=== PATIENT | female | born 1950 | race American Indian/Alaskan Native ===

== ENCOUNTER 2016-12-21 01:20 | Emergency (ER) | payer MEDICARE ==
[2016-12-21] MEDS ORDERED: ATIVAN IM ONE (05:15)
[2016-12-21] MEDS ORDERED: ATIVAN ONE (05:27)
[2016-12-21 06:37] LABS: Urine Drugs of Abuse Note Disclamer
[2016-12-21 06:42] LABS: Basophils % (Auto) 0.5 % (0.0-1.8); Eosinophils % (Auto) 0.3 % (0.0-4.3); Hematocrit 40.7 % (30.3-42.9); Hemoglobin 13.6 gm/dl (10.1-14.3); Mean Corpuscular HGB Conc 34 % (30-34); Mean Corpuscular Hemoglobin 31 pg (28-32); Mean Corpuscular Volume 92 fl (79-97); Platelet Count 181 K/mm3 (140-440); Red Blood Count 4.43 M/mm3 (3.65-5.03); Red Cell Distribution Width 14.7 % (13.2-15.2); White Blood Count 8.1 K/mm3 (4.5-11.0)
[2016-12-21 06:48] LABS: Bacteria,Urine 2+ /HPF (Negative); Bilirubin,Urine NEG (Negative); Blood,Urine SM (Negative); Ketones,Urine NEG (Negative); Leukocyte Esterase,Urine LG (Negative); Nitrite,Urine NEG (Negative); Protein,Urine <15 mg/dL mg/dL (Negative); Urobilinogen,Urine < 2.0 mg/dL (<2.0)
[2016-12-21 06:49] LABS: Alanine Aminotransferase 71 units/L (7-56); Albumin/Globulin Ratio 1.1 %; Alkaline Phosphatase 122 units/L (35-129); Anion Gap 24 mmol/L; BUN/Creatinine Ratio 22; Blood Urea Nitrogen 20 mg/dL (7-17); Calcium 9.9 mg/dL (8.4-10.2); Carbon Dioxide 22 mmol/L (22-30); Chloride 98.4 mmol/L (98-107); Glucose 182 mg/dL (65-100); Potassium 3.9 mmol/L (3.6-5.0); Sodium 140 mmol/L (137-145); Total Protein 7.8 g/dL (6.3-8.2)
[2016-12-21] MEDS ORDERED: NORMODYNE IV ONE (07:08)
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
[2016-12-21] MEDS ORDERED: GEODON IM ONE ×2 (09:01→09:05)
[2016-12-21] MEDS ORDERED: ROCEPHIN/NS 1 GM/50 ML 1 GM/50 ML BAG IV ONE (10:36)
[2016-12-21] MEDS ORDERED: MAGNESIUM SULFATE 2GM/50ML 2 GM/50 ML BAG IV ONE (10:36)
[2016-12-21] MEDS ORDERED: NACL 0.9% 250ML 250 ML ONE (11:06)
[2016-12-21] MEDS ORDERED: HALDOL IM ONE (16:33)
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
[2016-12-21] MEDS ORDERED: HALDOL PO SCH (22:00)
[2016-12-22] MEDS ORDERED: BENADRYL IM ONE (04:11)
[2016-12-22] MEDS ORDERED: GEODON IM ONE (04:12)
[2016-12-22] MEDS: HALDOL IM PRN ×2 (09:14→23:00)
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
[2016-12-22] MEDS ORDERED: HALDOL PO SCH (22:00)
[2016-12-23] MEDS ORDERED: BENADRYL IM ONE (03:01)
[2016-12-23] MEDS ORDERED: ATIVAN PO ONE (09:59)
[2016-12-23] MEDS ORDERED: NORMODYNE PO ONE (09:59)
[2016-12-23] MEDS ORDERED: HALDOL PO SCH (10:00)
[2016-12-23] MEDS: HALDOL IM PRN (10:15)
[2016-12-23 10:20] LABS: Alanine Aminotransferase 58 units/L (7-56); Alkaline Phosphatase 106 units/L (35-129)
[2016-12-23] MEDS ORDERED: ATIVAN IV ONE (10:37)
[2016-12-23] MEDS ORDERED: NORMODYNE IV ONE ×2 (10:38→10:43)
[2016-12-23 11:52] VITALS: BP 126/100
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
== END 2016-12-23 11:54 ==
LOC: EEVIPCON 01:20 → ED 01:20
DX: F31.9 Bipolar disorder, unspecified (principal); N39.0 Urinary tract infection, site not specified; E83.42 Hypomagnesemia; I10 Essential (primary) hypertension; E11.9 Type 2 diabetes mellitus without complications
CPT/HCPCS: 36415; 80053; 80307; 81001; 83735; 84075; 84443; 84450; 84460; 85025; 87086; 93005; 93010; 96365; 96367; 96372; 96375; 99285; G0480; J0696; J1200; J1630; J2060; J3475; J3486; J7050; 80320

== ENCOUNTER 2017-04-17 21:57 | Emergency (ER) | payer MEDICARE ==
[2017-04-18] MEDS ORDERED: HALDOL ONE (00:11)
[2017-04-18] MEDS ORDERED: ATIVAN ONE (00:12)
[2017-04-18] MEDS ORDERED: ATIVAN IM ONE ×2 (00:38→01:42)
[2017-04-18] MEDS ORDERED: HALDOL IM ONE (00:38)
[2017-04-18] MEDS ORDERED: BENADRYL ONE (01:31)
[2017-04-18] MEDS ORDERED: BENADRYL IM ONE (01:42)
[2017-04-18] MEDS ORDERED: CATAPRES PO ONE ×2 (07:30→07:46)
[2017-04-18] MEDS ORDERED: NACL 0.9% 500 ML 500 ML IV ONE (07:45)
[2017-04-18] MEDS ORDERED: ATIVAN IV ONE ×5 (07:45→15:53)
[2017-04-18] MEDS ORDERED: GEODON IM ONE (07:46)
[2017-04-18 10:43] LABS: Bacteria,Urine 1+ /HPF (Negative); Bilirubin,Urine NEG (Negative); Blood,Urine NEG (Negative); Color,Urine Yellow (Yellow); Nitrite,Urine NEG (Negative); Protein,Urine <15 mg/dL mg/dL (Negative); Urobilinogen,Urine < 2.0 mg/dL (<2.0)
[2017-04-18 10:50] LABS: Amphetamine Screen,Urine PRESUMPTIVE NEGATIVE; Benzodiazepines Screen,Urine PRESUMPTIVE NEGATIVE; Cannabinoid Screen,Urine PRESUMPTIVE NEGATIVE; Cocaine Screen,Urine PRESUMPTIVE NEGATIVE; Methadone Screen,Urine PRESUMPTIVE NEGATIVE; Opiate Screen,Urine PRESUMPTIVE NEGATIVE
[2017-04-18 12:22] LABS: Basophils # (Auto) 0.1 K/mm3 (0.0-0.1); Basophils % (Auto) 0.8 % (0.0-1.8); Eosinophils # (Auto) 0.1 K/mm3 (0.0-0.4); Hematocrit 40.5 % (30.3-42.9); Hemoglobin 14.1 gm/dl (10.1-14.3); Lymphocytes # (Auto) 2.6 K/mm3 (1.2-5.4); Lymphocytes % (Auto) 36.7 % (13.4-35.0); Mean Corpuscular HGB Conc 35 % (30-34); Mean Corpuscular Hemoglobin 32 pg (28-32); Mean Corpuscular Volume 92 fl (79-97); Monocytes # (Auto) 0.6 K/mm3 (0.0-0.8); Red Blood Count 4.41 M/mm3 (3.65-5.03); Red Cell Distribution Width 13.9 % (13.2-15.2)
[2017-04-18 12:26] LABS: Platelet Count 162 K/mm3 (140-440)
[2017-04-18 12:32] LABS: BUN/Creatinine Ratio 11; Blood Urea Nitrogen 10 mg/dL (7-17); Calcium 9.6 mg/dL (8.4-10.2); Hemolysis Index 65
[2017-04-18] MEDS ORDERED: MAGNESIUM SULFATE 2GM/50ML 2 GM/50 ML BAG IV ONE (12:53)
[2017-04-18] MEDS ORDERED: ROCEPHIN/NS 1 GM/50 ML 1 GM/50 ML BAG IV ONE (12:53)
[2017-04-18 13:10] LABS: INR 0.98 (0.87-1.13)
--- NOTE | 2017-04-18 14:22 | Emergency Department Report ---
ED Psych HPI - General Chief Complaint: Medical Clearance Stated Complaint: MH Time Seen by Provider: 04/18/17 07:27 Source: family Mode of arrival: Ambulatory - History of Present Illness Initial Comments: 67-year-old female with a past medical history of diabetes, hypertension, bipolar disorder and schizophrenia presents to the hospital with a manic episode. Daughter states that patient got up and move the night screaming and couldn't sleep. She tended to take patient to [facility] but no symptoms other region for medical clearance due to elevated blood pressure. Patient is frequent singing, hyperverbal, pacing back and forth upon arrival. She denies pain. Oriented to self. Positive delusions. - Related Data Home Medications Medication Instructions Recorded Confirmed Last Taken Divalproex [Eren Gonzalez] 500 mg PO BID 07/08/15 04/18/17 Unknown Previous Rx's Medication Instructions Recorded Last Taken Type Benztropine [Cogentin] 1 mg PO BID #60 tablet 05/25/15 Unknown Rx OLANzapine [ZyPREXA] 5 mg PO QDAY #30 tablet 05/25/15 Unknown Rx amLODIPine [Norvasc] 5 mg PO DAILY #30 tab 07/08/15 Unknown Rx Amoxicillin/K Clav Tab [Augmentin 1 tab PO Q12HR #20 tab 12/21/16 Unknown Rx 875 mg] Magnesium Oxide 400 mg PO BID #20 tablet 12/21/16 Unknown Rx Allergies Allergy/AdvReac Type Severity Reaction Status Date / Time No Known Allergies Allergy Verified 12/21/16 04:53 ED Review of Systems ROS: Stated complaint: MH Other details as noted in HPI Comment: Unobtainable due to pts medical conditions (limited due to psychosis) ED Past Medical Hx - Past Medical History Hx Hypertension: Yes Hx Diabetes: Yes Hx Psychiatric Treatment: Yes (multiple IP/bipolar) Hx HIV: No Additional medical history: osteoarthritis - Surgical History Additional Surgical History: KENYATTA - Social History Smoking Status: Never Smoker Substance Use Type: None - Medications Home Medications: Home Medications Medication Instructions Recorded Confirmed Last Taken Type Benztropine [Cogentin] 1 mg PO BID #60 tablet 05/25/15 04/18/17 Unknown Rx OLANzapine [ZyPREXA] 5 mg PO QDAY #30 tablet 05/25/15 04/18/[address] Nicko Gonzalez] 500 mg PO BID 07/08/15 04/18/17 Unknown History amLODIPine [Norvasc] 5 mg PO DAILY #30 tab 07/08/15 04/18/17 Unknown Rx Amoxicillin/K Clav Tab [Augmentin 1 tab PO Q12HR #20 tab 12/21/16 04/18/17 Unknown Rx 875 mg] Magnesium Oxide 400 mg PO BID #20 tablet 12/21/16 04/18/17 Unknown Rx ED Physical Exam - General Limitations: No Limitations - Other Other exam information: General: No limitations, patient is alert in no acute distress Head exam: Atraumatic, normocephalic Eyes exam: Normal appearance ENT: Moist mucous membrane, normal oropharynx Neck exam: Normal inspection, full range of motion, no meningismus nontender Respiratory exam: Clear to auscultation bilateral, no wheezes, rales, crackles Cardiovascular: Tachycardic irregular rhythm Abdomen: Soft, nondistended, and nontender, with normal bowel sounds, no rebound, or guarding Extremity: Full range of motion normal inspection no deformity Back: Normal Inspection, full range of motion, no tenderness Neurologic: Alert, oriented x3, cranial nerves intact, no motor or sensory deficit Psychiatric: Alert, hyperverbal, agitated, positive delusions and psychosis Skin: Warm, dry, intact ED Course Vital Signs 04/18/17 04/18/17 04/18/17 00:04 05:39 07:35 Temperature 98.7 F 97.6 F 98.1 F Pulse Rate 141 H 98 H 119 H Respiratory 30 H 18 20 Rate Blood Pressure Blood Pressure 220/136 200/110 195/122 [Left] O2 Sat by Pulse 98 96 98 Oximetry 04/18/17 04/18/17 08:35 10:40 Temperature Pulse Rate 113 H 111 H Respiratory Rate Blood Pressure 195/122 Blood Pressure 154/92 [Left] O2 Sat by Pulse Oximetry ED Medical Decision Making - Lab Data Result diagrams: 04/18/17 Unknown 04/18/17 Unknown Lab Results 04/18/17 04/18/17 04/18/17 Range/Units 05:30 05:30 12:33 WBC (4.5-11.0) K/mm3 RBC (3.65-5.03) M/mm3 Hgb (10.1-14.3) gm/dl Hct (30.3-42.9) % MCV (79-97) fl MCH (28-32) pg MCHC (30-34) % RDW (13.2-15.2) % Plt Count (140-440) K/mm3 Lymph % (Auto) (13.4-35.0) % [place] % (Auto) (0.0-7.3) % Eos % (Auto) (0.0-4.3) % Baso % (Auto) (0.0-1.8) % Lymph # (1.2-5.4) K/mm3 [place] # (0.0-0.8) K/mm3 Eos # (0.0-0.4) K/mm3 Baso # (0.0-0.1) K/mm3 Seg Neutrophils % (40.0-70.0) % Seg Neutrophils # (1.8-7.7) K/mm3 PT 13.5 (12.2-14.9) Sec. INR 0.98 (0.87-1.13) Sodium (137-145) mmol/L Potassium (3.6-5.0) mmol/L Chloride (98-107) mmol/L Carbon Dioxide (22-30) mmol/L Anion Gap mmol/L BUN (7-17) mg/dL Creatinine (0.7-1.2) mg/dL Estimated GFR ml/min BUN/Creatinine Ratio % Glucose (65-100) mg/dL POC Glucose (70-105) Calcium (8.4-10.2) mg/dL Magnesium (1.7-2.3) mg/dL Total Creatine Kinase (30-135) units/L TSH (0.270-4.200) mlU/mL Free T4 (0.76-1.46) ng/dL Urine Color Yellow (Yellow) Urine Turbidity Clear (Clear) Urine pH 6.0 (5.0-7.0) Ur Specific [place] 1.005 (1.003-1.030) Urine Protein <15 mg/dl (Negative) mg/dL Urine Glucose (UA) Neg (Negative) mg/dL Urine Ketones Neg (Negative) mg/dL Urine Blood Neg (Negative) Urine Nitrite Neg (Negative) Urine Bilirubin Neg (Negative) Urine Urobilinogen < 2.0 (<2.0) mg/dL Ur Leukocyte Esterase Lg (Negative) Urine WBC (Auto) 11.0 H (0.0-6.0) /HPF Urine RBC (Auto) 1.0 (0.0-6.0) /HPF U Epithel Cells (Auto) 1.0 (0-13.0) /HPF Urine Bacteria (Auto) 1+ (Negative) /HPF Salicylates (2.8-20.0) mg/dL Urine Opiates Screen Presumptive negative Urine Methadone Screen Presumptive negative Acetaminophen (10.0-30.0) ug/mL Ur Barbiturates Screen Presumptive negative Valproic Acid (50-100) ug/mL Ur Phencyclidine Scrn Presumptive negative Ur Amphetamines Screen Presumptive negative U Benzodiazepines Scrn Presumptive negative Urine Cocaine Screen Presumptive negative U Marijuana (THC) Screen Presumptive negative Drugs of Abuse Note Disclamer Plasma/Serum Alcohol (0-0.07) % 04/18/17 04/18/17 04/18/17 Range/Units 13:41 Unknown Unknown WBC 7.0 (4.5-11.0) K/mm3 RBC 4.41 (3.65-5.03) M/mm3 Hgb 14.1 (10.1-14.3) gm/dl Hct 40.5 (30.3-42.9) % MCV 92 (79-97) fl MCH 32 (28-32) pg MCHC 35 H (30-34) % RDW 13.9 (13.2-15.2) % Plt Count 162 (140-440) K/mm3 Lymph % (Auto) 36.7 H (13.4-35.0) % [place] % (Auto) 8.0 H (0.0-7.3) % Eos % (Auto) 1.0 (0.0-4.3) % Baso % (Auto) 0.8 (0.0-1.8) % Lymph # 2.6 (1.2-5.4) K/mm3 [place] # 0.6 (0.0-0.8) K/mm3 Eos # 0.1 (0.0-0.4) K/mm3 Baso # 0.1 (0.0-0.1) K/mm3 Seg Neutrophils % 53.5 (40.0-70.0) % Seg Neutrophils # 3.7 (1.8-7.7) K/mm3 PT (12.2-14.9) Sec. INR (0.87-1.13) Sodium 142 (137-145) mmol/L Potassium 4.1 (3.6-5.0) mmol/L Chloride 102.1 (98-107) mmol/L Carbon Dioxide 26 (22-30) mmol/L Anion Gap 18 mmol/L BUN 10 (7-17) mg/dL Creatinine 0.9 (0.7-1.2) mg/dL Estimated GFR > 60 ml/min BUN/Creatinine Ratio 11 % Glucose 96 (65-100) mg/dL POC Glucose 188 H (70-105) Calcium 9.6 (8.4-10.2) mg/dL Magnesium 1.60 L (1.7-2.3) mg/dL Total Creatine Kinase (30-135) units/L TSH (0.270-4.200) mlU/mL Free T4 (0.76-1.46) ng/dL Urine Color (Yellow) Urine Turbidity (Clear) Urine pH (5.0-7.0) Ur Specific [place] (1.003-1.030) Urine Protein (Negative) mg/dL Urine Glucose (UA) (Negative) mg/dL Urine Ketones (Negative) mg/dL Urine Blood (Negative) Urine Nitrite (Negative) Urine Bilirubin (Negative) Urine Urobilinogen (<2.0) mg/dL Ur Leukocyte Esterase (Negative) Urine WBC (Auto) (0.0-6.0) /HPF Urine RBC (Auto) (0.0-6.0) /HPF U Epithel Cells (Auto) (0-13.0) /HPF Urine Bacteria (Auto) (Negative) /HPF Salicylates (2.8-20.0) mg/dL Urine Opiates Screen Urine Methadone Screen Acetaminophen (10.0-30.0) ug/mL Ur Barbiturates Screen Valproic Acid (50-100) ug/mL Ur Phencyclidine Scrn Ur Amphetamines Screen U Benzodiazepines Scrn Urine Cocaine Screen U Marijuana (THC) Screen Drugs of Abuse Note Plasma/Serum Alcohol (0-0.07) % 04/18/17 04/18/17 04/18/17 Range/Units Unknown Unknown Unknown WBC (4.5-11.0) K/mm3 RBC (3.65-5.03) M/mm3 Hgb (10.1-14.3) gm/dl Hct (30.3-42.9) % MCV (79-97) fl MCH (28-32) pg MCHC (30-34) % RDW (13.2-15.2) % Plt Count (140-440) K/mm3 Lymph % (Auto) (13.4-35.0) % [place] % (Auto) (0.0-7.3) % Eos % (Auto) (0.0-4.3) % Baso % (Auto) (0.0-1.8) % Lymph # (1.2-5.4) K/mm3 [place] # (0.0-0.8) K/mm3 Eos # (0.0-0.4) K/mm3 Baso # (0.0-0.1) K/mm3 Seg Neutrophils % (40.0-70.0) % Seg Neutrophils # (1.8-7.7) K/mm3 PT (12.2-14.9) Sec. INR (0.87-1.13) Sodium (137-145) mmol/L Potassium (3.6-5.0) mmol/L Chloride (98-107) mmol/L Carbon Dioxide (22-30) mmol/L Anion Gap mmol/L BUN (7-17) mg/dL Creatinine (0.7-1.2) mg/dL Estimated GFR ml/min BUN/Creatinine Ratio % Glucose (65-100) mg/dL POC Glucose (70-105) Calcium (8.4-10.2) mg/dL Magnesium (1.7-2.3) mg/dL Total Creatine Kinase (30-135) units/L TSH (0.270-4.200) mlU/mL Free T4 (0.76-1.46) ng/dL Urine Color (Yellow) Urine Turbidity (Clear) Urine pH (5.0-7.0) Ur Specific [place] (1.003-1.030) Urine Protein (Negative) mg/dL Urine Glucose (UA) (Negative) mg/dL Urine Ketones (Negative) mg/dL Urine Blood (Negative) Urine Nitrite (Negative) Urine Bilirubin (Negative) Urine Urobilinogen (<2.0) mg/dL Ur Leukocyte Esterase (Negative) Urine WBC (Auto) (0.0-6.0) /HPF Urine RBC (Auto) (0.0-6.0) /HPF U Epithel Cells (Auto) (0-13.0) /HPF Urine Bacteria (Auto) (Negative) /HPF Salicylates < 0.3 L (2.8-20.0) mg/dL Urine Opiates Screen Urine Methadone Screen Acetaminophen < 15.0 (10.0-30.0) ug/mL Ur Barbiturates Screen Valproic Acid 64.5 (50-100) ug/mL Ur Phencyclidine Scrn Ur Amphetamines Screen U Benzodiazepines Scrn Urine Cocaine Screen U Marijuana (THC) Screen Drugs of Abuse Note Plasma/Serum Alcohol < 0.01 (0-0.07) % 04/18/17 04/18/17 Range/Units Unknown Unknown WBC (4.5-11.0) K/mm3 RBC (3.65-5.03) M/mm3 Hgb (10.1-14.3) gm/dl Hct (30.3-42.9) % MCV (79-97) fl MCH (28-32) pg MCHC (30-34) % RDW (13.2-15.2) % Plt Count (140-440) K/mm3 Lymph % (Auto) (13.4-35.0) % [place] % (Auto) (0.0-7.3) % Eos % (Auto) (0.0-4.3) % Baso % (Auto) (0.0-1.8) % Lymph # (1.2-5.4) K/mm3 [place] # (0.0-0.8) K/mm3 Eos # (0.0-0.4) K/mm3 Baso # (0.0-0.1) K/mm3 Seg Neutrophils % (40.0-70.0) % Seg Neutrophils # (1.8-7.7) K/mm3 PT (12.2-14.9) Sec. INR (0.87-1.13) Sodium (137-145) mmol/L Potassium (3.6-5.0) mmol/L Chloride (98-107) mmol/L Carbon Dioxide (22-30) mmol/L Anion Gap mmol/L BUN (7-17) mg/dL Creatinine (0.7-1.2) mg/dL Estimated GFR ml/min BUN/Creatinine Ratio % Glucose (65-100) mg/dL POC Glucose (70-105) Calcium (8.4-10.2) mg/dL Magnesium (1.7-2.3) mg/dL Total Creatine Kinase 548 H (30-135) units/L TSH 1.930 (0.270-4.200) mlU/mL Free T4 1.50 H (0.76-1.46) ng/dL Urine Color (Yellow) Urine Turbidity (Clear) Urine pH (5.0-7.0) Ur Specific [place] (1.003-1.030) Urine Protein (Negative) mg/dL Urine Glucose (UA) (Negative) mg/dL Urine Ketones (Negative) mg/dL Urine Blood (Negative) Urine Nitrite (Negative) Urine Bilirubin (Negative) Urine Urobilinogen (<2.0) mg/dL Ur Leukocyte Esterase (Negative) Urine WBC (Auto) (0.0-6.0) /HPF Urine RBC (Auto) (0.0-6.0) /HPF U Epithel Cells (Auto) (0-13.0) /HPF Urine Bacteria (Auto) (Negative) /HPF Salicylates (2.8-20.0) mg/dL Urine Opiates Screen Urine Methadone Screen Acetaminophen (10.0-30.0) ug/mL Ur Barbiturates Screen Valproic Acid (50-100) ug/mL Ur Phencyclidine Scrn Ur Amphetamines Screen U Benzodiazepines Scrn Urine Cocaine Screen U Marijuana (THC) Screen Drugs of Abuse Note Plasma/Serum Alcohol (0-0.07) % - EKG Data -: EKG Interpreted by Me EKG shows normal: sinus rhythm, axis (81), QRS complexes (91), ST-T waves (no stemi) Rate: normal (90) - EKG Data When compared to previous EKG there are: no significant change - Medical Decision Making I suspect the patient has hypertension and tachycardia related to acute psychosis with manic episode. Improving with sedative treatment, blood pressure medication, and antipsychotics. Patient signout Dr. Hughes to follow- up for resolution of tachycardia prior to medical clearance. Patient has been accepted to [facility] pending medical clearance to be transferred to [place] [facility] Patient received Rocephin for UTI and Macrobid will be continued. She received IV magnesium for mild hypomagnesemia and 1 L normal saline Heart rate increased to 90 once patient was calm down after multiple doses of Ativan. - Differential Diagnosis psychosis, schizophrenia, deyanira, dehydration, anemia Critical Care Time: No Critical care attestation.: If time is entered above; I have spent that time in minutes in the direct care of this critically ill patient, excluding procedure time. ED Disposition Clinical Impression: Psychosis, UTI (urinary tract infection), Bipolar disorder, Manic episode, Hypomagnesemia, Medical clearance for psychiatric admission, Hypertension Disposition: DC/TX-65 PSY HOSP/PSY UNIT Is pt being admited?: No Condition: Stable Time of Disposition: 16:33 (awaiting transport)
[2017-04-18] MEDS ORDERED: cefTRIAXone 1 GM in NACL 0.9% 20 ML IV ONE (14:30)
[2017-04-18 15:21] LABS: Free T4 (Free Thyroxine) 1.5 ng/dL (0.76-1.46)
[2017-04-18 19:05] VITALS: BP 138/85
[2017-04-18] MEDS ORDERED: MACROBID PO SCH (22:00)
== END 2017-04-18 21:25 ==
LOC: EEVIPCON 21:57 → ED 21:57
DX: F31.9 Bipolar disorder, unspecified (principal); F30.9 Manic episode, unspecified; F29 Unspecified psychosis not due to a substance or known physiological condition; I10 Essential (primary) hypertension; N39.0 Urinary tract infection, site not specified; E83.42 Hypomagnesemia; E11.9 Type 2 diabetes mellitus without complications; M19.90 Unspecified osteoarthritis, unspecified site
CPT/HCPCS: 36415; 80048; 80164; 80307; 81001; 82550; 82962; 83735; 84439; 84443; 85025; 85610; 87076; 87086; 87186; 93005; 93010; 96361; 96365; 96372; 96375; 96376; 99285; G0480; J0696; J1200; J1630; J2060; J3475; J3486; J7040; 80320

== ENCOUNTER 2017-07-24 06:54 | Inpatient (IN) | payer MEDICARE ==
[2017-07-24] MEDS ORDERED: ATIVAN IM ONE ×2 (07:32→23:51)
--- NOTE | 2017-07-24 07:36 | Emergency Department Report ---
ED Psych HPI - General Chief Complaint: Psych Stated Complaint: MH EVAL Time Seen by Provider: 07/24/17 07:28 Source: EMS Mode of arrival: Wheelchair - History of Present Illness Initial Comments: History of schizophrenia with bipolar was found screaming with worsening for psychosis wandering and screaming brought in for evaluation of altered mental status history of bipolar and schizophrenia patient arrives unable to cooperate for further history, arrives awake and alert and verbal uncooperative w/ exam and queestions but acute psychosis and paranoid delusions -: unknown Associated Psychiatric Symptoms: racing thoughts, auditory hallucinations Improves With: none Worsens With: none Treatments Prior to Arrival: placed on mental he If Self Harm: admits thoughts of - Related Data Home Medications Medication Instructions Recorded Confirmed Last Taken Divalproex [Eren Gonzalez] 500 mg PO BID 07/08/15 05/13/17 05/10/17 09:00 500 Invega 6 mg PO QHS 05/13/17 05/13/17 05/10/17 21:00 6mg Remeron 15 mg PO HS 05/13/17 05/13/17 05/08/17 21:00 15mg Previous Rx's Medication Instructions Recorded Last Taken Type Benztropine [Cogentin] 1 mg PO BID #60 tablet 05/25/15 05/09/17 21:00 Rx 0.5mg amLODIPine [Norvasc] 5 mg PO DAILY #30 tab 07/08/15 05/10/17 Rx 10mg Amoxicillin/K Clav Tab [Augmentin 1 tab PO Q12HR #20 tab 12/21/16 05/12/17 22: 00 Rx 875MG TAB] 875mg Magnesium Oxide 400 mg PO BID #20 tablet 12/21/16 05/10/17 Rx 400mg Haloperidol [Haldol] 15 mg PO QHS #30 tablet 05/14/17 Unknown Rx Allergies Allergy/AdvReac Type Severity Reaction Status Date / Time No Known Allergies Allergy Verified 12/21/16 04:53 ED Review of Systems ROS: Stated complaint: MH EVAL Other details as noted in HPI Comment: Unobtainable due to pts medical conditions ED Past Medical Hx - Past Medical History Previous Medical History?: Yes Hx Hypertension: Yes Hx Diabetes: Yes Hx Psychiatric Treatment: Yes (multiple IP/bipolar) Hx HIV: No Additional medical history: osteoarthritis - Surgical History Past Surgical History?: No Additional Surgical History: KENYATTA - Social History Smoking Status: Unknown if ever smoked - Medications Home Medications: Home Medications Medication Instructions Recorded Confirmed Last Taken Type Benztropine [Cogentin] 1 mg PO BID #60 tablet 05/25/15 05/13/17 05/09/17 21:[address] [Depakote Dr] 500 mg PO BID 07/08/15 05/13/17 05/10/17 09:00 History 500 amLODIPine [Norvasc] 5 mg PO DAILY #30 tab 07/08/15 05/13/17 05/10/17 Rx 10mg Amoxicillin/K Clav Tab [Augmentin 1 tab PO Q12HR #20 tab 12/21/16 05/13/1705/12 22:00 Rx 875MG TAB] 875mg Magnesium Oxide 400 mg PO BID #20 tablet 12/21/16 05/13/17 05/10/17 Rx 400mg Invega 6 mg PO QHS 05/13/17 05/13/17 05/10/17 21:00 History 6mg Remeron 15 mg PO HS 05/13/17 05/13/17 05/08/17 21:00 History 15mg Haloperidol [Haldol] 15 mg PO QHS #30 tablet 05/14/17 Unknown Rx ED Physical Exam - General Limitations: No Limitations General appearance: alert, anxious - Head Head exam: Present: atraumatic, normocephalic - Eye Eye exam: Present: PERRL, EOMI - ENT ENT exam: Present: normal exam, normal orophraynx - Neck Neck exam: Present: normal inspection. Absent: tenderness, meningismus - Respiratory Respiratory exam: Present: normal lung sounds bilaterally. Absent: respiratory distress, wheezes, rales, rhonchi, stridor, chest wall tenderness, accessory muscle use, decreased breath sounds, prolonged expiratory - Cardiovascular Cardiovascular Exam: Present: regular rate, normal rhythm - GI/Abdominal GI/Abdominal exam: Present: soft. Absent: distended, tenderness, guarding, rebound, rigid, mass, pulsatile mass - Extremities Exam Extremities exam: Present: normal inspection, normal capillary refill. Absent: pedal edema, joint swelling, calf tenderness - Back Exam Back exam: Present: normal inspection. Absent: tenderness, CVA tenderness (R) - Neurological Exam Neurological exam: Present: alert, CN II-XII intact. Absent: motor sensory deficit - Psychiatric Psychiatric exam: Present: depressed, agitated, anxious, flat affect, suicidal ideation, other (psychoi=sis) ED Course Vital Signs 07/24/17 07/24/17 07/24/17 07:32 10:30 10:38 Temperature 97.8 F Pulse Rate 124 H 124 H Respiratory 18 18 Rate Blood Pressure 182/111 Blood Pressure 182/111 [Left] O2 Sat by Pulse 99 Oximetry ED Medical Decision Making - Lab Data Result diagrams: 07/24/17 08:04 07/24/17 08:04 - EKG Data -: EKG Interpreted by Me - EKG Data When compared to previous EKG there are: no significant change - Medical Decision Making ct head chornic changes, mild dehydration improved in ed, no rhabdo noted, mild renal insuff and mild decreasing lacitic acid w/ ivf all c/w mild dehdraiotn and med cleared for psych eval, no acute emergent organic dz noted at this time and will neeed psych eval for 10`13 tyler [id number] psychosis Critical care attestation.: If time is entered above; I have spent that time in minutes in the direct care of this critically ill patient, excluding procedure time. ED Disposition Clinical Impression: Psychosis, Bipolar disorder Disposition: DC/TX-65 PSY HOSP/PSY UNIT Is pt being admited?: No Condition: Stable Time of Disposition: 15:47
--- NOTE | 2017-07-24 08:18 | Cat Scan Report ---
CT scan of head without IV contrast: History: Altered mental status. Findings: Ventricles are normal in size and midline in location. No evidence of acute ischemic, hemorrhage or mass. No extra axial fluid collection. Normal brainstem and cerebellum. Normal sinuses and mastoid air cells. Impression: No acute intracranial abnormality.
[2017-07-24 08:45] LABS: Basophils # (Auto) 0.1 K/mm3 (0.0-0.1); Basophils % (Auto) 0.9 % (0.0-1.8); Eosinophils % (Auto) 0.1 % (0.0-4.3); Hematocrit 42.4 % (30.3-42.9); Hemoglobin 14.1 gm/dl (10.1-14.3); Lymphocytes % (Auto) 22.6 % (13.4-35.0); Mean Corpuscular HGB Conc 33 % (30-34); Mean Corpuscular Hemoglobin 32 pg (28-32); Mean Corpuscular Volume 95 fl (79-97); Monocytes # (Auto) 0.9 K/mm3 (0.0-0.8); Monocytes % (Auto) 9.5 % (0.0-7.3); Red Blood Count 4.46 M/mm3 (3.65-5.03); Red Cell Distribution Width 14.6 % (13.2-15.2)
[2017-07-24 08:59] LABS: INR 0.98 (0.87-1.13)
[2017-07-24 09:00] LABS: Partial Thromboplastin Time 23.1 Sec. (24.2-36.6)
[2017-07-24 09:05] LABS: Alanine Aminotransferase 17 units/L (7-56); Albumin 3.9 g/dL (3.9-5); BUN/Creatinine Ratio 18; Blood Urea Nitrogen 24 mg/dL (7-17); Calcium 10.2 mg/dL (8.4-10.2); Hemolysis Index 42
[2017-07-24 09:13] LABS: Platelet Count 184 K/mm3 (140-440)
[2017-07-24] MEDS ORDERED: CATAPRES PO ONE (10:33)
[2017-07-24] MEDS ORDERED: HALDOL ONE (11:19)
[2017-07-24] MEDS ORDERED: BENADRYL IM ONE (11:20)
[2017-07-24] MEDS ORDERED: HALDOL IM ONE ×3 (11:20→23:51)
[2017-07-24 12:11] LABS: Bilirubin,Urine NEG (Negative); Blood,Urine NEG (Negative); Color,Urine Yellow (Yellow); Protein,Urine <15 mg/dL mg/dL (Negative); RBC,Urine < 1.0 /HPF (0.0-6.0); Urobilinogen,Urine < 2.0 mg/dL (<2.0)
[2017-07-24 12:24] LABS: Amphetamine Screen,Urine PRESUMPTIVE NEGATIVE; Benzodiazepines Screen,Urine PRESUMPTIVE NEGATIVE; Cannabinoid Screen,Urine PRESUMPTIVE NEGATIVE; Cocaine Screen,Urine PRESUMPTIVE NEGATIVE; Methadone Screen,Urine PRESUMPTIVE NEGATIVE; Opiate Screen,Urine PRESUMPTIVE NEGATIVE
[2017-07-24] MEDS ORDERED: NACL 0.9% 1000 ML 1,000 ML IV ONE ×2 (12:31→14:54)
[2017-07-24 15:59] LABS: BUN/Creatinine Ratio 22; Blood Urea Nitrogen 20 mg/dL (7-17); Calcium 9.9 mg/dL (8.4-10.2); Hemolysis Index 31
[2017-07-24] MEDS ORDERED: NORVASC PO ONE (22:03)
[2017-07-24] MEDS ORDERED: ZESTRIL PO ONE (22:03)
--- NOTE | 2017-07-25 01:46 | Emergency Department Report ---
Blank Doc - Documentation Documentation: I evaluated Ms. Galvan. She had persistent agitation and pressured speech. She has required chemical and physicial restraints.
[2017-07-25] MEDS ORDERED: DUONEB *Not for PRN Use IH ONE (03:12)
[2017-07-25] MEDS ORDERED: NORMODYNE IV ONE ×2 (06:47→09:56)
[2017-07-25] MEDS ORDERED: ATIVAN IV ONE ×3 (06:49→20:04)
[2017-07-25] MEDS ORDERED: CARDENE 50 MG in NACL 0.9% 250ML 230 ML IV SCH (11:00)
[2017-07-25] MEDS ORDERED: APRESOLINE IV PRN (11:38)
[2017-07-25] MEDS ORDERED: APRESOLINE IV ONE (11:45)
[2017-07-25] MEDS ORDERED: CATAPRES PO ONE (11:45)
[2017-07-25] MEDS ORDERED: ATIVAN IV PRN (11:46)
--- NOTE | 2017-07-25 11:55 | History and Physical Report ---
History of Present Illness Date of examination: 07/25/17 Date of admission: 07/25/17 Chief complaint: Psychotic behavior/wandering on the streets/uncontrolled blood pressures History of present illness: 67-year-old female patient with significant past medical history of bipolar disorder, schizoaffective disorder With multiple inpatient psych hospital admissions in the past, was brought to the emergency room with history of acute psychosis with the screaming and shouting and wandering, Patient was evaluated in the ED noted to have uncontrolled blood pressures. Peak blood pressure of 216/130, with mild improvement on IV antihypertensives to 171/101. Patient is psychotic, has been hallucinating, agitated, on 1013 status Past History Past Medical History: hypertension, other (bipolar disorder, schizophrenia) Past Surgical History: No surgical history Social history: denies: smoking, alcohol abuse, prescription drug abuse Family history: denies: diabetes, hypertension Medications and Allergies Allergies Allergy/AdvReac Type Severity Reaction Status Date / Time No Known Allergies Allergy Verified 12/21/16 04:53 Home Medications Medication Instructions Recorded Confirmed Last Taken Type Benztropine [Cogentin] 1 mg PO BID #60 tablet 05/25/15 05/13/17 05/09/17 21:00 Rx 0.5mg Divalproex [Eren Gonzalez] 500 mg PO BID 07/08/15 05/13/17 05/10/17 09:00 History 500 amLODIPine [Norvasc] 5 mg PO DAILY #30 tab 07/08/15 05/13/17 05/10/17 Rx 10mg Amoxicillin/K Clav Tab [Augmentin 1 tab PO Q12HR #20 tab 12/21/16 05/13/1705/12 22:00 Rx 875MG TAB] 875mg Magnesium Oxide 400 mg PO BID #20 tablet 12/21/16 05/13/17 05/10/17 Rx 400mg Invega 6 mg PO QHS 05/13/17 05/13/17 05/10/17 21:00 History 6mg Remeron 15 mg PO HS 05/13/17 05/13/17 05/08/17 21:00 History 15mg Haloperidol [Haldol] 15 mg PO QHS #30 tablet 05/14/17 Unknown Rx Active Meds: Active Medications Clonidine HCl (Catapres) 0.1 mg PO Q8H ESAU Famotidine (Pepcid) 20 mg PO BID ESAU Hydralazine HCl (Apresoline) 50 mg PO Q8HR ESAU Hydralazine HCl (Apresoline) 10 mg IV Q4HR PRN PRN Reason: Hypertension Nicardipine HCl 50 mg/ Sodium (Chloride) 250 mls @ 25 mls/hr IV TITR ESAU; Protocol Sodium Chloride (Nacl 0.9% 1000 Ml) 1,000 mls @ 75 mls/hr IV DIRECT ESAU Lorazepam (Ativan) 1 mg IV Q4H PRN PRN Reason: Agitation Review of Systems ROS unobtainable: due to mental status Exam - Constitutional Vitals: Temp Pulse Resp BP Pulse Ox 98.2 F 86 18 187/114 99 07/25/17 08:30 07/25/17 08:30 07/25/17 08:30 07/25/17 08:30 07/25/17 08:30 General appearance: Present: mild distress, other (agitated, screaming, restrained for safety) - EENT Eyes: Present: PERRL, EOM intact - Neck Neck: Present: supple, normal ROM - Respiratory Respiratory effort: normal Respiratory: negative: rales, rhonchi, wheezing - Cardiovascular Rhythm: regular Heart Sounds: Present: S1 & S2 - Extremities Extremities: no ischemia, No edema - Abdominal General gastrointestinal: Present: soft, non-tender, non-distended, normal bowel sounds - Integumentary Integumentary: Present: clear, warm - Musculoskeletal Musculoskeletal: strength equal bilaterally - Psychiatric Psychiatric: agitated, other (aggressive and psychotic) - Neurologic Neurologic: moves all extremities Results - Labs CBC & Chem 7: 07/24/17 08:04 07/24/17 15:13 Labs: Abnormal lab results 07/24/17 07/24/17 07/24/17 Range/Units 08:04 11:22 11:55 Carbon Dioxide (22-30) mmol/L BUN (7-17) mg/dL Glucose (65-100) mg/dL POC Glucose (70-105) Lactic Acid 5.00 H* 4.20 H* (0.7-2.0) mmol/L Total Creatine Kinase 349 H (30-135) units/L 07/24/17 07/24/17 07/24/17 Range/Units 13:13 15:13 15:13 Carbon Dioxide 21 L (22-30) mmol/L BUN 20 H (7-17) mg/dL Glucose 140 H (65-100) mg/dL POC Glucose (70-105) Lactic Acid 2.50 H* 2.20 H* (0.7-2.0) mmol/L Total Creatine Kinase (30-135) units/L 07/24/17 07/24/17 Range/Units 16:12 22:03 Carbon Dioxide (22-30) mmol/L BUN (7-17) mg/dL Glucose (65-100) mg/dL POC Glucose 138 H (70-105) Lactic Acid 2.20 H* (0.7-2.0) mmol/L Total Creatine Kinase (30-135) units/L Assessment and Plan --Hypertensive urgency; Management with antihypertensives, hydralazine oral, IV when necessary, clonidine Beta blockers, supportive care --History of bipolar disorder; resume home medications Psych evaluation --Acute psychosis/agitation/aggression/hallucinations 1013 status for patient safety, psych evaluation --Lactic acidosis; unknown significance, closely monitor --Acute kidney injury; vasomotor nephropathy, significantly improved Gentle hydration, monitor renal function, avoid nephrotoxins --DVT prophylaxis; Lovenox --weight reduction specialist Closely monitor the patient and adjust the management as needed Patient may be discharged to inpatient psych facility once medically stable Follow psych evaluation and recommendations
--- NOTE | 2017-07-25 14:47 | Consultation ---
History of Present Illness - Reason for Consult Consult date: 07/25/17 Reason for consult: Initial Psychiatric Evaluation - History of Present Psychiatric Illness Betsey is a 67 year old AAF who presents to the emergency room with psychosis. Patient has a PPHx of Schizoaffective Disorder, Bipolar Type. Patient is known to provider. Patient has an extensive psychiatric history. She has been hospitalized to several inpatient psychiatric facilities. Provider unable to assess patient secondary to agitation. Patient yelling and screaming. She states " They're trying to kill us. All of us." Refusing to speak with provider . Patient does not answer questions appropriately. In the past 2 anti- psychotics have been needed to stabilize patient symptoms. Provider will attempt to reassess at a later time/date. Blood pressure upon arrival 182/111 and pulse 124. Patient not medically cleared. Past Psychiatric History: Schizoaffective Disorder, Bipolar Type (unknown); More than 10 previous inpatient psychiatric hospitalizations; [facility]- previous suicide attempts; [facility]- outpatient psychiatrist History of Trauma/Abuse: Unable to assess. Drug/Alcohol History: Unable to assess. UDS negative. Social History: Unable to Assess. Family History: Unable to Assess. Medications and Allergies Allergies Allergy/AdvReac Type Severity Reaction Status Date / Time No Known Allergies Allergy Verified 12/21/16 04:53 Home Medications Medication Instructions Recorded Confirmed Last Taken Type Benztropine [Cogentin] 1 mg PO BID #60 tablet 05/25/15 05/13/17 05/09/17 21:00 Rx 0.5mg Divalproex [Eren Gonzalez] 500 mg PO BID 07/08/15 05/13/17 05/10/17 09:00 History 500 amLODIPine [Norvasc] 5 mg PO DAILY #30 tab 07/08/15 05/13/17 05/10/17 Rx 10mg Amoxicillin/K Clav Tab [Augmentin 1 tab PO Q12HR #20 tab 12/21/16 05/13/1705/12 22:00 Rx 875MG TAB] 875mg Magnesium Oxide 400 mg PO BID #20 tablet 12/21/16 05/13/17 05/10/17 Rx 400mg Invega 6 mg PO QHS 05/13/17 05/13/17 05/10/17 21:00 History 6mg Remeron 15 mg PO HS 03/09/2305/13/17 05/08/17 21:00 History 15mg Haloperidol [Haldol] 15 mg PO QHS #30 tablet 05/14/17 Unknown Rx Active Meds: Active Medications Clonidine HCl (Catapres) 0.1 mg PO Q8H ESAU Famotidine (Pepcid) 20 mg PO BID ESAU Hydralazine HCl (Apresoline) 50 mg PO Q8HR ESAU Hydralazine HCl (Apresoline) 10 mg IV Q4HR PRN PRN Reason: Hypertension Nicardipine HCl 50 mg/ Sodium (Chloride) 250 mls @ 25 mls/hr IV TITR ESAU; Protocol Sodium Chloride (Nacl 0.9% 1000 Ml) 1,000 mls @ 75 mls/hr IV DIRECT ESAU Lorazepam (Ativan) 1 mg IV Q4H PRN PRN Reason: Agitation Mental Status Exam - Vital signs Last Vital Signs Temp 98.2 F 07/25/17 08:30 Pulse 103 H 07/25/17 14:00 Resp 18 07/25/17 08:30 BP 143/89 07/25/17 14:00 Pulse Ox 98 07/25/17 08:30 - Exam Narrative exam: Mental Status Exam General Appearance: Causally Dressed-hospital gown, 4 point restraints Eye Contact: Poor Orientation: Alert and oriented x 1 ( person) Attitude/Behavior: Uncooperative Sensorium: Distracted Psychomotor & Musculoskeletal Activity: Agitated Mood: Labile, agitated, angry Affect: Inappropriate Speech/Language: Loud Thought Processes: Disorganized Thought Content: Paranoid, grandiose, and hyper-confucianist Perception: Internally preoccupied Concentration/Attention: Poor Suicidal Ideations/Plan: Unable to Assess Homicidal Ideations/Plan: Unable to Assess Results Result Diagrams: 07/24/17 08:04 07/26/17 10:55 Abnormal lab results 07/24/17 07/24/17 07/24/17 Range/Units 15:13 15:13 16:12 Carbon Dioxide 21 L (22-30) mmol/L BUN 20 H (7-17) mg/dL Glucose 140 H (65-100) mg/dL POC Glucose (70-105) Lactic Acid 2.20 H* 2.20 H* (0.7-2.0) mmol/L 07/24/17 Range/Units 22:03 Carbon Dioxide (22-30) mmol/L BUN (7-17) mg/dL Glucose (65-100) mg/dL POC Glucose 138 H (70-105) Lactic Acid (0.7-2.0) mmol/L All other labs normal. Assessment and Plan Assessment and plan: Impression: Patient is a 67 year old AAF who presents to the emergency room with psychosis. PPHx Schizoaffective Disorder, Bipolar Type. Today provider is unable to fully assess patient secondary to agitation and psychosis. Patient blood pressure is 124/65. Urinalysis is negative. DDx: Schizoaffective Disorder, Bipolar Type r/o Bipolar Disorder , manic with psychotic features Recommendations/Plan: 1. Continue 1013 and reassess in 24 hours. 2. Assist with inpatient psychiatric services. 3. Continue psychiatric home medications Haldol and Remeron. 4. Patient educated on the metabolic side effects to medications and possibility of increase depression/suicidal ideations. 5. Will continue to increase Haldol for psychosis. May add a second anti- psychotic for stabilization. 6. Will monitor mood, psychosis, sleep, appetite, blood pressure, compliance, and side effects.
[2017-07-25] MEDS: CATAPRES PO SCH ×2 (16:57→20:35)
[2017-07-25] MEDS: APRESOLINE PO SCH ×2 (16:58→21:05)
[2017-07-25] MEDS ORDERED: APRESOLINE ONE (17:11)
[2017-07-25] MEDS ORDERED: ATIVAN ONE (17:11)
[2017-07-25] MEDS ORDERED: NACL 0.9% 1000 ML 1,000 ML ONE (17:12)
[2017-07-25] MEDS: NACL 0.9% 1000 ML 1,000 ML IV SCH (17:24)
[2017-07-25] MEDS: HALDOL IM PRN (17:24)
[2017-07-25] MEDS: PEPCID PO SCH (21:05)
[2017-07-25] MEDS: REMERON PO SCH (21:06)
[2017-07-25] MEDS: COGENTIN PO SCH (21:06)
[2017-07-25] MEDS: HALDOL PO SCH (21:06)
[2017-07-25] MEDS ORDERED: CATAPRES PO SCH (22:00)
[2017-07-25] MEDS ORDERED: INVEGA 6 MG PO SCH (22:00)
[2017-07-26] MEDS: CATAPRES PO SCH ×3 (06:51→19:51)
[2017-07-26] MEDS: APRESOLINE PO SCH ×3 (06:52→22:05)
--- NOTE | 2017-07-26 08:27 | Progress Note ---
Assessment and Plan Assessment and plan: --Acute psychosis/agitation/aggression/hallucinations; Patient is more calm and quiet today after psych medications 1013 status for patient safety, psych following Continue current psych medications --Hypertensive urgency; on admission Blood pressure is well controlled today, continue current antihypertensives and when necessary medications --History of bipolar disorder; resume home medications Psych evaluation --Lactic acidosis; unknown significance, closely monitor No evidence of sepsis or metabolic acidosis --Acute kidney injury; vasomotor nephropathy, resolved Gentle hydration, monitor renal function, avoid nephrotoxins --DVT prophylaxis; Lovenox --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 and adjust the management as needed Patient may be discharged to inpatient psych facility once medically stable Psych following History Interval history: Patient seen and examined medical records reviewed Patient is very calm and quiet today, sleeping easily awakens No new events reported grave digger at the bedside Vital signs reviewed stable Hospitalist Physical - Constitutional Vitals: Temp Pulse Resp BP Pulse Ox 98.3 F 94 H 20 108/57 98 07/26/17 07:32 07/26/17 07:49 07/26/17 07:32 07/26/17 07:32 07/26/17 07:32 General appearance: Present: no acute distress, obese (morbid obesity), other ( sleeping, easily awakens) - EENT Eyes: Present: PERRL, EOM intact - Neck Neck: Present: supple, normal ROM - Respiratory Respiratory effort: normal Respiratory: bilateral: diminished, negative: rales, rhonchi, wheezing - Cardiovascular Rhythm: regular Heart Sounds: Present: S1 & S2 - Extremities Extremities: no ischemia, No edema - Abdominal General gastrointestinal: soft, non-tender, non-distended, normal bowel sounds - Integumentary Integumentary: Present: clear, warm - Psychiatric Psychiatric: appropriate mood/affect, cooperative - Neurologic Neurologic: moves all extremities Results - Labs CBC & Chem 7: 07/24/17 08:04 07/26/17 10:55 Labs: Laboratory Last Values WBC 9.0 K/mm3 (4.5-11.0) 07/24/17 08:04 RBC 4.46 M/mm3 (3.65-5.03) 07/24/17 08:04 Hgb 14.1 gm/dl (10.1-14.3) 07/24/17 08:04 Hct 42.4 % (30.3-42.9) 07/24/17 08:04 MCV 95 fl (79-97) 07/24/17 08:04 MCH 32 pg (28-32) 07/24/17 08:04 MCHC 33 % (30-34) 07/24/17 08:04 RDW 14.6 % (13.2-15.2) 07/24/17 08:04 Plt Count 184 K/mm3 (140-440) 07/24/17 08:04 Lymph % (Auto) 22.6 % (13.4-35.0) 07/24/17 08:04 [place] % (Auto) 9.5 % (0.0-7.3) H 07/24/17 08:04 Eos % (Auto) 0.1 % (0.0-4.3) 07/24/17 08:04 Baso % (Auto) 0.9 % (0.0-1.8) 07/24/17 08:04 Lymph # 2.0 K/mm3 (1.2-5.4) 07/24/17 08:04 [place] # 0.9 K/mm3 (0.0-0.8) H 07/24/17 08:04 Eos # 0.0 K/mm3 (0.0-0.4) 07/24/17 08:04 Baso # 0.1 K/mm3 (0.0-0.1) 07/24/17 08:04 Seg Neutrophils % 66.9 % (40.0-70.0) 07/24/17 08:04 Seg Neutrophils # 6.0 K/mm3 (1.8-7.7) 07/24/17 08:04 PT 13.5 Sec. (12.2-14.9) 07/24/17 08:04 INR 0.98 (0.87-1.13) 07/24/17 08:04 APTT 23.1 Sec. (24.2-36.6) L 07/24/17 08:04 Sodium 139 mmol/L (137-145) 07/24/17 15:13 Potassium 4.3 mmol/L (3.6-5.0) 07/24/17 15:13 Chloride 101.9 mmol/L (98-107) 07/24/17 15:13 Carbon Dioxide 21 mmol/L (22-30) L 07/24/17 15:13 Anion Gap 20 mmol/L 07/24/17 15:13 BUN 20 mg/dL (7-17) H 07/24/17 15:13 Creatinine 0.9 mg/dL (0.7-1.2) 07/24/17 15:13 Estimated GFR > 60 ml/min 07/24/17 15:13 BUN/Creatinine Ratio 22 % 07/24/17 15:13 Glucose 140 mg/dL (65-100) H 07/24/17 15:13 POC Glucose 138 (70-105) H 07/24/17 22:03 Lactic Acid 2.20 mmol/L (0.7-2.0) H* 07/24/17 16:12 Calcium 9.9 mg/dL (8.4-10.2) 07/24/17 15:13 Total Bilirubin 0.40 mg/dL (0.1-1.2) 07/24/17 08:04 AST 29 units/L (5-40) 07/24/17 08:04 ALT 17 units/L (7-56) 07/24/17 08:04 Alkaline Phosphatase 121 units/L (35-129) 07/24/17 08:04 Total Creatine Kinase 349 units/L (30-135) H 07/24/17 08:04 Troponin T < 0.010 ng/mL (0.00-0.029) 07/24/17 08:04 Total Protein 8.5 g/dL (6.3-8.2) H 07/24/17 08:04 Albumin 3.9 g/dL (3.9-5) 07/24/17 08:04 Albumin/Globulin Ratio 0.8 % 07/24/17 08:04 Urine Color Yellow (Yellow) 07/24/17 11:41 Urine Turbidity Clear (Clear) 07/24/17 11:41 Urine pH 5.0 (5.0-7.0) 07/24/17 11:41 Ur Specific [place] 1.004 (1.003-1.030) 07/24/17 11:41 Urine Protein <15 mg/dl mg/dL (Negative) 07/24/17 11:41 Urine Glucose (UA) Neg mg/dL (Negative) 07/24/17 11:41 Urine Ketones Neg mg/dL (Negative) 07/24/17 11:41 Urine Blood Neg (Negative) 07/24/17 11:41 Urine Nitrite Neg (Negative) 07/24/17 11:41 Urine Bilirubin Neg (Negative) 07/24/17 11:41 Urine Urobilinogen < 2.0 mg/dL (<2.0) 07/24/17 11:41 Ur Leukocyte Esterase Neg (Negative) 07/24/17 11:41 Urine WBC (Auto) 1.0 /HPF (0.0-6.0) 07/24/17 11:41 Urine RBC (Auto) < 1.0 /HPF (0.0-6.0) 07/24/17 11:41 U Epithel Cells (Auto) < 1.0 /HPF (0-13.0) 07/24/17 11:41 Salicylates < 0.3 mg/dL (2.8-20.0) L 07/24/17 08:04 Urine Opiates Screen Presumptive negative 07/24/17 11:41 Urine Methadone Screen Presumptive negative 07/24/17 11:41 Acetaminophen < 5.0 ug/mL (10.0-30.0) L 07/24/17 08:04 Ur Barbiturates Screen Presumptive negative 07/24/17 11:41 Ur Phencyclidine Scrn Presumptive negative 07/24/17 11:41 Ur Amphetamines Screen Presumptive negative 07/24/17 11:41 U Benzodiazepines Scrn Presumptive negative 07/24/17 11:41 Urine Cocaine Screen Presumptive negative 07/24/17 11:41 U Marijuana (THC) Screen Presumptive negative 07/24/17 11:41 Drugs of Abuse Note Disclamer 07/24/17 11:41 Plasma/Serum Alcohol < 0.01 % (0-0.07) 07/24/17 08:04
[2017-07-26] MEDS: COGENTIN PO SCH ×2 (10:38→22:06)
[2017-07-26] MEDS: PEPCID PO SCH ×2 (10:38→22:06)
[2017-07-26] MEDS: NORVASC PO SCH (10:39)
[2017-07-26 11:57] LABS: BUN/Creatinine Ratio 13; Blood Urea Nitrogen 13 mg/dL (7-17); Calcium 8.8 mg/dL (8.4-10.2); Hemolysis Index 15
[2017-07-26] MEDS: HALDOL PO SCH (22:06)
[2017-07-26] MEDS: REMERON PO SCH (22:06)
[2017-07-27] MEDS: APRESOLINE PO SCH ×3 (05:21→21:41)
[2017-07-27] MEDS: CATAPRES PO SCH ×3 (05:21→21:40)
[2017-07-27 09:36] LABS: Lipase 32 units/L (13-60)
[2017-07-27] MEDS: COGENTIN PO SCH (11:18)
[2017-07-27] MEDS: PEPCID PO SCH ×2 (12:02→21:40)
[2017-07-27] MEDS: NORVASC PO SCH (12:02)
--- NOTE | 2017-07-27 12:18 | Progress Note ---
Subjective - Reason for Consult Consult date: 07/27/17 Reason for consult: Psychiatry Follow-up - Chief Complaint Chief complaint: "What do you want" 67 y.o. AA female presenting to the ER for psychotic behavior. This patient is known to me. Today the patient is calm, but disorganized during the assessment. She whispered during the interview. She cannot hold a lucid conversation without being redirecting. Per the sitter, the patient uses the BSC and ate 100 % of her of breakfast today. No gestures of SI/HI's. No indication of side effects of her medications. Mental Status Exam - Vital signs Last Vital Signs Temp 98.1 F 07/27/17 07:35 Pulse 95 H 07/27/17 05: Resp 18 07/27/17 07:35 BP 114/61 07/27/17 07:33 Pulse Ox 99 07/27/17 05:01 - Exam Narrative exam: MSE: Appearance: calm Behavior: regular eye contact Speech: whispers Mood: "okay" Affect: normal Thought Process: disorganized Thought Content: no gestures of SI/HI's Motor Activity: lying in bed Cognition: A/O x 3 Insight: poor Judgment: poor Assessment and Plan Impression: Unspecified Psychosis. Today the patient is calm, but disorganized during the assessment. DDx: Schizophrenia, R/O Bipolar DO, Schizoaffective DO Recommendation/Plan: Continue 1013 with placement to inpatient psy services once medically clear. Continue Depakote 500 mg PO BID for mood, Haldol 15 mg PO HS for psychosis, Haldol 2 mg IM Q6hrs PRN for acute agitation and modified Cogentin to 1 mg PO HS for EPS prevention. The Remeron can help patient sleep. Attempted to discuss suicidality/medication induced deyanira with patient reference Remeron.
--- NOTE | 2017-07-27 19:15 | Progress Note ---
Assessment and Plan Assessment and plan: --Acute psychosis/agitation/aggression/hallucinations; Patient is more calm and quiet today after psych medications 1013 status for patient safety, psych following Continue current psych medications --Hypertensive urgency; on admission Blood pressure is well controlled today, continue current antihypertensives and when necessary medications --History of bipolar disorder; resume home medications Psych evaluation --Lactic acidosis; unknown significance, closely monitor No evidence of sepsis or metabolic acidosis --Acute kidney injury; vasomotor nephropathy, resolved Gentle hydration, monitor renal function, avoid nephrotoxins --DVT prophylaxis; Lovenox --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, for discharge and transfer to inpatient psych facility Discussed with the nurse and case management History Interval history: Patient seen and examined medical records reviewed Patient is severely agitated aggressive, restrained for safety Blood pressures reasonable control Vital signs reviewed Hospitalist Physical - Constitutional Vitals: Temp Pulse Resp BP Pulse Ox 98.4 F 112 H 18 154/92 98 07/27/17 15:42 07/27/17 15:42 07/27/17 15:42 07/27/17 15:42 07/27/17 15:42 General appearance: Present: no acute distress, obese (morbid obesity), other ( sleeping, easily awakens) - EENT Eyes: Present: PERRL, EOM intact - Neck Neck: Present: supple, normal ROM - Respiratory Respiratory effort: normal Respiratory: negative: rales, rhonchi, wheezing - Cardiovascular Rhythm: regular Heart Sounds: Present: S1 & S2 - Extremities Extremities: no ischemia, No edema - Abdominal General gastrointestinal: soft, non-tender, non-distended, normal bowel sounds - Integumentary Integumentary: Present: clear, warm - Psychiatric Psychiatric: agitated, other (psychotic) - Neurologic Neurologic: moves all extremities Results - Labs CBC & Chem 7: 07/24/17 08:04 07/26/17 10:55 Labs: Laboratory Last Values WBC 9.0 K/mm3 (4.5-11.0) 07/24/17 08:04 RBC 4.46 M/mm3 (3.65-5.03) 07/24/17 08:04 Hgb 14.1 gm/dl (10.1-14.3) 07/24/17 08:04 Hct 42.4 % (30.3-42.9) 07/24/17 08:04 MCV 95 fl (79-97) 07/24/17 08:04 MCH 32 pg (28-32) 07/24/17 08:04 MCHC 33 % (30-34) 07/24/17 08:04 RDW 14.6 % (13.2-15.2) 07/24/17 08:04 Plt Count 184 K/mm3 (140-440) 07/24/17 08:04 Lymph % (Auto) 22.6 % (13.4-35.0) 07/24/17 08:04 [place] % (Auto) 9.5 % (0.0-7.3) H 07/24/17 08:04 Eos % (Auto) 0.1 % (0.0-4.3) 07/24/17 08:04 Baso % (Auto) 0.9 % (0.0-1.8) 07/24/17 08:04 Lymph # 2.0 K/mm3 (1.2-5.4) 07/24/17 08:04 [place] # 0.9 K/mm3 (0.0-0.8) H 07/24/17 08:04 Eos # 0.0 K/mm3 (0.0-0.4) 07/24/17 08:04 Baso # 0.1 K/mm3 (0.0-0.1) 07/24/17 08:04 Seg Neutrophils % 66.9 % (40.0-70.0) 07/24/17 08:04 Seg Neutrophils # 6.0 K/mm3 (1.8-7.7) 07/24/17 08:04 PT 13.5 Sec. (12.2-14.9) 07/24/17 08:04 INR 0.98 (0.87-1.13) 07/24/17 08:04 APTT 23.1 Sec. (24.2-36.6) L 07/24/17 08:04 Sodium 139 mmol/L (137-145) 07/26/17 10:55 Potassium 4.2 mmol/L (3.6-5.0) 07/26/17 10:55 Chloride 103.8 mmol/L (98-107) 07/26/17 10:55 Carbon Dioxide 23 mmol/L (22-30) 07/26/17 10:55 Anion Gap 16 mmol/L 07/26/17 10:55 BUN 13 mg/dL (7-17) 07/26/17 10:55 Creatinine 1.0 mg/dL (0.7-1.2) 07/26/17 10:55 Estimated GFR > 60 ml/min 07/26/17 10:55 BUN/Creatinine Ratio 13 % 07/26/17 10:55 Glucose 160 mg/dL (65-100) H 07/26/17 10:55 POC Glucose 138 (70-105) H 07/24/17 22:03 Lactic Acid 1.50 mmol/L (0.7-2.0) 07/27/17 04:46 Calcium 8.8 mg/dL (8.4-10.2) 07/26/17 10:55 Total Bilirubin 0.40 mg/dL (0.1-1.2) 07/24/17 08:04 AST 29 units/L (5-40) 07/24/17 08:04 ALT 17 units/L (7-56) 07/24/17 08:04 Alkaline Phosphatase 121 units/L (35-129) 07/24/17 08:04 Total Creatine Kinase 349 units/L (30-135) H 07/24/17 08:04 Troponin T < 0.010 ng/mL (0.00-0.029) 07/24/17 08:04 Total Protein 8.5 g/dL (6.3-8.2) H 07/24/17 08:04 Albumin 3.9 g/dL (3.9-5) 07/24/17 08:04 Albumin/Globulin Ratio 0.8 % 07/24/17 08:04 Amylase 82 units/L (27-131) 07/27/17 08:26 Lipase 32 units/L (13-60) 07/27/17 08:26 Urine Color Yellow (Yellow) 07/24/17 11:41 Urine Turbidity Clear (Clear) 07/24/17 11:41 Urine pH 5.0 (5.0-7.0) 07/24/17 11:41 Ur Specific [place] 1.004 (1.003-1.030) 07/24/17 11:41 Urine Protein <15 mg/dl mg/dL (Negative) 07/24/17 11:41 Urine Glucose (UA) Neg mg/dL (Negative) 07/24/17 11:41 Urine Ketones Neg mg/dL (Negative) 07/24/17 11:41 Urine Blood Neg (Negative) 07/24/17 11:41 Urine Nitrite Neg (Negative) 07/24/17 11:41 Urine Bilirubin Neg (Negative) 07/24/17 11:41 Urine Urobilinogen < 2.0 mg/dL (<2.0) 07/24/17 11:41 Ur Leukocyte Esterase Neg (Negative) 07/24/17 11:41 Urine WBC (Auto) 1.0 /HPF (0.0-6.0) 07/24/17 11:41 Urine RBC (Auto) < 1.0 /HPF (0.0-6.0) 07/24/17 11:41 U Epithel Cells (Auto) < 1.0 /HPF (0-13.0) 07/24/17 11:41 Salicylates < 0.3 mg/dL (2.8-20.0) L 07/24/17 08:04 Urine Opiates Screen Presumptive negative 07/24/17 11:41 Urine Methadone Screen Presumptive negative 07/24/17 11:41 Acetaminophen < 5.0 ug/mL (10.0-30.0) L 07/24/17 08:04 Ur Barbiturates Screen Presumptive negative 07/24/17 11:41 Valproic Acid 41.6 ug/mL (50-100) L 07/27/17 08:26 Ur Phencyclidine Scrn Presumptive negative 07/24/17 11:41 Ur Amphetamines Screen Presumptive negative 07/24/17 11:41 U Benzodiazepines Scrn Presumptive negative 07/24/17 11:41 Urine Cocaine Screen Presumptive negative 07/24/17 11:41 U Marijuana (THC) Screen Presumptive negative 07/24/17 11:41 Drugs of Abuse Note Disclamer 07/24/17 11:41 Plasma/Serum Alcohol < 0.01 % (0-0.07) 07/24/17 08:04
[2017-07-27] MEDS: REMERON PO SCH (21:41)
[2017-07-27] MEDS: HALDOL PO SCH (21:42)
[2017-07-27] MEDS ORDERED: COGENTIN PO SCH (22:00)
[2017-07-28] MEDS: CATAPRES PO SCH ×2 (03:22→15:07)
[2017-07-28] MEDS: NACL 0.9% 1000 ML 1,000 ML IV SCH ×3 (03:23→15:04)
[2017-07-28] MEDS: APRESOLINE PO SCH ×2 (07:03→15:07)
[2017-07-28] MEDS: PEPCID PO SCH (09:26)
[2017-07-28] MEDS: NORVASC PO SCH (09:27)
[2017-07-28] MEDS: HALDOL IM PRN (11:37)
--- NOTE | 2017-07-28 11:37 | Progress Note ---
Subjective - Reason for Consult Consult date: 07/28/17 Reason for consult: Psychiatry Follow-up - Chief Complaint Chief complaint: "Hello" 67 y.o. AA female presenting to the ER for psychotic behavior. This patient is known to me. Today the patient is calm, but disorganized during the assessment. She had to be redirected several times to keep her on topic. No indications of side effects of her medications. No gesture sof SI/HI's. Mental Status Exam - Vital signs Last Vital Signs Temp 97.5 F L 07/28/17 07:47 Pulse 89 07/28/17 09:27 Resp 20 07/28/17 07:47 BP 164/88 07/28/17 09:27 Pulse Ox 100 07/28/17 10:00 - Exam Narrative exam: MSE: Appearance: calm Behavior: regular eye contact Speech: regular rate and tone Mood: "okay" Affect: normal Thought Process: disorganized Thought Content: no gestures of SI/HI's Motor Activity: lying in bed Cognition: A/O x 3 Insight: poor Judgment: poor Assessment and Plan Impression: Unspecified Psychosis. Today the patient is calm, but still disorganized during the assessment. DDx: Schizophrenia, R/O Bipolar DO, Schizoaffective DO Recommendation/Plan: Continue 1013 with placement pending at [facility]. Continue Depakote 500 mg PO BID for mood, Haldol 15 mg PO HS for psychosis, Haldol 2 mg IM Q6hrs PRN for acute agitation and modified Cogentin to 1 mg PO HS for EPS prevention. The Remeron can help patient sleep. Attempted to discuss suicidality/medication induced deyanira with patient reference Remeron.
--- NOTE | 2017-07-28 16:15 | Discharge Summary ---
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 Hospitalization Condition: Stable Disposition: DC/[facility]-65 PSY HOSP/PSY UNIT Time spent for discharge: 33 min Core Measure Documentation - Palliative Care Palliative Care/ Comfort Measures: Not Applicable - Core Measures Any of the following diagnoses?: none Exam - Constitutional Vitals: Temp Pulse Resp BP Pulse Ox 97.5 F L 114 H 20 163/87 100 07/28/17 07:47 07/28/17 15:07 07/28/17 07:47 07/28/17 15:07 07/28/17 10:00 General appearance: Present: no acute distress, well-nourished, other (agitated and psychotic) - EENT Eyes: Present: PERRL, EOM intact - Neck Neck: Present: supple, normal ROM - Respiratory Respiratory effort: normal Respiratory: bilateral: diminished, negative: rales, rhonchi, wheezing - Cardiovascular Rhythm: regular Heart Sounds: Present: S1 & S2 - Extremities Extremities: no ischemia, No edema - Abdominal General gastrointestinal: Present: soft, non-tender, non-distended, normal bowel sounds - Integumentary Integumentary: Present: clear, warm - Musculoskeletal Musculoskeletal: strength equal bilaterally - Psychiatric Psychiatric: agitated, other (hallucinating and psychotic, 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
[2017-07-28 19:33] VITALS: BP 175/83
== END 2017-07-28 19:50 | DRG 885 ==
LOC: ED 06:54 → 4A 07-25 13:11 → 2B-ACE 07-25 16:01
PROVIDERS: ADMIT Internal Medicine; ATTEND Internal Medicine
DX: F23 Brief psychotic disorder (principal); N17.0 Acute kidney failure with tubular necrosis; E87.2 Acidosis; I16.0 Hypertensive urgency; I10 Essential (primary) hypertension; F25.0 Schizoaffective disorder, bipolar type; E11.9 Type 2 diabetes mellitus without complications; M19.90 Unspecified osteoarthritis, unspecified site
CPT/HCPCS: 36415; 70450; 80048; 80053; 80164; 80307; 80320; 81001; 82140; 82150; 82550; 82962; 83690; 84484; 85025; 85610; 85730; 87086; 96361; 96372; 96374; 96375; 96376; G0480; J0360; J1200; J1630; J2060; J7030; J7050

== ENCOUNTER 2017-10-06 17:02 | Emergency (ER) | payer MEDICARE ==
[2017-10-06] MEDS ORDERED: ATIVAN IM ONE (17:50)
[2017-10-06 19:44] LABS: Basophils # (Auto) 0.1 K/mm3 (0.0-0.1); Basophils % (Auto) 0.9 % (0.0-1.8); Eosinophils # (Auto) 0.1 K/mm3 (0.0-0.4); Eosinophils % (Auto) 0.9 % (0.0-4.3); Hematocrit 38.9 % (30.3-42.9); Hemoglobin 13.1 gm/dl (10.1-14.3); Lymphocytes # (Auto) 2.1 K/mm3 (1.2-5.4); Lymphocytes % (Auto) 30.9 % (13.4-35.0); Mean Corpuscular HGB Conc 34 % (30-34); Mean Corpuscular Hemoglobin 32 pg (28-32); Mean Corpuscular Volume 94 fl (79-97); Monocytes # (Auto) 0.8 K/mm3 (0.0-0.8); Monocytes % (Auto) 11.9 % (0.0-7.3); Platelet Count 245 K/mm3 (140-440); Red Blood Count 4.13 M/mm3 (3.65-5.03); Red Cell Distribution Width 14.9 % (13.2-15.2)
[2017-10-06 19:56] LABS: Calcium 9.8 mg/dL (8.4-10.2)
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
[2017-10-06] MEDS ORDERED: ATIVAN ONE (21:22)
[2017-10-06] MEDS ORDERED: HALDOL ONE (21:22)
[2017-10-07] MEDS ORDERED: HALDOL IM ONE (01:35)
[2017-10-07] MEDS ORDERED: BENADRYL IM PRN (03:44)
[2017-10-07] MEDS ORDERED: CATAPRES ONE (03:44)
[2017-10-07] MEDS ORDERED: ATIVAN IM PRN (03:44)
[2017-10-07] MEDS ORDERED: HALDOL IM PRN (03:44)
[2017-10-07] MEDS ORDERED: BENADRYL ONE (03:44)
[2017-10-07] MEDS ORDERED: CATAPRES PO ONE (03:45)
[2017-10-07 08:08] VITALS: BP 136/78
[2017-10-07 09:22] LABS: Bilirubin,Urine NEG (Negative); Blood,Urine NEG (Negative); Color,Urine Yellow (Yellow); Mucus,Urine FEW /HPF; Protein,Urine <15 mg/dL mg/dL (Negative); Urobilinogen,Urine < 2.0 mg/dL (<2.0)
[2017-10-07 09:29] LABS: Amphetamine Screen,Urine PRESUMPTIVE NEGATIVE; Benzodiazepines Screen,Urine PRESUMPTIVE NEGATIVE; Cannabinoid Screen,Urine PRESUMPTIVE NEGATIVE; Cocaine Screen,Urine PRESUMPTIVE NEGATIVE; Methadone Screen,Urine PRESUMPTIVE NEGATIVE; Opiate Screen,Urine PRESUMPTIVE NEGATIVE
== END 2017-10-07 11:05 ==
LOC: ED 17:02 → EEVIPCON 17:02 → ED 10-07 11:05
DX: F23 Brief psychotic disorder (principal); E86.0 Dehydration; I10 Essential (primary) hypertension; E11.9 Type 2 diabetes mellitus without complications; M19.90 Unspecified osteoarthritis, unspecified site
CPT/HCPCS: 36415; 80048; 80307; 81001; 85025; 96372; 99285; G0480; J1200; J1630; J2060; 80320

== ENCOUNTER 2018-05-02 06:31 | Emergency (ER) | payer MEDICARE ==
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
[2018-05-02 07:47] LABS: Bacteria,Urine 1+ /HPF (Negative); Bilirubin,Urine NEG (Negative); Blood,Urine NEG (Negative); Color,Urine Straw (Yellow); Protein,Urine <15 mg/dL mg/dL (Negative); Urobilinogen,Urine < 2.0 mg/dL (<2.0)
[2018-05-02 07:52] LABS: Basophils # (Auto) 0.1 K/mm3 (0.0-0.1); Eosinophils # (Auto) 0.1 K/mm3 (0.0-0.4); Eosinophils % (Auto) 1.7 % (0.0-4.3); Hematocrit 40.3 % (30.3-42.9); Hemoglobin 13.3 gm/dl (10.1-14.3); Lymphocytes # (Auto) 3.5 K/mm3 (1.2-5.4); Mean Corpuscular HGB Conc 33 % (30-34); Mean Corpuscular Volume 95 fl (79-97); Monocytes # (Auto) 0.4 K/mm3 (0.0-0.8); Monocytes % (Auto) 5.6 % (0.0-7.3); Platelet Count 273 K/mm3 (140-440); Red Blood Count 4.23 M/mm3 (3.65-5.03); Red Cell Distribution Width 14.6 % (13.2-15.2)
[2018-05-02 08:06] LABS: Alanine Aminotransferase 15 units/L (7-56); Albumin 3.8 g/dL (3.9-5); BUN/Creatinine Ratio 13; Blood Urea Nitrogen 13 mg/dL (7-17); Calcium 9.1 mg/dL (8.4-10.2); Hemolysis Index 5
[2018-05-02 08:58] LABS: Amphetamine Screen,Urine PRESUMPTIVE NEGATIVE; Benzodiazepines Screen,Urine PRESUMPTIVE NEGATIVE; Cannabinoid Screen,Urine PRESUMPTIVE NEGATIVE; Cocaine Screen,Urine PRESUMPTIVE NEGATIVE; Methadone Screen,Urine PRESUMPTIVE NEGATIVE; Opiate Screen,Urine PRESUMPTIVE NEGATIVE
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
[2018-05-02] MEDS: COGENTIN PO SCH (21:45)
[2018-05-02] MEDS: HALDOL PO SCH (21:47)
[2018-05-02] MEDS ORDERED: REMERON PO SCH (22:00)
[2018-05-02] MEDS: NORVASC PO SCH (22:12)
[2018-05-03] MEDS: COGENTIN PO SCH (09:45)
[2018-05-03] MEDS: HALDOL PO SCH (09:45)
[2018-05-03] MEDS: NORVASC PO SCH (10:25)
[2018-05-03 10:26] VITALS: BP 161/98
--- NOTE | 2018-05-03 13:00 | Progress Note ---
Subjective - Reason for Consult Consult date: 05/03/18 Reason for consult: Psychiatry Follow-up - Chief Complaint Chief complaint: "I want the services of a doctor" 1 years old female brought to the emergency room via EMS. This patient is known to me. Today the patient is calm, but tangent during the assessment, She is adamant that her family wants to put her in a senior living. She was asked several time to explain what is happening at home, her answers were not logical. Per collateral information from her daughter Kathleen Almodovar at [phone], she stated that her mother called EMS for no reason. She stated that her mother was a patient at [facility] recently for psychosis. Ms Almodovar stated that theres no plan to put her mother in a senior living. She denies that the family is stealing her mother's money. The patient denies SI/HI's and AVH's. No indications of side effects of medications. The patient denies being abused. Mental Status Exam - Vital signs Last Vital Signs Temp 97.7 F 05/03/18 02:00 Pulse 102 H 05/03/18 10:25 Resp 18 05/03/18 02:00 BP 161/98 05/03/18 10:25 Pulse Ox 99 05/03/18 02:00 Assessment and Plan Impression: Unspecified Psychosis. Today the patient is calm, but tangent during the assessment. DDx: Schizoaffective DO, Bipolar DO with psychosis Recommendation/Plan: Initiate 1013 and continue home medications Depakote 500 mg PO BID for mood, Cogentin 1 mg PO BID for EPS prevention, Haldol 5 mg PO BID for psyhcsis, and Remeron 7.5 mg PO HS for insomnia. Attempted to discuss possible suicidality/medication induced deyanira with the patient reference Remeron. Dipo: The patient was referred to inpatient psy services. Will staff with Dr Lisa Vela.
== END 2018-05-03 14:41 ==
LOC: ED 06:31 → EEVIPCON 06:31 → ED 05-03 14:41
DX: F29 Unspecified psychosis not due to a substance or known physiological condition (principal); I10 Essential (primary) hypertension; E11.9 Type 2 diabetes mellitus without complications; F31.9 Bipolar disorder, unspecified; Z79.899 Other long term (current) drug therapy
CPT/HCPCS: 36415; 80053; 80164; 80307; 81001; 82150; 82962; 83690; 84443; 85025; 99284; G0480; 80320

== ENCOUNTER 2018-05-03 11:07 | Inpatient (IN) | payer MEDICARE ==
[2018-05-03] MEDS ORDERED: D50W (25GM) Syringe IV PRN ×2 (13:02→20:52)
--- NOTE | 2018-05-03 15:57 | History and Physical Report ---
GP History & Physical - History of Present Illness Date of admission: 05/03/18 Date of Examination: 05/03/18 Reason for Admission: Impaired reality testing, Failure of Outpatient Treatment, Severe anxiety/depression, Unable to care for self Chief Complaint: hearing voices and un able to sleep for last several days Legal Status: Involuntary Reaction to Hospitalization: Accepting (68 year old AAfemale admitted on 1013 .patient has complaint of difficulty) Physician Certification - Certification Statement Physician Certification Statement: This is an acknowledgement statement that CAREN WALLACE is a 68 year old F who requires inpatient psychiatric admission for treatment which could reasonably be expected to improve the patient's condition for Estimated period of time patient will need to remain in the hospital: [ ] Plan for post-hospital care: [ ]
--- NOTE | 2018-05-03 16:22 | History and Physical Report ---
GP History & Physical - History of Present Illness Date of admission: 05/03/18 Date of Examination: 05/03/18 History of Present Illness: Ms. Samson Galvan is a 68-year-old -[place] female. She was admitted to our [place] psych unit at [facility] on 05/03/2018. Patient was admitted because of complain of auditory hallucination. She has been hearing voices which she describes as " horrified". she is extremely anxious and distressed and she reported to me that she has not been able to sleep in the last several days. Patient is known to us from her several previous hospital admission at [facility]. she also has been hospitalized in many other hospitals. Patient claims that she has been compliant with her anti psychotic medications but I always have question her compliance . patient is originally from [place] and she has been residing here in [place] with her daughter for last several years. Patient has some accent in her speech but all in all she is been able to communicate fairly well ". Patient seems to have decompensated and she appears to be in need of inpatient hospitalization and stabilization. Legal Status: Involuntary Patient Problems: Current Active Problems Schizophrenia (Acute) Reaction to Hospitalization: Accepting Past psychiatric history - Past Medical History Past Medical History: diabetes, hypertension - past Psychiatric treatment and history Psych: Schizophrenia - Social History Social history: lives with family Review of Systems Constitutional: night sweats Physical Examination - Constitutional General appearance: Present: mild distress, well-nourished, obese - Psychiatric Psychiatric: appropriate mood/affect, cooperative Mental Status Exam - Exam Orientation: time, place, person Affect: anxious Mood: congruent with affect, anxious Thought content: delusions, paranoia, thought broadcasting, thought insertion Thought Process: Tangential Perceptions: visual, auditory, hallucinations Speech: normal rate and pattern Concentration: distractible Motor activity: tense Level of consciousness: alert Memory: Intact Sleep Symptoms: Difficulty Falling Asleep, Insomnia, Nightmares, Wakes During Night Interaction: cooperative Assessment and Plan - Psychiatric problem (1) Schizophrenia Current Visit: Yes Status: Acute plan to address problem: Plan for the patient is to admit to the [place] psych unit. We will continue to monitor monitor patient's medications and we will stabilize patient's mood and affect. Physician Certification - Certification Statement Physician Certification Statement: This is an acknowledgement statement that CAREN GALVAN is a 68 year old F who requires inpatient psychiatric admission for treatment which could reasonably be expected to improve the patient's condition for Estimated period of time patient will need to remain in the hospital: [ ] Plan for post-hospital care: [ ]
--- NOTE | 2018-05-03 20:51 | Consultation ---
History of Present Illness - Reason for Consult Consult date: 05/03/18 HTN, DM Requesting physician: CHUCK EDWARDS - History of Present Illness 68 YO Female with HTN, DM, Schizophrenia consult placed form HTN, DM. Pt seen and evaluated upon arrival to her room. Pt found to have Schizophrenia with Auditory hallucinations. Pt sitting in her room, singing and in no acute distress. Pt denies fever, chills, CP,palpitations, NVD, Trauma, or recent ill contacts. No reported nursing events. Pt is cooperative. Past History Past Medical History: diabetes, hypertension Past Surgical History: Other (neck surgery) Social history: single, lives with family. denies: smoking, alcohol abuse, prescription drug abuse Family history: diabetes, hypertension Medications and Allergies Allergies Allergy/AdvReac Type Severity Reaction Status Date / Time No Known Allergies Allergy Verified 10/06/17 17:06 Home Medications Medication Instructions Recorded Confirmed Last Taken Type Benztropine [Cogentin] 1 mg PO BID #60 tablet 05/25/15 07/28/17 05/09/17 21:[address] [Deptonnyte Dr] 500 mg PO BID 07/08/15 07/28/17 05/10/17 09:00 History 500 amLODIPine [Norvasc] 5 mg PO DAILY #30 tab 07/08/15 07/28/17 05/10/17 Rx 10mg Amoxicillin/K Clav Tab [Augmentin 1 tab PO Q12HR #20 tab 12/21/16 07/28/17 05/12/17 22:00 Rx 875MG TAB] 875mg Magnesium Oxide 400 mg PO BID #20 tablet 12/21/16 07/28/17 05/10/17 Rx 400mg Invega 6 mg PO QHS 05/13/17 07/28/17 05/10/17 21:00 History 6mg Remeron 15 mg PO HS 05/13/17 07/28/17 05/08/17 21:00 History 15mg Haloperidol [Haldol] 15 mg PO QHS #30 tablet 05/14/17 07/28/17 Unknown Rx Amoxicillin/K Clav Tab [Augmentin 1 tab PO Q12HR #20 tab 01/25/18 Unknown Rx 875 mg] Ibuprofen [Motrin] 600 mg PO Q8H PRN #20 tablet 01/25/18 Unknown Rx Hyoscyamine Subl [Levsin Sl 0.125 0.125 mg SL Q4HR PRN #20 tablet 02/01/18 Unknown Rx TAB] Ondansetron (Nf) [Zofran TAB] 8 mg PO Q8HR PRN #14 tablet 02/01/18 Unknown Rx Active Meds: Active Medications Amlodipine Besylate (Norvasc) 5 mg PO QDAY ESAU Benztropine Mesylate (Cogentin) 1 mg PO BID ESAU Dextrose (D50w (25gm) Syringe) 50 ml IV PRN PRN PRN Reason: Hypoglycemia Divalproex Sodium (Depakote Dr) 500 mg PO BID ESAU Haloperidol (Haldol) 5 mg PO BID ESAU Lorazepam (Ativan) 1 mg PO Q6H PRN PRN Reason: Anxiety Mirtazapine (Remeron) 7.5 mg PO QHS ESAU Trazodone HCl (Desyrel) 50 mg PO QHS PRN PRN Reason: Sleep Ziprasidone (Geodon) 20 mg PO Q6H PRN PRN Reason: Agitation Review of Systems ROS unobtainable: due to mental status Exam - Constitutional Vitals: Temp Pulse Resp BP Pulse Ox 36.9 F L 103 H 20 154/89 0 L 05/03/18 15:15 05/03/18 15:15 05/03/18 15:15 05/03/18 15:15 05/03/18 15:15 General appearance: Present: no acute distress, well-nourished, obese - EENT Eyes: Present: PERRL ENT: hearing intact, clear oral mucosa - Neck Neck: Present: supple, normal ROM - Respiratory Respiratory effort: normal Respiratory: bilateral: CTA - Cardiovascular Heart Sounds: Present: S1 & S2. Absent: rub, click - Extremities Extremities: pulses symmetrical, No edema Peripheral Pulses: within normal limits - Abdominal General gastrointestinal: Present: soft, non-tender, non-distended, normal bowel sounds Female genitourinary: Present: normal - Integumentary Integumentary: Present: clear, warm, dry - Musculoskeletal Musculoskeletal: gait normal, strength equal bilaterally - Psychiatric Psychiatric: appropriate mood/affect, intact judgment & insight - Neurologic Neurologic: CNII-XII intact, moves all extremities Assessment and Plan - Patient Problems (1) Diabetes Current Visit: Yes Status: Acute Plan to address problem: ADA diet, sliding scale insulin, accu check (2) Hypertension Current Visit: No Status: Chronic Qualifiers: Hypertension type: essential hypertension Qualified Code(s): I10 - Essential (primary) hypertension Plan to address problem: monitor bp q shift, resume prehospital amlodipine, monitor bp q shift,
[2018-05-03] MEDS: MAG-OX PO SCH (21:47)
[2018-05-03] MEDS: COGENTIN PO SCH (21:47)
[2018-05-03] MEDS: HALDOL PO SCH (21:47)
[2018-05-03] MEDS: REMERON PO SCH (21:47)
[2018-05-03] MEDS ORDERED: DESYREL PO SCH (22:00)
[2018-05-03] MEDS: HumaLOG SUB-Q SCH (22:05)
[2018-05-04] MEDS: HumaLOG SUB-Q SCH ×3 (07:06→16:30)
[2018-05-04] MEDS ORDERED: NORVASC PO SCH (10:00)
[2018-05-04] MEDS: HALDOL PO SCH (10:00)
[2018-05-04] MEDS: NORVASC PO SCH (10:00)
[2018-05-04] MEDS: MAG-OX PO SCH ×2 (10:00→22:25)
[2018-05-04] MEDS: COGENTIN PO SCH ×2 (10:00→22:25)
[2018-05-04 12:54] LABS: Basophils # (Auto) 0.1 K/mm3 (0.0-0.1); Basophils % (Auto) 1.3 % (0.0-1.8); Eosinophils # (Auto) 0.2 K/mm3 (0.0-0.4); Hematocrit 35.2 % (30.3-42.9); Hemoglobin 12.1 gm/dl (10.1-14.3); Lymphocytes # (Auto) 2.6 K/mm3 (1.2-5.4); Lymphocytes % (Auto) 35.6 % (13.4-35.0); Mean Corpuscular HGB Conc 34 % (30-34); Mean Corpuscular Volume 93 fl (79-97); Monocytes # (Auto) 0.8 K/mm3 (0.0-0.8); Monocytes % (Auto) 10.7 % (0.0-7.3); Platelet Count 220 K/mm3 (140-440); Red Blood Count 3.77 M/mm3 (3.65-5.03); Red Cell Distribution Width 14.6 % (13.2-15.2)
[2018-05-04 13:11] LABS: BUN/Creatinine Ratio 19; Blood Urea Nitrogen 15 mg/dL (7-17); Calcium 9.3 mg/dL (8.4-10.2); Hemolysis Index 39
--- NOTE | 2018-05-04 17:28 | Progress Note ---
Subjective Date of service: 05/04/18 Principal diagnosis: schizophrenia Subjective Comment: "I need to have fish everyday.......when am I going home." This is the daily progress note on patient's name CAREN WALLACE. Patient seen today with the nursing staff. Patient is in better mood today but she is still very guarded and evasive. She asked me to have the fISH in her diet everyday because she is from [facility]. She was least focused on her psychiatric conditions or diagnosis, As a matter fact she is still delusional and in denial. She told me that she has no diabetes and she has no mental condition. Patient was redirected and reeducated. Patient was also educated about the need for long-term injectable antipsychotic medication in order to improve the compliance .patient reluctantly has agreed to be on long-term injectable medications. Patient has failed so many previous inpatient treatment apparently because of noncompliance and adherence to her psychiatric treatment. Patient was encouraged this time to stay on long-term injectable medication as that would help her to stay healthy and she would not have to be keep coming back to the hospital. Patient apparently has agreed for my treatment recommendations Objective - Criteria for Continued Treatment Criteria for Continued Treatment: Preventing Decomposition, Reducing Isolative Behaviors, Understanding Diagnosis and need for Medication, Improving Treatment / Medication Compliance, Confronting Denial of Illness, Stablizing Level of Functioning, Decreasing Frequency of Hospitalization - Symptoms/Impairments Symptoms/Impairments: delusinal - Mental Status Mental Status: Oriented x 3 - Objective Observation Participation Level: Moderate Reason(s) For Not Participating: ADL's, Meeting Polysomnographic Technologist Assessment and Plan - Patient Problems (1) Schizophrenia Current Visit: Yes Status: Acute
[2018-05-04 19:40] LABS: Bilirubin,Urine NEG (Negative); Blood,Urine NEG (Negative); Color,Urine Straw (Yellow); Protein,Urine <15 mg/dL mg/dL (Negative); Urobilinogen,Urine < 2.0 mg/dL (<2.0)
[2018-05-04] MEDS: REMERON PO SCH (22:28)
[2018-05-05] MEDS: ATIVAN PO PRN ×2 (04:14→21:49)
[2018-05-05] MEDS ORDERED: COGENTIN ONE (07:29)
[2018-05-05] MEDS: HALDOL PO SCH ×2 (09:17→21:48)
[2018-05-05] MEDS: MAG-OX PO SCH ×2 (09:19→21:48)
[2018-05-05] MEDS: NORVASC PO SCH (09:19)
[2018-05-05] MEDS: GEODON PO PRN (09:27)
[2018-05-05] MEDS: COGENTIN PO SCH ×2 (09:30→21:48)
--- NOTE | 2018-05-05 17:51 | Progress Note ---
Subjective Date of service: 05/05/18 Principal diagnosis: schizophrenia Subjective Comment: This is the daily progress note on patient CAREN WALLACE. Patient seen today and case discussed with staff. Patient is cooperative but this morning reportedly she was agitated and needed to Geodon when necessary to help her calm down. After taking the when necessary medication,patient was calmer and was redirectable. Patient is grossly asymptomatic and wondering about the discharge. When asked patient about hallucinations, she answered that she is a child of God and she hears from God "sometimes "" Mental status examination :patient is alert and oriented to month and the year. concentration is fair and memory is grossly intact .judgment and insight is somewhat limited. she is still hallucinations from time to time but she describes that in the sabianist connotation .she denies any suicidal or homicidal ideation she denies any destructive thoughts and she denies side effects from medications Plan :patient will get started on Haldol Decanoate 50 mg IM the first dose today. Medication was started to help improve the compliance as she has a history of noncompliance with the by mouth medications in the past. Risk and benefit of the medication discussed with the patient the patient has agreed to take the injectable medication even though she was "not very happy about it " . patient was reeducated and encouraged to comply with the treatment. Assessment and Plan - Patient Problems (1) Schizophrenia Current Visit: Yes Status: Acute
[2018-05-05] MEDS ORDERED: HALDOL DECANOATE IM ONE (18:00)
[2018-05-05] MEDS: REMERON PO SCH (21:49)
[2018-05-05] MEDS: HumaLOG SUB-Q SCH (21:55)
[2018-05-06] MEDS: HumaLOG SUB-Q SCH ×3 (07:35→21:36)
[2018-05-06] MEDS: GEODON PO PRN (08:56)
[2018-05-06] MEDS: COGENTIN PO SCH ×2 (09:16→21:19)
[2018-05-06] MEDS: HALDOL PO SCH ×2 (09:17→21:17)
[2018-05-06] MEDS: MAG-OX PO SCH ×2 (09:18→21:16)
[2018-05-06] MEDS: NORVASC PO SCH (09:18)
--- NOTE | 2018-05-06 17:29 | Progress Note ---
Subjective Date of service: 05/06/18 Principal diagnosis: schizophrenia Subjective Comment: This is the daily progress note on patient's name Samson Galvan. Patient seen today and case discussed with the staff. Earlier today I have discussed the case with the treatment team and the treatment plan for this patient was discussed in detail. Patient seen today in the hallway. she was walking and she was in good mood. Patient was cooperative but particularly guarded. Patient was grossly asym ptomatic and she denied any active hallucinations. However, as I mentioned the patient is bit guarded and trying not to talk about the thought contents which is delusional in nature but purposely she trying to avoid those conversation. Mental status examination: patient is alert and oriented 3 and concentration is fair. Memory is grossly intact. patient denies any active auditory or visual hallucination. Patient denies any symptoms of depression suicidal or homicidal ideations. Patient's affect is still bit constricted speech is bit pressured and thought contents are still tangential with possibility of some delusional ideations but she is reluctant to talk about it today. Plan: plan for this patient is to continue the medications which she is taking right now. she seems to be stable on those medications. Patient just got started with Haldol decanoate yesterday. We will continue the current treatment. We will monitor patient's progress and we recommend continuation of inpatient hospitalization for next 3-4 days Assessment and Plan - Patient Problems (1) Schizophrenia Current Visit: Yes Status: Acute
[2018-05-06] MEDS: ATIVAN PO PRN (21:18)
[2018-05-06] MEDS: REMERON PO SCH (21:20)
[2018-05-07] MEDS: GEODON PO PRN (08:21)
[2018-05-07] MEDS: NORVASC PO SCH (09:18)
[2018-05-07] MEDS: COGENTIN PO SCH ×2 (09:20→22:04)
[2018-05-07] MEDS: HALDOL PO SCH ×3 (09:20→22:04)
[2018-05-07] MEDS: HumaLOG SUB-Q SCH ×3 (09:24→16:30)
[2018-05-07] MEDS: MAG-OX PO SCH ×2 (09:31→22:06)
--- NOTE | 2018-05-07 17:36 | Progress Note ---
Subjective Date of service: 05/07/18 Principal diagnosis: schizophrenia Subjective Comment: Patient seen today and case discussed with the staff. It is reported by the staff the patient was again agitated this morning and she needed the when necessary Geodon. Patient also later refused to take the insulin even though her blood sugar was 170 mg percent. Patient says that her blood sugar fluctuates and usually it stays under control with diet. She also told me that at one point she was prescribed medications for diabetes and apparently it was metformin and she was taking once a day. Patient is refusing to take any needles and refusing to take sliding scale insulin coverage. Patient was reeducated and urged to comply with treatment. Patient is alert and cooperative. she is oriented 3 concentration is fair to poor. memory is grossly intact judgment and insight is somewhat limited as she often refused to take her required medications but all in all she shows some signs of improvement and she is cooperative. Patient denies any complaint today besides having constipation which reportedly is chronic in case. Mental status examination: patient is alert and oriented 3 she she denies any auditory or visual hallucinations denies any suicidal or homicidal ideation she is tolerating her medications well. She has been compliant with the psychotropic medications for the most part. She denies any destructive thoughts. I will consider putting her back on metformin starting dose is 500 mg once a day to help her control her blood sugar. Patient has agreed to it patient also has asked for the constipation medication for constipation and I have agreed to put her on stool softener Colace and she agreed to patient has been compliant with treatment and recommendation is to continue the current line of treatment. Assessment and Plan - Patient Problems (1) Schizophrenia Current Visit: Yes Status: Acute
[2018-05-07] MEDS: DESYREL PO PRN (22:05)
[2018-05-07] MEDS: COLACE PO SCH (22:05)
[2018-05-07] MEDS: REMERON PO SCH (22:06)
[2018-05-08] MEDS: ATIVAN PO PRN ×2 (03:49→09:58)
[2018-05-08] MEDS: HumaLOG SUB-Q SCH ×5 (06:15→21:20)
[2018-05-08] MEDS: GLUCOPHAGE PO SCH ×2 (08:31→16:39)
[2018-05-08] MEDS ORDERED: COGENTIN ONE (09:27)
[2018-05-08] MEDS: COGENTIN PO SCH ×2 (09:51→21:16)
[2018-05-08] MEDS: NORVASC PO SCH (09:54)
[2018-05-08] MEDS: MAG-OX PO SCH ×2 (09:54→21:16)
[2018-05-08] MEDS: COLACE PO SCH ×2 (10:06→21:16)
[2018-05-08] MEDS: HALDOL PO SCH ×2 (10:09→21:16)
--- NOTE | 2018-05-08 13:34 | Progress Note ---
Subjective Date of service: 05/08/18 Principal diagnosis: schizophrenia Subjective Comment: Patient seen today and case discussed with the staff. It is reported that patient was extremely agitated this morning and she tore up the towel beckham. she also stuffed up her toilet. I saw all the paper towels on the floor in the dining area and I asked the patient who did it. Patient has no recollection of what happened and she acts like she doesn't remember. She denies doing that and she denies any symptoms. However, vision she seems angry, paranoid and very guarded . She refused to give me any further information. Mental status examination :patient is alert and oriented 3. concentration is fair memory is grossly intact. Judgment and insight is very limited as she is doesn't show much insight into her behavior. Patient seems angry and irritable and dysphoric but she denies any auditory or visual hallucination and denies any suicidal or homicidal ideation. She denies side effects from medications. Plan :it seems that patient's behavior gets escalated almost every morning and she requires when necessary Geodon and sometimes Ativan almost every morning. This morning she was more agitated than usual but she would not tell us that "bothersome". It appears that patient still have terrible mood swings and psychotic episodes .it is also reported by the staff the patient is excessively religiously preoccupied and sometimes she refused to take the medications and says that "Kd has healed her " .patient was redirected and reeducated and I have discussed the case with the staff and recommendations Patient will continue her current medication but I will also consider restarting Depakote and we'll monitor the Depakote blood level .patient seems to be in need of continue to monitored on her medications and it sounds like the patient will require the need of continues inpatient hospitalization and stabilization on medication . Assessment and Plan - Patient Problems (1) Schizophrenia Current Visit: Yes Status: Acute
[2018-05-08] MEDS: REMERON PO SCH (21:16)
[2018-05-08] MEDS: DESYREL PO PRN (21:17)
[2018-05-08] MEDS: IBUPROFEN PO PRN (21:17)
--- NOTE | 2018-05-08 21:37 | Event Note ---
Date: 05/08/18 S/p fall L knee pain Xray l knee ordered Progress note to follow
[2018-05-09] MEDS: HumaLOG SUB-Q SCH ×4 (07:14→22:20)
[2018-05-09] MEDS: ATIVAN PO PRN (07:48)
[2018-05-09] MEDS: GLUCOPHAGE PO SCH ×2 (07:48→16:46)
[2018-05-09] MEDS: COLACE PO SCH ×2 (09:08→21:28)
[2018-05-09] MEDS: MAG-OX PO SCH ×2 (09:09→21:28)
[2018-05-09] MEDS: COGENTIN PO SCH ×2 (09:10→21:29)
[2018-05-09] MEDS: HALDOL PO SCH ×2 (09:10→21:28)
[2018-05-09] MEDS: IBUPROFEN PO PRN (09:36)
--- NOTE | 2018-05-09 12:18 | Progress Note ---
Subjective Date of service: 05/09/18 Principal diagnosis: schizophrenia Subjective Comment: This is the progress note on patient's name Samson Galvan. It is reported that patient has earlier complain of the left leg pain mostly on the knee joint and hip joint area. Patient was seen walking with very mild limping and she has very mild pain. She says that she had a fall the other day when when she was trying to get off the bed but apparently it it was not noticed and she did not inform any nurses. later she complains of mild pain. Other than that patient is grossly asymptomatic however she needed her when necessary Ativan again this. Mental status examination patient is alert and oriented 3 concentration is fair. Memory is grossly intact. Judgment and insight is fair to limited. Patient is talking about going home and having a republican with her daughters. She sews shows little insight into her situation and to her treatment here. She denies any active auditory or visual hallucination. She denies any suicidal or homicidal ideations. Patient is still paranoid with some tangential thought pattern but all in all she is easy to be redirected. The we have recommended Motrin when necessary to help patients with the pain. We have also put on a medical consult to be seen by the meat team lead for the left hand and the status post fall Recommendations: we will recommend to continue the current inpatient treatment .continue to stabilize patient's on medications and to follow-up on the medical consult thank you. Assessment and Plan - Patient Problems (1) Schizophrenia Current Visit: Yes Status: Acute
[2018-05-09] MEDS: NORVASC PO SCH (13:03)
--- NOTE | 2018-05-09 18:16 | XRay Report ---
PROCEDURE: XR KNEE BILAT 1-2V TECHNIQUE: Frontal and lateral views of both knees. HISTORY: Velasquez knee pain COMPARISONS: None FINDINGS: RIGHT KNEE: There is degenerative change of the tibiofemoral and patellofemoral joints with joint space loss and osteophyte formation. There is no evidence of fracture or subluxation. The soft tissues are unremarkable. LEFT KNEE: There is degenerative change of the tibiofemoral and patellofemoral joints with joint space loss and osteophyte formation. There is no evidence of fracture or subluxation. There appears to be an effusion in the suprapatellar pouch. IMPRESSION: 1. Degenerative change of the tibiofemoral and patellofemoral joints bilaterally with the appearance of an effusion in the suprapatellar pouch on the left. This document is electronically signed by Carol New MD., May 09 2018 06:14:02 PM ET
[2018-05-09] MEDS: REMERON PO SCH (21:29)
--- NOTE | 2018-05-10 05:45 | Event Note ---
Date: 05/09/18 Patient reevaluated S/p fall Some tenderness on L knee laterally Knee xrays reviewed IMPRESSION: 1. Degenerative change of the tibiofemoral and patellofemoral joints bilaterally with the appearance of an effusion in the suprapatellar pouch on the left. L knee effusion NSAIDS for now Meloxicam 7.5 mg po qd for 7 days
[2018-05-10] MEDS: HumaLOG SUB-Q SCH ×2 (07:35→22:33)
[2018-05-10] MEDS: GLUCOPHAGE PO SCH ×2 (09:20→16:51)
[2018-05-10] MEDS: COGENTIN PO SCH ×2 (09:21→22:34)
[2018-05-10] MEDS: NORVASC PO SCH (09:21)
[2018-05-10] MEDS: COLACE PO SCH ×2 (09:21→22:34)
[2018-05-10] MEDS: MAG-OX PO SCH ×2 (09:23→22:34)
[2018-05-10] MEDS: MOBIC PO SCH (09:23)
[2018-05-10] MEDS: HALDOL PO SCH ×2 (09:27→22:44)
--- NOTE | 2018-05-10 16:29 | Progress Note ---
Subjective Date of service: 05/10/18 Principal diagnosis: schizophrenia Subjective Comment: Patient seen today and case discussed with the staff. It is reported that patient has been running high blood pressure and at one point her blood pressure was 198/70. I met with the patient and briefly interviewed her. Patient denies being under stress however, she was somewhat irritable and guarded. Her daughter and granddaughter came to visit her and I spoke to both of them. Patient is grossly asymptomatic. She denies any chest pain or shortness of breath. Patient has a history of fluctuating blood pressure. Patient has been compliant with her blood pressure medications. Patient is alert and oriented 3. Concentration is fair. Memory is grossly intact. Judgment and insight is still somewhat limited. At times patient still seems to be very much dysphoric irritable and labile. She would not tell me what stressors she has today. She denies any active auditory or visual hallucination. She denies any destructive thoughts. Plan: we will recommend medical consultation for the fluctuating blood pressure on this patient. I will also recommend to and 2. Clonidine 0.1 mg every 6 hours when necessary just to help her with high blood pressure. Patient has been compliant with all her other medications and we will continue her current treatment. I have discussed this case with the treatment team in detail today and I also have discussed the patient's prognosis with the patient's family. Assessment and Plan - Patient Problems (1) Schizophrenia Current Visit: Yes Status: Acute
[2018-05-10] MEDS: CATAPRES PO PRN (20:36)
[2018-05-10] MEDS ORDERED: LEVSIN SL SL PRN (22:21)
[2018-05-10] MEDS ORDERED: NON-FORMULARY (Ondansetron (Nf) 8 MG) PO PRN (22:21)
[2018-05-10] MEDS ORDERED: IBUPROFEN PO PRN (22:21)
[2018-05-10] MEDS: DESYREL PO PRN (22:34)
[2018-05-10] MEDS: REMERON PO SCH (22:35)
--- NOTE | 2018-05-10 22:35 | Progress Note ---
Assessment and Plan - Patient Problems (1) HTN (hypertension) Current Visit: Yes Status: Chronic Qualifiers: Hypertension type: essential hypertension Qualified Code(s): I10 - Essential (primary) hypertension Plan to address problem: AMlodipine and Losartan 100 mg po qd ordered (2) T2DM (type 2 diabetes mellitus) Current Visit: Yes Status: Chronic Qualifiers: Diabetes mellitus correction insulin use: without correction use Plan to address problem: Cont coverage and Metformin. Check HbA1c (3) Knee effusion, left Current Visit: Yes Status: Acute Plan to address problem: left knee effusion after fall patient initiated on Meloxicam 7.5 mg po qd (4) DVT prophylaxis Current Visit: Yes Status: Acute Plan to address problem: on Lovenox and GI prophylaxis Subjective Date of service: 05/10/18 Principal diagnosis: schizophrenia Interval history: Ms. Samson Galvan is a 68-year-old -[place] female admitted to [place] psych unit at [facility] on 05/03/2018. Patient was admitted because of complain of auditory hallucinations. She has been hearing voices which she describes as " horrified". she is extremely anxious and distressed and she reported to me that she has not been able to sleep in the last several days. Patient has several previous hospital admissions at [facility] and also has been hospitalized in many other hospitals. Patient claims that she has been compliant with her anti psychotic medications which is doubtful. Objective - Constitutional Vitals: Vital Signs - 12hr 05/10/18 05/10/18 05/10/18 15:28 15:32 15:59 Temperature 97.7 F Pulse Rate 112 H 114 H Respiratory 18 Rate Blood Pressure 174/92 198/96 159/76 O2 Sat by Pulse 100 96 Oximetry 05/10/18 20:36 Temperature Pulse Rate 89 Respiratory Rate Blood Pressure 186/73 O2 Sat by Pulse Oximetry General appearance: Present: no acute distress, well-nourished - EENT Eyes: PERRL, EOM intact ENT: hearing intact, clear oral mucosa Ears: bilateral: normal - Neck Neck: supple, normal ROM - Respiratory Respiratory effort: normal Respiratory: bilateral: CTA - Breasts Breasts: normal - Cardiovascular Heart rate: 78 Rhythm: regular Heart Sounds: Present: S1 & S2. Absent: gallop, rub Extremities: no ischemia, pulses intact, No edema, normal color, Full ROM Extremity abnormal: other (L knee swelling present) - Gastrointestinal General gastrointestinal: Present: soft, non-tender, non-distended, normal bowel sounds Rectal Exam: deferred - Genitourinary Female genitourinary: normal - Integumentary Integumentary: clear, warm, dry - Musculoskeletal Musculoskeletal: 1, strength equal bilaterally - Neurologic Neurologic: moves all extremities - Psychiatric Psychiatric: memory intact, appropriate mood/affect, intact judgment & insight - Labs CBC & Chem 7: 05/04/18 12:31 05/04/18 12:31 Labs: Abnormal lab results 05/10/18 Range/Units 16:15 POC Glucose 110 H (70-105)
[2018-05-10] MEDS ORDERED: ZOFRAN ODT PO PRN (22:45)
[2018-05-11] MEDS: GLUCOPHAGE PO SCH ×2 (08:00→17:39)
[2018-05-11] MEDS: HumaLOG SUB-Q SCH ×4 (09:43→21:44)
[2018-05-11] MEDS: MAG-OX PO SCH ×2 (09:48→21:18)
[2018-05-11] MEDS: COGENTIN PO SCH ×2 (09:48→21:17)
[2018-05-11] MEDS: MOBIC PO SCH (09:49)
[2018-05-11] MEDS: COLACE PO SCH ×2 (09:49→21:17)
[2018-05-11] MEDS: HALDOL PO SCH ×2 (09:49→21:18)
[2018-05-11] MEDS: NORVASC PO SCH (09:56)
[2018-05-11] MEDS: COZAAR PO SCH (09:56)
--- NOTE | 2018-05-11 17:55 | Progress Note ---
Subjective Date of service: 05/11/18 Principal diagnosis: schizophrenia Subjective Comment: This is the daily progress note patient's name CAREN WALLACE. Patient seen today and case discussed with staff. It is reported by the staff that patient has been bit more confused and is "slow to move "" when I approached the patient she had some difficulty speaking but later in a few minutes she started talking and she was quite hyperverbal. Patient was complaining about bizarre somatic stuff like" I'm good from outside but I need to be checked from insight. "" Patient denies any active symptoms. she denies any pain she denies any active auditory or visual hallucination and she denies any destructive thoughts. Patient is alert and oriented 3 concentration is fair. Memory is grossly intact. Judgment and insight seems to be limited. Thought process and thinking is still somewhat distorted and she needs to be redirected. She still has some paranoid and delusional ideation but she is very guarded and focused on discharge. She denies active auditory or visual hallucination. Denies any suicidal or homicidal ideation. Plan for the patient is to continue the current medication patient denies any stiffness or tightening of her muscles. She denied any difficulties with a walking except that she was diagnosed with Arthritis and an x-ray shows mild arthritic changes in her joint and apparently she has difficulty walking because of it. she denies any extrapyramedal symptoms. At time I have seen her having some buccolingual movement but there is no sticking out of tongue and there is no other obvious and sign of tardive dyskinesia. Patient was reassured and medication adjustment discussed with her. Assessment and Plan - Patient Problems (1) Schizophrenia Current Visit: Yes Status: Acute
[2018-05-11] MEDS: REMERON PO SCH (21:17)
[2018-05-11] MEDS: DESYREL PO PRN (21:17)
[2018-05-11] MEDS ORDERED: REMERON 15 MG PO SCH (22:00)
[2018-05-12] MEDS: COLACE PO SCH ×2 (09:25→21:37)
[2018-05-12] MEDS: GLUCOPHAGE PO SCH ×2 (09:25→17:28)
[2018-05-12] MEDS: COGENTIN PO SCH ×2 (09:25→21:36)
[2018-05-12] MEDS: HALDOL PO SCH ×2 (09:26→21:37)
[2018-05-12] MEDS: COZAAR PO SCH (09:26)
[2018-05-12] MEDS: MOBIC PO SCH (09:27)
[2018-05-12] MEDS: NORVASC PO SCH (09:28)
[2018-05-12] MEDS: MAG-OX PO SCH ×2 (09:28→21:37)
[2018-05-12] MEDS: HumaLOG SUB-Q SCH ×4 (13:12→21:38)
--- NOTE | 2018-05-12 17:08 | Progress Note ---
Subjective Date of service: 05/12/18 Principal diagnosis: schizophrenia Subjective Comment: This is the daily progress note on this patient. Patient seen today and case discussed with the staff. Patient was seen walking in the hallway but she was s having some difficulties walking. When asked she denies having any difficulties she just says that she "walks slow" patient is otherwise grossly asymptomatic one other thing I noticed today is that patient have some thought blocking and she stares at you for several seconds to minutes before she answers. I asked her if anything bothers her or history of difficulties in her thinking but she denies it. She denies any hallucinations and denies any destructive thoughts. Also note is that patient has some difficulties with the date she could not recall the exact date and after giving her some point she was able to recall but only the month and the year she could not recall the exact date. It appears that patient's memory and cognitive functioning is is declining some even though it's not at the level of dementia. Patient is otherwise alert and oriented to person and month and the year she thought that she is at [facility] and I had to remind her that she is not an [facility]. Patient denies any side effects from medications even though at times she symptoms somewhat slow and lethargic but that could be from her arthritis that she has some difficulties walking. Mental status examination: patient is alert and oriented to place and person .she denies auditory or visual hallucination. Denies suicidal or homicidal ideation. Denies any side effects from medication. Denies any destructive thoughts. Plan: plan for the patient is to continue the current regimen and continue with the current observation and we are planning to have a discharge scheduled for tomorrow. patient has agreed to it and we will make her discharge paperwork ready for her. I also have discussed adding Aricept to help her with her memory issue .risk and benefit of the medication discussed with the patient and she has agreed to take the medicine. Assessment and Plan - Patient Problems (1) Schizophrenia Current Visit: Yes Status: Acute
[2018-05-12] MEDS: ARICEPT PO SCH (21:36)
[2018-05-12] MEDS: REMERON PO SCH (21:37)
[2018-05-12] MEDS: CATAPRES PO PRN (22:16)
[2018-05-13] MEDS: HumaLOG SUB-Q SCH ×4 (07:38→21:32)
[2018-05-13] MEDS: GLUCOPHAGE PO SCH ×2 (08:40→18:49)
[2018-05-13] MEDS: NORVASC PO SCH (10:23)
[2018-05-13] MEDS: COLACE PO SCH ×2 (10:23→21:28)
[2018-05-13] MEDS: MAG-OX PO SCH ×2 (10:24→21:30)
[2018-05-13] MEDS: HALDOL PO SCH ×2 (10:24→21:30)
[2018-05-13] MEDS: MOBIC PO SCH (10:24)
[2018-05-13] MEDS: COGENTIN PO SCH ×2 (10:35→21:28)
[2018-05-13] MEDS: COZAAR PO SCH (10:36)
[2018-05-13] MEDS ORDERED: COGENTIN ONE (10:36)
--- NOTE | 2018-05-13 17:00 | Progress Note ---
Subjective Date of service: 05/13/18 Principal diagnosis: schizophrenia Subjective Comment: Patient seen today and case discussed with staff. It is reported by the staff and I also noticed that patient has slow mentation. She is slow to respond and her speech was somewhat delayed. I asked the patient how she feels and she admits that she feels "slow" however, she denies feeling stiff denies any tightening of the muscles. I checked also for carpal rigidity she doesn't have any cogwheel rigidity on her hands . Patient denies any side effects from the medications and she says that she just feels "little tired" Mental status examination: patient is alert and was able to tell me the month and the year. She could not tell me the exact date. She denies any active auditory or visual hallucination. She denies any depression or suicidal thoughts. She denies any side effects from medication. Patient knew that she was scheduled for discharge today but patient was reeducated that because of her sluggishness, I need to make some changes on her medications. I have discussed the case. we agreed to cut down the dose of Depakote to 500 mg twice a day and I will also recommend to discontinue the Geodon when necessary patient was educated about the medication changes and she agreed to a plan. plan for the patient is to continue the observations, decreased the dose of Depakote from 500 mg 3 times a day to 500 mg twice a day.If patient continued to show signs of improvement will make the discharge for this patient's tomorrow .thank you Assessment and Plan - Patient Problems (1) Schizophrenia Current Visit: Yes Status: Acute
[2018-05-13] MEDS: ARICEPT PO SCH (21:27)
[2018-05-13] MEDS: REMERON PO SCH (21:30)
[2018-05-14] MEDS: HumaLOG SUB-Q SCH ×3 (07:25→16:35)
[2018-05-14] MEDS: COZAAR PO SCH (09:30)
[2018-05-14] MEDS: HALDOL PO SCH (09:32)
[2018-05-14] MEDS: GLUCOPHAGE PO SCH ×2 (10:06→16:56)
[2018-05-14] MEDS: MOBIC PO SCH (10:07)
[2018-05-14] MEDS: COLACE PO SCH (10:07)
[2018-05-14] MEDS: MAG-OX PO SCH (10:07)
[2018-05-14] MEDS: COGENTIN PO SCH (10:07)
[2018-05-14] MEDS: NORVASC PO SCH (10:08)
--- NOTE | 2018-05-14 10:42 | Progress Note ---
Assessment and Plan Assessment and plan: Ms. Samson Galvan is a 68-year-old -[place] female admitted to [place] psych unit at [facility] on 05/03/2018. Patient was admitted because of complain of auditory hallucinations. Nearing the end of her treatment the patients medications depakote was adjusted with plan for di john, the patient the next day became non verbal with slowed gait and was noted to have bilateral upper ext edeam B/L upper ext wrist Edema vs fat. Non pitting Encephalopathy ?EPS Schizophrenia HTN Plan CT head Echo BNP EPS management per Psych Doubt seizures but monitor closely. Change to Low salt diet. Thank you for allowing us take part in the care of your patient. will follow with you as the results become available. History Interval history: Called to re-evaluate patient due to bilateral upper ext edema and change in mental status Patient seen and examined. she does not verbalize any answers but acknowledges by tracking my movements. Nursing staff reported that this is a change in her mental status as she is always very lively. Also there is a noted bilateral upper ext swelling located to the wrist. Hospitalist Physical - Physical exam Narrative exam: General appearance: Present: no acute distress, well-nourished - EENT Eyes: PERRL, EOM intact ENT: hearing intact, clear oral mucosa Ears: bilateral: normal - Neck Neck: supple, normal ROM - Respiratory Respiratory effort: normal Respiratory: bilateral: CTA - Breasts Breasts: normal - Cardiovascular Heart rate: 78 Rhythm: regular Heart Sounds: Present: S1 & S2. Absent: gallop, rub Extremities: no ischemia, pulses intact, No edema, normal color, Full ROM Extremity abnormal: mild swelling at the bilateral wrist but no edema and non tender. - Gastrointestinal General gastrointestinal: Present: soft, non-tender, non-distended, normal bowel sounds Rectal Exam: deferred - Genitourinary Female genitourinary: normal - Integumentary Integumentary: clear, warm, dry - Musculoskeletal Musculoskeletal: 1, strength equal bilaterally - Neurologic Neurologic: moves all extremities - Psychiatric Psychiatric:flat affect - Constitutional Vitals: Temp Pulse Resp BP Pulse Ox 98.2 F 100 H 18 147/66 99 05/13/18 10:06 05/14/18 10:08 05/13/18 10:06 05/14/18 10:08 05/13/18 10:08 General appearance: Present: no acute distress, well-nourished Results - Labs CBC & Chem 7: 05/04/18 12:31 05/04/18 12:31 Labs: Laboratory Last Values WBC 7.3 K/mm3 (4.5-11.0) 05/04/18 12:31 RBC 3.77 M/mm3 (3.65-5.03) 05/04/18 12:31 Hgb 12.1 gm/dl (10.1-14.3) 05/04/18 12:31 Hct 35.2 % (30.3-42.9) 05/04/18 12:31 MCV 93 fl (79-97) 05/04/18 12: MCH 32 pg (28-32) 05/04/18 12:31 MCHC 34 % (30-34) 05/04/18 12:31 RDW 14.6 % (13.2-15.2) 05/04/18 12:31 Plt Count 220 K/mm3 (140-440) 05/04/18 12:31 Lymph % (Auto) 35.6 % (13.4-35.0) H 05/04/18 12:31 [place] % (Auto) 10.7 % (0.0-7.3) H 05/04/18 12:31 Eos % (Auto) 2.0 % (0.0-4.3) 05/04/18 12:31 Baso % (Auto) 1.3 % (0.0-1.8) 05/04/18 12:31 Lymph # 2.6 K/mm3 (1.2-5.4) 05/04/18 12:31 [place] # 0.8 K/mm3 (0.0-0.8) 05/04/18 12:31 Eos # 0.2 K/mm3 (0.0-0.4) 05/04/18 12:31 Baso # 0.1 K/mm3 (0.0-0.1) 05/04/18 12:31 Seg Neutrophils % 50.4 % (40.0-70.0) 05/04/18 12:31 Seg Neutrophils # 3.7 K/mm3 (1.8-7.7) 05/04/18 12:31 Sodium 139 mmol/L (137-145) 05/04/18 12:31 Potassium 4.4 mmol/L (3.6-5.0) 05/04/18 12:31 Chloride 101.6 mmol/L (98-107) 05/04/18 12:31 Carbon Dioxide 26 mmol/L (22-30) 05/04/18 12:31 Anion Gap 16 mmol/L 05/04/18 12:31 BUN 15 mg/dL (7-17) 05/04/18 12:31 Creatinine 0.8 mg/dL (0.7-1.2) 05/04/18 12:31 Estimated GFR > 60 ml/min 05/04/18 12:31 BUN/Creatinine Ratio 19 % 05/04/18 12:31 Glucose 112 mg/dL (65-100) H 05/04/18 12:31 POC Glucose 71 (70-105) 05/14/18 07:26 Hemoglobin A1c 6.3 % (4-6) H 05/11/18 07:05 Calcium 9.3 mg/dL (8.4-10.2) 05/04/18 12:31 Urine Color Straw (Yellow) 05/04/18 18:30 Urine Turbidity Clear (Clear) 05/04/18 18:30 Urine pH 5.0 (5.0-7.0) 05/04/18 18:30 Ur Specific [place] 1.005 (1.003-1.030) 05/04/18 18:30 Urine Protein <15 mg/dl mg/dL (Negative) 05/04/18 18:30 Urine Glucose (UA) Neg mg/dL (Negative) 05/04/18 18:30 Urine Ketones Neg mg/dL (Negative) 05/04/18 18:30 Urine Blood Neg (Negative) 05/04/18 18:30 Urine Nitrite Neg (Negative) 05/04/18 18:30 Urine Bilirubin Neg (Negative) 05/04/18 18:30 Urine Urobilinogen < 2.0 mg/dL (<2.0) 05/04/18 18:30 Ur Leukocyte Esterase Neg (Negative) 05/04/18 18:30 Urine WBC (Auto) 1.0 /HPF (0.0-6.0) 05/04/18 18:30 Urine RBC (Auto) 1.0 /HPF (0.0-6.0) 05/04/18 18:30 U Epithel Cells (Auto) < 1.0 /HPF (0-13.0) 05/04/18 18:30 Valproic Acid 45.5 ug/mL (50-100) L 05/14/18 07:24 Nutrition/Malnutrition Assess - Dietary Evaluation Nutrition/Malnutrition Findings: Nutrition Notes Start: 05/10/18 17:09 Freq: Status: Active Protocol: Document 05/10/18 17:09 RM (Rec: 05/10/18 17:11 [email or web address]) Nutrition Notes Need for Assessment generated from: LOS Initial or Follow up Brief Note Other Pertinent Diagnosis Schizophrenia Current Diet Consistent CHO Labs/Tests Reviewed Pertinent Medications Reviewed Height 5 ft 5 in Weight 114 kg [place] Body Weight (kg) 56.81 BMI 41.8 Subjective/Other Information Screened for LOS. Pt stated that her appetite is good and that she eats all of her meals. Burn Absent Trauma Absent Nutrition Intervention Revisit per MD consult or patient Sign Off request:
--- NOTE | 2018-05-14 16:34 | Discharge Summary ---
Providers - Providers Date of Admission: 05/03/18 15:27 Attending physician: CHUCK EDWARDS MD 05/03/18 13:06 Consult to Physician [CONS] Routine Comment: Consulting Provider: NIKO RENDON Physician Instructions: consult to GPU for h & p Reason For Exam: medical management 05/08/18 17:33 Consult to Physician [CONS] Routine Comment: Consulting Provider: JAYRO LEON Physician Instructions: Reason For Exam: Left knee pain from fall per pt. 05/10/18 19:10 Consult to Physician [CONS] Routine Comment: Consulting Provider: JAYRO LEON Physician Instructions: Reason For Exam: increased blood pressure Hospitalization Condition: Stable Disposition: DC-01 TO HOME OR SELFCARE Allergies/Adverse Reactions: Allergies No Known Allergies Allergy (Verified 05/05/18 10:29) Vital Signs: Last Vital Signs Temp 98.2 F 05/13/18 10:06 Pulse 100 H 05/14/18 10:08 Resp 18 05/13/18 10:06 BP 147/66 05/14/18 10:08 Pulse Ox 99 05/13/18 10:08 Last Lab: Laboratory Last Values WBC 7.3 K/mm3 (4.5-11.0) 05/04/18 12:31 RBC 3.77 M/mm3 (3.65-5.03) 05/04/18 12:31 Hgb 12.1 gm/dl (10.1-14.3) 05/04/18 12:31 Hct 35.2 % (30.3-42.9) 05/04/18 12:31 MCV 93 fl (79-97) 05/04/18 12:31 MCH 32 pg (28-32) 05/04/18 12:31 MCHC 34 % (30-34) 05/04/18 12:31 RDW 14.6 % (13.2-15.2) 05/04/18 12:31 Plt Count 220 K/mm3 (140-440) 05/04/18 12:31 Lymph % (Auto) 35.6 % (13.4-35.0) H 05/04/18 12:31 [place] % (Auto) 10.7 % (0.0-7.3) H 05/04/18 12:31 Eos % (Auto) 2.0 % (0.0-4.3) 05/04/18 12:31 Baso % (Auto) 1.3 % (0.0-1.8) 05/04/18 12:31 Lymph # 2.6 K/mm3 (1.2-5.4) 05/04/18 12:31 [place] # 0.8 K/mm3 (0.0-0.8) 05/04/18 12:31 Eos # 0.2 K/mm3 (0.0-0.4) 05/04/18 12:31 Baso # 0.1 K/mm3 (0.0-0.1) 05/04/18 12:31 Seg Neutrophils % 50.4 % (40.0-70.0) 05/04/18 12:31 Seg Neutrophils # 3.7 K/mm3 (1.8-7.7) 05/04/18 12:31 Sodium 139 mmol/L (137-145) 05/04/18 12:31 Potassium 4.4 mmol/L (3.6-5.0) 05/04/18 12:31 Chloride 101.6 mmol/L (98-107) 05/04/18 12:31 Carbon Dioxide 26 mmol/L (22-30) 05/04/18 12:31 Anion Gap 16 mmol/L 05/04/18 12:31 BUN 15 mg/dL (7-17) 05/04/18 12:31 Creatinine 0.8 mg/dL (0.7-1.2) 05/04/18 12:31 Estimated GFR > 60 ml/min 05/04/18 12:31 BUN/Creatinine Ratio 19 % 05/04/18 12:31 Glucose 112 mg/dL (65-100) H 05/04/18 12:31 POC Glucose 114 (70-105) H 05/14/18 16:09 Hemoglobin A1c 6.3 % (4-6) H 05/11/18 07:05 Calcium 9.3 mg/dL (8.4-10.2) 05/04/18 12:31 NT-Pro-B Natriuret Pep 77.40 pg/mL (0-900) 05/14/18 07:40 Urine Color Straw (Yellow) 05/04/18 18:30 Urine Turbidity Clear (Clear) 05/04/18 18:30 Urine pH 5.0 (5.0-7.0) 05/04/18 18:30 Ur Specific [place] 1.005 (1.003-1.030) 05/04/18 18:30 Urine Protein <15 mg/dl mg/dL (Negative) 05/04/18 18:30 Urine Glucose (UA) Neg mg/dL (Negative) 05/04/18 18:30 Urine Ketones Neg mg/dL (Negative) 05/04/18 18:30 Urine Blood Neg (Negative) 05/04/18 18:30 Urine Nitrite Neg (Negative) 05/04/18 18:30 Urine Bilirubin Neg (Negative) 05/04/18 18:30 Urine Urobilinogen < 2.0 mg/dL (<2.0) 05/04/18 18:30 Ur Leukocyte Esterase Neg (Negative) 05/04/18 18:30 Urine WBC (Auto) 1.0 /HPF (0.0-6.0) 05/04/18 18:30 Urine RBC (Auto) 1.0 /HPF (0.0-6.0) 05/04/18 18:30 U Epithel Cells (Auto) < 1.0 /HPF (0-13.0) 05/04/18 18:30 Valproic Acid 45.5 ug/mL (50-100) L 05/14/18 07:24 - Discharge Diagnoses (1) Schizophrenia Status: Acute Core Measure Documentation - Palliative Care Palliative Care/ Comfort Measures: Not Applicable Exam - Constitutional Vitals: Temp Pulse Resp BP Pulse Ox 98.2 F 100 H 18 147/66 99 05/13/18 10:06 05/14/18 10:08 05/13/18 10:06 05/14/18 10:08 05/13/18 10:08 Plan Follow up with: [facility] [Other] - 7 Days Prescriptions: Donepezil [Aricept] 5 mg PO QHS #30 tablet traZODone [Desyrel] 50 mg PO QHS PRN #30 tablet PRN Reason: Sleep Mirtazapine [Remeron 15mg TAB] 15 mg PO QHS #30 tablet Benztropine [Cogentin] 1 mg PO BID #60 tablet Docusate Sodium [Colace CAP] 100 mg PO BID #60 capsule Losartan [Cozaar] 100 mg PO QDAY #30 tablet metFORMIN [Glucophage] 500 mg PO BIDDIAB #60 tablet amLODIPine [Norvasc] 10 mg PO QDAY #30 tablet
--- NOTE | 2018-05-14 16:48 | Discharge Summary ---
Providers - Providers Date of Admission: 05/03/18 15:27 Attending physician: CHUCK EDWARDS MD 05/03/18 13:06 Consult to Physician [CONS] Routine Comment: Consulting Provider: NIKO RENDON Physician Instructions: consult to GPU for h & p Reason For Exam: medical management 05/08/18 17:33 Consult to Physician [CONS] Routine Comment: Consulting Provider: JAYRO LEON Physician Instructions: Reason For Exam: Left knee pain from fall per pt. 05/10/18 19:10 Consult to Physician [CONS] Routine Comment: Consulting Provider: JAYRO LEON Physician Instructions: Reason For Exam: increased blood pressure Hospitalization Reason for admission: psychosis.aggression and behavioral disturbances. Condition: Stable Disposition: DC-01 TO HOME OR SELFCARE Allergies/Adverse Reactions: Allergies No Known Allergies Allergy (Verified 05/05/18 10:29) Vital Signs: Last Vital Signs Temp 98.2 F 05/13/18 10:06 Pulse 100 H 05/14/18 10:08 Resp 18 05/13/18 10:06 BP 147/66 05/14/18 10:08 Pulse Ox 99 05/13/18 10:08 Last Lab: Laboratory Last Values WBC 7.3 K/mm3 (4.5-11.0) 05/04/18 12:31 RBC 3.77 M/mm3 (3.65-5.03) 05/04/18 12:31 Hgb 12.1 gm/dl (10.1-14.3) 05/04/18 12:31 Hct 35.2 % (30.3-42.9) 05/04/18 12:31 MCV 93 fl (79-97) 05/04/18 12:31 MCH 32 pg (28-32) 05/04/18 12:31 MCHC 34 % (30-34) 05/04/18 12:31 RDW 14.6 % (13.2-15.2) 05/04/18 12:31 Plt Count 220 K/mm3 (140-440) 05/04/18 12:31 Lymph % (Auto) 35.6 % (13.4-35.0) H 05/04/18 12:31 [place] % (Auto) 10.7 % (0.0-7.3) H 05/04/18 12:31 Eos % (Auto) 2.0 % (0.0-4.3) 05/04/18 12:31 Baso % (Auto) 1.3 % (0.0-1.8) 05/04/18 12:31 Lymph # 2.6 K/mm3 (1.2-5.4) 05/04/18 12:31 [place] # 0.8 K/mm3 (0.0-0.8) 05/04/18 12:31 Eos # 0.2 K/mm3 (0.0-0.4) 05/04/18 12:31 Baso # 0.1 K/mm3 (0.0-0.1) 05/04/18 12:31 Seg Neutrophils % 50.4 % (40.0-70.0) 05/04/18 12:31 Seg Neutrophils # 3.7 K/mm3 (1.8-7.7) 05/04/18 12:31 Sodium 139 mmol/L (137-145) 05/04/18 12:31 Potassium 4.4 mmol/L (3.6-5.0) 05/04/18 12:31 Chloride 101.6 mmol/L (98-107) 05/04/18 12:31 Carbon Dioxide 26 mmol/L (22-30) 05/04/18 12:31 Anion Gap 16 mmol/L 05/04/18 12:31 BUN 15 mg/dL (7-17) 05/04/18 12:31 Creatinine 0.8 mg/dL (0.7-1.2) 05/04/18 12:31 Estimated GFR > 60 ml/min 05/04/18 12:31 BUN/Creatinine Ratio 19 % 05/04/18 12:31 Glucose 112 mg/dL (65-100) H 05/04/18 12:31 POC Glucose 114 (70-105) H 05/14/18 16:09 Hemoglobin A1c 6.3 % (4-6) H 05/11/18 07:05 Calcium 9.3 mg/dL (8.4-10.2) 05/04/18 12:31 NT-Pro-B Natriuret Pep 77.40 pg/mL (0-900) 05/14/18 07:40 Urine Color Straw (Yellow) 05/04/18 18:30 Urine Turbidity Clear (Clear) 05/04/18 18:30 Urine pH 5.0 (5.0-7.0) 05/04/18 18:30 Ur Specific [place] 1.005 (1.003-1.030) 05/04/18 18:30 Urine Protein <15 mg/dl mg/dL (Negative) 05/04/18 18:30 Urine Glucose (UA) Neg mg/dL (Negative) 05/04/18 18:30 Urine Ketones Neg mg/dL (Negative) 05/04/18 18:30 Urine Blood Neg (Negative) 05/04/18 18:30 Urine Nitrite Neg (Negative) 05/04/18 18:30 Urine Bilirubin Neg (Negative) 05/04/18 18:30 Urine Urobilinogen < 2.0 mg/dL (<2.0) 05/04/18 18:30 Ur Leukocyte Esterase Neg (Negative) 05/04/18 18:30 Urine WBC (Auto) 1.0 /HPF (0.0-6.0) 05/04/18 18:30 Urine RBC (Auto) 1.0 /HPF (0.0-6.0) 05/04/18 18:30 U Epithel Cells (Auto) < 1.0 /HPF (0-13.0) 05/04/18 18:30 Valproic Acid 45.5 ug/mL (50-100) L 05/14/18 07:24 - Discharge Diagnoses (1) Schizophrenia Status: Acute Core Measure Documentation - Palliative Care Palliative Care/ Comfort Measures: Not Applicable Exam - Constitutional Vitals: Temp Pulse Resp BP Pulse Ox 98.2 F 100 H 18 147/66 99 05/13/18 10:06 05/14/18 10:08 05/13/18 10:06 05/14/18 10:08 05/13/18 10:08 - Psychiatric Psychiatric: appropriate mood/affect, other (very constricted affect,speach is slow and delayed but answered my questions.she wants to be discharged.) Plan Activity: fall precautions Diet: diabetic Follow up with: [facility] [Other] - 7 Days Prescriptions: Donepezil [Aricept] 5 mg PO QHS #30 tablet traZODone [Desyrel] 50 mg PO QHS PRN #30 tablet PRN Reason: Sleep Mirtazapine [Remeron 15mg TAB] 15 mg PO QHS #30 tablet Benztropine [Cogentin] 1 mg PO BID #60 tablet Docusate Sodium [Colace CAP] 100 mg PO BID #60 capsule Losartan [Cozaar] 100 mg PO QDAY #30 tablet metFORMIN [Glucophage] 500 mg PO BIDDIAB #60 tablet amLODIPine [Norvasc] 10 mg PO QDAY #30 tablet Pending Studies This is the discharge summary of patient. Patient seen today and case discussed with staff earlier this morning. we had to take a medical consult on this patient because patient is continuing to have slow mentation .she's still have very slow and delayed response and even though she answers questions but she takes a long time to answer. Patient was taken down stairs for the CAT scan and echocardiogram because of the altered mental status, we wanted to make sure to check if patient have any stroke or or if the patient have congestive heart failure. The results of those tests are not available yet. Patient seen by me and I again discussed the case with the staff. patient is alert and was able to answer a few questions but again she takes long walks before she answers. Patient was aware of going home today and she told me that she is "ready " to go home. patient denies any active hallucinations and denies any suicidal or homicidal ideation, denies any destructive thoughts and denies any side effects from medication. Plan for the patient is to discharge her home today and she will continue to have follow-up with Dr.Gregory Ng.
--- NOTE | 2018-05-14 17:14 | Cat Scan Report ---
PROCEDURE: CT HEAD/BRAIN WO CON TECHNIQUE: CT head without contrast HISTORY: AMS COMPARISONS: FINDINGS: No acute interhemispheric subdural hemorrhage identified. No evidence for midline shift or mass effec t. Ventricles and sulci are within normal limits. Moses-white matter differentiation is intact. Bony calvarium is unremarkable. Visualized portions of the mastoids and paranasal sinuses are unremar kable. IMPRESSION: Normal CT head. This document is electronically signed by Suhail Joe MD., May 14 2018 05:12:39 PM ET
[2018-05-14 19:53] VITALS: BP 147/94
== END 2018-05-14 21:40 | disposition home or self-care (01) | DRG 885 ==
LOC: 3A 11:07 → UNDOADMIN 11:07 → 5A 15:27
PROVIDERS: ADMIT Specialist; ATTEND Specialist
DX: F20.9 Schizophrenia, unspecified (principal); G93.40 Encephalopathy, unspecified; I10 Essential (primary) hypertension; E11.9 Type 2 diabetes mellitus without complications; M25.462 Effusion, left knee; Z82.49 Family history of ischemic heart disease and other diseases of the circulatory system; Z83.3 Family history of diabetes mellitus; Z79.899 Other long term (current) drug therapy
CPT/HCPCS: 36415; 70450; 80048; 80053; 80164; 80307; 80320; 81001; 82150; 82962; 83036; 83690; 83880; 84443; 85025; 93306; G0378; G0480; J1631; J1815

== ENCOUNTER 2018-08-23 06:02 | Emergency (ER) | payer MEDICARE ==
[2018-08-23 06:13] VITALS: BP 163/75
[2018-08-23 08:02] LABS: Basophils % (Auto) 0.5 % (0.0-1.8); Eosinophils # (Auto) 0.1 K/mm3 (0.0-0.4); Eosinophils % (Auto) 1.8 % (0.0-4.3); Hematocrit 39.7 % (30.3-42.9); Hemoglobin 13.9 gm/dl (10.1-14.3); Lymphocytes # (Auto) 3.4 K/mm3 (1.2-5.4); Lymphocytes % (Auto) 52.5 % (13.4-35.0); Mean Corpuscular HGB Conc 35 % (30-34); Mean Corpuscular Volume 94 fl (79-97); Monocytes # (Auto) 0.4 K/mm3 (0.0-0.8); Monocytes % (Auto) 5.9 % (0.0-7.3); Platelet Count 238 K/mm3 (140-440); Red Blood Count 4.23 M/mm3 (3.65-5.03); Red Cell Distribution Width 15.3 % (13.2-15.2)
[2018-08-23 08:19] LABS: BUN/Creatinine Ratio 13; Blood Urea Nitrogen 12 mg/dL (7-17); Calcium 9.3 mg/dL (8.4-10.2); Hemolysis Index 18
--- NOTE | 2018-08-23 09:54 | Emergency Department Report ---
ED General Adult HPI - General Chief complaint: High BP Stated complaint: HIGH B/P Time Seen by Provider: 08/23/18 09:45 Source: patient, EMS Mode of arrival: Wheelchair Limitations: No Limitations - History of Present Illness Initial comments: Ms. Galvan is a 68 years old female, familiar to me, patient has a history of schizophrenia. Patient in no acute distress. Sitting comfortably in her chair. Patient presented to the ER stating that she is unable to sleep for the last 3 nights. Patient is taking trazodone and Remeron but she stating that is not helping. Patient had denied any chest pain, shortness of breath, weakness numbness or tingling sensation. Patient denied any auditory or visual estimation. No suicidal or homicidal ideation. - Related Data Previous Rx's Medication Instructions Recorded Last Taken Type Benztropine [Cogentin] 1 mg PO BID #60 tablet 05/14/[address] [Depakote Dr] 500 mg PO BID #60 tablet 05/14/18 Unknown Rx Docusate Sodium [Colace CAP] 100 mg PO BID #60 capsule 05/14/18 Unknown Rx Donepezil [Aricept] 5 mg PO QHS #30 tablet 05/14/18 Unknown Rx Ibuprofen [Motrin 600 MG tab] 600 mg PO Q8H PRN tablet 05/14/18 Unknown Rx Lispro Insulin [HumaLOG] 0 unit SUB-Q ACHS units 05/14/18 Unknown Rx Losartan [Cozaar] 100 mg PO QDAY #30 tablet 05/14/18 Unknown Rx Magnesium Oxide [Mag-Ox] 400 mg PO BID tablet 05/14/18 Unknown Rx Meloxicam [Mobic] 7.5 mg PO QDAY tablet 05/14/18 Unknown Rx Mirtazapine [Remeron 15mg TAB] 15 mg PO QHS #30 tablet 05/14/18 Unknown Rx amLODIPine [Norvasc] 10 mg PO QDAY #30 tablet 05/14/18 Unknown Rx metFORMIN [Glucophage] 500 mg PO BIDDIAB #60 tablet 05/14/18 Unknown Rx traZODone [Desyrel] 50 mg PO QHS PRN #30 tablet 05/14/18 Unknown Rx Allergies Allergy/AdvReac Type Severity Reaction Status Date / Time No Known Allergies Allergy Verified 05/05/18 10:29 ED Review of Systems ROS: Stated complaint: HIGH B/P Other details as noted in HPI Comment: All other systems reviewed and negative Constitutional: denies: chills, fever Respiratory: denies: cough, orthopnea, shortness of breath, SOB with exertion, wheezing Cardiovascular: denies: chest pain, palpitations, dyspnea on exertion Gastrointestinal: denies: abdominal pain, nausea, vomiting Neurological: denies: headache, weakness ED Past Medical Hx - Past Medical History Previous Medical History?: Yes Hx Hypertension: Yes Hx Diabetes: Yes Hx Renal Disease: No Hx Arthritis: No Hx Seizures: No Hx Psychiatric Treatment: Yes (multiple IP/bipolar) Hx Dementia: No Hx HIV: No Additional medical history: osteoarthritis - Surgical History Past Surgical History?: No Hx Cholecystectomy: No Hx Appendectomy: No Additional Surgical History: KENYATTA - Social History Smoking Status: Never Smoker Substance Use Type: None - Medications Home Medications: Home Medications Medication Instructions Recorded Confirmed Last Taken Type Benztropine [Cogentin] 1 mg PO BID #60 tablet 05/14/[address] [Depakote Dr] 500 mg PO BID #60 tablet 05/14/18 Unknown Rx Docusate Sodium [Colace CAP] 100 mg PO BID #60 capsule 05/14/18 Unknown Rx Donepezil [Aricept] 5 mg PO QHS #30 tablet 05/14/18 Unknown Rx Ibuprofen [Motrin 600 MG tab] 600 mg PO Q8H PRN tablet 05/14/18 Unknown Rx Lispro Insulin [HumaLOG] 0 unit SUB-Q ACHS units 05/14/18 Unknown Rx Losartan [Cozaar] 100 mg PO QDAY #30 tablet 05/14/18 Unknown Rx Magnesium Oxide [Mag-Ox] 400 mg PO BID tablet 05/14/18 Unknown Rx Meloxicam [Mobic] 7.5 mg PO QDAY tablet 05/14/18 Unknown Rx Mirtazapine [Remeron 15mg TAB] 15 mg PO QHS #30 tablet 05/14/18 Unknown Rx amLODIPine [Norvasc] 10 mg PO QDAY #30 tablet 05/14/18 Unknown Rx metFORMIN [Glucophage] 500 mg PO BIDDIAB #60 tablet 05/14/18 Unknown Rx traZODone [Desyrel] 50 mg PO QHS PRN #30 tablet 05/14/18 Unknown Rx ED Physical Exam - General Limitations: No Limitations General appearance: alert, in no apparent distress - Head Head exam: Present: atraumatic, normocephalic, normal inspection - Eye Eye exam: Present: normal appearance, PERRL - ENT ENT exam: Present: normal exam, normal orophraynx, mucous membranes moist - Neck Neck exam: Present: normal inspection, full ROM. Absent: tenderness, m eningismus, lymphadenopathy, thyromegaly - Respiratory Respiratory exam: Present: normal lung sounds bilaterally. Absent: respiratory distress, chest wall tenderness - Cardiovascular Cardiovascular Exam: Present: regular rate, bradycardia, normal heart sounds - GI/Abdominal GI/Abdominal exam: Present: soft, normal bowel sounds. Absent: distended, tenderness, guarding, rebound, rigid, organomegaly, mass, bruit, pulsatile mass - Extremities Exam Extremities exam: Present: normal inspection, full ROM, normal capillary refill. Absent: pedal edema - Back Exam Back exam: Present: normal inspection, full ROM. Absent: tenderness, CVA tenderness (R), CVA tenderness (L), muscle spasm, paraspinal tenderness, vertebral tenderness - Neurological Exam Neurological exam: Present: alert, oriented X3, CN II-XII intact, normal gait, reflexes normal - Skin Skin exam: Present: warm, intact, normal color ED Course Vital Signs 08/23/18 08/23/18 06:04 06:08 Temperature 98.0 F 98.0 F Pulse Rate 57 L 57 L Respiratory 18 18 Rate Blood Pressure 163/75 163/75 O2 Sat by Pulse 99 97 Oximetry ED Medical Decision Making - Lab Data Result diagrams: 08/23/18 07:35 08/23/18 07:35 - EKG Data -: EKG Interpreted by Me EKG shows normal: sinus rhythm Rate: bradycardia - EKG Data Interpretation: no acute changes - Medical Decision Making Ms. Galvan is a 68 years old female, familiar to me, patient has a history of schizophrenia. Patient in no acute distress. Sitting comfortably in her chair. Patient presented to the ER stating that she is unable to sleep for the last 3 nights. Patient is taking trazodone and Remeron but she stating that is not helping. Patient had denied any chest pain, shortness of breath, weakness numbness or tingling sensation. Patient denied any auditory or visual estimation. No suicidal or homicidal ideation. Patient EKG showed a sinus bradycardia with no other acute finding. Labs reviewed and is unremarkable. Patient stated that she just wants something to help with sleep. I will prescribe Vistaril and advised patient to follow-up with her psychiatric doctor in the next 2-3 days. I also advised her to return to the ER if symptoms are not improved. Critical care attestation.: If time is entered above; I have spent that time in minutes in the direct care of this critically ill patient, excluding procedure time. ED Disposition Clinical Impression: Schizophrenia, Insomnia Disposition: DC-01 TO HOME OR SELFCARE Is pt being admited?: No Condition: Stable Instructions: Insomnia (ED), Schizophrenia (ED) Referrals: YANIV TATUM MD [Primary Care Provider] - 3-5 Days
== END 2018-08-23 10:00 | disposition home or self-care (01) ==
LOC: ED 06:02 → EEVIPCON 06:02 → ED 10:00
DX: G47.00 Insomnia, unspecified (principal); F20.9 Schizophrenia, unspecified; I10 Essential (primary) hypertension; E11.9 Type 2 diabetes mellitus without complications; F31.9 Bipolar disorder, unspecified; M19.90 Unspecified osteoarthritis, unspecified site; Z79.4 Long term (current) use of insulin; Z79.899 Other long term (current) drug therapy
CPT/HCPCS: 36415; 80048; 83880; 85025; 93005; 93010

== ENCOUNTER 2018-08-26 14:23 | Emergency (ER) | payer MEDICARE ==
[2018-08-26 16:01] LABS: Bilirubin,Urine NEG (Negative); Blood,Urine NEG (Negative); Color,Urine Yellow (Yellow); Mucus,Urine FEW /HPF; Protein,Urine <15 mg/dL mg/dL (Negative); Urobilinogen,Urine < 2.0 mg/dL (<2.0)
[2018-08-26 16:14] LABS: Amphetamine Screen,Urine PRESUMPTIVE NEGATIVE; Benzodiazepines Screen,Urine PRESUMPTIVE NEGATIVE; Cannabinoid Screen,Urine PRESUMPTIVE NEGATIVE; Cocaine Screen,Urine PRESUMPTIVE NEGATIVE; Methadone Screen,Urine PRESUMPTIVE NEGATIVE; Opiate Screen,Urine PRESUMPTIVE NEGATIVE
[2018-08-26 16:34] LABS: Basophils % (Auto) 0.5 % (0.0-1.8); Eosinophils % (Auto) 0.5 % (0.0-4.3); Hematocrit 34.9 % (30.3-42.9); Lymphocytes # (Auto) 2.1 K/mm3 (1.2-5.4); Lymphocytes % (Auto) 27.1 % (13.4-35.0); Mean Corpuscular HGB Conc 34 % (30-34); Mean Corpuscular Volume 95 fl (79-97); Monocytes # (Auto) 0.7 K/mm3 (0.0-0.8); Monocytes % (Auto) 9.4 % (0.0-7.3); Platelet Count 206 K/mm3 (140-440); Red Blood Count 3.69 M/mm3 (3.65-5.03); Red Cell Distribution Width 15.1 % (13.2-15.2)
[2018-08-26 16:55] LABS: Albumin 3.9 g/dL (3.9-5); Calcium 9.5 mg/dL (8.4-10.2)
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
[2018-08-26 20:03] VITALS: BP 149/75
== END 2018-08-26 18:27 | disposition home or self-care (01) ==
LOC: ED 14:23
DX: F23 Brief psychotic disorder (principal); F28 Other psychotic disorder not due to a substance or known physiological condition; I10 Essential (primary) hypertension; E11.9 Type 2 diabetes mellitus without complications; F03.90 Unspecified dementia, unspecified severity, without behavioral disturbance, psychotic disturbance, mood disturbance, and anxiety; F31.9 Bipolar disorder, unspecified; M19.90 Unspecified osteoarthritis, unspecified site; Z79.899 Other long term (current) drug therapy
CPT/HCPCS: 36415; 80053; 80307; 81001; 85025; 99284; G0480; 80320

== ENCOUNTER 2018-08-26 18:07 | Inpatient (IN) | payer MEDICARE ==
[2018-08-26] MEDS ORDERED: IBUPROFEN PO PRN (20:23)
[2018-08-26] MEDS ORDERED: DESYREL PO PRN (20:31)
[2018-08-26] MEDS ORDERED: HALDOL IM PRN (20:36)
[2018-08-26] MEDS ORDERED: D50W (25GM) Syringe IV PRN (20:37)
[2018-08-26] MEDS ORDERED: HumaLOG SUB-Q PRN (20:37)
[2018-08-26 21:25] LABS: Chol/HDL Ratio 2.39 %
[2018-08-26] MEDS: ARICEPT PO SCH (22:31)
[2018-08-26] MEDS: MAG-OX PO SCH (22:31)
[2018-08-26] MEDS: VISTARIL PO SCH (22:31)
[2018-08-26] MEDS: REMERON PO SCH (22:32)
[2018-08-26] MEDS: COGENTIN PO SCH (22:32)
[2018-08-26] MEDS: COLACE PO SCH (22:32)
[2018-08-27] MEDS: HumaLOG SUB-Q SCH ×4 (07:15→22:07)
[2018-08-27] MEDS: ATIVAN IM PRN ×2 (08:32→17:44)
[2018-08-27] MEDS: GLUCOPHAGE PO SCH ×2 (08:33→16:59)
[2018-08-27] MEDS: COGENTIN PO SCH ×2 (09:15→22:00)
[2018-08-27] MEDS: MAG-OX PO SCH ×2 (09:15→22:00)
[2018-08-27] MEDS: COLACE PO SCH ×2 (09:16→22:00)
[2018-08-27] MEDS: NORVASC PO SCH (09:22)
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
[2018-08-27] MEDS ORDERED: COZAAR PO SCH (10:00)
[2018-08-27] MEDS: RisperDAL PO SCH ×2 (10:47→22:00)
--- NOTE | 2018-08-27 11:58 | Consultation ---
History of Present Illness - Reason for Consult Consult date: 08/27/18 Diabetes, Hypertension Requesting physician: VIC PIERRE - History of Present Illness Patient is 68 yo with schizophrenia, hypertension, diabetes mellitus type 2. She is admitted with schizoaffective disorder, agitated. The hospitalist has been consulted for management of hypertension, diabetes. She denies chest pain or shortness of breath. She is on Metformin for diabetes. Past History Past Medical History: diabetes, hypertension, other (Dementia) Past Surgical History: No surgical history Social history: , lives with family (She completed 9 grade education, disabled, no legal problems and no access to guns), full code. denies: smoking, alcohol abuse Family history: no significant family history Medications and Allergies Allergies Allergy/AdvReac Type Severity Reaction Status Date / Time No Known Allergies Allergy Verified 05/05/18 10:29 Home Medications Medication Instructions Recorded Confirmed Last Taken Type Benztropine [Cogentin] 1 mg PO BID #60 tablet 05/14/18 08/26/[address] [Eren Dr] 500 mg PO BID #60 tablet 05/14/18 08/26/18 Unknown Rx Docusate Sodium [Colace CAP] 100 mg PO BID #60 capsule 05/14/18 08/26/18 Unknown Rx Donepezil [Aricept] 5 mg PO QHS #30 tablet 05/14/18 08/26/18 Unknown Rx Ibuprofen [Motrin 600 MG tab] 600 mg PO Q8H PRN tablet 05/14/18 08/26/18 Unknown Rx Lispro Insulin [HumaLOG] 0 unit SUB-Q ACHS units 05/14/18 08/26/18 Unknown Rx Losartan [Cozaar] 100 mg PO QDAY #30 tablet 05/14/18 08/26/18 Unknown Rx Magnesium Oxide [Mag-Ox] 400 mg PO BID tablet 05/14/18 08/26/18 Unknown Rx Meloxicam [Mobic] 7.5 mg PO QDAY tablet 05/14/18 08/26/18 Unknown Rx Mirtazapine [Remeron 15mg TAB] 15 mg PO QHS #30 tablet 05/14/18 08/26/18 Unknown Rx amLODIPine [Norvasc] 10 mg PO QDAY #30 tablet 05/14/18 08/26/18 Unknown Rx metFORMIN [Glucophage] 500 mg PO BIDDIAB #60 tablet 05/14/18 08/26/18 Unknown Rx traZODone [Desyrel] 50 mg PO QHS PRN #30 tablet 05/14/18 08/26/18 Unknown Rx hydrOXYzine PAMOATE [Vistaril] 50 mg PO QHS #7 capsule 08/23/18 08/26/18 Unknown Rx Active Meds: Active Medications Amlodipine Besylate (Norvasc) 10 mg PO QDAY [facility] Last Admin: 08/27/18 09:22 Dose: 10 mg Documented by: Benztropine Mesylate (Cogentin) 1 mg PO BID [facility] Last Admin: 08/27/18 09:15 Dose: 1 mg Documented by: Dextrose (D50w (25gm) Syringe) 50 ml IV PRN PRN PRN Reason: Hypoglycemia Diphenhydramine HCl (Benadryl) 50 mg IM Q6H PRN PRN Reason: agitation Divalproex Sodium (Depakote Dr) 1,000 mg PO BID [facility] Docusate Sodium (Colace) 100 mg PO BID [facility] Last Admin: 08/27/18 09:16 Dose: 100 mg Documented by: Donepezil HCl (Aricept) 5 mg PO QHS [facility] Last Admin: 08/26/18 22:31 Dose: 5 mg Documented by: Haloperidol Lactate (Haldol) 5 mg IM Q6H PRN PRN Reason: Agitation Last Admin: 08/27/18 08:32 Dose: 5 mg Documented by: Hydroxyzine Pamoate (Vistaril) 50 mg PO [facility] Last Admin: 08/26/18 22:31 Dose: 50 mg Documented by: Ibuprofen (Ibuprofen) 600 mg PO Q6H PRN PRN Reason: Pain, Mild (1-3) Insulin Human Lispro (Humalog) 0 unit SUB-Q ACHS [facility]; Protocol Last Admin: 08/27/18 07:15 Dose: Not Given Documented by: Lorazepam (Ativan) 2 mg IM Q6H PRN PRN Reason: Agitation Last Admin: 08/27/18 08:32 Dose: 2 mg Documented by: Losartan Potassium (Cozaar) 100 mg PO QDAY [facility] Last Admin: 08/27/18 09:22 Dose: 100 mg Documented by: Magnesium Oxide (Mag-Ox) 400 mg PO BID [facility] Last Admin: 08/27/18 09:15 Dose: 400 mg Documented by: Metformin HCl (Glucophage) 500 mg PO BIDDIAB [facility] Last Admin: 08/27/18 08:33 Dose: 500 mg Documented by: Mirtazapine (Remeron) 15 mg PO QHS [facility] Last Admin: 08/26/18 22:32 Dose: 15 mg Documented by: Risperidone (Risperdal) 1 mg PO BID [facility] Last Admin: 08/27/18 10:47 Dose: 1 mg Documented by: Trazodone HCl (Desyrel) 50 mg PO QHS PRN PRN Reason: Sleep Review of Systems All systems: negative (No chest pain, No SOB, no headache. All other systems reviewed and are negative) Exam - Physical Exam Narrative exam: Gen: Not in acute distress, sitting up in chair,morbidly obese HEENT: Normocephalic, atraumatic Neck: supple, no JVD Heart: S1 and S2 reg, no murmurs, rubs or gallop Lungs: Clear, no crackles, no wheeze Abd: soft, non tender, non distended, normal BS Ext: No edema, no clubbing, no cyanosis, Neuro: Awake,alert, moves all ext, non focal - Constitutional Vitals: Temp Pulse Resp BP Pulse Ox 97.9 F 90 16 135/72 97 08/26/18 22:15 08/27/18 09:22 08/26/18 22:15 08/27/18 09:22 08/27/18 09:18 Results - Labs CBC & Chem 7: 08/29/18 16:05 Labs: Abnormal lab results 08/26/18 08/26/18 08/26/18 Range/Units 15:41 15:41 23:13 POC Glucose 143 H (70-105) HDL Cholesterol 61 H (40-59) mg/dL Valproic Acid 24.2 L (50-100) ug/mL Assessment and Plan Bipolar, schizoaffective disorder Admitted to [facility] Psychiatry consulting Diabetes mellitus type 2 accucheck qac and hs Hypertension Monitor BP Full code status Thanks for consulting us.
[2018-08-27] MEDS: BENADRYL IM PRN (17:44)
[2018-08-27] MEDS: VISTARIL PO SCH (21:59)
[2018-08-27] MEDS: REMERON PO SCH (22:00)
[2018-08-28] MEDS: ARICEPT PO SCH ×2 (00:37→21:28)
[2018-08-28] MEDS: BENADRYL IM PRN ×2 (03:41→12:17)
[2018-08-28] MEDS: ATIVAN IM PRN ×2 (03:41→12:17)
[2018-08-28 07:55] LABS: Calcium 9.5 mg/dL (8.4-10.2)
[2018-08-28] MEDS: GLUCOPHAGE PO SCH ×2 (08:02→17:13)
--- NOTE | 2018-08-28 08:07 | Progress Note ---
Subjective Date of service: 08/28/18 Principal diagnosis: Schizoaffective disorder, bipolar type Subjective Comment: The patient continues to be very loud, disruptive, disorganized and agitated. She is aggressive and requires PRN meds. Objective - Criteria for Continued Treatment Criteria for Continued Treatment: Stablizing Level of Functioning, Improving Emotional/Socia - Mental Status Mental Status: Alert - Objective Observation Participation Level: Minimal Reason(s) For Not Participating: Behaviors Assessment and Plan - Patient Problems (1) Schizoaffective disorder, bipolar type Current Visit: Yes Status: Acute Plan to address problem: PLAN: Patient will be admitted for inpatient psychiatric evaluation, medication adjustment and close monitoring The patient's behavior, mood, sleep and appetite will be closely monitored. Patient will be enrolled in individual and group therapeutic sessions and encouraged to attend. Patient will be provided with a safe and structured environment. Patient's physical health needs will be addressed by the Hospitalist. Social Assessment will be completed and the Design Tech will work with patient and family to ensure a suitable and safe disposition Medication adjustment will be made as clinically indicated Will continue Depakote 1000mg bid (increased 08/27) Will continue Risperidone 1mg bid for psychosis (started 08/27) The patient agreed on the treatment plan, understood the risk, benefit, alternative treatment, potential consequence of no treatment, and gave informed consent.
[2018-08-28] MEDS ORDERED: KIONEX PO ONE (11:00)
[2018-08-28] MEDS: COLACE PO SCH ×2 (11:11→21:29)
[2018-08-28] MEDS: MAG-OX PO SCH ×2 (11:11→21:29)
[2018-08-28] MEDS: RisperDAL PO SCH ×2 (11:11→21:29)
[2018-08-28] MEDS: COGENTIN PO SCH ×2 (11:11→21:28)
[2018-08-28] MEDS: NORVASC PO SCH (11:25)
[2018-08-28] MEDS: HumaLOG SUB-Q SCH ×4 (11:27→21:30)
[2018-08-28] MEDS ORDERED: WATER FOR INJ Sterile (PF) 10 ML ONE (11:53)
[2018-08-28] MEDS: GEODON IM PRN (12:17)
[2018-08-28] MEDS: VISTARIL PO SCH (21:29)
[2018-08-28] MEDS: REMERON PO SCH (21:29)
[2018-08-29] MEDS: ATIVAN IM PRN ×2 (07:40→17:45)
[2018-08-29] MEDS: GEODON IM PRN (07:41)
[2018-08-29] MEDS ORDERED: BENADRYL IM ONE (08:05)
[2018-08-29] MEDS: HumaLOG SUB-Q SCH ×4 (08:48→21:56)
[2018-08-29] MEDS: GLUCOPHAGE PO SCH ×2 (08:49→17:12)
[2018-08-29] MEDS: COGENTIN PO SCH ×2 (09:25→21:49)
[2018-08-29] MEDS: RisperDAL PO SCH ×2 (09:25→21:49)
[2018-08-29] MEDS: MAG-OX PO SCH ×2 (09:26→21:49)
[2018-08-29] MEDS: COLACE PO SCH ×2 (09:43→21:49)
[2018-08-29] MEDS: NORVASC PO SCH (09:57)
[2018-08-29] MEDS: BENADRYL IM PRN (17:45)
[2018-08-29 18:05] LABS: Calcium 9.4 mg/dL (8.4-10.2)
--- NOTE | 2018-08-29 19:03 | Progress Note ---
Subjective Date of service: 08/29/18 Principal diagnosis: Schizoaffective disorder, bipolar type Subjective Comment: No significant change from yesterday. The patient continues to be very loud, disruptive, disorganized and agitated. She is aggressive and requires PRN meds. Objective - Criteria for Continued Treatment Criteria for Continued Treatment: Improving Level of Functioning, Stablizing Level of Functioning, Improving Emotional/Socia - Mental Status Mental Status: Alert - Objective Observation Participation Level: Minimal Assessment and Plan - Patient Problems (1) Schizoaffective disorder, bipolar type Current Visit: Yes Status: Acute Plan to address problem: PLAN: Patient will be admitted for inpatient psychiatric evaluation, medication adjustment and close monitoring The patient's behavior, mood, sleep and appetite will be closely monitored. Patient will be enrolled in individual and group therapeutic sessions and encouraged to attend. Patient will be provided with a safe and structured environment. Patient's physical health needs will be addressed by the Hospitalist. Social Assessment will be completed and the Food Operations Manager will work with patient and family to ensure a suitable and safe disposition Medication adjustment will be made as clinically indicated Will continue Depakote 1000mg bid (increased 08/27) Will continue Risperidone 1mg bid for psychosis (started 08/27) The patient agreed on the treatment plan, understood the risk, benefit, alternative treatment, potential consequence of no treatment, and gave informed consent.
[2018-08-29] MEDS: ARICEPT PO SCH (21:48)
[2018-08-29] MEDS: REMERON PO SCH (21:49)
[2018-08-29] MEDS: VISTARIL PO SCH (21:49)
[2018-08-30] MEDS: ATIVAN IM PRN ×3 (07:11→20:16)
[2018-08-30] MEDS: BENADRYL IM PRN ×2 (07:11→20:16)
[2018-08-30] MEDS: HumaLOG SUB-Q SCH ×4 (07:43→21:12)
--- NOTE | 2018-08-30 09:39 | Progress Note ---
Subjective Date of service: 08/30/18 Principal diagnosis: Schizoaffective disorder, bipolar type Subjective Comment: No significant improvement. The patient continues to be very loud, disruptive, disorganized and agitated. She is aggressive and requires multiple PRN meds. Objective - Criteria for Continued Treatment Criteria for Continued Treatment: Improving Level of Functioning, Stablizing Level of Functioning, Improving Emotional/Socia - Mental Status Mental Status: Alert - Objective Observation Participation Level: Minimal Reason(s) For Not Participating: Behaviors Assessment and Plan - Patient Problems (1) Schizoaffective disorder, bipolar type Current Visit: Yes Status: Acute Plan to address problem: PLAN: Patient will be admitted for inpatient psychiatric evaluation, medication adjustment and close monitoring The patient's behavior, mood, sleep and appetite will be closely monitored. Patient will be enrolled in individual and group therapeutic sessions and encouraged to attend. Patient will be provided with a safe and structured environment. Patient's physical health needs will be addressed by the Hospitalist. Social Assessment will be completed and the Payroll Processor will work with patient and family to ensure a suitable and safe disposition Medication adjustment will be made as clinically indicated Will continue Depakote 1000mg bid (increased 08/27) Will increase Risperidone to 2mg bid for psychosis (started 08/30) Check Serum Valproic acid level in am tomorrow The patient agreed on the treatment plan, understood the risk, benefit, alternative treatment, potential consequence of no treatment, and gave informed consent.
[2018-08-30] MEDS: MAG-OX PO SCH ×2 (10:56→21:11)
[2018-08-30] MEDS: GLUCOPHAGE PO SCH ×2 (10:56→17:11)
[2018-08-30] MEDS: COLACE PO SCH ×2 (10:56→21:09)
[2018-08-30] MEDS: COGENTIN PO SCH ×2 (10:57→21:10)
[2018-08-30] MEDS: RisperDAL PO SCH ×2 (10:58→21:12)
[2018-08-30] MEDS: GEODON IM SCH ×2 (16:32→21:11)
[2018-08-30] MEDS: NORVASC PO SCH (16:40)
[2018-08-30] MEDS: VISTARIL PO SCH (21:09)
[2018-08-30] MEDS: ARICEPT PO SCH (21:09)
[2018-08-30] MEDS: REMERON PO SCH (21:10)
[2018-08-30] MEDS ORDERED: WATER FOR INJ Sterile (PF) 10 ML ONE (21:16)
[2018-08-30 22:15] LABS: Calcium 10.6 mg/dL (8.4-10.2)
[2018-08-31] MEDS: ATIVAN IM PRN (03:18)
[2018-08-31] MEDS: BENADRYL IM PRN (03:20)
[2018-08-31] MEDS ORDERED: WATER FOR INJ Sterile (PF) 10 ML ONE (08:47)
--- NOTE | 2018-08-31 08:51 | Progress Note ---
Subjective Date of service: 08/31/18 Principal diagnosis: Schizoaffective disorder, bipolar type Subjective Comment: No significant improvement. The patient continues to be very loud, disruptive, disorganized and agitated. She is aggressive and requires multiple PRN meds. Objective - Criteria for Continued Treatment Criteria for Continued Treatment: Improving Level of Functioning, Stablizing Level of Functioning, Improving Emotional/Socia - Mental Status Mental Status: Alert - Objective Observation Participation Level: Minimal Reason(s) For Not Participating: Behaviors Assessment and Plan - Patient Problems (1) Schizoaffective disorder, bipolar type Current Visit: Yes Status: Acute Plan to address problem: PLAN: Patient will be admitted for inpatient psychiatric evaluation, medication adjustment and close monitoring The patient's behavior, mood, sleep and appetite will be closely monitored. Patient will be enrolled in individual and group therapeutic sessions and encouraged to attend. Patient will be provided with a safe and structured environment. Patient's physical health needs will be addressed by the Hospitalist. Social Assessment will be completed and the Hops Farmworker will work with patient and family to ensure a suitable and safe disposition Medication adjustment will be made as clinically indicated Will continue Depakote 1000mg bid (increased 08/27) Will continue Risperidone to 2mg bid for psychosis (increased 08/30) Continue Geodon 20mg bid im for 2 more days and review. Add Clonazepam 1mg bid for mood Discontinue PRN Benadryl and replace it with Thorazine 100mg IM q6h prn Check Serum Valproic acid level in am tomorrow The patient agreed on the treatment plan, understood the risk, benefit, alternative treatment, potential consequence of no treatment, and gave informed consent.
[2018-08-31] MEDS ORDERED: THORAZINE IM PRN (08:53)
[2018-08-31] MEDS: MAG-OX PO SCH ×2 (09:05→22:06)
[2018-08-31] MEDS: GLUCOPHAGE PO SCH ×2 (09:05→17:55)
[2018-08-31] MEDS: RisperDAL PO SCH ×2 (09:06→22:07)
[2018-08-31] MEDS: COLACE PO SCH ×2 (09:06→22:10)
[2018-08-31] MEDS: HumaLOG SUB-Q SCH ×4 (09:07→22:08)
[2018-08-31] MEDS: GEODON IM SCH ×2 (09:07→22:08)
[2018-08-31] MEDS: COGENTIN PO SCH ×2 (10:48→22:05)
[2018-08-31] MEDS: NORVASC PO SCH (10:48)
[2018-08-31] MEDS: VISTARIL PO SCH (22:06)
[2018-08-31] MEDS: ARICEPT PO SCH (22:09)
[2018-08-31] MEDS: REMERON PO SCH (22:41)
[2018-09-01] MEDS: GLUCOPHAGE PO SCH ×2 (08:30→17:10)
[2018-09-01] MEDS ORDERED: WATER FOR INJ Sterile (PF) 10 ML ONE (08:31)
--- NOTE | 2018-09-01 08:49 | Progress Note ---
Subjective Date of service: 09/01/18 Principal diagnosis: Schizoaffective disorder, bipolar type Subjective Comment: The patient is calmer from being sedated but when fully awake, she continues to be very loud, disruptive, disorganized and agitated. She is requiring multiple PRN medications for severe agitation Objective - Criteria for Continued Treatment Criteria for Continued Treatment: Improving Level of Functioning, Improving Treatment / Medication Compliance, Stablizing Level of Functioning - Mental Status Mental Status: Alert - Objective Observation Participation Level: None Reason(s) For Not Participating: Behaviors Assessment and Plan - Patient Problems (1) Schizoaffective disorder, bipolar type Current Visit: Yes Status: Acute Plan to address problem: PLAN: Patient will be admitted for inpatient psychiatric evaluation, medication adjustment and close monitoring The patient's behavior, mood, sleep and appetite will be closely monitored. Patient will be enrolled in individual and group therapeutic sessions and encouraged to attend. Patient will be provided with a safe and structured environment. Patient's physical health needs will be addressed by the Hospitalist. Social Assessment will be completed and the Charter Boat Operator will work with patient and family to ensure a suitable and safe disposition Medication adjustment will be made as clinically indicated Will continue Depakote 1000mg bid (increased 08/27) Will continue Risperidone to 2mg bid for psychosis (increased 08/30) Continue Geodon 20mg bid im for 2 more days and review. Increase Clonazepam to 1mg tid for mood Continue Thorazine 100mg IM q6h prn Check Serum Valproic acid level in am tomorrow
[2018-09-01] MEDS: HumaLOG SUB-Q SCH ×4 (09:09→21:07)
[2018-09-01] MEDS: RisperDAL PO SCH ×2 (09:11→21:40)
[2018-09-01] MEDS: COGENTIN PO SCH ×2 (09:11→21:39)
[2018-09-01] MEDS: MAG-OX PO SCH ×2 (09:11→21:41)
[2018-09-01] MEDS: COLACE PO SCH ×2 (09:11→21:39)
[2018-09-01] MEDS: GEODON IM SCH ×2 (09:12→21:39)
[2018-09-01] MEDS: NORVASC PO SCH (09:13)
[2018-09-01] MEDS: ARICEPT PO SCH (21:38)
[2018-09-01] MEDS: REMERON PO SCH (21:39)
[2018-09-01] MEDS: VISTARIL PO SCH (21:40)
[2018-09-02] MEDS: HumaLOG SUB-Q SCH ×4 (08:17→22:05)
[2018-09-02] MEDS: GLUCOPHAGE PO SCH ×2 (08:45→16:26)
[2018-09-02] MEDS ORDERED: WATER FOR INJ Sterile (PF) 10 ML ONE (09:11)
[2018-09-02] MEDS: COLACE PO SCH ×2 (10:22→22:03)
[2018-09-02] MEDS: NORVASC PO SCH (10:22)
[2018-09-02] MEDS: MAG-OX PO SCH ×2 (10:22→22:01)
[2018-09-02] MEDS: GEODON IM SCH ×2 (10:23→21:59)
[2018-09-02] MEDS: RisperDAL PO SCH ×2 (10:23→22:01)
[2018-09-02] MEDS: COGENTIN PO SCH ×2 (10:29→22:02)
--- NOTE | 2018-09-02 12:36 | Progress Note ---
Subjective Date of service: 09/02/18 Principal diagnosis: Schizoaffective disorder, bipolar type Subjective Comment: The patient is calmer from being sedated but when fully awake, she continues to be very loud, disruptive, disorganized and agitated. She is requiring multiple PRN medications for severe agitation Objective - Criteria for Continued Treatment Criteria for Continued Treatment: Improving Level of Functioning, Stablizing Level of Functioning, Improving Emotional/Socia - Mental Status Mental Status: Alert - Objective Observation Participation Level: Minimal Reason(s) For Not Participating: Behaviors Assessment and Plan - Patient Problems (1) Schizoaffective disorder, bipolar type Current Visit: Yes Status: Acute Plan to address problem: PLAN: Patient will be admitted for inpatient psychiatric evaluation, medication adjustment and close monitoring The patient's behavior, mood, sleep and appetite will be closely monitored. Patient will be enrolled in individual and group therapeutic sessions and encouraged to attend. Patient will be provided with a safe and structured environment. Patient's physical health needs will be addressed by the Hospitalist. Social Assessment will be completed and the Bracelet Former will work with patient and family to ensure a suitable and safe disposition Medication adjustment will be made as clinically indicated Will continue Depakote 1000mg bid (increased 08/27) Valproic acid level is 78.4 this morning Will continue Risperidone to 2mg bid for psychosis (increased 08/30) Continue Geodon 20mg bid im for 2 more days and review. Continue Clonazepam to 1mg tid for mood Continue Thorazine 100mg IM q6h prn
[2018-09-02] MEDS: VISTARIL PO SCH (22:01)
[2018-09-02] MEDS: REMERON PO SCH (22:03)
[2018-09-02] MEDS: ARICEPT PO SCH (22:04)
[2018-09-03 04:38] LABS: Bilirubin,Urine NEG (Negative); Blood,Urine NEG (Negative); Color,Urine Yellow (Yellow); Mucus,Urine FEW /HPF; Protein,Urine <15 mg/dL mg/dL (Negative); Urobilinogen,Urine < 2.0 mg/dL (<2.0)
[2018-09-03] MEDS: HumaLOG SUB-Q SCH ×4 (08:44→21:25)
[2018-09-03] MEDS: GLUCOPHAGE PO SCH ×2 (08:51→17:03)
[2018-09-03] MEDS ORDERED: WATER FOR INJ Sterile (PF) 10 ML ONE (10:16)
[2018-09-03] MEDS: GEODON IM SCH ×2 (11:32→21:24)
[2018-09-03] MEDS: NORVASC PO SCH (11:33)
[2018-09-03] MEDS: MAG-OX PO SCH ×2 (11:33→21:25)
[2018-09-03] MEDS: RisperDAL PO SCH ×2 (11:34→21:26)
[2018-09-03] MEDS: COLACE PO SCH ×2 (11:34→21:24)
[2018-09-03] MEDS: COGENTIN PO SCH ×2 (11:35→21:24)
[2018-09-03] MEDS: ARICEPT PO SCH (21:24)
[2018-09-03] MEDS: VISTARIL PO SCH (21:26)
[2018-09-03] MEDS: REMERON PO SCH (21:26)
[2018-09-04] MEDS: HumaLOG SUB-Q SCH ×4 (06:42→22:07)
[2018-09-04] MEDS: GLUCOPHAGE PO SCH ×2 (08:25→18:14)
[2018-09-04] MEDS: GEODON IM SCH ×2 (10:41→22:03)
[2018-09-04] MEDS: COLACE PO SCH ×2 (10:44→22:02)
[2018-09-04] MEDS: RisperDAL PO SCH ×2 (10:44→22:02)
[2018-09-04] MEDS: NORVASC PO SCH (10:44)
[2018-09-04] MEDS: COGENTIN PO SCH ×2 (10:45→22:02)
[2018-09-04] MEDS: MAG-OX PO SCH ×2 (10:45→22:02)
[2018-09-04] MEDS ORDERED: WATER FOR INJ Sterile (PF) 10 ML ONE (13:30)
[2018-09-04] MEDS: ATIVAN IM PRN (13:50)
[2018-09-04] MEDS: ARICEPT PO SCH (22:01)
[2018-09-04] MEDS: REMERON PO SCH (22:02)
[2018-09-04] MEDS: VISTARIL PO SCH (22:03)
[2018-09-05] MEDS: HumaLOG SUB-Q SCH ×4 (09:19→22:02)
[2018-09-05] MEDS: GLUCOPHAGE PO SCH ×2 (09:20→16:34)
[2018-09-05] MEDS: MAG-OX PO SCH ×2 (09:21→21:59)
[2018-09-05] MEDS: COLACE PO SCH ×2 (09:21→22:01)
[2018-09-05] MEDS: RisperDAL PO SCH ×2 (09:24→22:00)
[2018-09-05] MEDS: GEODON IM SCH ×2 (09:27→23:07)
[2018-09-05] MEDS: COGENTIN PO SCH ×2 (09:28→22:02)
[2018-09-05] MEDS: NORVASC PO SCH (09:29)
[2018-09-05] MEDS ORDERED: WATER FOR INJ Sterile (PF) 10 ML ONE (21:25)
--- NOTE | 2018-09-05 21:46 | Progress Note ---
Subjective Date of service: 09/03/18 Principal diagnosis: Schizoaffective disorder, bipolar type Subjective Comment: The patient is very loud, disruptive, disorganized and agitated. She is requiring multiple PRN medications for severe agitation Objective - Criteria for Continued Treatment Criteria for Continued Treatment: Improving Level of Functioning, Improving Treatment / Medication Compliance, Stablizing Level of Functioning, Improving Emotional/Socia - Mental Status Mental Status: Alert - Objective Observation Participation Level: Minimal Assessment and Plan - Patient Problems (1) Schizoaffective disorder, bipolar type Current Visit: Yes Status: Acute Plan to address problem: PLAN: Patient will be admitted for inpatient psychiatric evaluation, medication adjustment and close monitoring The patient's behavior, mood, sleep and appetite will be closely monitored. Patient will be enrolled in individual and group therapeutic sessions and encouraged to attend. Patient will be provided with a safe and structured environment. Patient's physical health needs will be addressed by the Hospitalist. Social Assessment will be completed and the Business Practices Supervisor will work with patient and family to ensure a suitable and safe disposition Medication adjustment will be made as clinically indicated Will continue Depakote 1000mg bid (increased 08/27) Valproic acid level was 78.4 on 09/02 Will continue Risperidone to 2mg bid for psychosis (increased 08/30) Continue Geodon 20mg bid im for 1 more day and review. Continue Clonazepam to 1mg tid for mood Continue Thorazine 100mg IM q6h prn
--- NOTE | 2018-09-05 21:51 | Progress Note ---
Subjective Date of service: 09/04/18 Principal diagnosis: Schizoaffective disorder, bipolar type Subjective Comment: The patient continues to be very loud, disruptive, disorganized and agitated. She is delusional, intrusive, endorses distressing auditory hallucinations and paranoia. Objective - Criteria for Continued Treatment Criteria for Continued Treatment: Improving Level of Functioning, Improving Treatment / Medication Compliance, Stablizing Level of Functioning, Improving Emotional/Socia - Mental Status Mental Status: Alert - Objective Observation Participation Level: Moderate Assessment and Plan - Patient Problems (1) Schizoaffective disorder, bipolar type Current Visit: Yes Status: Acute Plan to address problem: PLAN: Patient will be admitted for inpatient psychiatric evaluation, medication adjustment and close monitoring The patient's behavior, mood, sleep and appetite will be closely monitored. Patient will be enrolled in individual and group therapeutic sessions and encouraged to attend. Patient will be provided with a safe and structured environment. Patient's physical health needs will be addressed by the Hospitalist. Social Assessment will be completed and the Utilization Review Specialist will work with patient and family to ensure a suitable and safe disposition Medication adjustment will be made as clinically indicated Will continue Depakote 1000mg bid (increased 08/27) Valproic acid level was 78.4 on 09/02 Will continue Risperidone to 2mg bid for psychosis (increased 08/30) Continue Geodon 20mg bid im for 1 more day and review. Continue Clonazepam to 1mg tid for mood
--- NOTE | 2018-09-05 21:54 | Progress Note ---
Subjective Date of service: 09/05/18 Principal diagnosis: Schizoaffective disorder, bipolar type Subjective Comment: The patient is calmer, less disruptive but still delusional and intrusive. She endorses auditory hallucinations and paranoia. She is compliant with meds and denies side effects. Objective - Criteria for Continued Treatment Criteria for Continued Treatment: Improving Level of Functioning, Improving Treatment / Medication Compliance, Stablizing Level of Functioning, Improving Emotional/Socia - Mental Status Mental Status: Alert - Objective Observation Participation Level: Moderate Assessment and Plan - Patient Problems (1) Schizoaffective disorder, bipolar type Current Visit: Yes Status: Acute Plan to address problem: PLAN: Patient will be admitted for inpatient psychiatric evaluation, medication adjustment and close monitoring The patient's behavior, mood, sleep and appetite will be closely monitored. Patient will be enrolled in individual and group therapeutic sessions and encouraged to attend. Patient will be provided with a safe and structured environment. Patient's physical health needs will be addressed by the Hospitalist. Social Assessment will be completed and the Compensation Business Partner will work with patient and family to ensure a suitable and safe disposition Medication adjustment will be made as clinically indicated Will continue Depakote 1000mg bid (increased 08/27) Valproic acid level was 78.4 on 09/02 Will continue Risperidone to 2mg bid for psychosis (increased 08/30) Discontinue Geodon IM after tonight's dose Continue Clonazepam to 1mg tid for mood
[2018-09-05] MEDS: VISTARIL PO SCH (21:59)
[2018-09-05] MEDS: REMERON PO SCH (22:00)
[2018-09-05] MEDS: ARICEPT PO SCH (22:01)
[2018-09-06] MEDS: HumaLOG SUB-Q SCH ×4 (07:29→21:04)
[2018-09-06] MEDS ORDERED: WATER FOR INJ Sterile (PF) 10 ML ONE ×2 (07:52→10:34)
[2018-09-06] MEDS: GLUCOPHAGE PO SCH ×2 (08:19→17:05)
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
[2018-09-06] MEDS: NORVASC PO SCH (09:59)
[2018-09-06] MEDS: COLACE PO SCH ×2 (09:59→21:03)
[2018-09-06] MEDS: COGENTIN PO SCH ×2 (09:59→21:03)
[2018-09-06] MEDS: RisperDAL PO SCH ×2 (10:00→21:06)
[2018-09-06] MEDS: MAG-OX PO SCH ×2 (10:01→21:05)
[2018-09-06] MEDS: ARICEPT PO SCH (21:03)
[2018-09-06] MEDS: REMERON PO SCH (21:05)
[2018-09-06] MEDS: VISTARIL PO SCH (21:06)
[2018-09-07] MEDS: HumaLOG SUB-Q SCH ×4 (07:15→21:26)
[2018-09-07] MEDS: ATIVAN IM PRN ×2 (08:26→16:42)
[2018-09-07] MEDS: MAG-OX PO SCH ×2 (09:07→21:16)
[2018-09-07] MEDS: RisperDAL PO SCH ×2 (09:08→21:16)
[2018-09-07] MEDS: COLACE PO SCH ×2 (09:09→21:17)
[2018-09-07] MEDS: COGENTIN PO SCH ×2 (09:10→21:16)
[2018-09-07] MEDS: GLUCOPHAGE PO SCH ×2 (09:24→16:42)
[2018-09-07] MEDS: NORVASC PO SCH (09:45)
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
[2018-09-07] MEDS: VISTARIL PO SCH (21:15)
[2018-09-07] MEDS: ARICEPT PO SCH (21:16)
[2018-09-07] MEDS: REMERON PO SCH (21:17)
[2018-09-08] MEDS: MAG-OX PO SCH ×2 (10:26→21:01)
[2018-09-08] MEDS: RisperDAL PO SCH ×2 (10:26→21:02)
[2018-09-08] MEDS: COGENTIN PO SCH ×2 (10:27→21:00)
[2018-09-08] MEDS: COLACE PO SCH ×2 (10:27→21:04)
[2018-09-08] MEDS: NORVASC PO SCH (10:28)
[2018-09-08] MEDS: GLUCOPHAGE PO SCH ×2 (10:29→18:10)
[2018-09-08] MEDS: HumaLOG SUB-Q SCH ×4 (10:29→21:04)
--- NOTE | 2018-09-08 19:12 | Progress Note ---
Subjective Date of service: 09/08/18 Principal diagnosis: Schizoaffective disorder, bipolar type Subjective Comment: The patient is tired and still in bed this morning. She is not disruptive or intrusive. She is compliant with meds and denies side effects. Objective - Criteria for Continued Treatment Criteria for Continued Treatment: Stablizing Level of Functioning, Improving Emotional/Socia - Mental Status Mental Status: Alert - Objective Observation Participation Level: Moderate Assessment and Plan - Patient Problems (1) Schizoaffective disorder, bipolar type Current Visit: Yes Status: Acute Plan to address problem: PLAN: Patient will be admitted for inpatient psychiatric evaluation, medication adjustment and close monitoring The patient's behavior, mood, sleep and appetite will be closely monitored. Patient will be enrolled in individual and group therapeutic sessions and encouraged to attend. Patient will be provided with a safe and structured environment. Patient's physical health needs will be addressed by the Hospitalist. Social Assessment will be completed and the Security Operations Center Analyst will work with patient and family to ensure a suitable and safe disposition Medication adjustment will be made as clinically indicated Will continue Depakote 1000mg bid (increased 08/27) Valproic acid level was 78.4 on 09/02; 103.9 on 09/04 Will continue Risperidone 2mg bid for psychosis (increased 08/30) Decrease Clonazepam to 0.5mg tid for mood
[2018-09-08] MEDS: ARICEPT PO SCH (21:00)
[2018-09-08] MEDS: REMERON PO SCH (21:02)
[2018-09-08] MEDS: VISTARIL PO SCH (21:03)
[2018-09-09] MEDS: HumaLOG SUB-Q SCH ×4 (07:47→23:05)
[2018-09-09] MEDS: GLUCOPHAGE PO SCH ×2 (07:48→16:50)
[2018-09-09] MEDS: COLACE PO SCH ×2 (09:27→22:59)
[2018-09-09] MEDS: COGENTIN PO SCH ×2 (09:27→22:57)
[2018-09-09] MEDS: NORVASC PO SCH (09:28)
[2018-09-09] MEDS: RisperDAL PO SCH ×2 (09:28→22:58)
[2018-09-09] MEDS: MAG-OX PO SCH ×2 (09:28→22:57)
--- NOTE | 2018-09-09 13:35 | Progress Note ---
Subjective Date of service: 09/09/18 Principal diagnosis: Schizoaffective disorder, bipolar type Subjective Comment: The patient is improving. She is calmer and not requiring PRN medications. She is compliant with meds and denies side effects. Objective - Criteria for Continued Treatment Criteria for Continued Treatment: Improving Level of Functioning, Stablizing Level of Functioning, Improving Emotional/Socia, Decreasing Frequency of Hospitalization - Mental Status Mental Status: Alert - Objective Observation Participation Level: Moderate Assessment and Plan - Patient Problems (1) Schizoaffective disorder, bipolar type Current Visit: Yes Status: Acute Plan to address problem: PLAN: Patient will be admitted for inpatient psychiatric evaluation, medication adjustment and close monitoring The patient's behavior, mood, sleep and appetite will be closely monitored. Patient will be enrolled in individual and group therapeutic sessions and encouraged to attend. Patient will be provided with a safe and structured environment. Patient's physical health needs will be addressed by the Hospitalist. Social Assessment will be completed and the Dispute Resolution Analyst will work with patient and family to ensure a suitable and safe disposition Medication adjustment will be made as clinically indicated Will continue Depakote 1000mg bid (increased 08/27) Valproic acid level was 78.4 on 09/02; 103.9 on 09/04 Will continue Risperidone 2mg bid for psychosis (increased 08/30) Wean off Clonazepam gradually
[2018-09-09] MEDS: REMERON PO SCH (22:57)
[2018-09-09] MEDS: ARICEPT PO SCH (22:59)
[2018-09-09] MEDS: VISTARIL PO SCH (23:06)
[2018-09-10] MEDS: HumaLOG SUB-Q SCH ×4 (08:08→21:26)
[2018-09-10] MEDS: GLUCOPHAGE PO SCH ×2 (08:09→16:30)
[2018-09-10] MEDS: MAG-OX PO SCH ×2 (09:19→21:23)
[2018-09-10] MEDS: RisperDAL PO SCH ×2 (09:19→21:22)
[2018-09-10] MEDS: COLACE PO SCH ×2 (09:20→21:23)
[2018-09-10] MEDS: COGENTIN PO SCH ×2 (09:20→21:23)
[2018-09-10] MEDS: NORVASC PO SCH (09:28)
--- NOTE | 2018-09-10 17:03 | Progress Note ---
Subjective Date of service: 09/10/18 Principal diagnosis: Schizoaffective disorder, bipolar type Subjective Comment: The patient is improving. She is calmer and not requiring PRN medications. She is compliant with meds and denies side effects. Objective - Criteria for Continued Treatment Criteria for Continued Treatment: Improving Level of Functioning, Stablizing Level of Functioning, Improving Emotional/Socia, Decreasing Frequency of Hospitalization - Mental Status Mental Status: Alert - Objective Observation Participation Level: Moderate Assessment and Plan - Patient Problems (1) Schizoaffective disorder, bipolar type Current Visit: Yes Status: Acute Plan to address problem: PLAN: Patient will be admitted for inpatient psychiatric evaluation, medication adjustment and close monitoring The patient's behavior, mood, sleep and appetite will be closely monitored. Patient will be enrolled in individual and group therapeutic sessions and encouraged to attend. Patient will be provided with a safe and structured environment. Patient's physical health needs will be addressed by the Hospitalist. Social Assessment will be completed and the Quantitative Analyst will work with patient and family to ensure a suitable and safe disposition Medication adjustment will be made as clinically indicated Will continue Depakote 1000mg bid (increased 08/27) Valproic acid level was 78.4 on 09/02; 103.9 on 09/04 Will continue Risperidone 2mg bid for psychosis (increased 08/30) Wean off Clonazepam gradually and monitor patient closely as she could become manic during taper
[2018-09-10] MEDS: VISTARIL PO SCH (21:23)
[2018-09-10] MEDS: ARICEPT PO SCH (21:23)
[2018-09-10] MEDS: REMERON PO SCH (21:23)
[2018-09-11] MEDS: HumaLOG SUB-Q SCH ×4 (07:41→21:17)
--- NOTE | 2018-09-11 09:32 | Progress Note ---
Subjective Date of service: 09/11/18 Principal diagnosis: Schizoaffective disorder, bipolar type Subjective Comment: The patient continues to improve. She is calmer and not requiring PRN medications. She is compliant with meds and denies side effects. Objective - Criteria for Continued Treatment Criteria for Continued Treatment: Improving Level of Functioning, Stablizing Level of Functioning, Improving Emotional/Socia - Mental Status Mental Status: Alert - Objective Observation Participation Level: Full Assessment and Plan - Patient Problems (1) Schizoaffective disorder, bipolar type Current Visit: Yes Status: Acute Plan to address problem: PLAN: Patient will be admitted for inpatient psychiatric evaluation, medication adjustment and close monitoring The patient's behavior, mood, sleep and appetite will be closely monitored. Patient will be enrolled in individual and group therapeutic sessions and encouraged to attend. Patient will be provided with a safe and structured environment. Patient's physical health needs will be addressed by the Hospitalist. Social Assessment will be completed and the Respooler will work with patient and family to ensure a suitable and safe disposition Medication adjustment will be made as clinically indicated Will continue Depakote 1000mg bid (increased 08/27) Valproic acid level was 78.4 on 09/02; 103.9 on 09/04 Will check Serum VPA in am tomorrow Will continue Risperidone 2mg bid for psychosis (increased 08/30) Wean off Clonazepam gradually and monitor patient closely as she could become manic during taper - decreased to 0.5mg bid today
[2018-09-11] MEDS: RisperDAL PO SCH ×2 (10:25→21:18)
[2018-09-11] MEDS: MAG-OX PO SCH ×2 (10:27→21:17)
[2018-09-11] MEDS: GLUCOPHAGE PO SCH ×2 (10:28→16:06)
[2018-09-11] MEDS: COLACE PO SCH ×2 (10:29→21:09)
[2018-09-11] MEDS: NORVASC PO SCH (10:29)
[2018-09-11] MEDS: COGENTIN PO SCH ×2 (10:30→21:09)
[2018-09-11] MEDS: ARICEPT PO SCH (21:09)
[2018-09-11] MEDS: REMERON PO SCH (21:18)
[2018-09-12] MEDS: GLUCOPHAGE PO SCH ×2 (09:36→17:46)
[2018-09-12] MEDS: COGENTIN PO SCH ×2 (09:36→22:01)
[2018-09-12] MEDS: COLACE PO SCH ×2 (09:36→22:01)
[2018-09-12] MEDS: RisperDAL PO SCH ×2 (09:37→22:02)
[2018-09-12] MEDS: MAG-OX PO SCH ×2 (09:37→22:02)
[2018-09-12] MEDS: NORVASC PO SCH (09:38)
[2018-09-12] MEDS: HumaLOG SUB-Q SCH ×4 (09:40→22:16)
--- NOTE | 2018-09-12 18:47 | Progress Note ---
Subjective Date of service: 09/12/18 Principal diagnosis: Schizoaffective disorder, bipolar type Subjective Comment: The patient is at or near baseline. She is calmand not requiring PRN medications. She is compliant with meds and denies side effects. Clonazepam is being tapered off in a safe environment where she can be monitored closely. Objective - Criteria for Continued Treatment Criteria for Continued Treatment: Improving Level of Functioning, Stablizing Level of Functioning, Improving Emotional/Socia - Mental Status Mental Status: Alert - Objective Observation Participation Level: Full Assessment and Plan - Patient Problems (1) Schizoaffective disorder, bipolar type Current Visit: Yes Status: Acute Plan to address problem: PLAN: Patient will be admitted for inpatient psychiatric evaluation, medication adjustment and close monitoring The patient's behavior, mood, sleep and appetite will be closely monitored. Patient will be enrolled in individual and group therapeutic sessions and encouraged to attend. Patient will be provided with a safe and structured environment. Patient's physical health needs will be addressed by the Hospitalist. Social Assessment will be completed and the Employment Appeals Examiner will work with patient and family to ensure a suitable and safe disposition Medication adjustment will be made as clinically indicated Will continue Depakote 1000mg bid (increased 08/27) Valproic acid level was 78.4 on 09/02; 103.9 on 09/04; 76.3 on 09/12 Will continue Risperidone 2mg bid for psychosis (increased 08/30) Wean off Clonazepam gradually and monitor patient closely as she could become manic during taper
[2018-09-12] MEDS: ARICEPT PO SCH (22:01)
[2018-09-12] MEDS: REMERON PO SCH (22:02)
[2018-09-13] MEDS: HumaLOG SUB-Q SCH ×4 (08:17→21:50)
[2018-09-13] MEDS: GLUCOPHAGE PO SCH ×2 (08:57→17:50)
[2018-09-13] MEDS: COLACE PO SCH ×2 (09:55→21:50)
[2018-09-13] MEDS: MAG-OX PO SCH ×2 (09:55→21:51)
[2018-09-13] MEDS: COGENTIN PO SCH ×2 (09:55→21:50)
[2018-09-13] MEDS: NORVASC PO SCH (09:55)
[2018-09-13] MEDS: RisperDAL PO SCH ×2 (09:56→21:51)
--- NOTE | 2018-09-13 10:17 | Progress Note ---
Subjective Date of service: 09/13/18 Principal diagnosis: Schizoaffective disorder, bipolar type Subjective Comment: The patient is at or near baseline. She is calm and not requiring PRN medications. She is compliant with meds and denies side effects. Clonazepam is being tapered off in a safe environment where she can be monitored closely. Objective - Criteria for Continued Treatment Criteria for Continued Treatment: Improving Level of Functioning, Improving Emotional/Socia, Decreasing Frequency of Hospitalization - Mental Status Mental Status: Alert - Objective Observation Participation Level: Moderate Assessment and Plan - Patient Problems (1) Schizoaffective disorder, bipolar type Current Visit: Yes Status: Acute Plan to address problem: PLAN: Patient will be admitted for inpatient psychiatric evaluation, medication adjustment and close monitoring The patient's behavior, mood, sleep and appetite will be closely monitored. Patient will be enrolled in individual and group therapeutic sessions and encouraged to attend. Patient will be provided with a safe and structured environment. Patient's physical health needs will be addressed by the Hospitalist. Social Assessment will be completed and the Survey Supervisor will work with patient and family to ensure a suitable and safe disposition Medication adjustment will be made as clinically indicated Will continue Depakote 1000mg bid (increased 08/27) Valproic acid level was 78.4 on 09/02; 103.9 on 09/04; 76.3 on 09/12 Will continue Risperidone 2mg bid for psychosis (increased 08/30) Wean off Clonazepam gradually and monitor patient closely as she could become manic during taper Possible discharge in am tomorrow
[2018-09-13] MEDS: ARICEPT PO SCH (21:50)
[2018-09-13] MEDS: REMERON PO SCH (21:51)
[2018-09-14] MEDS: HumaLOG SUB-Q SCH ×3 (08:31→16:42)
[2018-09-14] MEDS: GLUCOPHAGE PO SCH ×2 (08:32→16:41)
[2018-09-14 08:56] VITALS: BP 153/86
[2018-09-14] MEDS: COGENTIN PO SCH (09:32)
[2018-09-14] MEDS: COLACE PO SCH (09:32)
[2018-09-14] MEDS: MAG-OX PO SCH (09:32)
[2018-09-14] MEDS: NORVASC PO SCH (09:33)
[2018-09-14] MEDS: RisperDAL PO SCH (09:33)
--- NOTE | 2018-09-14 10:11 | Discharge Summary ---
Providers - Providers Date of Admission: 08/26/18 19:55 Date of discharge: 09/14/18 Attending physician: VIC PIERRE MD 08/26/18 20:09 Consult to Physician [CONS] Routine Comment: Consulting Provider: OVI MCDONALD Physician Instructions: psych h & p Reason For Exam: psych h & p 08/26/18 20:37 Consult to Dietitian/Nutrition [CONS] Routine Physician Instructions: Reason For Exam: Reason for Consult: Diet education [facility] Reason for admission: agitation, bizarre behaviors, disrobing and paranoid Condition: Good Hospital course: The patient was provided inpatient psychiatric treatment with safe and supportive environment, group therapy, individual counseling, psychiatric medication, medication adjustment, adverse effect monitor, medical evaluation, medical treatment, social service assessment, family/social support meeting, p lacement assessment and psycho-education. The patients mood, anxiety, thoughts, stress management skill, cognition, impulse/anger control, motivation, understanding of disease, compliance to treatment and appreciation on family/social support are improved and stabilized. At the time of discharge, the patient had no suicidal ideas, no homicidal ideas, no aggressive thoughts, no endangering behavior and no debilitating adverse effects. The patient agreed on the treatment plan, understood the risk, benefit, alternative treatment, potential consequence of no treatment, and gave informed consent. The patient was advised to be compliant with medications, not to use drugs and not to drink alcohol. The patient understands that if suicidal ideas, homicidal ideas, or any endangering thoughts arise, the patient should immediately seek for emergent assistance including but not limited to crisis hot line and emergency room. Follow up with out-patient Psychiatrist and PCP within 14 - 21 days of discharge. Disposition: DC-01 TO HOME OR SELFCARE Time spent for discharge: 38 mins Allergies/Adverse Reactions: Allergies No Known Allergies Allergy (Verified 05/05/18 10:29) Vital Signs: Last Vital Signs Temp 98.0 F 09/14/18 08:01 Pulse 103 H 09/14/18 09:33 Resp 18 09/13/18 20:10 BP 153/86 09/14/18 09:33 Pulse Ox 95 09/14/18 08:01 Last Lab: Laboratory Last Values Sodium 139 mmol/L (137-145) 08/30/18 21:02 Potassium 5.1 mmol/L (3.6-5.0) H 08/30/18 21:02 Chloride 102.2 mmol/L (98-107) 08/30/18 21:02 Carbon Dioxide 21 mmol/L (22-30) L 08/30/18 21:02 21 mmol/L 08/30/18 21:02 BUN 23 mg/dL (7-17) H 08/30/18 21:02 1.3 mg/dL (0.7-1.2) H 08/30/18 21:02 Estimated GFR 49 ml/min 08/30/18 21:02 18 % 08/30/18 21:02 Glucose 100 mg/dL (65-100) 08/30/18 21:02 POC Glucose 86 (70-105) 09/14/18 07:23 5.9 % (4-6) 08/26/18 15:41 Calcium 10.6 mg/dL (8.4-10.2) H 08/30/18 21:02 Triglycerides 81 mg/dL (2-149) 08/26/18 15:41 Cholesterol 146 mg/dL (50-199) 08/26/18 15:41 74 mg/dL (50-130) 08/26/18 15:41 61 mg/dL (40-59) H 08/26/18 15:41 2.39 % 08/26/18 15:41 Yellow (Yellow) 09/03/18 03:36 Clear (Clear) 09/03/18 03:36 5.0 (5.0-7.0) 09/03/18 03:36 Ur Specific [place] 1.012 (1.003-1.030) 09/03/18 03:36 <15 mg/dl mg/dL (Negative) 09/03/18 03:36 Neg mg/dL (Negative) 09/03/18 03:36 Neg mg/dL (Negative) 09/03/18 03:36 Neg (Negative) 09/03/18 03:36 Neg (Negative) 09/03/18 03:36 Ur Reducing Substances Not Reportable 09/03/18 03:36 Neg (Negative) 09/03/18 03:36 Not Reportable 09/03/18 03:36 < 2.0 mg/dL (<2.0) 09/03/18 03:36 Ur Leukocyte Esterase Neg (Negative) 09/03/18 03:36 2.0 /HPF (0.0-6.0) 09/03/18 03:36 2.0 /HPF (0.0-6.0) 09/03/18 03:36 U Epithel Cells (Auto) 3.0 /HPF (0-13.0) 09/03/18 03:36 Few /HPF 09/03/18 03:36 Valproic Acid 76.3 ug/mL (50-100) 09/12/18 14:37 - Discharge Diagnoses (1) Schizoaffective disorder, bipolar type Status: Acute Core Measure Documentation - Palliative Care Palliative Care/ Comfort Measures: Not Applicable - Core Measures Any of the following diagnoses?: none Exam - Constitutional Vitals: Temp Pulse Resp BP Pulse Ox 98.0 F 103 H 18 153/86 95 09/14/18 08:01 09/14/18 09:33 09/13/18 20:10 09/14/18 09:33 09/14/18 08:01 General appearance: Present: no acute distress, obese - EENT Eyes: Present: PERRL, EOM intact ENT: clear oral mucosa - Neck Neck: Present: supple, normal ROM - Respiratory Respiratory effort: normal Plan Activity: no driving until cleared by PCP Weight Bearing Status: Weight Bear as Tolerated Diet: low carbohydrate Follow up with: PATIENCE VALDIVIA MD [Primary Care Provider] - 7 Days Prescriptions: clonazePAM [KlonoPIN] 0.25 mg PO QHS 14 Days #7 tablet Divalproex [Eren Gonzalez] 1,000 mg PO BID #120 tablet risperiDONE [RisperDAL] 2 mg PO BID #60 tablet
== END 2018-09-14 18:20 | disposition home or self-care (01) | DRG 885 ==
LOC: UNDOADMIN 18:07 → 3A 18:07 → 5A 19:55
PROVIDERS: ADMIT Psychiatry & Neurology Psychiatry; ATTEND Psychiatry & Neurology Psychiatry
DX: F25.0 Schizoaffective disorder, bipolar type (principal); E11.9 Type 2 diabetes mellitus without complications; F03.90 Unspecified dementia, unspecified severity, without behavioral disturbance, psychotic disturbance, mood disturbance, and anxiety; I10 Essential (primary) hypertension; D21.4 Benign neoplasm of connective and other soft tissue of abdomen; Z79.899 Other long term (current) drug therapy; Z79.84 Long term (current) use of oral hypoglycemic drugs
CPT/HCPCS: 36415; 80048; 80053; 80061; 80164; 80307; 80320; 81001; 82962; 83036; 85025; G0378; G0480; J1200; J1630; J1815; J2060; J3230; J3486; Q0177

== ENCOUNTER 2018-11-12 19:47 | Emergency (ER) | payer MEDICARE ==
[2018-11-12 20:27] LABS: Basophils # (Auto) 0.1 K/mm3 (0.0-0.1); Basophils % (Auto) 0.9 % (0.0-1.8); Eosinophils # (Auto) 0.1 K/mm3 (0.0-0.4); Eosinophils % (Auto) 1.3 % (0.0-4.3); Hematocrit 37.6 % (30.3-42.9); Hemoglobin 12.4 gm/dl (10.1-14.3); Lymphocytes # (Auto) 2.5 K/mm3 (1.2-5.4); Lymphocytes % (Auto) 32.1 % (13.4-35.0); Mean Corpuscular HGB Conc 33 % (30-34); Mean Corpuscular Volume 94 fl (79-97); Monocytes # (Auto) 0.7 K/mm3 (0.0-0.8); Monocytes % (Auto) 9.3 % (0.0-7.3); Platelet Count 156 K/mm3 (140-440); Red Blood Count 4.01 M/mm3 (3.65-5.03); Red Cell Distribution Width 14.9 % (13.2-15.2)
--- NOTE | 2018-11-12 20:43 | Emergency Department Report ---
HPI - General Chief Complaint: Psych Time Seen by Provider: 11/12/18 20:27 - HPI HPI: Room 4 The patient is a 68-year-old female presenting with a chief complaint of combative behavior. The patient has a history of bipolar disorder and reportedly has been out of her Haldol for 1 month. The patient reportedly "trashed" her home today. When asked why she did this the patient states "I couldn't remember what was." When asked how she is feeling the patient states "I feel good, I just need something to eat." Patient denies pain of any type or shortness of breath. The patient is to suicidal ideation for "a long time." Patient denies any attempts or active plans. Patient admits to auditory hallucinations for "a while." The patient states she hears versus screaming "Kd! Kd!" The patient also admits to visual hallucinations for 1-2 years seen things such as large animals, sharks, tigers and elephants. Location: Mental state Duration: [See above] Quality: [See above] Severity: [See above] Timing: [See above] Context: [See above] Modifying factors: [See above] Associated signs and symptoms: [see above] ED Past Medical Hx - Past Medical History Previous Medical History?: Yes Hx Hypertension: Yes Hx Diabetes: Yes Hx Psychiatric Treatment: Yes (multiple IP/bipolar) Hx Dementia: Yes Additional medical history: osteoarthritis - Surgical History Past Surgical History?: Yes Additional Surgical History: KENYATTA - Social History Smoking Status: Never Smoker Substance Use Type: None - Medications Home Medications: Home Medications Medication Instructions Recorded Confirmed Last Taken Type Benztropine [Cogentin] 1 mg PO BID #60 tablet 05/14/18 08/26/18 Unknown Rx Docusate Sodium [Colace CAP] 100 mg PO BID #60 capsule 05/14/18 08/26/18 Unknown Rx Donepezil [Aricept] 5 mg PO QHS #30 tablet 05/14/18 08/26/18 Unknown Rx Ibuprofen [Motrin 600 MG tab] 600 mg PO Q8H PRN tablet 05/14/18 08/26/18 Unknown Rx Lispro Insulin [HumaLOG] 0 unit SUB-Q ACHS units 05/14/18 08/26/18 Unknown Rx Losartan [Cozaar] 100 mg PO QDAY #30 tablet 05/14/18 08/26/18 Unknown Rx Magnesium Oxide [Mag-Ox] 400 mg PO BID tablet 05/14/18 08/26/18 Unknown Rx Meloxicam [Mobic] 7.5 mg PO QDAY tablet 05/14/18 08/26/18 Unknown Rx Mirtazapine [Remeron 15mg TAB] 15 mg PO QHS #30 tablet 05/14/18 08/26/18 Unknown Rx amLODIPine [Norvasc] 10 mg PO QDAY #30 tablet 05/14/18 08/26/18 Unknown Rx metFORMIN [Glucophage] 500 mg PO BIDDIAB #60 tablet 05/14/18 08/26/18 Unknown Rx traZODone [Desyrel] 50 mg PO QHS PRN #30 tablet 05/14/18 08/26/18 Unknown Rx hydrOXYzine PAMOATE [Vistaril] 50 mg PO QHS #7 capsule 08/23/18 08/26/18 Unknown Rx Benztropine [Cogentin] 1 mg PO BID tablet 09/14/[address] [Depakote Dr] 1,000 mg PO BID #120 tablet 09/14/18 Unknown Rx Docusate Sodium [Colace CAP] 100 mg PO BID capsule 09/14/18 Unknown Rx Lispro Insulin [HumaLOG] 0 unit SUB-Q ACHS units 09/14/18 Unknown Rx Magnesium Oxide [Mag-Ox] 400 mg PO BID tablet 09/14/18 Unknown Rx Mirtazapine [Remeron 15mg TAB] 15 mg PO QHS tablet 09/14/18 Unknown Rx amLODIPine [Norvasc] 10 mg PO QDAY tablet 09/14/18 Unknown Rx clonazePAM [KlonoPIN] 0.25 mg PO QHS 14 Days #7 tablet 09/14/18 Unknown Rx metFORMIN [Glucophage] 500 mg PO BIDDIAB tablet 09/14/18 Unknown Rx risperiDONE [RisperDAL] 2 mg PO BID #60 tablet 09/14/18 Unknown Rx traZODone [Desyrel] 50 mg PO QHS PRN #30 tablet 09/14/18 Unknown Rx ED Review of Systems ROS: Stated complaint: MH EVAL Other details as noted in HPI Constitutional: no symptoms reported Eyes: denies: eye pain ENT: denies: throat pain Respiratory: no symptoms reported. denies: shortness of breath Cardiovascular: denies: chest pain Endocrine: no symptoms reported Gastrointestinal: denies: abdominal pain Genitourinary: denies: dysuria Musculoskeletal: denies: back pain Neurological: denies: headache Psychiatric: auditory hallucinations, visual hallucinations, suicidal thoughts Physical Exam - Physical Exam Vital Signs: Vital Signs 11/12/18 20:15 Temperature 100.3 F H Pulse Rate 109 H Respiratory 18 Rate Blood Pressure 140/80 [Right] Physical Exam: GENERAL: The patient is well-developed well-nourished female lying in stretcher not appearing to be in acute distress. [] HEENT: Normocephalic. Atraumatic. Extraocular motions are intact. Patient has moist mucous membranes. NECK: Supple. Trachea midline CHEST/LUNGS: Clear to auscultation. There is no respiratory distress noted. HEART/CARDIOVASCULAR: Regular. There is no tachycardia. There is no gallop rub or murmur. ABDOMEN: Abdomen is soft, nontender. Patient has normal bowel sounds. There is no abdominal distention. SKIN: There is no rash. There is no edema. There is no diaphoresis. NEURO: The patient is awake, alert, and oriented. The patient is cooperative. The patient has no focal neurologic deficits. The patient has normal speech. Cranial nerves II through XII grossly intact, motor MUSCULOSKELETAL: There is no evidence of acute injury. ED Course Vital Signs 11/12/18 20:15 Temperature 100.3 F H Pulse Rate 109 H Respiratory 18 Rate Blood Pressure 140/80 [Right] ED Medical Decision Making - Lab Data Result diagrams: 11/12/18 20:10 11/12/18 Unknown Laboratory Tests 11/12/18 11/12/18 11/12/18 20:10 20:10 20:10 WBC RBC Hgb Hct MCV MCH MCHC RDW Plt Count Lymph % (Auto) [place] % (Auto) Eos % (Auto) Baso % (Auto) Lymph # [place] # Eos # Baso # Seg Neutrophils % Seg Neutrophils # Sodium Potassium Chloride Carbon Dioxide Anion Gap BUN Creatinine Estimated GFR BUN/Creatinine Ratio Glucose Calcium Urine Color Urine Turbidity Urine pH Ur Specific [place] Urine Protein Urine Glucose (UA) Urine Ketones Urine Blood Urine Nitrite Urine Bilirubin Urine Urobilinogen Ur Leukocyte Esterase Urine WBC (Auto) Urine RBC (Auto) U Epithel Cells (Auto) Salicylates < 0.3 L Urine Opiates Screen Urine Methadone Screen Acetaminophen < 5.0 L Ur Barbiturates Screen Ur Phencyclidine Scrn Ur Amphetamines Screen U Benzodiazepines Scrn Urine Cocaine Screen U Marijuana (THC) Screen Drugs of Abuse Note Plasma/Serum Alcohol < 0.01 11/12/18 11/12/18 11/12/18 20:10 22:49 22:49 WBC 7.7 RBC 4.01 Hgb 12.4 Hct 37.6 MCV 94 MCH 31 MCHC 33 RDW 14.9 Plt Count 156 Lymph % (Auto) 32.1 [place] % (Auto) 9.3 H Eos % (Auto) 1.3 Baso % (Auto) 0.9 Lymph # 2.5 [place] # 0.7 Eos # 0.1 Baso # 0.1 Seg Neutrophils % 56.4 Seg Neutrophils # 4.4 Sodium Potassium Chloride Carbon Dioxide Anion Gap BUN Creatinine Estimated GFR BUN/Creatinine Ratio Glucose Calcium Urine Color Straw Urine Turbidity Clear Urine pH 6.0 Ur Specific [place] 1.004 Urine Protein <15 mg/dl Urine Glucose (UA) Neg Urine Ketones Neg Urine Blood Sm Urine Nitrite Neg Urine Bilirubin Neg Urine Urobilinogen < 2.0 Ur Leukocyte Esterase Neg Urine WBC (Auto) < 1.0 Urine RBC (Auto) 1.0 U Epithel Cells (Auto) 1.0 Salicylates Urine Opiates Screen Presumptive negative Urine Methadone Screen Presumptive negative Acetaminophen Ur Barbiturates Screen Presumptive negative Ur Phencyclidine Scrn Presumptive negative Ur Amphetamines Screen Presumptive negative U Benzodiazepines Scrn Presumptive negative Urine Cocaine Screen Presumptive negative U Marijuana (THC) Screen Presumptive negative Drugs of Abuse Note Disclamer Plasma/Serum Alcohol 11/12/18 Unknown WBC RBC Hgb Hct MCV MCH MCHC RDW Plt Count Lymph % (Auto) [place] % (Auto) Eos % (Auto) Baso % (Auto) Lymph # [place] # Eos # Baso # Seg Neutrophils % Seg Neutrophils # Sodium 138 Potassium 3.8 Chloride 103.7 Carbon Dioxide 22 Anion Gap 16 BUN 15 Creatinine 1.1 Estimated GFR 59 BUN/Creatinine Ratio 14 Glucose 125 H Calcium 9.1 Urine Color Urine Turbidity Urine pH Ur Specific [place] Urine Protein Urine Glucose (UA) Urine Ketones Urine Blood Urine Nitrite Urine Bilirubin Urine Urobilinogen Ur Leukocyte Esterase Urine WBC (Auto) Urine RBC (Auto) U Epithel Cells (Auto) Salicylates Urine Opiates Screen Urine Methadone Screen Acetaminophen Ur Barbiturates Screen Ur Phencyclidine Scrn Ur Amphetamines Screen U Benzodiazepines Scrn Urine Cocaine Screen U Marijuana (THC) Screen Drugs of Abuse Note Plasma/Serum Alcohol - Differential Diagnosis bipolar disorder, suicidal ideation Critical care attestation.: If time is entered above; I have spent that time in minutes in the direct care of this critically ill patient, excluding procedure time. ED Disposition Clinical Impression: Suicidal ideation, Bipolar disorder Disposition: DC/TX-65 PSY HOSP/PSY UNIT Is pt being admited?: No Does the pt Need Aspirin: No Condition: Fair Time of Disposition: 23:55 (awaiting acceptance)
[2018-11-12 20:44] LABS: Calcium 9.1 mg/dL (8.4-10.2)
[2018-11-12 23:11] LABS: Bilirubin,Urine NEG (Negative); Blood,Urine SM (Negative); Color,Urine Straw (Yellow); Protein,Urine <15 mg/dL mg/dL (Negative); Urobilinogen,Urine < 2.0 mg/dL (<2.0); WBC,Urine < 1.0 /HPF (0.0-6.0)
[2018-11-12 23:18] LABS: Amphetamine Screen,Urine PRESUMPTIVE NEGATIVE; Benzodiazepines Screen,Urine PRESUMPTIVE NEGATIVE; Cannabinoid Screen,Urine PRESUMPTIVE NEGATIVE; Cocaine Screen,Urine PRESUMPTIVE NEGATIVE; Methadone Screen,Urine PRESUMPTIVE NEGATIVE; Opiate Screen,Urine PRESUMPTIVE NEGATIVE
[2018-11-13] MEDS ORDERED: XANAX PO ONE (07:26)
[2018-11-13] MEDS ORDERED: HALDOL IM ONE (11:14)
[2018-11-13 15:01] VITALS: BP 154/83
== END 2018-11-13 17:55 ==
LOC: ED 19:47
DX: F31.9 Bipolar disorder, unspecified (principal); I10 Essential (primary) hypertension; E11.9 Type 2 diabetes mellitus without complications; M19.90 Unspecified osteoarthritis, unspecified site; Z79.899 Other long term (current) drug therapy
CPT/HCPCS: 36415; 80048; 80307; 81001; 82962; 85025; 96372; 99285; J1630; 80320; G0480

== ENCOUNTER 2019-04-04 12:50 | Inpatient (IN) | payer MEDICARE ==
[2019-04-04] MEDS: metFORMIN 500 MG TAB PO SCH (20:25)
[2019-04-04] MEDS: DIVALPROEX DR 500 MG TAB PO SCH (21:38)
[2019-04-04] MEDS: DOCUSATE SODIUM 100 MG CAP PO SCH (21:39)
[2019-04-04] MEDS: BENZTROPINE 1 MG TAB PO SCH (21:40)
[2019-04-04] MEDS: MIRTAZAPINE 15 MG TAB PO SCH (21:40)
[2019-04-04] MEDS: risperiDONE 3 MG TAB PO SCH (21:40)
[2019-04-04] MEDS: MAGNESIUM OXIDE 400 MG TAB PO SCH (21:40)
[2019-04-04] MEDS: DONEPEZIL 5 MG TAB PO SCH (21:40)
[2019-04-04] MEDS: clonazePAM 0.5 MG TAB PO SCH (21:41)
[2019-04-04] MEDS ORDERED: INSULIN LISPRO 100 UNIT/ML SUB-Q SCH (22:00)
[2019-04-05] MEDS: INSULIN LISPRO 100 UNIT/ML SUB-Q SCH ×4 (08:00→22:03)
--- NOTE | 2019-04-05 08:00 | History and Physical Report ---
GP History & Physical - History of Present Illness Date of admission: 04/05/19 Reason for Admission: Failure of Outpatient Treatment, Unable to care for self History of Present Illness: Caren Galvan is a 69y/o female patient who states she came to the hospital for "mental illness." She is in the dayroom. Asleep. She awakens with continuous tactile stimuli. But drifts back to sleep throughout the entire interview. She oriented x 3. I rounded on the patient yesterday, on another floor. She was much more talkative then. She is dressed appropriately. Her affect is flat. She says she "was arguing with Lauren so they brought me to the hospital." She says "Lauren is her grand daughter." She says she has a diagnoses of schizophrenia. The patient could not remember any medications except Haldol. She says her daughter gives her, her medications, and "she forgets to give it to me sometimes." She denies alcohol use, or current drug use, but says she smoked "a little marijuana last time." She denies SI/HI or hallucinations of any kind. Before drifting back to sleep, Mrs. Galvan tells me, "I have to go back to sleep. My is waiting on me in [facility]." PAST PSYCHIATRIC HISTORY: Diagnoses: schizophrenia Suicide attempts or Self-harm behavior: Denies Prior psychiatric hospitalizations: Denies Substance Abuse history: THC Previous psychiatric medications tried: Haldol Outpatient treatment: Yes PAST MEDICAL HISTORY: none reported Family Psychiatric History None reported or documented SOCIAL HISTORY Marital Status: Living Arrangements: With daughter Employment Status: Disabled Access to guns/weapons: Denies Education: High school History of Abuse: Denies Legal History: Denies REVIEW OF SYSTEMS Constitutional: Negative for weight loss ENT: Negative for stridor Respiratory: Negative for cough or hemoptysis All other systems reviewed and are negative MSE Appearance: Asleep. Dressed appropriately. Poor eye contact. Behavior: cooperative Mood: Affect: Flat Thought Process: Disorganized Speech: Normal tone and rate Thought Content Suicidal: Denies Homicidal: Denies Delusions: Yes Consciousness: Alert Cognition/Memory: Impaired Insight/Judgment: Poor Assessment: Schizoaffective Disorder Treatment Plan Valproic Acid level Ammonia Level Medications Medications Restarted home medications Due to the psychiatric conditions and treatment listed in the Assessment and Plan - the patient requires continued hospitalization. Will continue inpatient treatment to allow for medication adjustment and monitoring. Will continue q15 min safety checks. Will encourage the use of environmental modifications and non-pharmacologic approaches for the management of behavioral and psychological symptoms. Will continue current psych medications Monitor for medication side effects. The patient will continue on medications for physical illnesses, and Hospitalist will closely monitor these Continue intensive physical and occupational therapies. Monitor patient's mood, sleep, appetite, and behavior closely. Encourage patient to participate in individual and group therapeutic sessions on the oh. Will provide a safe and therapeutic environment for patient. The patient will be treated for Schizoaffective Disorder. ELOS 7 days Plan for post-hospital care: [ out-patient ] Legal Status: Voluntary Reaction to Hospitalization: Accepting Medications and Allergies Allergies Allergy/AdvReac Type Severity Reaction Status Date / Time No Known Allergies Allergy Verified 05/05/18 10:29 Home Medications Medication Instructions Recorded Confirmed Last Taken Type Benztropine [Cogentin] 1 mg PO BID #60 tablet 05/14/18 04/05/19 Unknown Rx Docusate Sodium [Colace CAP] 100 mg PO BID #60 capsule 05/14/18 04/05/19 Unknown Rx Donepezil [Aricept] 5 mg PO QHS #30 tablet 05/14/18 04/05/19 Unknown Rx Lispro Insulin [HumaLOG] 0 unit SUB-Q ACHS units 05/14/18 04/05/19 Unknown Rx Losartan [Cozaar] 100 mg PO QDAY #30 tablet 05/14/18 04/05/19 Unknown Rx Magnesium Oxide [Mag-Ox] 400 mg PO BID tablet 05/14/18 04/05/19 Unknown Rx Meloxicam [Mobic] 7.5 mg PO QDAY tablet 05/14/18 04/05/19 Unknown Rx Mirtazapine [Remeron 15mg TAB] 15 mg PO QHS #30 tablet 05/14/18 04/05/19 Unknown Rx amLODIPine 10 mg PO QDAY #30 tablet 05/14/18 04/05/19 Unknown Rx metFORMIN [Glucophage] 500 mg PO BIDDIAB #60 tablet 05/14/18 04/05/19 Unknown Rx hydrOXYzine PAMOATE [Vistaril] 50 mg PO QHS #7 capsule 08/23/18 04/05/19 Unknown Rx Benztropine [Cogentin] 1 mg PO BID tablet 07/09/19 01/28/[address] [Eren Gonzalez] 1,000 mg PO BID #120 tablet 09/14/18 04/05/19 Unknown Rx Docusate Sodium [Colace CAP] 100 mg PO BID capsule 09/14/18 04/05/19 Unknown Rx Mirtazapine [Remeron 15mg TAB] 15 mg PO QHS tablet 09/14/18 04/05/19 Unknown Rx amLODIPine 10 mg PO QDAY tablet 09/14/18 04/05/19 Unknown Rx clonazePAM [KlonoPIN] 0.25 mg PO QHS 14 Days #7 tablet 09/14/18 04/05/19 Unknown Rx Thiamine [Vitamin B-1] 100 mg PO QDAY #30 tablet 04/04/19 04/05/19 Unknown Rx risperiDONE [RisperDAL] 3 mg PO BID #60 tablet 04/04/19 04/05/19 Unknown Rx Active Meds: Active Medications Amlodipine Besylate (Amlodipine) 10 mg PO QDAY [facility] Benztropine Mesylate (Cogentin) 1 mg PO BID [facility] Last Admin: 04/04/19 21:40 Dose: 1 mg Documented by: Clonazepam (Klonopin) 0.25 mg PO QHS [facility] Last Admin: 04/04/19 21:41 Dose: 0.25 mg Documented by: Divalproex Sodium (Eren Gonzalez) 1,000 mg PO BID [facility] Last Admin: 04/04/19 21:38 Dose: 1,000 mg Documented by: Docusate Sodium (Colace) 100 mg PO BID [facility] Last Admin: 04/04/19 21:39 Dose: 100 mg Documented by: Donepezil HCl (Aricept) 5 mg PO QHS [facility] Last Admin: 04/04/19 21:40 Dose: 5 mg Documented by: Hydroxyzine Pamoate (Vistaril) 50 mg PO QHS [facility] Last Admin: 04/04/19 21:39 Dose: 50 mg Documented by: Insulin Human Lispro (Humalog) 0 unit SUB-Q [facility]; Protocol Losartan Potassium (Cozaar) 100 mg PO QDAY [facility] Magnesium Oxide (Mag-Ox) 400 mg PO BID [facility] Last Admin: 04/04/19 21:40 Dose: 400 mg Documented by: Meloxicam (Mobic) 7.5 mg PO QDAY [facility] Metformin HCl (Glucophage) 500 mg PO BIDDIAB [facility] Last Admin: 04/04/19 20:25 Dose: 500 mg Documented by: Mirtazapine (Remeron) 15 mg PO QHS [facility] Last Admin: 04/04/19 21:40 Dose: 15 mg Documented by: Risperidone (Risperdal) 3 mg PO BID [facility] Last Admin: 04/04/19 21:40 Dose: 3 mg Documented by: Thiamine HCl (Vitamin B-1) 100 mg PO QDAY [facility] Ziprasidone (Geodon) 10 mg IM Q4H PRN PRN Reason: Agitation Results - Results Labs/Vitals: Laboratory Last Values POC Glucose 85 (70-105) 04/05/19 06:44 Ammonia 74.0 umol/L (25-60) H 04/04/19 17:53 Valproic Acid 96.3 ug/mL (50-100) 04/04/19 17:53 Last Vital Signs Temp 97.9 F 04/04/19 20:03 Pulse 108 H 04/04/19 20:03 Resp 20 04/04/19 20:03 BP 168/78 04/04/19 20:03 Pulse Ox 99 04/04/19 20:03 Physical Examination - Constitutional Vitals: Vital Signs Temp Pulse Resp BP Pulse Ox 97.9 F 108 H 20 168/78 99 04/04/19 20:03 04/04/19 20:03 04/04/19 20:03 04/04/19 20:03 04/04/19 20:03 Temperature -Last 24 Hours Temperature 97.9 F Mental Status Exam - Vital signs Last Vital Signs Temp 97.9 F 04/04/19 20:03 Pulse 108 H 04/04/19 20:03 Resp 04/04/19 20:03 BP 168/78 04/04/19 20:03 Pulse Ox 99 04/04/19 20:03 Physician Certification - Certification Statement Physician Certification Statement: This is an acknowledgement statement that CAREN GALVAN is a 69 year old F who requires inpatient psychiatric admission for treatment which could reasonably be expected to improve the patient's condition for Estimated period of time patient will need to remain in the hospital: [ ] Plan for post-hospital care: [ ]
[2019-04-05] MEDS: MELOXICAM 7.5 MG TAB PO SCH (11:50)
[2019-04-05] MEDS: MAGNESIUM OXIDE 400 MG TAB PO SCH ×2 (11:54→21:47)
[2019-04-05] MEDS: DOCUSATE SODIUM 100 MG CAP PO SCH ×2 (11:54→21:46)
[2019-04-05] MEDS: amLODIPine 10 MG TAB PO SCH (11:55)
[2019-04-05] MEDS: DIVALPROEX DR 500 MG TAB PO SCH ×2 (11:55→21:47)
[2019-04-05] MEDS: THIAMINE 100 MG TAB PO SCH (11:55)
[2019-04-05] MEDS: BENZTROPINE 1 MG TAB PO SCH ×2 (11:55→21:47)
[2019-04-05] MEDS: LOSARTAN 50 MG TAB PO SCH (11:56)
[2019-04-05] MEDS: risperiDONE 3 MG TAB PO SCH ×2 (11:57→21:46)
[2019-04-05] MEDS: metFORMIN 500 MG TAB PO SCH ×3 (12:54→17:44)
[2019-04-05] MEDS ORDERED: WATER FOR INJ Sterile (PF) 10 ML ONE (15:51)
[2019-04-05] MEDS: ZIPRASIDONE MESYLATE 20 MG VIAL IM PRN (15:56)
--- NOTE | 2019-04-05 17:58 | Consultation ---
History of Present Illness - Reason for Consult Consult date: 04/05/19 Hypertension, Diabetes Requesting physician: VIC PIERRE - History of Present Illness Patient is 69-year-old admitted to Geri[facility] unit for schizoaffective disorder. The hospitalist service has been consulted for management of hypertension and diabetes. She is on Amlodipine and Cozaar for hypertension and is on Metformin for diabetes mellitus type 2. Patient denies abdominal pain. She denies chest pain or shortness of breath. Past History Past Medical History: diabetes, hypertension Past Surgical History: No surgical history Social history: full code. denies: smoking, alcohol abuse Family history: no significant family history Medications and Allergies Allergies Allergy/AdvReac Type Severity Reaction Status Date / Time No Known Allergies Allergy Verified 05/05/18 10:29 Home Medications Medication Instructions Recorded Confirmed Last Taken Type Benztropine [Cogentin] 1 mg PO BID #60 tablet 05/14/18 04/05/19 Unknown Rx Docusate Sodium [Colace CAP] 100 mg PO BID #60 capsule 05/14/18 04/05/19 Unknown Rx Donepezil [Aricept] 5 mg PO QHS #30 tablet 05/14/18 04/05/19 Unknown Rx Lispro Insulin [HumaLOG] 0 unit SUB-Q ACHS units 05/14/18 04/05/19 Unknown Rx Losartan [Cozaar] 100 mg PO QDAY #30 tablet 05/14/18 04/05/19 Unknown Rx Magnesium Oxide [Mag-Ox] 400 mg PO BID tablet 05/14/18 04/05/19 Unknown Rx Meloxicam [Mobic] 7.5 mg PO QDAY tablet 05/14/18 04/05/19 Unknown Rx Mirtazapine [Remeron 15mg TAB] 15 mg PO QHS #30 tablet 05/14/18 04/05/19 Unknown Rx amLODIPine 10 mg PO QDAY #30 tablet 05/14/18 04/05/19 Unknown Rx metFORMIN [Glucophage] 500 mg PO BIDDIAB #60 tablet 05/14/18 04/05/19 Unknown Rx hydrOXYzine PAMOATE [Vistaril] 50 mg PO QHS #7 capsule 08/23/18 04/05/19 Unknown Rx Benztropine [Cogentin] 1 mg PO BID tablet 09/14/18 04/05/[address] [Eren Gonzalez] 1,000 mg PO BID #120 tablet 09/14/18 04/05/19 Unknown Rx Docusate Sodium [Colace CAP] 100 mg PO BID capsule 09/14/18 04/05/19 Unknown Rx Mirtazapine [Remeron 15mg TAB] 15 mg PO QHS tablet 09/14/18 04/05/19 Unknown Rx amLODIPine 10 mg PO QDAY tablet 09/14/18 04/05/19 Unknown Rx clonazePAM [KlonoPIN] 0.25 mg PO QHS 14 Days #7 tablet 09/14/18 04/05/19 Unknown Rx Thiamine [Vitamin B-1] 100 mg PO QDAY #30 tablet 04/04/19 04/05/19 Unknown Rx risperiDONE [RisperDAL] 3 mg PO BID #60 tablet 04/04/19 04/05/19 Unknown Rx Active Meds: Active Medications Amlodipine Besylate (Amlodipine) 10 mg PO QDAY [facility] Last Admin: 04/05/19 11:55 Dose: 10 mg Documented by: Benztropine Mesylate (Cogentin) 1 mg PO BID [facility] Last Admin: 04/05/19 11:55 Dose: 1 mg Documented by: Clonazepam (Klonopin) 0.25 mg PO QHS [facility] Last Admin: 04/04/19 21:41 Dose: 0.25 mg Documented by: Divalproex Sodium (Eren Gonzalez) 1,000 mg PO BID [facility] Last Admin: 04/05/19 11:55 Dose: 1,000 mg Documented by: Docusate Sodium (Colace) 100 mg PO BID [facility] Last Admin: 04/05/19 11:54 Dose: 100 mg Documented by: Donepezil HCl (Aricept) 5 mg PO QHS [facility] Last Admin: 04/04/19 21:40 Dose: 5 mg Documented by: Hydroxyzine Pamoate (Vistaril) 50 mg PO QHS [facility] Last Admin: 04/04/19 21:39 Dose: 50 mg Documented by: Insulin Human Lispro (Humalog) 0 unit SUB-Q [facility]; Protocol Last Admin: 04/05/19 17:31 Dose: Not Given Documented by: Losartan Potassium (Cozaar) 100 mg PO QDAY [facility] Last Admin: 04/05/19 11:56 Dose: 100 mg Documented by: Magnesium Oxide (Mag-Ox) 400 mg PO BID [facility] Last Admin: 04/05/19 11:54 Dose: 400 mg Documented by: Meloxicam (Mobic) 7.5 mg PO QDAY [facility] Last Admin: 04/05/19 11:50 Dose: 7.5 mg Documented by: Metformin HCl (Glucophage) 500 mg PO BIDDIAB [facility] Last Admin: 04/05/19 17:44 Dose: Not Given Documented by: Mirtazapine (Remeron) 15 mg PO QHS [facility] Last Admin: 04/04/19 21:40 Dose: 15 mg Documented by: Risperidone (Risperdal) 3 mg PO BID [facility] Last Admin: 04/05/19 11:57 Dose: 3 mg Documented by: Thiamine HCl (Vitamin B-1) 100 mg PO QDAY [facility] Last Admin: 04/05/19 11:55 Dose: 100 mg Documented by: Ziprasidone (Geodon) 10 mg IM Q4H PRN PRN Reason: Agitation Last Admin: 04/05/19 15:56 Dose: 10 mg Documented by: Review of Systems All systems: negative (No fever, no headache, no chest pain. All other systems reviewed and are negative) Exam - Physical Exam Narrative exam: GEN: Not in acute distress, lying in bed,obese HEENT: Normocephalic, atraumatic, Neck: supple, No JVD Lungs: Clear to auscultation bilaterally, no wheeze, heart;S1 and S2 reg, no murmurs Abd:soft, non tender, non distended, normal bowel sounds Ext: No edema, no clubbing, no cyanosis Neuro: AAO X 3, no focal neurological signs - Constitutional Vitals: Temp Pulse Resp BP Pulse Ox 97.9 F 98 H 20 156/80 99 04/04/19 20:03 04/05/19 11:56 04/04/19 20:03 04/05/19 11:56 04/04/19 20:03 Results - Labs CBC & Chem 7: 04/06/19 07:31 Labs: Abnormal lab results 04/04/19 Range/Units 17:53 Ammonia 74.0 H (25-60) umol/L Assessment and Plan Schizoaffective disorder. Admitted to Psych Psychiatry attending Hypertension Resume Amlodipine and cozaar Diabetes mellitus type2 Fingerstick qac and hs a1c 6.[address] Pierre for consulting us. Will follow peripherally
[2019-04-05] MEDS: clonazePAM 0.5 MG TAB PO SCH (21:45)
[2019-04-05] MEDS: MIRTAZAPINE 15 MG TAB PO SCH (21:46)
[2019-04-05] MEDS: DONEPEZIL 5 MG TAB PO SCH (22:01)
[2019-04-06] MEDS: INSULIN LISPRO 100 UNIT/ML SUB-Q SCH ×4 (08:08→21:26)
[2019-04-06 08:09] LABS: BUN/Creatinine Ratio 16; Blood Urea Nitrogen 14 mg/dL (7-17); Calcium 9.6 mg/dL (8.4-10.2); Chol/HDL Ratio 2.17 %; HDL Cholesterol 63 mg/dL (40-59); Hemolysis Index 70; LDL Cholesterol,Direct 68 mg/dL (50-130)
--- NOTE | 2019-04-06 08:55 | Progress Note ---
Subjective Date of service: 04/06/19 Principal diagnosis: Schizoaffective Disorder Subjective Comment: Reviewed the patient's medical record and discussed the patient's progress with the nursing staff. The nurse note states the patient was given Geodon IM for inappropriate behavior, calling other pts and staff "monkey", being in other pt's face, pacing and singing out loud, disturbing the unit. Pt. reminded that inappropriate behavior and words are not acceptable. During my interview with the patient this morning, the patient was lying in bed on her stomach. Easily arouses. She is dressed appropriately. She's speaking to me with her eyes closed. Her affect is flat. She is a/o x 3. Disorganized thinking. She says she "did not sleep well," but says she's "doing good." The patients says, "I was dreaming I was drowning myself." When asked about suicidal thoughts, the patient, says "If I can't get someone at my house to take care of me, I will drown myself." She says she hears "voices telling her to drown." She says the voice is a "credit card." She then tells me, "can you leave and let me get a little more sleep." Reason for continued inpatient treatment: The patient continues to be disorganized, and having thoughts of suicide. REVIEW OF SYSTEMS Constitutional: Negative for weight loss ENT: Negative for stridor Respiratory: Negative for cough or hemoptysis All other systems reviewed and are negative MSE Appearance: Asleep. Dressed appropriately. Poor eye contact. Behavior: cooperative Mood: good Affect: Flat Thought Process: Disorganized Speech: Normal tone and rate Thought Content Suicidal: Yes Homicidal: Denies Hallucinations: Auditory Delusions: Yes Consciousness: Alert Cognition/Memory: Impaired Insight/Judgment: Poor Assessment: Schizoaffective Disorder Treatment Plan Give IM PRN antipsychotic if patient refuses oral antipsychotics. Due to the psychiatric conditions and treatment listed in the Assessment and Plan - the patient requires continued hospitalization. Will continue inpatient treatment to allow for medication adjustment and monitoring. Will continue q15 min safety checks. Will encourage the use of environmental modifications and non-pharmacologic approaches for the management of behavioral and psychological symptoms. Will continue current psych medications Monitor for medication side effects. Medication changes made today: Added Lexapro 5mg po daily to decrease depressive symtpoms, will increase Risperiodne tomorrow if psychosis is not better. The patient will continue on medications for physical illnesses, and Hospitalist will closely monitor these Continue intensive physical and occupational therapies. Monitor patient's mood, sleep, appetite, and behavior closely. Encourage patient to participate in individual and group therapeutic sessions on the oh. Will provide a safe and therapeutic environment for patient. The patient will be treated for Schizoaffective Disorder. ELOS 6 days Plan for post-hospital care: [ out-patient ] Medications and Allergies Allergies Allergy/AdvReac Type Severity Reaction Status Date / Time No Known Allergies Allergy Verified 05/05/18 10:29 Home Medications Medication Instructions Recorded Confirmed Last Taken Type Benztropine [Cogentin] 1 mg PO BID #60 tablet 05/14/18 04/05/19 Unknown Rx Docusate Sodium [Colace CAP] 100 mg PO BID #60 capsule 05/14/18 04/05/19 Unknown Rx Donepezil [Aricept] 5 mg PO QHS #30 tablet 05/14/18 04/05/19 Unknown Rx Lispro Insulin [HumaLOG] 0 unit SUB-Q ACHS units 05/14/18 04/05/19 Unknown Rx Losartan [Cozaar] 100 mg PO QDAY #30 tablet 05/14/18 04/05/19 Unknown Rx Magnesium Oxide [Mag-Ox] 400 mg PO BID tablet 05/14/18 04/05/19 Unknown Rx Meloxicam [Mobic] 7.5 mg PO QDAY tablet 05/14/18 04/05/19 Unknown Rx Mirtazapine [Remeron 15mg TAB] 15 mg PO QHS #30 tablet 05/14/18 04/05/19 Unknown Rx amLODIPine 10 mg PO QDAY #30 tablet 05/14/18 04/05/19 Unknown Rx metFORMIN [Glucophage] 500 mg PO BIDDIAB #60 tablet 05/14/18 04/05/19 Unknown Rx hydrOXYzine PAMOATE [Vistaril] 50 mg PO QHS #7 capsule 08/23/18 04/05/19 Unknown Rx Benztropine [Cogentin] 1 mg PO BID tablet 09/14/18 04/05/[address] [Eren Dr] 1,000 mg PO BID #120 tablet 09/14/18 04/05/19 Unknown Rx Docusate Sodium [Colace CAP] 100 mg PO BID capsule 09/14/18 04/05/19 Unknown Rx Mirtazapine [Remeron 15mg TAB] 15 mg PO QHS tablet 09/14/18 04/05/19 Unknown Rx amLODIPine 10 mg PO QDAY tablet 09/14/18 04/05/19 Unknown Rx clonazePAM [KlonoPIN] 0.25 mg PO QHS 14 Days #7 tablet 09/14/18 04/05/19 Unknown Rx Thiamine [Vitamin B-1] 100 mg PO QDAY #30 tablet 04/04/19 04/05/19 Unknown Rx risperiDONE [RisperDAL] 3 mg PO BID #60 tablet 04/04/19 04/05/19 Unknown Rx Active Meds: Active Medications Amlodipine Besylate (Amlodipine) 10 mg PO QDAY [facility] Last Admin: 04/05/19 11:55 Dose: 10 mg Documented by: Benztropine Mesylate (Cogentin) 1 mg PO BID [facility] Last Admin: 04/05/19 21:47 Dose: 1 mg Documented by: Clonazepam (Klonopin) 0.25 mg PO QHS [facility] Last Admin: 04/05/19 21:45 Dose: 0.25 mg Documented by: Divalproex Sodium (Depakote Dr) 1,000 mg PO BID [facility] Last Admin: 04/05/19 21:47 Dose: 1,000 mg Documented by: Docusate Sodium (Colace) 100 mg PO BID [facility] Last Admin: 04/05/19 21:46 Dose: 100 mg Documented by: Donepezil HCl (Aricept) 5 mg PO QHS [facility] Last Admin: 04/05/19 22:01 Dose: 5 mg Documented by: Hydroxyzine Pamoate (Vistaril) 50 mg PO QHS [facility] Last Admin: 04/05/19 22:03 Dose: 50 mg Documented by: Insulin Human Lispro (Humalog) 0 unit SUB-Q [facility]; Protocol Last Admin: 04/06/19 08:08 Dose: Not Given Documented by: Losartan Potassium (Cozaar) 100 mg PO QDAY [facility] Last Admin: 04/05/19 11:56 Dose: 100 mg Documented by: Magnesium Oxide (Mag-Ox) 400 mg PO BID [facility] Last Admin: 04/05/19 21:47 Dose: 400 mg Documented by: Meloxicam (Mobic) 7.5 mg PO QDAY [facility] Last Admin: 04/05/19 11:50 Dose: 7.5 mg Documented by: Metformin HCl (Glucophage) 500 mg PO BIDDIAB [facility] Last Admin: 04/05/19 17:44 Dose: Not Given Documented by: Mirtazapine (Remeron) 15 mg PO QHS [facility] Last Admin: 04/05/19 21:46 Dose: 15 mg Documented by: Risperidone (Risperdal) 3 mg PO BID [facility] Last Admin: 04/05/19 21:46 Dose: 3 mg Documented by: Thiamine HCl (Vitamin B-1) 100 mg PO QDAY [facility] Last Admin: 04/05/19 11:55 Dose: 100 mg Documented by: Ziprasidone (Geodon) 10 mg IM Q4H PRN PRN Reason: Agitation Last Admin: 04/05/19 15:56 Dose: 10 mg Documented by: Results - Results Labs/Vitals: Laboratory Last Values Sodium 142 mmol/L (137-145) 04/06/19 07:31 Potassium 4.6 mmol/L (3.6-5.0) D 04/06/19 07:31 Chloride 107.4 mmol/L (98-107) H 04/06/19 07:31 Carbon Dioxide 21 mmol/L (22-30) L 04/06/19 07:31 Anion Gap 18 mmol/L 04/06/19 07:31 BUN 14 mg/dL (7-17) 04/06/19 07:31 Creatinine 0.9 mg/dL (0.7-1.2) 04/06/19 07:31 Estimated GFR > 60 ml/min 04/06/19 07:31 BUN/Creatinine Ratio 16 % 04/06/19 07:31 Glucose 89 mg/dL (65-100) 04/06/19 07:31 POC Glucose 121 (70-105) H 04/05/19 19:10 Hemoglobin A1c 6.7 % (4-6) H 04/06/19 07:31 Calcium 9.6 mg/dL (8.4-10.2) 04/06/19 07:31 Ammonia 74.0 umol/L (25-60) H 04/04/19 17:53 Triglycerides 75 mg/dL (2-149) 04/06/19 07:31 Cholesterol 137 mg/dL (50-199) 04/06/19 07:31 LDL Cholesterol Direct 68 mg/dL (50-130) 04/06/19 07:31 HDL Cholesterol 63 mg/dL (40-59) H 04/06/19 07:31 Cholesterol/HDL Ratio 2.17 % 04/06/19 07:31 Valproic Acid 96.3 ug/mL (50-100) 04/04/19 17:53 Last Vital Signs Temp 97.9 F 04/04/19 20:03 Pulse 98 H 04/05/19 11:56 Resp 20 04/04/19 20:03 BP 156/80 04/05/19 11:56 Pulse Ox 99 04/04/19 20:03
[2019-04-06] MEDS: risperiDONE 3 MG TAB PO SCH ×2 (09:53→21:22)
[2019-04-06] MEDS: BENZTROPINE 1 MG TAB PO SCH ×2 (09:53→21:25)
[2019-04-06] MEDS: MAGNESIUM OXIDE 400 MG TAB PO SCH ×2 (09:53→21:22)
[2019-04-06] MEDS: amLODIPine 10 MG TAB PO SCH (09:53)
[2019-04-06] MEDS: THIAMINE 100 MG TAB PO SCH (09:53)
[2019-04-06] MEDS: DOCUSATE SODIUM 100 MG CAP PO SCH ×2 (09:53→21:22)
[2019-04-06] MEDS: metFORMIN 500 MG TAB PO SCH ×2 (09:54→16:43)
[2019-04-06] MEDS: DIVALPROEX DR 500 MG TAB PO SCH ×2 (09:54→21:20)
[2019-04-06] MEDS: MELOXICAM 7.5 MG TAB PO SCH (09:54)
[2019-04-06] MEDS: LOSARTAN 50 MG TAB PO SCH (09:54)
[2019-04-06] MEDS: ESCITALOPRAM 10 MG TAB PO SCH (10:25)
[2019-04-06] MEDS: clonazePAM 0.5 MG TAB PO SCH (21:21)
[2019-04-06] MEDS: MIRTAZAPINE 15 MG TAB PO SCH (21:23)
[2019-04-06] MEDS: DONEPEZIL 5 MG TAB PO SCH (21:23)
[2019-04-07] MEDS: INSULIN LISPRO 100 UNIT/ML SUB-Q SCH ×5 (08:36→21:04)
--- NOTE | 2019-04-07 09:21 | Progress Note ---
Subjective Date of service: 04/07/19 Principal diagnosis: Schizoaffective Disorder Subjective Comment: Reviewed the patient's medical record and discussed the patient's progress with the nursing staff. During my interview with the patient this morning, the patient was lying in bed. Dressed appropriately. Appears asleep. The patient is avoidant today. She does not respond to any questioning. She closes her eyes tighter as I'm attempting to speak to her. Reason for continued inpatient treatment: The patient appears to be disorganized and refusing meds. She also has the inability to care for herself. REVIEW OF SYSTEMS Constitutional: Negative for weight loss ENT: Negative for stridor Respiratory: Negative for cough or hemoptysis All other systems reviewed and are negative MSE Appearance: Asleep. Dressed appropriately. Poor eye contact. Behavior: Avoidant, uncooperative Unable to assess rest of MSE Assessment: Schizoaffective Disorder Treatment Plan Give IM PRN antipsychotic if patient refuses oral antipsychotics. Due to the psychiatric conditions and treatment listed in the Assessment and Plan - the patient requires continued hospitalization. Will continue inpatient treatment to allow for medication adjustment and monitoring. Will continue q15 min safety checks. Will encourage the use of environmental modifications and non-pharmacologic a pproaches for the management of behavioral and psychological symptoms. Will continue current psych medications Monitor for medication side effects. Medication changes made today: Was initially going to increase Risperidone today. Will assess patient's mental status later today or tomorrow if she is willing to speak. The patient will continue on medications for physical illnesses, and Hospitalist will closely monitor these Continue intensive physical and occupational therapies. Monitor patient's mood, sleep, appetite, and behavior closely. Encourage patient to participate in individual and group therapeutic sessions on the oh. Will provide a safe and therapeutic environment for patient. The patient will be treated for Schizoaffective Disorder. ELOS 5 days Plan for post-hospital care: [ out-patient ] Medications and Allergies Allergies Allergy/AdvReac Type Severity Reaction Status Date / Time No Known Allergies Allergy Verified 05/05/18 10:29 Home Medications Medication Instructions Recorded Confirmed Last Taken Type Benztropine [Cogentin] 1 mg PO BID #60 tablet 05/14/18 04/05/19 Unknown Rx Docusate Sodium [Colace CAP] 100 mg PO BID #60 capsule 05/14/18 04/05/19 Unknown Rx Donepezil [Aricept] 5 mg PO QHS #30 tablet 05/14/18 04/05/19 Unknown Rx Lispro Insulin [HumaLOG] 0 unit SUB-Q ACHS units 05/14/18 04/05/19 Unknown Rx Losartan [Cozaar] 100 mg PO QDAY #30 tablet 05/14/18 04/05/19 Unknown Rx Magnesium Oxide [Mag-Ox] 400 mg PO BID tablet 05/14/18 04/05/19 Unknown Rx Meloxicam [Mobic] 7.5 mg PO QDAY tablet 05/14/18 04/05/19 Unknown Rx Mirtazapine [Remeron 15mg TAB] 15 mg PO QHS #30 tablet 05/14/18 04/05/19 Unknown Rx amLODIPine 10 mg PO QDAY #30 tablet 05/14/18 04/05/19 Unknown Rx metFORMIN [Glucophage] 500 mg PO BIDDIAB #60 tablet 05/14/18 04/05/19 Unknown Rx hydrOXYzine PAMOATE [Vistaril] 50 mg PO QHS #7 capsule 08/23/18 04/05/19 Unknown Rx Benztropine [Cogentin] 1 mg PO BID tablet 09/14/18 04/05/[address] [Eren Dr] 1,000 mg PO BID #120 tablet 09/14/18 04/05/19 Unknown Rx Docusate Sodium [Colace CAP] 100 mg PO BID capsule 09/14/18 04/05/19 Unknown Rx Mirtazapine [Remeron 15mg TAB] 15 mg PO QHS tablet 09/14/18 04/05/19 Unknown Rx amLODIPine 10 mg PO QDAY tablet 09/14/18 04/05/19 Unknown Rx clonazePAM [KlonoPIN] 0.25 mg PO QHS 14 Days #7 tablet 09/14/18 04/05/19 Unknown Rx Thiamine [Vitamin B-1] 100 mg PO QDAY #30 tablet 04/04/19 04/05/19 Unknown Rx risperiDONE [RisperDAL] 3 mg PO BID #60 tablet 04/04/19 04/05/19 Unknown Rx Active Meds: Active Medications Amlodipine Besylate (Amlodipine) 10 mg PO QDAY [facility] Last Admin: 04/06/19 09:53 Dose: 10 mg Documented by: Benztropine Mesylate (Cogentin) 1 mg PO BID [facility] Last Admin: 04/06/19 21:25 Dose: 1 mg Documented by: Clonazepam (Klonopin) 0.25 mg PO QHS [facility] Last Admin: 04/06/19 21:21 Dose: 0.25 mg Documented by: Divalproex Sodium (Depakote Dr) 1,000 mg PO BID [facility] Last Admin: 04/06/19 21:20 Dose: 1,000 mg Documented by: Docusate Sodium (Colace) 100 mg PO BID [facility] Last Admin: 04/06/19 21:22 Dose: 100 mg Documented by: Donepezil HCl (Aricept) 5 mg PO QHS [facility] Last Admin: 04/06/19 21:23 Dose: 5 mg Documented by: Escitalopram Oxalate (Lexapro) 5 mg PO QDAY [facility] Last Admin: 04/06/19 10:25 Dose: 5 mg Documented by: Hydroxyzine Pamoate (Vistaril) 50 mg PO QHS [facility] Last Admin: 04/06/19 21:21 Dose: 50 mg Documented by: Insulin Human Lispro (Humalog) 0 unit SUB-Q [facility]; Protocol Last Admin: 04/07/19 08:36 Dose: Not Given Documented by: Losartan Potassium (Cozaar) 100 mg PO QDAY [facility] Last Admin: 04/06/19 09:54 Dose: 100 mg Documented by: Magnesium Oxide (Mag-Ox) 400 mg PO BID [facility] Last Admin: 04/06/19 21:22 Dose: 400 mg Documented by: Meloxicam (Mobic) 7.5 mg PO QDAY [facility] Last Admin: 04/06/19 09:54 Dose: 7.5 mg Documented by: Metformin HCl (Glucophage) 500 mg PO BIDDIAB [facility] Last Admin: 04/06/19 16:43 Dose: 500 mg Documented by: Mirtazapine (Remeron) 15 mg PO QHS [facility] Last Admin: 04/06/19 21:23 Dose: 15 mg Documented by: Risperidone (Risperdal) 3 mg PO BID [facility] Last Admin: 04/06/19 21:22 Dose: 3 mg Documented by: Thiamine HCl (Vitamin B-1) 100 mg PO QDAY [facility] Last Admin: 04/06/19 09:53 Dose: 100 mg Documented by: Ziprasidone (Geodon) 10 mg IM Q4H PRN PRN Reason: Agitation Last Admin: 04/05/19 15:56 Dose: 10 mg Documented by: Results - Results Labs/Vitals: Laboratory Last Values Sodium 142 mmol/L (137-145) 04/06/19 07:31 Potassium 4.6 mmol/L (3.6-5.0) D 04/06/19 07:31 Chloride 107.4 mmol/L (98-107) H 04/06/19 07:31 Carbon Dioxide 21 mmol/L (22-30) L 04/06/19 07:31 Anion Gap 18 mmol/L 04/06/19 07:31 BUN 14 mg/dL (7-17) 04/06/19 07:31 Creatinine 0.9 mg/dL (0.7-1.2) 04/06/19 07:31 Estimated GFR > 60 ml/min 04/06/19 07:31 BUN/Creatinine Ratio 16 % 04/06/19 07:31 Glucose 89 mg/dL (65-100) 04/06/19 07:31 POC Glucose 75 (70-105) 04/07/19 06:35 Hemoglobin A1c 6.7 % (4-6) H 04/06/19 07:31 Calcium 9.6 mg/dL (8.4-10.2) 04/06/19 07:31 Ammonia 74.0 umol/L (25-60) H 04/04/19 17:53 Triglycerides 75 mg/dL (2-149) 04/06/19 07:31 Cholesterol 137 mg/dL (50-199) 04/06/19 07:31 LDL Cholesterol Direct 68 mg/dL (50-130) 04/06/19 07:31 HDL Cholesterol 63 mg/dL (40-59) H 04/06/19 07:31 Cholesterol/HDL Ratio 2.17 % 04/06/19 07:31 Valproic Acid 96.3 ug/mL (50-100) 04/04/19 17:53 Last Vital Signs Temp 97.4 F L 04/06/19 22:00 Pulse 110 H 04/06/19 22:00 Resp 18 04/06/19 22:00 BP 146/74 04/06/19 22:00 Pulse Ox 99 04/06/19 22:00
[2019-04-07] MEDS: metFORMIN 500 MG TAB PO SCH ×3 (10:02→17:47)
[2019-04-07] MEDS: DOCUSATE SODIUM 100 MG CAP PO SCH ×3 (10:02→21:05)
[2019-04-07] MEDS: BENZTROPINE 1 MG TAB PO SCH ×3 (10:02→21:02)
[2019-04-07] MEDS: DIVALPROEX DR 500 MG TAB PO SCH ×3 (10:03→21:02)
[2019-04-07] MEDS: ZIPRASIDONE MESYLATE 20 MG VIAL IM PRN (10:46)
[2019-04-07] MEDS: ESCITALOPRAM 10 MG TAB PO SCH ×2 (13:53→14:24)
[2019-04-07] MEDS: risperiDONE 3 MG TAB PO SCH ×3 (14:02→21:02)
[2019-04-07] MEDS: MELOXICAM 7.5 MG TAB PO SCH ×2 (14:03→14:24)
[2019-04-07] MEDS: THIAMINE 100 MG TAB PO SCH ×2 (14:04→14:22)
[2019-04-07] MEDS: MAGNESIUM OXIDE 400 MG TAB PO SCH ×3 (14:06→21:02)
[2019-04-07] MEDS: amLODIPine 10 MG TAB PO SCH ×2 (14:07→14:23)
[2019-04-07] MEDS: LOSARTAN 50 MG TAB PO SCH ×2 (14:08→14:11)
[2019-04-07] MEDS: clonazePAM 0.5 MG TAB PO SCH (21:02)
[2019-04-07] MEDS: DONEPEZIL 5 MG TAB PO SCH (21:02)
[2019-04-07] MEDS: MIRTAZAPINE 15 MG TAB PO SCH (21:17)
[2019-04-08] MEDS: ZIPRASIDONE MESYLATE 20 MG VIAL IM PRN (11:02)
--- NOTE | 2019-04-08 11:05 | Progress Note ---
Subjective Date of service: 04/08/19 Principal diagnosis: Schizoaffective Disorder Subjective Comment: Reviewed the patient's medical record and discussed the patient's progress with the nursing staff. No aggressive behavior or agitation observed. Patient is calm. cooperative and med compliant. Insulin given for elevated blood glucose. Consumed a 100% of her snack. Patient is alert and oriented x2. Denies pain. Assisted to bed. Gait is unsteady. x1 assist. Safety maintained. Incontinent of bowel and bladder. Will continue to monitor. During my interview with the patient this morning, the patient was lying in bed. Dressed appropriately. Appears asleep but responded to verbal command, easily aroused. The patient is alert and oriented 2 the patient reported that she was sleeping well. She reports that she doesn't eat well when asked why the patient said, "I don't know". The patient denies suicidal or homicidal ideation the patient denies auditory or visual hallucination. The patient reported her mood as good. When I asked why she was not taking her medication, the patient's r eport "I don't know". I went on to ask the patient other questions but the patient refused to answer. Reason for continued inpatient treatment: Isolating behaviors/understanding diagnosis and need for medication. unable to care for self. REVIEW OF SYSTEMS Constitutional: Negative for weight loss ENT: Negative for stridor Respiratory: Negative for cough or hemoptysis All other systems reviewed and are negative MSE Appearance: Wearing appropriate clothing. Good hygiene Behavior:withdrawn Mood: "Good" Affect: flat Thought Process: Speech: Normal rate. Thought Content Harmfulness Denies SI/HI Hallucinations: patient denies Delusions: denies Consciousness: alert. Cognition/Memory: normal. Insight/Judgment: Limited. Assessment: Schizoaffective Disorder Treatment Plan Due to the psychiatric conditions and treatment listed in the Assessment and Plan - the patient requires continued hospitalization. Will continue inpatient treatment to allow for medication adjustment and monitoring. Will continue q15 min safety checks. Will encourage the use of environmental modifications and non-pharmacologic approaches for the management of behavioral and psychological symptoms. Will continue current psych medications Monitor for medication side effects. Medication changes made today: none The patient will continue on medications for physical illnesses, and Hospitalist will closely monitor these Continue intensive physical and occupational therapies. Monitor patient's mood, sleep, appetite, and behavior closely. Encourage patient to participate in individual and group therapeutic sessions on the oh. Will provide a safe and therapeutic environment for patient. The patient will be treated for Schizoaffective Disorder. ELOS 5 days Plan for post-hospital care: [ out-patient ] Medications and Allergies Allergies Allergy/AdvReac Type Severity Reaction Status Date / Time No Known Allergies Allergy Verified 05/05/18 10:29 Home Medications Medication Instructions Recorded Confirmed Last Taken Type Benztropine [Cogentin] 1 mg PO BID #60 tablet 05/14/18 04/05/19 Unknown Rx Docusate Sodium [Colace CAP] 100 mg PO BID #60 capsule 05/14/18 04/05/19 Unknown Rx Donepezil [Aricept] 5 mg PO QHS #30 tablet 05/14/18 04/05/19 Unknown Rx Lispro Insulin [HumaLOG] 0 unit SUB-Q ACHS units 05/14/18 04/05/19 Unknown Rx Losartan [Cozaar] 100 mg PO QDAY #30 tablet 05/14/18 04/05/19 Unknown Rx Magnesium Oxide [Mag-Ox] 400 mg PO BID tablet 05/14/18 04/05/19 Unknown Rx Meloxicam [Mobic] 7.5 mg PO QDAY tablet 05/14/18 04/05/19 Unknown Rx Mirtazapine [Remeron 15mg TAB] 15 mg PO QHS #30 tablet 05/14/18 04/05/19 Unknown Rx amLODIPine 10 mg PO QDAY #30 tablet 05/14/18 04/05/19 Unknown Rx metFORMIN [Glucophage] 500 mg PO BIDDIAB #60 tablet 05/14/18 04/05/19 Unknown Rx hydrOXYzine PAMOATE [Vistaril] 50 mg PO QHS #7 capsule 08/23/18 04/05/19 Unknown Rx Benztropine [Cogentin] 1 mg PO BID tablet 09/14/18 04/05/[address] [Eren Dr] 1,000 mg PO BID #120 tablet 09/14/18 04/05/19 Unknown Rx Docusate Sodium [Colace CAP] 100 mg PO BID capsule 09/14/18 04/05/19 Unknown Rx Mirtazapine [Remeron 15mg TAB] 15 mg PO QHS tablet 09/14/18 04/05/19 Unknown Rx amLODIPine 10 mg PO QDAY tablet 09/14/18 04/05/19 Unknown Rx clonazePAM [KlonoPIN] 0.25 mg PO QHS 14 Days #7 tablet 09/14/18 04/05/19 Unknown Rx Thiamine [Vitamin B-1] 100 mg PO QDAY #30 tablet 04/04/19 04/05/19 Unknown Rx risperiDONE [RisperDAL] 3 mg PO BID #60 tablet 04/04/19 04/05/19 Unknown Rx Active Meds: Active Medications Amlodipine Besylate (Amlodipine) 10 mg PO QDAY [facility] Last Admin: 04/07/19 14:23 Dose: 10 mg Documented by: Benztropine Mesylate (Cogentin) 1 mg PO BID [facility] Last Admin: 04/07/19 21:02 Dose: 1 mg Documented by: Clonazepam (Klonopin) 0.25 mg PO QHS [facility] Last Admin: 04/07/19 21:02 Dose: 0.25 mg Documented by: Divalproex Sodium (Depakote Dr) 1,000 mg PO BID [facility] Last Admin: 04/07/19 21:02 Dose: 1,000 mg Documented by: Docusate Sodium (Colace) 100 mg PO BID [facility] Last Admin: 04/07/19 21:05 Dose: 100 mg Documented by: Donepezil HCl (Aricept) 5 mg PO QHS [facility] Last Admin: 04/07/19 21:02 Dose: 5 mg Documented by: Escitalopram Oxalate (Lexapro) 5 mg PO QDAY [facility] Last Admin: 04/07/19 14:24 Dose: 5 mg Documented by: Hydroxyzine Pamoate (Vistaril) 50 mg PO QHS [facility] Last Admin: 04/07/19 21:02 Dose: 50 mg Documented by: Insulin Human Lispro (Humalog) 0 unit SUB-[address] [facility]; Protocol Last Admin: 04/07/19 21:04 Dose: 2 unit Documented by: Losartan Potassium (Cozaar) 100 mg PO QDAY [facility] Last Admin: 04/07/19 14:11 Dose: 100 mg Documented by: Magnesium Oxide (Mag-Ox) 400 mg PO BID [facility] Last Admin: 04/07/19 21:02 Dose: 400 mg Documented by: Meloxicam (Mobic) 7.5 mg PO QDAY [facility] Last Admin: 04/07/19 14:24 Dose: 7.5 mg Documented by: Metformin HCl (Glucophage) 500 mg PO BIDDIAB [facility] Last Admin: 04/07/19 17:47 Dose: 500 mg Documented by: Mirtazapine (Remeron) 15 mg PO QHS [facility] Last Admin: 04/07/19 21:17 Dose: 15 mg Documented by: Risperidone (Risperdal) 3 mg PO BID [facility] Last Admin: 04/07/19 21:02 Dose: 3 mg Documented by: Thiamine HCl (Vitamin B-1) 100 mg PO QDAY [facility] Last Admin: 04/07/19 14:22 Dose: 100 mg Documented by: Ziprasidone (Geodon) 10 mg IM Q4H PRN PRN Reason: Agitation Last Admin: 04/08/19 11:02 Dose: 10 mg Documented by: Results - Results Labs/Vitals: Laboratory Last Values Sodium 142 mmol/L (137-145) 04/06/19 07:31 Potassium 4.6 mmol/L (3.6-5.0) D 04/06/19 07:31 Chloride 107.4 mmol/L (98-107) H 04/06/19 07:31 Carbon Dioxide 21 mmol/L (22-30) L 04/06/19 07:31 Anion Gap 18 mmol/L 04/06/19 07:31 BUN 14 mg/dL (7-17) 04/06/19 07:31 Creatinine 0.9 mg/dL (0.7-1.2) 04/06/19 07:31 Estimated GFR > 60 ml/min 04/06/19 07:31 BUN/Creatinine Ratio 16 % 04/06/19 07:31 Glucose 89 mg/dL (65-100) 04/06/19 07:31 POC Glucose 95 (70-105) 04/08/19 08:06 Hemoglobin A1c 6.7 % (4-6) H 04/06/19 07:31 Calcium 9.6 mg/dL (8.4-10.2) 04/06/19 07:31 Ammonia 74.0 umol/L (25-60) H 04/04/19 17:53 Triglycerides 75 mg/dL (2-149) 04/06/19 07:31 Cholesterol 137 mg/dL (50-199) 04/06/19 07:31 LDL Cholesterol Direct 68 mg/dL (50-130) 04/06/19 07:31 HDL Cholesterol 63 mg/dL (40-59) H 04/06/19 07:31 Cholesterol/HDL Ratio 2.17 % 04/06/19 07:31 Valproic Acid 96.3 ug/mL (50-100) 04/04/19 17:53 Last Vital Signs Temp 97.7 F 04/08/19 09:24 Pulse 75 04/08/19 09:24 Resp 18 04/08/19 09:24 BP 154/66 04/08/19 09:24 Pulse Ox 100 04/08/19 09:24
[2019-04-08] MEDS: INSULIN LISPRO 100 UNIT/ML SUB-Q SCH ×4 (16:28→22:00)
[2019-04-08] MEDS: metFORMIN 500 MG TAB PO SCH ×2 (16:29→17:00)
[2019-04-08] MEDS: DOCUSATE SODIUM 100 MG CAP PO SCH ×2 (16:30→21:43)
[2019-04-08] MEDS: amLODIPine 10 MG TAB PO SCH (16:30)
[2019-04-08] MEDS: BENZTROPINE 1 MG TAB PO SCH ×2 (16:30→21:42)
[2019-04-08] MEDS: LOSARTAN 50 MG TAB PO SCH (16:31)
[2019-04-08] MEDS: ESCITALOPRAM 10 MG TAB PO SCH (16:31)
[2019-04-08] MEDS: DIVALPROEX DR 500 MG TAB PO SCH ×2 (16:31→21:42)
[2019-04-08] MEDS: MAGNESIUM OXIDE 400 MG TAB PO SCH ×2 (16:32→21:43)
[2019-04-08] MEDS: MELOXICAM 7.5 MG TAB PO SCH (16:32)
[2019-04-08] MEDS: THIAMINE 100 MG TAB PO SCH (16:32)
[2019-04-08] MEDS: risperiDONE 3 MG TAB PO SCH ×2 (16:32→21:44)
[2019-04-08] MEDS: clonazePAM 0.5 MG TAB PO SCH (21:42)
[2019-04-08] MEDS: DONEPEZIL 5 MG TAB PO SCH (21:43)
[2019-04-08] MEDS: MIRTAZAPINE 15 MG TAB PO SCH (21:43)
--- NOTE | 2019-04-09 08:03 | Progress Note ---
Subjective Date of service: 04/09/19 Principal diagnosis: Schizoaffective Disorder Subjective Comment: Reviewed the patient's medical record and discussed the patient's progress with the nursing staff. per chart,Patient slept most of the night. Assistance to bathroom x2. Compliant with medications and ate 100% of snack. No Hi/Si ideation noted. Staff will continue to monitor for safety. During my interview with the patient this morning, the patient was lying in bed. Dressed appropriately. Appears asleep but responded to verbal command, easily aroused. The patient is alert and oriented 2 the patient reported sleeping and eating well. The patient denies suicidal or homicidal ideation the patient denies auditory or visual hallucination. The patient reported her mood as good. The patient denies depression Reason for continued inpatient treatment: Isolating behaviors/understanding diagnosis and need for medication. unable to care for self. REVIEW OF SYSTEMS Constitutional: Negative for weight loss ENT: Negative for stridor Respiratory: Negative for cough or hemoptysis All other systems reviewed and are negative MSE Appearance: Wearing appropriate clothing. Good hygiene Behavior:withdrawn Mood: "OK" Affect:congruent with mood Thought Process: labile Speech: Normal rate. Thought Content Harmfulness Denies SI/HI Hallucinations: patient denies Delusions: denies Consciousness: alert. Cognition/Memory: normal. Insight/Judgment: Limited. Assessment: Schizoaffective Disorder Treatment Plan Due to the psychiatric conditions and treatment listed in the Assessment and Plan - the patient requires continued hospitalization. Will continue inpatient treatment to allow for medication adjustment and monitoring. Will continue q15 min safety checks. Will encourage the use of environmental modifications and non-pharmacologic approaches for the management of behavioral and psychological symptoms. Will continue current psych medications Monitor for medication side effects. Medication changes made today: one time dose of risperdone 2mg liquid, patient refusing medication The patient will continue on medications for physical illnesses, and Hospitalist will closely monitor these Continue intensive physical and occupational therapies. Monitor patient's mood, sleep, appetite, and behavior closely. Encourage patient to participate in individual and group therapeutic sessions on the oh. Will provide a safe and therapeutic environment for patient. The patient will be treated for Schizoaffective Disorder. ELOS 5 days Plan for post-hospital care: [ out-patient ] Medications and Allergies Allergies Allergy/AdvReac Type Severity Reaction Status Date / Time No Known Allergies Allergy Verified 05/05/18 10:29 Home Medications Medication Instructions Recorded Confirmed Last Taken Type Benztropine [Cogentin] 1 mg PO BID #60 tablet 05/14/18 04/05/19 Unknown Rx Docusate Sodium [Colace CAP] 100 mg PO BID #60 capsule 05/14/18 04/05/19 Unknown Rx Donepezil [Aricept] 5 mg PO QHS #30 tablet 05/14/18 04/05/19 Unknown Rx Lispro Insulin [HumaLOG] 0 unit SUB-Q ACHS units 05/14/18 04/05/19 Unknown Rx Losartan [Cozaar] 100 mg PO QDAY #30 tablet 05/14/18 04/05/19 Unknown Rx Magnesium Oxide [Mag-Ox] 400 mg PO BID tablet 05/14/18 04/05/19 Unknown Rx Meloxicam [Mobic] 7.5 mg PO QDAY tablet 05/14/18 04/05/19 Unknown Rx Mirtazapine [Remeron 15mg TAB] 15 mg PO QHS #30 tablet 05/14/18 04/05/19 Unknown Rx amLODIPine 10 mg PO QDAY #30 tablet 05/14/18 04/05/19 Unknown Rx metFORMIN [Glucophage] 500 mg PO BIDDIAB #60 tablet 05/14/18 04/05/19 Unknown Rx hydrOXYzine PAMOATE [Vistaril] 50 mg PO QHS #7 capsule 08/23/18 04/05/19 Unknown Rx Benztropine [Cogentin] 1 mg PO BID tablet 09/14/18 04/05/[address] [Eren Gonzalez] 1,000 mg PO BID #120 tablet 09/14/18 04/05/19 Unknown Rx Docusate Sodium [Colace CAP] 100 mg PO BID capsule 09/14/18 04/05/19 Unknown Rx Mirtazapine [Remeron 15mg TAB] 15 mg PO QHS tablet 09/14/18 04/05/19 Unknown Rx amLODIPine 10 mg PO QDAY tablet 09/14/18 04/05/19 Unknown Rx clonazePAM [KlonoPIN] 0.25 mg PO QHS 14 Days #7 tablet 09/14/18 04/05/19 Unknown Rx Thiamine [Vitamin B-1] 100 mg PO QDAY #30 tablet 01/27/20 01/28/20 Unknown Rx risperiDONE [RisperDAL] 3 mg PO BID #60 tablet 04/04/19 04/05/19 Unknown Rx Active Meds: Active Medications Amlodipine Besylate (Amlodipine) 10 mg PO QDAY [facility] Last Admin: 04/08/19 16:30 Dose: Not Given Documented by: Benztropine Mesylate (Cogentin) 1 mg PO BID [facility] Last Admin: 04/08/19 21:42 Dose: 1 mg Documented by: Clonazepam (Klonopin) 0.25 mg PO QHS [facility] Last Admin: 04/08/19 21:42 Dose: 0.25 mg Documented by: Divalproex Sodium (Depakote Dr) 1,000 mg PO BID [facility] Last Admin: 04/08/19 21:42 Dose: 1,000 mg Documented by: Docusate Sodium (Colace) 100 mg PO BID [facility] Last Admin: 04/08/19 21:43 Dose: 100 mg Documented by: Donepezil HCl (Aricept) 5 mg PO QHS [facility] Last Admin: 04/08/19 21:43 Dose: 5 mg Documented by: Escitalopram Oxalate (Lexapro) 5 mg PO QDAY [facility] Last Admin: 04/08/19 16:31 Dose: Not Given Documented by: Hydroxyzine Pamoate (Vistaril) 50 mg PO QHS [facility] Last Admin: 04/08/19 21:42 Dose: 50 mg Documented by: Insulin Human Lispro (Humalog) 0 unit SUB-Q [facility]; Protocol Last Admin: 04/08/19 22:00 Dose: Not Given Documented by: Losartan Potassium (Cozaar) 100 mg PO QDAY [facility] Last Admin: 04/08/19 16:31 Dose: Not Given Documented by: Magnesium Oxide (Mag-Ox) 400 mg PO BID [facility] Last Admin: 04/08/19 21:43 Dose: 400 mg Documented by: Meloxicam (Mobic) 7.5 mg PO QDAY [facility] Last Admin: 04/08/19 16:32 Dose: Not Given Documented by: Metformin HCl (Glucophage) 500 mg PO BIDDIAB [facility] Last Admin: 04/08/19 17:00 Dose: Not Given Documented by: Mirtazapine (Remeron) 15 mg PO QHS [facility] Last Admin: 04/08/19 21:43 Dose: 15 mg Documented by: Risperidone (Risperdal) 3 mg PO BID [facility] Last Admin: 04/08/19 21:44 Dose: 3 mg Documented by: Thiamine HCl (Vitamin B-1) 100 mg PO QDAY [facility] Last Admin: 04/08/19 16:32 Dose: Not Given Documented by: Ziprasidone (Geodon) 10 mg IM Q4H PRN PRN Reason: Agitation Last Admin: 04/08/19 11:02 Dose: 10 mg Documented by: Results - Results Labs/Vitals: Laboratory Last Values Sodium 142 mmol/L (137-145) 04/06/19 07:31 Potassium 4.6 mmol/L (3.6-5.0) D 04/06/19 07:31 Chloride 107.4 mmol/L (98-107) H 04/06/19 07:31 Carbon Dioxide 21 mmol/L (22-30) L 04/06/19 07:31 Anion Gap 18 mmol/L 04/06/19 07:31 BUN 14 mg/dL (7-17) 04/06/19 07:31 Creatinine 0.9 mg/dL (0.7-1.2) 04/06/19 07:31 Estimated GFR > 60 ml/min 04/06/19 07:31 BUN/Creatinine Ratio 16 % 04/06/19 07:31 Glucose 89 mg/dL (65-100) 04/06/19 07:31 POC Glucose 120 (70-105) H 04/08/19 21:08 Hemoglobin A1c 6.7 % (4-6) H 04/06/19 07:31 Calcium 9.6 mg/dL (8.4-10.2) 04/06/19 07:31 Ammonia 74.0 umol/L (25-60) H 04/04/19 17:53 Triglycerides 75 mg/dL (2-149) 04/06/19 07:31 Cholesterol 137 mg/dL (50-199) 04/06/19 07:31 LDL Cholesterol Direct 68 mg/dL (50-130) 04/06/19 07:31 HDL Cholesterol 63 mg/dL (40-59) H 04/06/19 07:31 Cholesterol/HDL Ratio 2.17 % 04/06/19 07:31 Valproic Acid 96.3 ug/mL (50-100) 04/04/19 17:53 Last Vital Signs Temp 98.2 F 04/08/19 20:31 Pulse 99 H 04/08/19 20:31 Resp 18 04/08/19 20:31 BP 135/84 04/08/19 20:31 Pulse Ox 99 04/08/19 20:31
[2019-04-09] MEDS: ESCITALOPRAM 10 MG TAB PO SCH (11:26)
[2019-04-09] MEDS: DIVALPROEX DR 500 MG TAB PO SCH ×2 (11:26→21:32)
[2019-04-09] MEDS: risperiDONE 3 MG TAB PO SCH ×2 (11:27→21:34)
[2019-04-09] MEDS: metFORMIN 500 MG TAB PO SCH ×2 (11:27→17:28)
[2019-04-09] MEDS: DOCUSATE SODIUM 100 MG CAP PO SCH ×2 (11:27→21:33)
[2019-04-09] MEDS: BENZTROPINE 1 MG TAB PO SCH ×2 (11:27→21:34)
[2019-04-09] MEDS: THIAMINE 100 MG TAB PO SCH (11:27)
[2019-04-09] MEDS: amLODIPine 10 MG TAB PO SCH (11:27)
[2019-04-09] MEDS: LOSARTAN 50 MG TAB PO SCH (11:28)
[2019-04-09] MEDS: MELOXICAM 7.5 MG TAB PO SCH (11:29)
[2019-04-09] MEDS: MAGNESIUM OXIDE 400 MG TAB PO SCH ×2 (11:29→21:35)
[2019-04-09] MEDS: INSULIN LISPRO 100 UNIT/ML SUB-Q SCH ×4 (11:30→21:35)
[2019-04-09] MEDS ORDERED: risperiDONE 1 MG/1 ML ORAL LIQD PO ONE (11:30)
[2019-04-09] MEDS: clonazePAM 0.5 MG TAB PO SCH (21:33)
[2019-04-09] MEDS: DONEPEZIL 5 MG TAB PO SCH (21:34)
[2019-04-09] MEDS: MIRTAZAPINE 15 MG TAB PO SCH (21:35)
[2019-04-10] MEDS: ESCITALOPRAM 10 MG TAB PO SCH (09:44)
[2019-04-10] MEDS: THIAMINE 100 MG TAB PO SCH (09:45)
[2019-04-10] MEDS: DIVALPROEX DR 500 MG TAB PO SCH ×2 (09:45→21:14)
[2019-04-10] MEDS: DOCUSATE SODIUM 100 MG CAP PO SCH ×2 (09:45→21:15)
[2019-04-10] MEDS: MELOXICAM 7.5 MG TAB PO SCH (09:46)
[2019-04-10] MEDS: INSULIN LISPRO 100 UNIT/ML SUB-Q SCH ×4 (09:47→21:17)
[2019-04-10] MEDS: BENZTROPINE 1 MG TAB PO SCH ×2 (09:47→21:15)
[2019-04-10] MEDS: MAGNESIUM OXIDE 400 MG TAB PO SCH ×2 (09:47→21:15)
[2019-04-10] MEDS: risperiDONE 3 MG TAB PO SCH ×2 (09:47→21:15)
[2019-04-10] MEDS: metFORMIN 500 MG TAB PO SCH ×2 (09:47→17:56)
[2019-04-10] MEDS: amLODIPine 10 MG TAB PO SCH (09:48)
[2019-04-10] MEDS: LOSARTAN 50 MG TAB PO SCH (09:49)
--- NOTE | 2019-04-10 10:09 | Progress Note ---
Subjective Date of service: 04/10/19 Principal diagnosis: Schizoaffective Disorder Subjective Comment: Reviewed the patient's medical record and discussed the patient's progress with the nursing staff. per chart, Received in day room sitting quietly. Denies pain. No agitation or behavioral issue report. Will continue to closely monitor for safety During my interview with the patient this morning, the the patient was in the dining room eaten her breakfast. The patient is alert and oriented 2. The patient is dressed appropriately for the occasion. The patient maintained intermittent eye contact. The patient denies suicidal or homicidal ideation. The patient denies auditory or visual hallucination. The patient denies depression.The patient is quite cooperative and withdrawn. The patient will respond with 1 word when spoken to. Reason for continued inpatient treatment: Isolating behaviors/understanding diagnosis and need for medication. unable to care for self. REVIEW OF SYSTEMS Constitutional: Negative for weight loss ENT: Negative for stridor Respiratory: Negative for cough or hemoptysis All other systems reviewed and are negative MSE Appearance: Wearing appropriate clothing. Good hygiene Behavior:withdrawn Mood: "OK" Affect:congruent with mood Thought Process: goal-directed Speech: soft . Thought Content Harmfulness Denies SI/HI Hallucinations: patient denies Delusions: denies Consciousness: alert. Cognition/Memory: normal. Insight/Judgment: Limited. Assessment: Schizoaffective Disorder Treatment Plan Due to the psychiatric conditions and treatment listed in the Assessment and Plan - the patient requires continued hospitalization. Will continue inpatient treatment to allow for medication adjustment and monit oring. Will continue q15 min safety checks. Will encourage the use of environmental modifications and non-pharmacologic approaches for the management of behavioral and psychological symptoms. Will continue current psych medications Monitor for medication side effects. Medication changes made today:none The patient will continue on medications for physical illnesses, and Hospitalist will closely monitor these Continue intensive physical and occupational therapies. Monitor patient's mood, sleep, appetite, and behavior closely. Encourage patient to participate in individual and group therapeutic sessions on the oh. Will provide a safe and therapeutic environment for patient. The patient will be treated for Schizoaffective Disorder. ELOS 1 days Plan for post-hospital care: [ out-patient ] Medications and Allergies Allergies Allergy/AdvReac Type Severity Reaction Status Date / Time No Known Allergies Allergy Verified 05/05/18 10:29 Home Medications Medication Instructions Recorded Confirmed Last Taken Type Benztropine [Cogentin] 1 mg PO BID #60 tablet 05/14/18 04/05/19 Unknown Rx Docusate Sodium [Colace CAP] 100 mg PO BID #60 capsule 05/14/18 04/05/19 Unknown Rx Donepezil [Aricept] 5 mg PO QHS #30 tablet 05/14/18 04/05/19 Unknown Rx Lispro Insulin [HumaLOG] 0 unit SUB-Q ACHS units 05/14/18 04/05/19 Unknown Rx Losartan [Cozaar] 100 mg PO QDAY #30 tablet 05/14/18 04/05/19 Unknown Rx Magnesium Oxide [Mag-Ox] 400 mg PO BID tablet 05/14/18 04/05/19 Unknown Rx Meloxicam [Mobic] 7.5 mg PO QDAY tablet 05/14/18 04/05/19 Unknown Rx Mirtazapine [Remeron 15mg TAB] 15 mg PO QHS #30 tablet 05/14/18 04/05/19 Unknown Rx amLODIPine 10 mg PO QDAY #30 tablet 05/14/18 04/05/19 Unknown Rx metFORMIN [Glucophage] 500 mg PO BIDDIAB #60 tablet 05/14/18 04/05/19 Unknown Rx hydrOXYzine PAMOATE [Vistaril] 50 mg PO QHS #7 capsule 08/23/18 04/05/19 Unknown Rx Benztropine [Cogentin] 1 mg PO BID tablet 09/14/18 04/05/[address] [Deptonnyte Dr] 1,000 mg PO BID #120 tablet 09/14/18 04/05/19 Unknown Rx Docusate Sodium [Colace CAP] 100 mg PO BID capsule 09/14/18 04/05/19 Unknown Rx Mirtazapine [Remeron 15mg TAB] 15 mg PO QHS tablet 09/14/18 04/05/19 Unknown Rx amLODIPine 10 mg PO QDAY tablet 09/14/18 04/05/19 Unknown Rx clonazePAM [KlonoPIN] 0.25 mg PO QHS 14 Days #7 tablet 09/14/18 04/05/19 Unknown Rx Thiamine [Vitamin B-1] 100 mg PO QDAY #30 tablet 04/04/19 04/05/19 Unknown Rx risperiDONE [RisperDAL] 3 mg PO BID #60 tablet 04/04/19 04/05/19 Unknown Rx Active Meds: Active Medications Amlodipine Besylate (Amlodipine) 10 mg PO QDAY [facility] Last Admin: 04/10/19 09:48 Dose: 10 mg Documented by: Benztropine Mesylate (Cogentin) 1 mg PO BID [facility] Last Admin: 04/10/19 09:47 Dose: 1 mg Documented by: Clonazepam (Klonopin) 0.25 mg PO QHS [facility] Last Admin: 04/09/19 21:33 Dose: 0.25 mg Documented by: Divalproex Sodium (Depakote Dr) 1,000 mg PO BID [facility] Last Admin: 04/10/19 09:45 Dose: 1,000 mg Documented by: Docusate Sodium (Colace) 100 mg PO BID [facility] Last Admin: 04/10/19 09:45 Dose: 100 mg Documented by: Donepezil HCl (Aricept) 5 mg PO QHS [facility] Last Admin: 04/09/19 21:34 Dose: 5 mg Documented by: Escitalopram Oxalate (Lexapro) 5 mg PO QDAY [facility] Last Admin: 04/10/19 09:44 Dose: 5 mg Documented by: Hydroxyzine Pamoate (Vistaril) 50 mg PO QHS [facility] Last Admin: 04/09/19 21:33 Dose: 50 mg Documented by: Insulin Human Lispro (Humalog) 0 unit SUB-Q [facility]; Protocol Last Admin: 04/10/19 09:47 Dose: Not Given Documented by: Losartan Potassium (Cozaar) 100 mg PO QDAY [facility] Last Admin: 04/10/19 09:49 Dose: 100 mg Documented by: Magnesium Oxide (Mag-Ox) 400 mg PO BID [facility] Last Admin: 04/10/19 09:47 Dose: 400 mg Documented by: Meloxicam (Mobic) 7.5 mg PO QDAY [facility] Last Admin: 04/10/19 09:46 Dose: 7.5 mg Documented by: Metformin HCl (Glucophage) 500 mg PO BIDDIAB [facility] Last Admin: 04/10/19 09:47 Dose: 500 mg Documented by: Mirtazapine (Remeron) 15 mg PO QHS [facility] Last Admin: 04/09/19 21:35 Dose: 15 mg Documented by: Risperidone (Risperdal) 3 mg PO BID [facility] Last Admin: 04/10/19 09:47 Dose: 3 mg Documented by: Thiamine HCl (Vitamin B-1) 100 mg PO QDAY [facility] Last Admin: 04/10/19 09:45 Dose: 100 mg Documented by: Ziprasidone (Geodon) 10 mg IM Q4H PRN PRN Reason: Agitation Last Admin: 04/08/19 11:02 Dose: 10 mg Documented by: Results - Results Labs/Vitals: Laboratory Last Values Sodium 142 mmol/L (137-145) 04/06/19 07:31 Potassium 4.6 mmol/L (3.6-5.0) D 04/06/19 07:31 Chloride 107.4 mmol/L (98-107) H 04/06/19 07:31 Carbon Dioxide 21 mmol/L (22-30) L 04/06/19 07:31 Anion Gap 18 mmol/L 04/06/19 07:31 BUN 14 mg/dL (7-17) 04/06/19 07:31 Creatinine 0.9 mg/dL (0.7-1.2) 04/06/19 07:31 Estimated GFR > 60 ml/min 04/06/19 07:31 BUN/Creatinine Ratio 16 % 04/06/19 07:31 Glucose 89 mg/dL (65-100) 04/06/19 07:31 POC Glucose 80 (70-105) 04/10/19 07:42 Hemoglobin A1c 6.7 % (4-6) H 04/06/19 07:31 Calcium 9.6 mg/dL (8.4-10.2) 04/06/19 07:31 Ammonia 74.0 umol/L (25-60) H 04/04/19 17:53 Triglycerides 75 mg/dL (2-149) 04/06/19 07:31 Cholesterol 137 mg/dL (50-199) 04/06/19 07:31 LDL Cholesterol Direct 68 mg/dL (50-130) 04/06/19 07:31 HDL Cholesterol 63 mg/dL (40-59) H 04/06/19 07:31 Cholesterol/HDL Ratio 2.17 % 04/06/19 07:31 Valproic Acid 96.3 ug/mL (50-100) 04/04/19 17:53 Last Vital Signs Temp 97.6 F 04/10/19 09:14 Pulse 80 04/10/19 09:49 Resp 18 04/10/19 09:14 BP 155/72 04/10/19 09:49 Pulse Ox 97 04/10/19 09:14
[2019-04-10] MEDS: DONEPEZIL 5 MG TAB PO SCH (21:15)
[2019-04-10] MEDS: MIRTAZAPINE 15 MG TAB PO SCH (21:15)
[2019-04-10] MEDS: clonazePAM 0.5 MG TAB PO SCH (21:16)
[2019-04-11] MEDS: INSULIN LISPRO 100 UNIT/ML SUB-Q SCH ×3 (07:55→16:59)
[2019-04-11] MEDS: metFORMIN 500 MG TAB PO SCH ×2 (08:55→16:59)
--- NOTE | 2019-04-11 09:12 | Discharge Summary ---
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 Hospitalization Condition: Stable Disposition: DC/[place]-03 SN[facility] Allergies/Adverse Reactions: Allergies No Known Allergies Allergy (Verified 05/05/18 10:29) Vital Signs: Last Vital Signs Temp 98.2 F 04/10/19 19:43 Pulse 86 04/10/19 19:43 Resp 20 04/10/19 19:43 BP 156/80 04/10/19 19:43 Pulse Ox 99 04/10/19 19:43 Last Lab: Laboratory Last Values Sodium 142 mmol/L (137-145) 04/06/19 07:31 Potassium 4.6 mmol/L (3.6-5.0) D 04/06/19 07:31 Chloride 107.4 mmol/L (98-107) H 04/06/19 07:31 Carbon Dioxide 21 mmol/L (22-30) L 04/06/19 07:31 Anion Gap 18 mmol/L 04/06/19 07:31 BUN 14 mg/dL (7-17) 04/06/19 07:31 Creatinine 0.9 mg/dL (0.7-1.2) 04/06/19 07:31 Estimated GFR > 60 ml/min 04/06/19 07:31 BUN/Creatinine Ratio 16 % 04/06/19 07:31 Glucose 89 mg/dL (65-100) 04/06/19 07:31 POC Glucose 74 (70-105) 04/11/19 06:46 Hemoglobin A1c 6.7 % (4-6) H 04/06/19 07:31 Calcium 9.6 mg/dL (8.4-10.2) 04/06/19 07:31 Ammonia 74.0 umol/L (25-60) H 04/04/19 17:53 Triglycerides 75 mg/dL (2-149) 04/06/19 07:31 Cholesterol 137 mg/dL (50-199) 04/06/19 07:31 LDL Cholesterol Direct 68 mg/dL (50-130) 04/06/19 07:31 HDL Cholesterol 63 mg/dL (40-59) H 04/06/19 07:31 Cholesterol/HDL Ratio 2.17 % 04/06/19 07:31 Valproic Acid 96.3 ug/mL (50-100) 04/04/19 17:53 Core Measure Documentation - Palliative Care Palliative Care/ Comfort Measures: Not Applicable - Core Measures Any of the following diagnoses?: none Exam - Constitutional Vitals: Temp Pulse Resp BP Pulse Ox 98.2 F 86 20 156/80 99 04/10/19 19:43 04/10/19 19:43 04/10/19 19:43 04/10/19 19:43 04/10/19 19:43 - EENT Eyes: Present: PERRL, EOM intact ENT: hearing intact, clear oral mucosa - Neck Neck: Present: supple, normal ROM - Respiratory Respiratory effort: normal - Abdominal Female genitourinary: Present: normal - Integumentary Integumentary: Present: clear, warm, dry Plan Care Plan Goals: Maintain good and stable mental health. Plan of Treatment: The patient should be compliant with medications, not to use drugs and not to drink alcohol. The patient understands that if suicidal ideas, homicidal ideas, or any endangering thoughts arise, the patient should immediately seek for emergent assistance including but not limited to crisis hot line and emergency room. Follow up with outpatient Psychiatrist and PCP within 7 - 14 days of discharge. Health Concerns: acute renal failure,dm,dvt,a-fib Follow up with: PRIMARY CARE,MD [Primary Care Provider] - 7 Days Prescriptions: Donepezil [Aricept] 5 mg PO QHS #30 tablet Mirtazapine [Remeron 15mg TAB] 15 mg PO QHS #30 tablet Mirtazapine [Remeron 15mg TAB] 15 mg PO QHS #30 tablet hydrOXYzine PAMOATE [Vistaril] 50 mg PO QHS #7 capsule Benztropine [Cogentin] 1 mg PO BID #60 tablet Benztropine [Cogentin] 1 mg PO BID #30 tablet Divalproex [Eren Gonzalze] 1,000 mg PO BID #120 tablet Escitalopram [Lexapro] 5 mg PO QDAY #30 tablet risperiDONE [RisperDAL] 3 mg PO BID #60 tablet Thiamine [Vitamin B-1] 100 mg PO QDAY #30 tablet
[2019-04-11 10:16] VITALS: BP 152/81
[2019-04-11] MEDS: LOSARTAN 50 MG TAB PO SCH (10:16)
[2019-04-11] MEDS: ESCITALOPRAM 10 MG TAB PO SCH (10:17)
[2019-04-11] MEDS: MELOXICAM 7.5 MG TAB PO SCH (10:17)
[2019-04-11] MEDS: risperiDONE 3 MG TAB PO SCH (10:18)
[2019-04-11] MEDS: DOCUSATE SODIUM 100 MG CAP PO SCH (10:18)
[2019-04-11] MEDS: BENZTROPINE 1 MG TAB PO SCH (10:18)
[2019-04-11] MEDS: MAGNESIUM OXIDE 400 MG TAB PO SCH (10:18)
[2019-04-11] MEDS: THIAMINE 100 MG TAB PO SCH (10:18)
[2019-04-11] MEDS: DIVALPROEX DR 500 MG TAB PO SCH (10:19)
[2019-04-11] MEDS: amLODIPine 10 MG TAB PO SCH (10:19)
== END 2019-04-11 17:35 | disposition home or self-care (01) | DRG 885 ==
LOC: 3A 12:50 → UNDOADMIN 12:50 → 5A 16:21
PROVIDERS: ADMIT Psychiatry & Neurology Psychiatry; ATTEND Psychiatry & Neurology Psychiatry
DX: F25.9 Schizoaffective disorder, unspecified (principal); N17.9 Acute kidney failure, unspecified; I48.91 Unspecified atrial fibrillation; E11.9 Type 2 diabetes mellitus without complications; I10 Essential (primary) hypertension; Z79.84 Long term (current) use of oral hypoglycemic drugs; Z79.899 Other long term (current) drug therapy
CPT/HCPCS: 36415; 80048; 80061; 80164; 82140; 82962; 83036; G0378; J1815; J3486; Q0177

== ENCOUNTER 2019-04-24 23:34 | Emergency (ER) | payer MEDICARE ==
[2019-04-25 00:16] VITALS: BP 157/88
--- NOTE | 2019-04-25 02:04 | Emergency Department Report ---
ED General Adult HPI - General Chief complaint: Pain General Stated complaint: GENERAL PAIN Time Seen by Provider: 04/25/19 01:43 Source: patient, EMS Mode of arrival: Ambulatory Limitations: No Limitations - History of Present Illness Initial comments: 69-year-old female with history of bipolar disorder, hypertension, diabetes, presents the ED with complaint of pain all over. Specifically, patient reports bilateral shoulder and bilateral knee pain. She reports swelling to both knees. States occasionally her knees will give out. Patient reports the pain goes back and forth from left to right. She denies any fever. Patient is ambulatory and able to walk. She states she took 1 of her family member's "arthritis pills" which seemed to help her pain. -: week(s) (2) Location: left, right, upper extremity, lower extremity Quality: aching Consistency: intermittent Improves with: immobilization Worsens with: movement Associated Symptoms: denies: fever/chills - Related Data Previous Rx's Medication Instructions Recorded Last Taken Type Docusate Sodium [Colace CAP] 100 mg PO BID #60 capsule 05/14/18 Unknown Rx Lispro Insulin [HumaLOG] 0 unit SUB-Q ACHS units 05/14/18 Unknown Rx Losartan [Cozaar] 100 mg PO QDAY #30 tablet 05/14/18 Unknown Rx Magnesium Oxide [Mag-Ox] 400 mg PO BID tablet 05/14/18 Unknown Rx Meloxicam [Mobic] 7.5 mg PO QDAY tablet 05/14/18 Unknown Rx amLODIPine 10 mg PO QDAY #30 tablet 05/14/18 Unknown Rx metFORMIN [Glucophage] 500 mg PO BIDDIAB #60 tablet 05/14/18 Unknown Rx Docusate Sodium [Colace CAP] 100 mg PO BID capsule 09/14/18 Unknown Rx amLODIPine 10 mg PO QDAY tablet 09/14/18 Unknown Rx clonazePAM [KlonoPIN] 0.25 mg PO QHS 14 Days #7 tablet 09/14/18 Unknown Rx Benztropine [Cogentin] 1 mg PO BID #30 tablet 04/11/19 Unknown Rx Benztropine [Cogentin] 1 mg PO BID #60 tablet 04/11/[address] [Depakote Dr] 1,000 mg PO BID #120 tablet 04/11/19 Unknown Rx Escitalopram [Lexapro] 5 mg PO QDAY #30 tablet 04/11/19 Unknown Rx Mirtazapine [Remeron 15mg TAB] 15 mg PO QHS #30 tablet 04/11/19 Unknown Rx Mirtazapine [Remeron 15mg TAB] 15 mg PO QHS #30 tablet 04/11/19 Unknown Rx Thiamine [Vitamin B-1] 100 mg PO QDAY #30 tablet 04/11/19 Unknown Rx donepeziL [Aricept] 5 mg PO QHS #30 tablet 04/11/19 Unknown Rx hydrOXYzine PAMOATE [Vistaril] 50 mg PO QHS #7 capsule 04/11/19 Unknown Rx risperiDONE [RisperDAL] 3 mg PO BID #60 tablet 04/11/19 Unknown Rx Naproxen [Naprosyn] 500 mg PO BID #20 tablet 04/25/19 Unknown Rx traMADoL [Ultram] 50 mg PO Q6HR PRN #7 tablet 04/25/19 Unknown Rx Allergies Allergy/AdvReac Type Severity Reaction Status Date / Time No Known Allergies Allergy Verified 05/05/18 10:29 ED Review of Systems ROS: Stated complaint: GENERAL PAIN Other details as noted in HPI Comment: All other systems reviewed and negative Constitutional: denies: chills, fever Musculoskeletal: as per HPI ED Past Medical Hx - Past Medical History Previous Medical History?: Yes Hx Hypertension: Yes Hx Diabetes: Yes Hx Renal Disease: Yes Hx Arthritis: No Hx Seizures: No Hx Psychiatric Treatment: Yes (multiple IP/bipolar) Hx Dementia: Yes Hx HIV: No Additional medical history: osteoarthritis - Surgical History Past Surgical History?: Yes Hx Cholecystectomy: No Hx Appendectomy: No Additional Surgical History: KENYATTA - Social History Smoking Status: Never Smoker Substance Use Type: None - Medications Home Medications: Home Medications Medication Instructions Recorded Confirmed Last Taken Type Docusate Sodium [Colace CAP] 100 mg PO BID #60 capsule 05/14/18 04/05/19 Unknown Rx Lispro Insulin [HumaLOG] 0 unit SUB-Q ACHS units 05/14/18 04/05/19 Unknown Rx Losartan [Cozaar] 100 mg PO QDAY #30 tablet 05/14/18 04/05/19 Unknown Rx Magnesium Oxide [Mag-Ox] 400 mg PO BID tablet 05/14/18 04/05/19 Unknown Rx Meloxicam [Mobic] 7.5 mg PO QDAY tablet 05/14/18 04/05/19 Unknown Rx amLODIPine 10 mg PO QDAY #30 tablet 05/14/18 04/05/19 Unknown Rx metFORMIN [Glucophage] 500 mg PO BIDDIAB #60 tablet 05/14/18 04/05/19 Unknown Rx Docusate Sodium [Colace CAP] 100 mg PO BID capsule 09/14/18 04/05/19 Unknown Rx amLODIPine 10 mg PO QDAY tablet 09/14/18 04/05/19 Unknown Rx clonazePAM [KlonoPIN] 0.25 mg PO QHS 14 Days #7 tablet 09/14/18 04/05/19 Unknown Rx Benztropine [Cogentin] 1 mg PO BID #30 tablet 04/11/19 Unknown Rx Benztropine [Cogentin] 1 mg PO BID #60 tablet 04/11/[address] [Depakote Dr] 1,000 mg PO BID #120 tablet 04/11/19 Unknown Rx Escitalopram [Lexapro] 5 mg PO QDAY #30 tablet 04/11/19 Unknown Rx Mirtazapine [Remeron 15mg TAB] 15 mg PO QHS #30 tablet 04/11/19 Unknown Rx Mirtazapine [Remeron 15mg TAB] 15 mg PO QHS #30 tablet 04/11/19 Unknown Rx Thiamine [Vitamin B-1] 100 mg PO QDAY #30 tablet 04/11/19 Unknown Rx donepeziL [Aricept] 5 mg PO QHS #30 tablet 04/11/19 Unknown Rx hydrOXYzine PAMOATE [Vistaril] 50 mg PO QHS #7 capsule 04/11/19 Unknown Rx risperiDONE [RisperDAL] 3 mg PO BID #60 tablet 04/11/19 Unknown Rx Naproxen [Naprosyn] 500 mg PO BID #20 tablet 04/25/19 Unknown Rx traMADoL [Ultram] 50 mg PO Q6HR PRN #7 tablet 04/25/19 Unknown Rx ED Physical Exam - General Limitations: No Limitations General appearance: alert - Head Head exam: Present: atraumatic, normocephalic - Eye Eye exam: Present: normal appearance, EOMI - ENT ENT exam: Present: mucous membranes moist - Neck Neck exam: Present: normal inspection - Respiratory Respiratory exam: Present: normal lung sounds bilaterally. Absent: respiratory distress - Cardiovascular Cardiovascular Exam: Present: regular rate, normal rhythm - GI/Abdominal GI/Abdominal exam: Absent: distended - Extremities Exam Extremities exam: Present: other (moderate swelling to bilateral knees; decreased ROM in knees secondary to pain; full ROM in bilateral shoulders) - Neurological Exam Neurological exam: Present: alert, oriented X3. Absent: motor sensory deficit - Psychiatric Psychiatric exam: Present: normal affect, normal mood - Skin Skin exam: Present: warm, dry, intact, normal color. Absent: rash ED Course Vital Signs 04/24/19 23:38 Temperature 98.8 F Pulse Rate 85 Respiratory 18 Rate Blood Pressure 157/88 O2 Sat by Pulse 98 Oximetry ED Medical Decision Making - Medical Decision Making 69-year-old female with bilateral shoulder and knee pain likely arthritis. Patient has previous diagnosis listed her summary of knee effusion. Vitals are normal. Patient given prescription for anti-inflammatory medications. Advised to follow-up with orthopedist. - Differential Diagnosis arthritis Critical care attestation.: If time is entered above; I have spent that time in minutes in the direct care of this critically ill patient, excluding procedure time. ED Disposition Clinical Impression: Arthritis Disposition: DC-01 TO HOME OR SELFCARE Is pt being admited?: No Condition: Stable Instructions: Osteoarthritis (ED), Knee Pain (ED), Arthralgia (ED) Prescriptions: Naproxen [Naprosyn] 500 mg PO BID #20 tablet traMADoL [Ultram] 50 mg PO Q6HR PRN #7 tablet PRN Reason: Pain Referrals: KAYLYN MCKENZIE MD [Staff Physician] - 3-5 Days Time of Disposition: 02:06
[2019-04-25] MEDS ORDERED: IBUPROFEN 800 MG TAB PO ONE (02:05)
== END 2019-04-25 12:21 | disposition home or self-care (01) ==
LOC: ED 23:34
DX: M19.011 Primary osteoarthritis, right shoulder (principal); M19.012 Primary osteoarthritis, left shoulder; M17.0 Bilateral primary osteoarthritis of knee; I10 Essential (primary) hypertension; E11.9 Type 2 diabetes mellitus without complications; F03.90 Unspecified dementia, unspecified severity, without behavioral disturbance, psychotic disturbance, mood disturbance, and anxiety; Z79.899 Other long term (current) drug therapy

== ENCOUNTER 2020-12-16 16:36 | Inpatient (IN) | payer MEDICARE ==
[2020-12-16] MEDS ORDERED: LORazepam 2 MG/ML VIAL ONE (16:44)
[2020-12-16] MEDS ORDERED: LORazepam 2 MG/ML VIAL IV ONE (17:03)
[2020-12-16] MEDS ORDERED: SODIUM CHLORIDE 0.9% 500 ML 500 ML IV ONE ×2 (17:37→18:59)
[2020-12-16] MEDS ORDERED: levETIRAcetam 1000 MG/NS 0.75% 1,000 MG/100 ML BAG IV ONE (17:37)
--- NOTE | 2020-12-16 17:39 | Emergency Department Report ---
ED General Adult HPI - General Chief complaint: Seizure Stated complaint: SEIZURE Time Seen by Provider: 12/16/20 17:30 Source: EMS ( EMS documentation not available at time of chart dictation ), RN notes reviewed, old records reviewed Mode of arrival: Stretcher Limitations: Altered Mental Status, Physical Limitation - History of Present Illness Initial comments: The patient was evaluated in the emergency department for symptoms described in the history of present illness. He/she was evaluated in the context of the global COVID-19 pandemic, which necessitated consideration that the patient might be at risk for infection with the virus that causes COVID-19. Institutional protocols and algorithms that pertain to the evaluation of patients at risk for COVID-19 are in a state of rapid change based on information released by regulatory bodies including the CDC and federal and state organizations. These policies and algorithms were followed during the patient's care in the emergency department. Please note that these policies, procedures and recommendations changed on a rapid basis. The patient is a 70-year-old female. Her past medical history includes hypertension, diabetes, and psychiatric disorder. She is brought to the hospital by emergency medical services for possible seizure and/or convulsive event. EMS documentation is not available for my review. EMS is not physically present for me to obtain collateral information. The patient is not accompanied by friends or family at this time for collateral information or additional information. Apparently, the patient had a convulsive event in the ER, which was terminated with 2 mg of Ativan, ordered by one of my colleagues. At the moment, the patient is in bed, laying on her back, occasionally moving on her side, moving 4 extremities. She cannot describe the qualitative nature of symptoms, exacerbating factors, relieving factors or aggravating factors. It is not known who contacted 911. Additional history is not available at this time -: unknown - Related Data Previous Rx's Medication Instructions Recorded Last Taken Type Docusate Sodium [Colace CAP] 100 mg PO BID #60 capsule 05/14/18 Unknown Rx Lispro Insulin [HumaLOG] 0 unit SUB-Q ACHS units 05/14/18 Unknown Rx Losartan [Cozaar] 100 mg PO QDAY #30 tablet 05/14/18 Unknown Rx Magnesium Oxide [Mag-Ox] 400 mg PO BID tablet 05/14/18 Unknown Rx Meloxicam [Mobic] 7.5 mg PO QDAY tablet 05/14/18 Unknown Rx amLODIPine 10 mg PO QDAY #30 tablet 05/14/18 Unknown Rx metFORMIN [Glucophage] 500 mg PO BIDDIAB #60 tablet 05/14/18 Unknown Rx Docusate Sodium [Colace CAP] 100 mg PO BID capsule 09/14/18 Unknown Rx amLODIPine 10 mg PO QDAY tablet 09/14/18 Unknown Rx clonazePAM [KlonoPIN] 0.25 mg PO QHS 14 Days #7 tablet 09/14/18 Unknown Rx Benztropine [Cogentin] 1 mg PO BID #30 tablet 04/11/19 Unknown Rx Benztropine [Cogentin] 1 mg PO BID #60 tablet 04/11/[address] [Depakote Dr] 1,000 mg PO BID #120 tablet 04/11/19 Unknown Rx Escitalopram [Lexapro] 5 mg PO QDAY #30 tablet 04/11/19 Unknown Rx Mirtazapine [Remeron 15mg TAB] 15 mg PO QHS #30 tablet 04/11/19 Unknown Rx Mirtazapine [Remeron 15mg TAB] 15 mg PO QHS #30 tablet 04/11/19 Unknown Rx Thiamine [Vitamin B-1] 100 mg PO QDAY #30 tablet 04/11/19 Unknown Rx donepeziL [Aricept] 5 mg PO QHS #30 tablet 04/11/19 Unknown Rx hydrOXYzine PAMOATE [Vistaril] 50 mg PO QHS #7 capsule 04/11/19 Unknown Rx risperiDONE [RisperDAL] 3 mg PO BID #60 tablet 04/11/19 Unknown Rx Naproxen [Naprosyn] 500 mg PO BID #20 tablet 04/25/19 Unknown Rx traMADoL [Ultram] 50 mg PO Q6HR PRN #7 tablet 04/25/19 Unknown Rx Allergies Allergy/AdvReac Type Severity Reaction Status Date / Time No Known Allergies Allergy Verified 05/05/18 10:29 ED Review of Systems ROS: Stated complaint: SEIZURE Other details as noted in HPI Comment: Unobtainable due to pts medical conditions ED Past Medical Hx - Past Medical History Hx Hypertension: Yes Hx Diabetes: Yes Hx Renal Disease: Yes Hx Arthritis: No Hx Seizures: No Hx Psychiatric Treatment: Yes (multiple IP/bipolar) Hx Dementia: Yes Hx HIV: No Additional medical history: osteoarthritis - Surgical History Hx Cholecystectomy: No Hx Appendectomy: No Additional Surgical History: KENYATTA - Social History Smoking Status: Never Smoker Substance Use Type: None - Medications Home Medications: Home Medications Medication Instructions Recorded Confirmed Last Taken Type Docusate Sodium [Colace CAP] 100 mg PO BID #60 capsule 05/14/18 04/05/19 Unknown Rx Lispro Insulin [HumaLOG] 0 unit SUB-Q ACHS units 05/14/18 04/05/19 Unknown Rx Losartan [Cozaar] 100 mg PO QDAY #30 tablet 05/14/18 04/05/19 Unknown Rx Magnesium Oxide [Mag-Ox] 400 mg PO BID tablet 05/14/18 04/05/19 Unknown Rx Meloxicam [Mobic] 7.5 mg PO QDAY tablet 05/14/18 04/05/19 Unknown Rx amLODIPine 10 mg PO QDAY #30 tablet 05/14/18 04/05/19 Unknown Rx metFORMIN [Glucophage] 500 mg PO BIDDIAB #60 tablet 05/14/18 04/05/19 Unknown Rx Docusate Sodium [Colace CAP] 100 mg PO BID capsule 09/14/18 04/05/19 Unknown Rx amLODIPine 10 mg PO QDAY tablet 09/14/18 04/05/19 Unknown Rx clonazePAM [KlonoPIN] 0.25 mg PO QHS 14 Days #7 tablet 09/14/18 04/05/19 Unknown Rx Benztropine [Cogentin] 1 mg PO BID #30 tablet 04/11/19 Unknown Rx Benztropine [Cogentin] 1 mg PO BID #60 tablet 04/11/19 Unknown Rx Divalproex [Eren Gonzalez] 1,000 mg PO BID #120 tablet 04/11/19 Unknown Rx Escitalopram [Lexapro] 5 mg PO QDAY #30 tablet 04/11/19 Unknown Rx Mirtazapine [Remeron 15mg TAB] 15 mg PO QHS #30 tablet 04/11/19 Unknown Rx Mirtazapine [Remeron 15mg TAB] 15 mg PO QHS #30 tablet 04/11/19 Unknown Rx Thiamine [Vitamin B-1] 100 mg PO QDAY #30 tablet 04/11/19 Unknown Rx donepeziL [Aricept] 5 mg PO QHS #30 tablet 04/11/19 Unknown Rx hydrOXYzine PAMOATE [Vistaril] 50 mg PO QHS #7 capsule 04/11/19 Unknown Rx risperiDONE [RisperDAL] 3 mg PO BID #60 tablet 04/11/19 Unknown Rx Naproxen [Naprosyn] 500 mg PO BID #20 tablet 04/25/19 Unknown Rx traMADoL [Ultram] 50 mg PO Q6HR PRN #7 tablet 04/25/19 Unknown Rx ED Physical Exam - General Limitations: Altered Mental Status, Physical Limitation General appearance: lethargic, obese - Head Head exam: Present: atraumatic, normocephalic - Eye Eye exam: Present: normal appearance, PERRL, EOMI - ENT ENT exam: Present: normal exam, normal orophraynx, mucous membranes moist, normal external ear exam - Neck Neck exam: Present: normal inspection, full ROM. Absent: tenderness, meningismus - Respiratory Respiratory exam: Present: normal lung sounds bilaterally. Absent: respiratory distress, wheezes, rales, rhonchi, stridor - Cardiovascular Cardiovascular Exam: Present: normal rhythm, tachycardia, normal heart sounds. Absent: bradycardia, irregular rhythm, systolic murmur, diastolic murmur, rubs, gallop - GI/Abdominal GI/Abdominal exam: Present: soft. Absent: distended, tenderness, guarding, rebound, rigid, pulsatile mass - Rectal Rectal exam: Present: normal inspection, other (Chaperoned by nurse A House) - External exam: Present: normal external exam, other (Chaperoned by nurse A House) - Extremities Exam Extremities exam: Present: normal inspection (Chronic venous stasis changes noted in the bilateral lower extremity), full ROM, other (2+ pulses noted in the bilateral upper and lower extremities. There is no palpable cord. negative Homans sign. Muscular compartments are soft. The pelvis is stable.). Absent: calf tenderness - Back Exam Back exam: Present: normal inspection, full ROM. Absent: tenderness, CVA tenderness (R), CVA tenderness (L), paraspinal tenderness, vertebral tenderness - Neurological Exam Neurological exam: Present: altered (The patient is sleepy. The patient is moving 4 extremities. The patient withdraws to painful stimuli.) - Skin Skin exam: Present: warm, dry, intact, normal color. Absent: rash ED Course Vital Signs 12/16/20 12/16/20 12/16/20 17:02 17:15 17:27 Temperature Pulse Rate 133 H 129 H Respiratory 28 H 23 Rate Blood Pressure 100/45 O2 Sat by Pulse 100 99 99 Oximetry 12/16/20 12/16/20 12/16/20 17:31 17:45 17:51 Temperature 98.0 F Pulse Rate 130 H 123 H Respiratory 18 13 Rate Blood Pressure 100/45 100/45 O2 Sat by Pulse 100 99 Oximetry 12/16/20 12/16/20 12/16/20 18:01 18:15 18:31 Temperature Pulse Rate 128 H 123 H Respiratory 21 14 20 Rate Blood Pressure 123/61 123/61 118/64 O2 Sat by Pulse 98 100 Oximetry 12/16/20 12/16/20 12/16/20 18:45 19:01 19:15 Temperature Pulse Rate 125 H 129 H Respiratory 17 20 Rate Blood Pressure 118/64 123/61 123/61 O2 Sat by Pulse 99 100 100 Oximetry 12/16/20 12/16/20 12/16/20 19:31 19:45 20:01 Temperature Pulse Rate 128 H 128 H Respiratory 15 13 28 H Rate Blood Pressure 123/61 123/61 107/89 O2 Sat by Pulse 96 100 100 Oximetry 12/16/20 20:31 Temperature Pulse Rate 125 H Respiratory 25 H Rate Blood Pressure 107/89 O2 Sat by Pulse 100 Oximetry - Reevaluation(s) Reevaluation #1: 12/16/20 17:42 Differential diagnosis, including but not limited to: Seizure, pseudoseizure, electrolyte derangement, toxic encephalopathy, metabolic encephalopathy, pneumonia, urinary tract infection, thyroid derangement, intracranial lesion Assessment and plan: 70-year-old female, was brought to the hospital for possible seizure. She is currently awake but altered, postictal, moving 4 extremities, protecting her airway, and response to painful stimulus. She is protecting her airway at this time. Obtain CT scan of the brain, CT angiogram head and neck, urinalysis, rectal temperature, appropriate laboratory studies, EKG, load with Keppra, give IV fluids, reassess, and attempt to obtain collateral information. 12/16/20 20:[address] scan brain, CT angiogram head and neck. No further seizures noted. Patient still persistently tachycardic. She is also experiencing a lactic acidosis. Uncertain if this is secondary to seizure versus convulsion versus other. X-ray of the chest suggest pneumonia versus edema, versus viral infection. Antibiotics empirically ordered. Blood cultures and lactic acid are appreciated. Given that patient may be ruling in for COVID-19, she will be placed on isolation precautions, and COVID-19 swab will be ordered. Given consideration for COVID-19, and that fluid bolusing it may result in acute respiratory distress syndrome, we will withhold 30 cc/kg bolus of IV fluids. Defer to inpatient team to further manage IV fluids. Not hypoxic at this time, would not initiate steroids. Admit once initial diagnostics have resulted. 12/16/20 20:23 Patient also agitated, moving 4 extremities, taking her clothing off. She is still altered, though not seizing. She may be encephalopathic for multiple reasons. Valium ordered to facilitate acquisition of diagnostics. 12/16/20 21:[address] scan. Not responding to verbal techniques or instructions to relax. She has already received Valium. We will administer haloperidol. 12/16/20 23:05 ct head, cta negative for acute findings No further seizures or convulsions noted. Admitted to the hospital service under the care of Dr. Horton 12/17/20 01:13 Lactic acid downtrending. No further seizures or convulsions noted. Resting comfortably in stretcher. ED Medical Decision Making - Lab Data Result diagrams: 12/16/20 18:09 12/16/20 18:09 Vital Signs 12/16/20 12/16/20 12/16/20 17:02 17:15 17:27 Pulse Rate 133 H 129 H Respiratory 28 H 23 Rate Blood Pressure 100/45 O2 Sat by Pulse 100 99 99 Oximetry - EKG Data -: EKG Interpreted by Oh EKG shows normal: sinus rhythm Rate: tachycardia - EKG Data Interpretation: unchanged when compared t 12/16/20 18:28 EKG is interpreted at 18: 00 EKG today as compared to prior EKG from 04/02/2019 Today's EKG shows sinus rhythm, tachycardia, rate 124 bpm. Normal axis, normal P wave axis, QTC 42 ms, high left ventricular voltage, and motion artifact. This is an abnormal EKG. This is not a STEMI. - Radiology Data Radiology results: pending, report reviewed, image reviewed CHEST 1 VIEW INDICATION / CLINICAL INFORMATION: Seizure, tachycardia, altered m ental status. COMPARISON: 04/02/2019 FINDINGS: SUPPORT DEVICES: None. HEART / MEDIASTINUM: No significant abnormality. LUNGS / PLEURA: There is mild interstitial prominence bilaterally. It is unclear if this is due to developing pulmonary edema versus viral pneumonia. Correlation with Covid status is recommended. The lungs are otherwise clear. No pleural effusion. No pneumothorax. ADDITIONAL FINDINGS: No significant additional findings. IMPRESSION: 1. Mild interstitial prominence bilaterally. Differential diagnosis includes viral pneumonia versus developing pulmonary edema. Signer Name: Brenna Kohli MD Signed: 12/16/2020 6:38 PM Workstation Name: [id number] CTA HEAD AND NECK WITH CONTRAST HISTORY: Seizure, altered mental status COMPARISON: Head CT on 04/02/2019 TECHNIQUE: All CT scans at this location are performed using CT dose reduction for ALARA by means of automated exposure control.. 3-D/MIP reformats postprocessed. Percentage stenosis is determined by direct quantitative measurements of diseased internal carotid artery diameter compared with normal distal internal carotid artery reference segments or by criteria similar to NASCET where applicable. CONTRAST: 100 ml of Omnipaque 350 FINDINGS: CT HEAD: BRAIN / INTRACRANIAL CONTENTS: No acute hemorrhage, mass effect, midline shift, or hydrocephalus. No appreciable acute large territorial or lacunar infarct. No chronic infarct. Age-commensurate ventricular and cisternal/sulcal prominence. ORBITS: No significant abnormality of visualized orbits. SINUSES / MASTOIDS: No significant abnormality of visualized sinuses and mastoid air cells. CTA HEAD: Intracranial vertebral arteries: No significant abnormality. Basilar artery: No significant abnormality. Posterior cerebral arteries: No significant abnormality. Intracranial internal carotid arteries: There is mild atherosclerotic plaque in both carotid bulbs without significant stenosis. Anterior cerebral arteries: No significant abnormality. Middle cerebral arteries: No significant abnormality. Dural venous sinuses:Not optimally opacified. No significant abnormality. CTA NECK: Aortic arch: No significant abnormality. Cervical vertebral arteries: No significant abnormality. Common carotid arteries: No significant abnormality. Cervical internal carotid arteries: Mild atherosclerotic plaque in both carotid siphons without significant stenosis. Additional findings: None. IMPRESSION: 1. No acute intracranial abnormality. 2. No flow-limiting stenosis or large vessel occlusion in the neck or intracranial arteries. Signer Name: Gonzalo Jackson MD Signed: 12/16/2020 9:57 PM Workstation Name: [id number] Critical Care Time: Yes Critical care time in (mins) excluding proc time.: 35 Critical care attestation.: If time is entered above; I have spent that time in minutes in the direct care of this critically ill patient, excluding procedure time. ED Disposition Clinical Impression: UTI (urinary tract infection), Hypomagnesemia, Dehydration, History of convulsions, Suspected 2019 novel coronavirus infection, SIRS (systemic inflammatory response syndrome) Disposition: 09 ADMITTED INPATIENT Is pt being admited?: Yes Does the pt Need Aspirin: No Condition: Fair Referrals: PRIMARY CARE, [Primary Care Provider] - 3-5 Days
[2020-12-16 18:21] LABS: Basophils # (Auto) 0.1 K/mm3 (0.0-0.1); Basophils % (Auto) 0.5 % (0.0-1.8); Hematocrit 35.6 % (30.3-42.9); Lymphocytes # (Auto) 0.7 K/mm3 (1.2-5.4); Lymphocytes % (Auto) 6.6 % (13.4-35.0); Mean Corpuscular HGB Conc 34 % (30-34); Mean Corpuscular Volume 93 fl (79-97); Monocytes # (Auto) 0.4 K/mm3 (0.0-0.8); Monocytes % (Auto) 3.4 % (0.0-7.3); Platelet Count 291 K/mm3 (140-440); Red Blood Count 3.85 M/mm3 (3.65-5.03); Red Cell Distribution Width 17.9 % (13.2-15.2)
[2020-12-16 18:35] LABS: Bacteria,Urine 1+ /HPF (Negative); Bilirubin,Urine NEG (Negative); Blood,Urine LG (Negative); Color,Urine Yellow (Yellow); Mucus,Urine FEW /HPF; Urobilinogen,Urine < 2.0 mg/dL (<2.0)
[2020-12-16 18:37] LABS: Albumin 3.9 g/dL (3.9-5); Calcium 10.1 mg/dL (8.4-10.2)
[2020-12-16 18:41] LABS: Amphetamine Screen,Urine Negative; Benzodiazepines Screen,Urine Negative; Cannabinoid Screen,Urine Negative; Cocaine Screen,Urine Negative; Methadone Screen,Urine Negative; Opiate Screen,Urine Negative
[2020-12-16] MEDS ORDERED: cefTRIAXone/NS 1 GM/50 ML 1 GM/50 ML BAG IV ONE (18:59)
[2020-12-16] MEDS ORDERED: MAGNESIUM SULFATE 2 GM/50 ML BAG IV ONE (18:59)
--- NOTE | 2020-12-16 19:43 | XRay Report ---
CHEST 1 VIEW INDICATION / CLINICAL INFORMATION: Seizure, tachycardia, altered mental status. COMPARISON: 04/02/2019 FINDINGS: SUPPORT DEVICES: None. HEART / MEDIASTINUM: No significant abnormality. LUNGS / PLEURA: There is mild interstitial prominence bilaterally. It is unclear if this is due to de veloping pulmonary edema versus viral pneumonia. Correlation with Covid status is recommended. The kanika ngs are otherwise clear. No pleural effusion. No pneumothorax. ADDITIONAL FINDINGS: No significant additional findings. IMPRESSION: 1. Mild interstitial prominence bilaterally. Differential diagnosis includes viral pneumonia versus d eveloping pulmonary edema. Signer Name: Brenna Kohli MD Signed: 12/16/2020 7:38 PM Workstation Name: [id number]
[2020-12-16] MEDS ORDERED: AZITHROMYCIN/NS 500 MG/250 ML 500 MG/250 ML BAG IV ONE (20:22)
[2020-12-16] MEDS ORDERED: diazePAM 10 MG/2 ML SYRINGE IV ONE (20:23)
[2020-12-16] MEDS ORDERED: HALOPERIDOL LACTATE 5 MG/1 ML INJ IM STA (21:07)
--- NOTE | 2020-12-16 23:01 | Cat Scan Report ---
CTA HEAD AND NECK WITH CONTRAST HISTORY: Seizure, altered mental status COMPARISON: Head CT on 04/02/2019 TECHNIQUE: All CT scans at this location are performed using CT dose reduction for ALARA by means of automated exposure control.. 3-D/MIP reformats postprocessed. Percentage stenosis is determined by d irect quantitative measurements of diseased internal carotid artery diameter compared with normal dis jd internal carotid artery reference segments or by criteria similar to NASCET where applicable. CONTRAST: 100 ml of Omnipaque 350 FINDINGS: CT HEAD: BRAIN / INTRACRANIAL CONTENTS: No acute hemorrhage, mass effect, midline shift, or hydrocephalus. No appreciable acute large territorial or lacunar infarct. No chronic infarct. Age-commensurate ventricu lar and cisternal/sulcal prominence. ORBITS: No significant abnormality of visualized orbits. SINUSES / MASTOIDS: No significant abnormality of visualized sinuses and mastoid air cells. CTA HEAD: Intracranial vertebral arteries: No significant abnormality. Basilar artery: No significant abnormality. Posterior cerebral arteries: No significant abnormality. Intracranial internal carotid arteries: There is mild atherosclerotic plaque in both carotid bulbs wi thout significant stenosis. Anterior cerebral arteries: No significant abnormality. Middle cerebral arteries: No significant abnormality. Dural venous sinuses:Not optimally opacified. No significant abnormality. CTA NECK: Aortic arch: No significant abnormality. Cervical vertebral arteries: No significant abnormality. Common carotid arteries: No significant abnormality. Cervical internal carotid arteries: Mild atherosclerotic plaque in both carotid siphons without signi ficant stenosis. Additional findings: None. IMPRESSION: 1. No acute intracranial abnormality. 2. No flow-limiting stenosis or large vessel occlusion in the neck or intracranial arteries. Signer Name: Gonzalo Jackson MD Signed: 12/16/2020 10:57 PM Workstation Name: [id number]
[2020-12-17] MEDS ORDERED: ACETAMINOPHEN 325 MG TAB PO PRN (00:05)
[2020-12-17] MEDS ORDERED: HYDROmorphone 1 MG/1 ML INJ IV PRN (00:05)
[2020-12-17] MEDS ORDERED: ALBUTEROL 2.5 MG/3 ML NEBU IH PRN (00:05)
[2020-12-17] MEDS ORDERED: oxyCODONE /ACETAMINOPHEN 5-325MG TAB PO PRN (00:05)
[2020-12-17] MEDS ORDERED: ONDANSETRON 4 MG/2 ML INJ IV PRN (00:05)
[2020-12-17] MEDS ORDERED: traMADol 50 MG TAB PO PRN (00:09)
--- NOTE | 2020-12-17 00:19 | History and Physical Report ---
History of Present Illness Date of examination: 12/17/20 Date of admission: 12/17/20 Chief complaint: Seizure History of present illness: 70-year-old female with past medical history of hypertension, diabetes, and psychiatric disorder was brought to the hospital by emergency medical services for possible seizure and/or convulsive event. EMS documentation is not av ailable for my review. Apparently, the patient had a convulsive event in the ER, which was terminated with 2 mg of Ativan, ordered by one of my colleagues. At the moment, the patient is in bed, laying on her back, occasionally moving on her side, moving 4 extremities. She cannot describe the qualitative nature of symptoms, exacerbating factors, relieving factors or aggravating factors. In the emergency room patient lactic acid is 4.60, patient is found to have UTI. Patient CT scan of the head shows no acute intracranial abnormality. Chest x- ray shows mild interstitial prominence bilaterally. Differential diagnosis include viral pneumonia versus developing pulmonary edema.Given that patient may be ruling in for COVID-19, she will be placed on isolation precautions, and COVID-19 swab will be ordered. We will going to admit the patient with a diagnosis of UTI, seizure suspected C OVID-19 infection SARS dehydration Med rec is done. Past History Past Medical History: arthritis, diabetes, hypertension, renal failure, other (Bipolar disorder, dementia) Medications and Allergies Allergies Allergy/AdvReac Type Severity Reaction Status Date / Time No Known Allergies Allergy Verified 05/05/18 10:29 Home Medications Medication Instructions Recorded Confirmed Last Taken Type Docusate Sodium [Colace CAP] 100 mg PO BID #60 capsule 05/14/18 04/05/19 Unknown Rx Lispro Insulin [HumaLOG] 0 unit SUB-Q ACHS units 05/14/18 04/05/19 Unknown Rx Losartan [Cozaar] 100 mg PO QDAY #30 tablet 05/14/18 04/05/19 Unknown Rx Magnesium Oxide [Mag-Ox] 400 mg PO BID tablet 05/14/18 04/05/19 Unknown Rx Meloxicam [Mobic] 7.5 mg PO QDAY tablet 05/14/18 04/05/19 Unknown Rx amLODIPine 10 mg PO QDAY #30 tablet 05/14/18 04/05/19 Unknown Rx metFORMIN [Glucophage] 500 mg PO BIDDIAB #60 tablet 05/14/18 04/05/19 Unknown Rx Docusate Sodium [Colace CAP] 100 mg PO BID capsule 09/14/18 04/05/19 Unknown Rx amLODIPine 10 mg PO QDAY tablet 09/14/18 04/05/19 Unknown Rx clonazePAM [KlonoPIN] 0.25 mg PO QHS 14 Days #7 tablet 09/14/18 04/05/19 Unknown Rx Benztropine [Cogentin] 1 mg PO BID #30 tablet 04/11/19 Unknown Rx Benztropine [Cogentin] 1 mg PO BID #60 tablet 04/11/[address] [Depakote Dr] 1,000 mg PO BID #120 tablet 04/11/19 Unknown Rx Escitalopram [Lexapro] 5 mg PO QDAY #30 tablet 04/11/19 Unknown Rx Mirtazapine [Remeron 15mg TAB] 15 mg PO QHS #30 tablet 04/11/19 Unknown Rx Mirtazapine [Remeron 15mg TAB] 15 mg PO QHS #30 tablet 04/11/19 Unknown Rx Thiamine [Vitamin B-1] 100 mg PO QDAY #30 tablet 04/11/19 Unknown Rx donepeziL [Aricept] 5 mg PO QHS #30 tablet 04/11/19 Unknown Rx hydrOXYzine PAMOATE [Vistaril] 50 mg PO QHS #7 capsule 04/11/19 Unknown Rx risperiDONE [RisperDAL] 3 mg PO BID #60 tablet 04/11/19 Unknown Rx Naproxen [Naprosyn] 500 mg PO BID #20 tablet 04/25/19 Unknown Rx traMADoL [Ultram] 50 mg PO Q6HR PRN #7 tablet 04/25/19 Unknown Rx Review of Systems All systems: negative Neurological: seizures Exam - Constitutional Vitals: Temp Pulse Resp BP Pulse Ox 98.0 F 125 H 25 H 107/89 100 12/16/20 17:51 12/16/20 20:31 12/16/20 20:31 12/16/20 20:31 12/16/20 20:31 General appearance: Present: mild distress, well-nourished - EENT Eyes: Present: PERRL ENT: hearing intact, clear oral mucosa - Neck Neck: Present: supple, normal ROM - Respiratory Respiratory effort: normal Respiratory: bilateral: diminished - Cardiovascular Heart Sounds: Present: S1 & S2. Absent: rub, click - Extremities Extremities: pulses symmetrical, No edema Peripheral Pulses: within normal limits - Abdominal General gastrointestinal: Present: soft, non-tender, non-distended, normal bowel sounds Female genitourinary: Present: normal - Integumentary Integumentary: Present: clear, warm, dry - Musculoskeletal Musculoskeletal: gait normal, strength equal bilaterally - Psychiatric Psychiatric: other (Patient is lethargic) - Neurologic Neurologic: CNII-XII intact, moves all extremities, other (Patient is lethargic, altered, sleepy) Results - Labs CBC & Chem 7: 12/16/20 18:09 12/16/20 18:09 Labs: Laboratory Last Values WBC 10.2 K/mm3 (4.5-11.0) 12/16/20 18:09 RBC 3.85 M/mm3 (3.65-5.03) 12/16/20 18:09 Hgb 12.0 gm/dl (10.1-14.3) 12/16/20 18:09 Hct 35.6 % (30.3-42.9) 12/16/20 18:09 MCV 93 fl (79-97) 12/16/20 18:09 MCH 31 pg (28-32) 12/16/20 18:09 MCHC 34 % (30-34) 12/16/20 18:09 RDW 17.9 % (13.2-15.2) H 12/16/20 18:09 Plt Count 291 K/mm3 (140-440) 12/16/20 18:09 Lymph % (Auto) 6.6 % (13.4-35.0) L 12/16/20 18:09 [place] % (Auto) 3.4 % (0.0-7.3) 12/16/20 18:09 Eos % (Auto) 0.0 % (0.0-4.3) 12/16/20 18:09 Baso % (Auto) 0.5 % (0.0-1.8) 12/16/20 18:09 Lymph # (Auto) 0.7 K/mm3 (1.2-5.4) L 12/16/20 18:09 [place] # (Auto) 0.4 K/mm3 (0.0-0.8) 12/16/20 18:09 Eos # (Auto) 0.0 K/mm3 (0.0-0.4) 12/16/20 18:09 Baso # (Auto) 0.1 K/mm3 (0.0-0.1) 12/16/20 18:09 Seg Neutrophils % 89.5 % (40.0-70.0) H 12/16/20 18:09 Seg Neutrophils # 9.1 K/mm3 (1.8-7.7) H 12/16/20 18:09 Sodium 141 mmol/L (137-145) 12/16/20 18:09 Potassium 4.1 mmol/L (3.6-5.0) 12/16/20 18:09 Chloride 103.6 mmol/L (98-107) 12/16/20 18:09 Carbon Dioxide 19 mmol/L (22-30) L 12/16/20 18:09 Anion Gap 23 mmol/L 12/16/20 18:09 BUN 15 mg/dL (7-17) 12/16/20 18:09 Creatinine 1.1 mg/dL (0.6-1.2) 12/16/20 18:09 Estimated GFR 59 ml/min 12/16/20 18:09 BUN/Creatinine Ratio 14 % 12/16/20 18:09 Glucose 120 mg/dL (65-100) H 12/16/20 18:09 POC Glucose 92 mg/dL (70-105) 12/16/20 18:56 Lactic Acid 2.30 mmol/L (0.7-2.0) H* 12/16/20 20:36 Calcium 10.1 mg/dL (8.4-10.2) 12/16/20 18:09 Magnesium 1.60 mg/dL (1.7-2.3) L 12/16/20 18:09 Total Bilirubin 0.40 mg/dL (0.1-1.2) 12/16/20 18:09 AST 24 units/L (5-40) 12/16/20 18:09 ALT 15 units/L (7-56) 12/16/20 18:09 Alkaline Phosphatase 92 units/L (35-129) 12/16/20 18:09 Total Creatine Kinase 96 units/L (30-135) 12/16/20 18:09 Total Protein 7.8 g/dL (6.3-8.2) 12/16/20 18:09 Albumin 3.9 g/dL (3.9-5) 12/16/20 18:09 Albumin/Globulin Ratio 1.0 % 12/16/20 18:09 TSH 2.700 mlU/mL (0.270-4.200) 12/16/20 18:09 Urine Color Yellow (Yellow) 12/16/20 18:21 Urine Turbidity Slightly-cloudy (Clear) 12/16/20 18:21 Urine pH 5.0 (5.0-7.0) 12/16/20 18:21 Ur Specific [place] 1.015 (1.003-1.030) 12/16/20 18:21 Urine Protein 30 mg/dl mg/dL (Negative) 12/16/20 18:21 Urine Glucose (UA) Neg mg/dL (Negative) 12/16/20 18:21 Urine Ketones Neg mg/dL (Negative) 12/16/20 18:21 Urine Blood Lg (Negative) 12/16/20 18:21 Urine Nitrite Neg (Negative) 12/16/20 18:21 Urine Bilirubin Neg (Negative) 12/16/20 18:21 Urine Urobilinogen < 2.0 mg/dL (<2.0) 12/16/20 18:21 Ur Leukocyte Esterase Tr (Negative) 12/16/20 18:21 Urine WBC (Auto) 59.0 /HPF (0.0-6.0) H 12/16/20 18:21 Urine RBC (Auto) 29.0 /HPF (0.0-6.0) 12/16/20 18:21 U Epithel Cells (Auto) 1.0 /HPF (0-13.0) 12/16/20 18:21 Urine Bacteria (Auto) 1+ /HPF (Negative) 12/16/20 18:21 Urine Mucus Few /HPF 12/16/20 18:21 Salicylates < 0.3 mg/dL (2.8-20.0) L 12/16/20 18:09 Urine Opiates Screen Negative 12/16/20 18:21 Urine Methadone Screen Negative 12/16/20 18:21 Ur Barbiturates Screen Negative 12/16/20 18:21 Valproic Acid < 2.8 ug/mL (50-100) L 12/16/20 18:09 Ur Phencyclidine Scrn Negative 12/16/20 18:21 Ur Amphetamines Screen Negative 12/16/20 18:21 U Benzodiazepines Scrn Negative 12/16/20 18:21 Urine Cocaine Screen Negative 12/16/20 18:21 U Marijuana (THC) Screen Negative 12/16/20 18:21 Drugs of Abuse Note Disclamer 12/16/20 18:21 Plasma/Serum Alcohol < 0.01 % (0-0.07) 12/16/20 18:09 Microbiology: Microbiology 12/16/20 19:45 Peripheral/Venous Blood Culture - Preliminary Culture in Progress 12/16/20 19:45 Peripheral/Venous Blood Culture - Preliminary Culture in Progress - Imaging and Cardiology Chest x-ray: report reviewed CT Scan - head: report reviewed Assessment and Plan VTE prophylaxis?: Chemical Plan of care discussed with patient/family: Yes - Patient Problems (1) Seizure Current Visit: Yes Status: Acute Plan to address problem: Admit the patient to the medical floor. Patient is on seizure precaution. Depakote 1000 mg p.o. twice daily. Klonopin 0.25 mg p.o. nightly Cogentin 1 mg p.o. twice daily. We will order EEG and consult neurology (2) SIRS (systemic inflammatory response syndrome) Current Visit: Yes Status: Acute Plan to address problem: We will put the patient on normal saline at the rate of 100 cc/h. Rocephin 2 g IV daily and Zithromax 500 mg IV daily. We do the blood culture urine culture. Recheck CBC, lactic acid in the morning (3) Suspected 2019 novel coronavirus infection Current Visit: Yes Status: Acute Plan to address problem: Oxygen by nasal penetrator per minute DuoNeb by nebulizer every 4 hours as needed Rocephin 2 g IV daily. Zithromax 500 mg IV daily. Due to the Covid PCR. If needed reconsult infectious disease (4) UTI (urinary tract infection) Current Visit: Yes Status: Acute Plan to address problem: normal saline at the rate of 100 cc/h. Rocephin 2 g IV daily and Zithromax 500 mg IV daily. We do the blood culture urine culture. Recheck CBC, lactic acid in the morning (5) Dehydration Current Visit: Yes Status: Acute Plan to address problem: Normal saline at the rate of 100 cc/h. We will monitor the patient closely recheck BMP in the morning (6) Bipolar disorder Current Visit: No Status: Acute Plan to address problem: Is stable. We will continue the home medication (7) Hypertension Current Visit: No Status: Chronic Qualifiers: Hypertension type: essential hypertension Qualified Code(s): I10 - Essential (primary) hypertension Plan to address problem: Losartan 100 mg p.o. daily amlodipine 10 mg p.o. daily we will monitor the blood pressure closely (8) T2DM (type 2 diabetes mellitus) Current Visit: No Status: Chronic Qualifiers: Diabetes mellitus intermodal dispatcher insulin use: without intermodal dispatcher use Plan to address problem: We will put the patient on Humalog sliding scale moderate dose coverage. We continue the home medication. Diabetic education (9) DVT prophylaxis Current Visit: No Status: Acute Plan to address problem: Heparin 5000 units subcu every 12 hours for DVT prophylaxis. Pepcid 20 mg p.o. twice daily for GI prophylaxis. Patient is a full code
[2020-12-17] MEDS ORDERED: DEXTROSE 50% IN WATER (25GM) 50 ML SYRINGE IV PRN (00:26)
[2020-12-17] MEDS ORDERED: D5W/0.45% NACL 1,000 ML IV SCH (01:00)
[2020-12-17] MEDS: IPRATROPIUM/ALBUTEROL SULFATE 3 ML AMPUL.NEB IH SCH ×4 (07:35→22:53)
[2020-12-17] MEDS: INSULIN LISPRO 100 UNIT/ML SUB-Q SCH ×3 (07:40→19:02)
[2020-12-17] MEDS: SODIUM CHLORIDE 0.9% 1000 ML 1,000 ML IV SCH ×2 (07:41→22:09)
[2020-12-17 09:02] LABS: BUN/Creatinine Ratio 13; Blood Urea Nitrogen 12 mg/dL (7-17); Calcium 9.8 mg/dL (8.4-10.2); Hemolysis Index 5
[2020-12-17] MEDS: BENZTROPINE 1 MG TAB PO SCH ×2 (10:26→23:04)
[2020-12-17] MEDS: DIVALPROEX DR 500 MG TAB PO SCH ×2 (10:26→22:03)
[2020-12-17] MEDS: LOSARTAN 50 MG TAB PO SCH (10:26)
[2020-12-17] MEDS: DOCUSATE SODIUM 100 MG CAP PO SCH ×2 (10:26→22:03)
[2020-12-17] MEDS: amLODIPine 10 MG TAB PO SCH (10:27)
[2020-12-17] MEDS: HEPARIN 5,000 UNIT/1 ML VIAL SUB-Q SCH ×2 (10:27→22:04)
[2020-12-17] MEDS: FAMOTIDINE 20 MG/2 ML INJ IV SCH ×2 (10:56→22:03)
[2020-12-17] MEDS: MAGNESIUM OXIDE 400 MG TAB PO SCH ×2 (10:56→22:04)
[2020-12-17] MEDS: THIAMINE 100 MG TAB PO SCH (10:57)
--- NOTE | 2020-12-17 11:08 | Electrocardiograph Report ---
[facility] Test Date: 2020-12-16 Test Time: 18:00:55 Pat Name: CAREN WALLACE Department: Room: [place] [address] Gender: F Pearl Stringer: RICKI : 1950 Requested By: MARINA VICTORIA Order Number: [id number] Reading MD: Kalyan Chandra Measurements Intervals [place] Rate: 124 P: 64 MA: 141 QRS: 56 QRSD: 85 T: 91 QT: 335 QTc: 482 Interpretive Statements Sinus tachycardia No previous ECG available for comparison Electronically Signed On 12-17-2020 11:08:17 EDT by Kalyan Chandra
--- NOTE | 2020-12-17 13:24 | Event Note ---
Date: 12/17/20 The patient was evaluated today, and found to be uncooperative yet not hostile. The patient is pending evaluation by neurology in order to determine appropriate titration of seizure medications. Patient is currently hemodynamically stable.
--- NOTE | 2020-12-17 14:44 | Consultation ---
History of Present Illness Consult date: 12/17/20 Reason for Consult: Seizures Chief complaint: Seizure History of present illness: 70 yo female with htn, dm, renal failure, bipolar d/o, dementia who presents with an out of hospital seizure and a witnessed seizure event in the ED, for which she received Ativan. She is currently on depakote 1000 mg bid. covid-19 is being ruled out and she is currently being treated for a uti and for suspected SIRS. Per RN, no clinical seizure activity since the patient has been on the floor. She is mumbling and not making any sense, per RN. Past History Past Medical History: arthritis, diabetes, hypertension, renal failure, other (Bipolar disorder, dementia) Medications and Allergies Allergies Allergy/AdvReac Type Severity Reaction Status Date / Time No Known Allergies Allergy Verified 05/05/18 10:29 Home Medications Medication Instructions Recorded Confirmed Last Taken Type haloperidoL [Haloperidol] 1.5 tab PO QAM 12/17/20 12/17/20 Unknown History haloperidoL [Haloperidol] 5 mg PO HS 12/17/20 12/17/20 Unknown History Active Meds: Active Medications Acetaminophen (Acetaminophen 325 Mg Tab) 650 mg PO Q4H PRN PRN Reason: Pain MILD(1-3)/Fever >100.5/TORIBIO Albuterol (Albuterol 2.5 Mg/3 Ml Nebu) 2.5 mg IH Q4HRT PRN PRN Reason: Shortness Of Breath Albuterol/Ipratropium (Ipratropium/Albuterol Sulfate 3 Ml Ampul.Neb) 1 ampul IH Q6HRT [facility] Last Admin: 12/17/20 14:02 Dose: 1 ampul Documented by: Amlodipine Besylate (Amlodipine 10 Mg Tab) 10 mg PO QDAY [facility] Last Admin: 12/17/20 10:27 Dose: 10 mg Documented by: Benztropine Mesylate (Benztropine 1 Mg Tab) 1 mg PO BID [facility] Last Admin: 12/17/20 10:26 Dose: 1 mg Documented by: Clonazepam (Clonazepam 0.5 Mg Tab) 0.25 mg PO QHS [facility] Dextrose (Dextrose 50% In Water (25gm) 50 Ml Syringe) 50 ml IV Q30MIN PRN; Protocol PRN Reason: Hypoglycemia Divalproex Sodium (Divalproex Dr 500 Mg Tab) 1,000 mg PO BID [facility] Last Admin: 12/17/20 10:26 Dose: 1,000 mg Documented by: Docusate Sodium (Docusate Sodium 100 Mg Cap) 100 mg PO BID [facility] Last Admin: 12/17/20 10:26 Dose: 100 mg Documented by: Donepezil HCl (Donepezil 5 Mg Tab) 5 mg PO QHS [facility] Escitalopram Oxalate (Escitalopram 10 Mg Tab) 5 mg PO QDAY [facility] Famotidine (Famotidine 20 Mg/2 Ml Inj) 20 mg IV BID [facility] Last Admin: 12/17/20 10:56 Dose: 20 mg Documented by: Heparin Sodium (Porcine) (Heparin 5,000 Unit/1 Ml Vial) 5,000 unit SUB-Q Q12HR [facility] Last Admin: 12/17/20 10:27 Dose: 5,000 unit Documented by: Hydromorphone HCl (Hydromorphone 1 Mg/1 Ml Inj) 0.5 mg IV Q3H PRN PRN Reason: Pain , Severe (7-10) Hydroxyzine Pamoate (Hydroxyzine Pamoate 50 Mg Cap) 50 mg PO QHS [facility] Ceftriaxone Sodium (Rocephin/Ns 2 Gm/100 Ml) 2 gm in 100 mls @ 200 mls/hr IV Q24H [facility]; Protocol Azithromycin (Zithromax/Ns) 500 mg in 250 mls @ 250 mls/hr IV Q24H [facility]; Protocol Sodium Chloride (Nacl 0.9% 1000 Ml) 1,000 mls @ 100 mls/hr IV DIRECT [facility] Last Admin: 12/17/20 07:41 Dose: 100 mls/hr Documented by: Insulin Human Lispro (Insulin Lispro 100 Unit/Ml) 0 unit SUB-Q Q6HR [facility]; Protocol Last Admin: 12/17/20 07:40 Dose: Not Given Documented by: Losartan Potassium (Losartan 50 Mg Tab) 100 mg PO QDAY [facility] Last Admin: 12/17/20 10:26 Dose: 100 mg Documented by: Magnesium Oxide (Magnesium Oxide 400 Mg Tab) 400 mg PO BID [facility] Last Admin: 12/17/20 10:56 Dose: 400 mg Documented by: Mirtazapine (Mirtazapine 15 Mg Tab) 15 mg PO QHS [facility] Ondansetron HCl (Ondansetron 4 Mg/2 Ml Inj) 4 mg IV Q8H PRN PRN Reason: Nausea And Vomiting Oxycodone/Acetaminophen (Oxycodone /Acetaminophen 5-325mg Tab) 1 tab PO Q6H PRN PRN Reason: Pain, Moderate (4-6) Risperidone (Risperidone 3 Mg Tab) 3 mg PO BID [facility] Sodium Chloride (Sodium Chloride 0.9% 10 Ml Flush Syringe) 10 ml IV BID [facility] Last Admin: 12/17/20 10:32 Dose: 10 ml Documented by: Sodium Chloride (Sodium Chloride 0.9% 10 Ml Flush Syringe) 10 ml IV PRN PRN PRN Reason: LINE FLUSH Thiamine HCl (Thiamine 100 Mg Tab) 100 mg PO QDAY [facility] Last Admin: 12/17/20 10:57 Dose: 100 mg Documented by: Tramadol HCl (Tramadol 50 Mg Tab) 50 mg PO Q6HR PRN PRN Reason: PAIN Physical Examination - Vital Signs Vital Signs: Vital Signs Pulse Resp Pulse Ox 133 H 28 H 100 12/16/20 17:02 12/16/20 17:02 12/16/20 17:02 - Physical Exam Narrative exam: COVID-19 protocol prevents televideo evaluation Results - Laboratory Findings CBC and BMP: 12/16/20 18:09 12/17/20 08:17 Abnormal Lab Findings: Abnormal Labs 12/16/20 12/16/20 12/16/20 18:09 18:09 18:09 RDW 17.9 H Lymph % (Auto) 6.6 L Lymph # (Auto) 0.7 L Seg Neutrophils % 89.5 H Seg Neutrophils # 9.1 H Carbon Dioxide 19 L Glucose 120 H Lactic Acid Magnesium 1.60 L Urine WBC (Auto) Salicylates < 0.3 L Valproic Acid < 2.8 L 12/16/20 12/16/20 12/16/20 18:21 19:45 20:36 RDW Lymph % (Auto) Lymph # (Auto) Seg Neutrophils % Seg Neutrophils # Carbon Dioxide Glucose Lactic Acid 4.60 H* 2.30 H* Magnesium Urine WBC (Auto) 59.0 H Salicylates Valproic Acid 12/17/20 08:17 RDW Lymph % (Auto) Lymph # (Auto) Seg Neutrophils % Seg Neutrophils # Carbon Dioxide Glucose 102 H Lactic Acid Magnesium 1.60 L Urine WBC (Auto) Salicylates Valproic Acid Assessment and Plan 70 yo female with htn, dm, renal failure, bipolar d/o, dementia who presents with an out of hospital seizure and a witnessed seizure event in the ED, for which she received Ativan. She is currently on depakote 1000 mg bid. covid-19 is being ruled out and she is currently being treated for a uti and for suspected SIRS. 1. Seizures - eeg pending; mri brain w/ wo contrast pending; continue depakote 1000 mg bid; avoid medications that lower seizure threshold; aggressive treatment of underlying infectious/inflammatory/electrolyte derangements; aim for eunatremia/eumagnesemia; seizure precautions and restrictions. 2. Therapeutic Drug Monitoring - depakote level ordered for now and in AM; initial vpa level is subtherapeutic. 3. UTI - aggressive treatment/management per primary team. 4. Dementia - ordered prealbumin, b12, tsh, rpr. Jarek Diaz MD Neurology
[2020-12-17] MEDS: ESCITALOPRAM 10 MG TAB PO SCH (17:44)
[2020-12-17] MEDS: risperiDONE 3 MG TAB PO SCH ×2 (17:45→22:06)
[2020-12-17] MEDS: cefTRIAXone/NS 2 GM/100 ML 2 GM/100 ML BAG IV SCH (22:03)
[2020-12-17] MEDS: clonazePAM 0.5 MG TAB PO SCH (22:04)
[2020-12-17] MEDS: MIRTAZAPINE 15 MG TAB PO SCH (22:04)
[2020-12-17] MEDS: AZITHROMYCIN/NS 500 MG/250 ML 500 MG/250 ML BAG IV SCH (22:04)
[2020-12-17] MEDS: DONEPEZIL 5 MG TAB PO SCH (23:04)
[2020-12-18] MEDS: INSULIN LISPRO 100 UNIT/ML SUB-Q SCH ×4 (00:09→18:08)
[2020-12-18] MEDS: SODIUM CHLORIDE 0.9% 1000 ML 1,000 ML IV SCH (04:41)
[2020-12-18 06:25] LABS: Mean Corpuscular HGB Conc 30 % (30-34); Mean Corpuscular Volume 103 fl (79-97); Platelet Count 279 K/mm3 (140-440); Red Blood Count 3.11 M/mm3 (3.65-5.03)
[2020-12-18 06:26] LABS: Hemoglobin 9.6 gm/dl (10.1-14.3); Red Cell Distribution Width 24.4 % (13.2-15.2)
[2020-12-18 06:35] LABS: Calcium 8.5 mg/dL (8.4-10.2)
[2020-12-18 11:11] LABS: Total Cells Counted 100
[2020-12-18 11:15] LABS: Anisocytosis 2+; Macrocytosis 1+; Platelet Estimate Consistent w Auto
[2020-12-18] MEDS: MAGNESIUM OXIDE 400 MG TAB PO SCH ×2 (11:45→21:42)
[2020-12-18] MEDS: amLODIPine 10 MG TAB PO SCH (11:45)
[2020-12-18] MEDS: DOCUSATE SODIUM 100 MG CAP PO SCH ×2 (11:45→21:41)
[2020-12-18] MEDS: ESCITALOPRAM 10 MG TAB PO SCH (11:45)
[2020-12-18] MEDS: HEPARIN 5,000 UNIT/1 ML VIAL SUB-Q SCH ×2 (11:45→21:42)
[2020-12-18] MEDS: THIAMINE 100 MG TAB PO SCH (11:46)
[2020-12-18] MEDS: DIVALPROEX DR 500 MG TAB PO SCH ×2 (11:46→21:42)
[2020-12-18] MEDS: FAMOTIDINE 10 MG TAB PO SCH ×2 (11:46→21:41)
[2020-12-18] MEDS: LOSARTAN 50 MG TAB PO SCH (11:53)
--- NOTE | 2020-12-18 12:42 | Progress Note ---
Assessment and Plan Assessment and plan: #Seizure -CT head and MRI negative -EEG pending -continue Depakote -Neurology following, will follow up for recs #Acute encephalopathy -CT head negative for no acute abnormality -Chest x-ray was mild vascular congestion -patient with history of schizophrenia, per family at baseline patient has nonsensical language -Patient may have underlying dementia #Hx of Type 2 diabetes -Euglycemic, will continue to monitor #UTI -continue Rocephin #Hypertension -continue home blood pressure medications Disposition Plan: Home with family Total Time Spent with Patient (Minutes): 20 minutes History Interval history: No acute events overnight. Patient alert to herself, not alert to place, time or situation. States she's, "In [place]". Hospitalist Physical - Physical exam Narrative exam: GENERAL: Thin elderly woman, lying in bed, in no acute distress. CHEST/LUNGS: CTAB on room air HEART/CARDIOVASCULAR: RRR. No murmur, rubs or gallops appreciated. ABDOMEN: +BS. NT/ND. EXTREMITIES: No cyanosis, clubbing or edema. PSYCH: Alert to person. Flat affect. - Constitutional Vitals: Temp Pulse Resp BP Pulse Ox 97.8 F 84 26 H 121/69 97 12/18/20 05:10 12/18/20 06:00 12/18/20 05:10 12/18/20 11:53 12/18/20 11:40 General appearance: Present: mild distress, well-nourished Results - Labs CBC & Chem 7: 12/18/20 05:32 12/18/20 05:32 Labs: Laboratory Last Values WBC 6.5 K/mm3 (4.5-11.0) 12/18/20 05:32 RBC 3.11 M/mm3 (3.65-5.03) L 12/18/20 05:32 Hgb 9.6 gm/dl (10.1-14.3) L 12/18/20 05:32 Hct 32.0 % (30.3-42.9) 12/18/20 05:32 MCV 103 fl (79-97) H 12/18/20 05:32 MCH 31 pg (28-32) 12/18/20 05:32 MCHC 30 % (30-34) 12/18/20 05:32 RDW 24.4 % (13.2-15.2) H 12/18/20 05:32 Plt Count 279 K/mm3 (140-440) 12/18/20 05:32 Lymph % (Auto) Chisel Grinder 12/18/20 05:32 [place] % (Auto) 3.4 % (0.0-7.3) 12/16/20 18:09 Eos % (Auto) 0.0 % (0.0-4.3) 12/16/20 18:09 Baso % (Auto) 0.5 % (0.0-1.8) 12/16/20 18:09 Lymph # (Auto) 0.7 K/mm3 (1.2-5.4) L 12/16/20 18:09 [place] # (Auto) 0.4 K/mm3 (0.0-0.8) 12/16/20 18:09 Eos # (Auto) 0.0 K/mm3 (0.0-0.4) 12/16/20 18:09 Baso # (Auto) 0.1 K/mm3 (0.0-0.1) 12/16/20 18:09 Add Manual Diff Complete 12/18/20 05:32 Total Counted 100 12/18/20 05:32 Seg Neutrophils % Chisel Grinder 12/18/20 05:32 Seg Neuts % (Manual) 48.0 % (40.0-70.0) 12/18/20 05:32 Lymphocytes % (Manual) 46.0 % (13.4-35.0) H 12/18/20 05:32 Monocytes % (Manual) 3.0 % (0.0-7.3) 12/18/20 05:32 Eosinophils % (Manual) 2.0 % (0.0-4.3) 12/18/20 05:32 Basophils % (Manual) 1.0 % (0.0-1.8) 12/18/20 05:32 Nucleated RBC % Not Reportable 12/18/20 05:32 Seg Neutrophils # 9.1 K/mm3 (1.8-7.7) H 12/16/20 18:09 Seg Neutrophils # Man 3.1 K/mm3 (1.8-7.7) 12/18/20 05:32 Band Neutrophils # 0.0 K/mm3 12/18/20 05:32 Lymphocytes # (Manual) 3.0 K/mm3 (1.2-5.4) 12/18/20 05:32 Abs React Lymphs (Man) 0.0 K/mm3 12/18/20 05:32 Monocytes # (Manual) 0.2 K/mm3 (0.0-0.8) 12/18/20 05:32 Eosinophils # (Manual) 0.1 K/mm3 (0.0-0.4) 12/18/20 05:32 Basophils # (Manual) 0.1 K/mm3 (0.0-0.1) 12/18/20 05:32 Metamyelocytes # 0.0 K/mm3 12/18/20 05:32 Myelocytes # 0.0 K/mm3 12/18/20 05:32 Promyelocytes # 0.0 K/mm3 12/18/20 05:32 Blast Cells # 0.0 K/mm3 12/18/20 05:32 WBC Morphology Not Reportable 12/18/20 05:32 Hypersegmented Neuts Not Reportable 12/18/20 05:32 Hyposegmented Neuts Not Reportable 12/18/20 05:32 Hypogranular Neuts Not Reportable 12/18/20 05:32 Smudge Cells Not Reportable 12/18/20 05:32 Toxic Granulation Not Reportable 12/18/20 05:32 Toxic Vacuolation Not Reportable 12/18/20 05:32 Dohle Bodies Not Reportable 12/18/20 05:32 Pelger-Huet Anomaly Not Reportable 12/18/20 05:32 Anderson Rods Not Reportable 12/18/20 05:32 Platelet Estimate Consistent w auto 12/18/20 05:32 Clumped Platelets Not Reportable 12/18/20 05:32 Plt Clumps, EDTA Not Reportable 12/18/20 05:32 Large Platelets Not Reportable 12/18/20 05:32 Giant Platelets Not Reportable 12/18/20 05:32 Platelet Satelliting Not Reportable 12/18/20 05:32 Plt Morphology Comment Not Reportable 12/18/20 05:32 RBC Morphology Not Reportable 12/18/20 05:32 Dimorphic RBCs Not Reportable 12/18/20 05:32 Polychromasia Not Reportable 12/18/20 05:32 Hypochromasia Not Reportable 12/18/20 05:32 Poikilocytosis Not Reportable 12/18/20 05:32 Anisocytosis 2+ 12/18/20 05:32 Microcytosis Not Reportable 12/18/20 05:32 Macrocytosis 1+ 12/18/20 05:32 Spherocytes Not Reportable 12/18/20 05:32 Pappenheimer Bodies Not Reportable 12/18/20 05:32 Sickle Cells Not Reportable 12/18/20 05:32 Target Cells Not Reportable 12/18/20 05:32 Tear Drop Cells Not Reportable 12/18/20 05:32 Ovalocytes Not Reportable 12/18/20 05:32 Helmet Cells Not Reportable 12/18/20 05:32 [place] Bodies Not Reportable 12/18/20 05:32 [place] Rings Not Reportable 12/18/20 05:32 Sena Cells Not Reportable 12/18/20 05:32 Bite Cells Not Reportable 12/18/20 05:32 Crenated Cell Not Reportable 12/18/20 05:32 Elliptocytes Not Reportable 12/18/20 05:32 Acanthocytes (Spur) Not Reportable 12/18/20 05:32 Rouleaux Not Reportable 12/18/20 05:32 Hemoglobin C Crystals Not Reportable 12/18/20 05:32 Schistocytes Not Reportable 12/18/20 05:32 Malaria parasites Not Reportable 12/18/20 05:32 Jose Bodies Not Reportable 12/18/20 05:32 Hem Pathologist Commnt No 12/18/20 05:32 Sodium 144 mmol/L (137-145) 12/18/20 05:32 Potassium 3.8 mmol/L (3.6-5.0) 12/18/20 05:32 Chloride 109.4 mmol/L (98-107) H 12/18/20 05:32 Carbon Dioxide 22 mmol/L (22-30) 12/18/20 05:32 Anion Gap 16 mmol/L 12/18/20 05:32 BUN 15 mg/dL (7-17) 12/18/20 05:32 Creatinine 1.7 mg/dL (0.6-1.2) H D 12/18/20 05:32 Estimated GFR 36 ml/min 12/18/20 05:32 BUN/Creatinine Ratio 9 % 12/18/20 05:32 Glucose 83 mg/dL (65-100) 12/18/20 05:32 POC Glucose 87 mg/dL (70-105) 12/18/20 12:35 Lactic Acid 0.80 mmol/L (0.7-2.0) 12/17/20 00:17 Calcium 8.5 mg/dL (8.4-10.2) 12/18/20 05:32 Phosphorus 3.30 mg/dL (2.5-4.5) 12/18/20 05:32 Magnesium 1.70 mg/dL (1.7-2.3) 12/18/20 05:32 Total Bilirubin 0.40 mg/dL (0.1-1.2) 12/16/20 18:09 AST 24 units/L (5-40) 12/16/20 18:09 ALT 15 units/L (7-56) 12/16/20 18:09 Alkaline Phosphatase 92 units/L (35-129) 12/16/20 18:09 Ammonia 44.0 umol/L (25-60) 12/17/20 18:44 Total Creatine Kinase 96 units/L (30-135) 12/16/20 18:09 Total Protein 7.8 g/dL (6.3-8.2) 12/16/20 18:09 Albumin 3.9 g/dL (3.9-5) 12/16/20 18:09 Albumin/Globulin Ratio 1.0 % 12/16/20 18:09 Vitamin B12 523.0 pg/mL (211-911) 12/17/20 18:44 Folate 7.81 ng/mL (7.3-26.0) 12/17/20 18:44 TSH 2.010 mlU/mL (0.270-4.200) 12/17/20 18:44 Urine Color Yellow (Yellow) 12/16/20 18:21 Urine Turbidity Slightly-cloudy (Clear) 12/16/20 18:21 Urine pH 5.0 (5.0-7.0) 12/16/20 18:21 Ur Specific Springer 1.015 (1.003-1.030) 12/16/20 18:21 Urine Protein 30 mg/dl mg/dL (Negative) 12/16/20 18:21 Urine Glucose (UA) Neg mg/dL (Negative) 12/16/20 18:21 Urine Ketones Neg mg/dL (Negative) 12/16/20 18:21 Urine Blood Lg (Negative) 12/16/20 18:21 Urine Nitrite Neg (Negative) 12/16/20 18:21 Urine Bilirubin Neg (Negative) 12/16/20 18:21 Urine Urobilinogen < 2.0 mg/dL (<2.0) 12/16/20 18:21 Ur Leukocyte Esterase Tr (Negative) 12/16/20 18:21 Urine WBC (Auto) 59.0 /HPF (0.0-6.0) H 12/16/20 18:21 Urine RBC (Auto) 29.0 /HPF (0.0-6.0) 12/16/20 18:21 U Epithel Cells (Auto) 1.0 /HPF (0-13.0) 12/16/20 18:21 Urine Bacteria (Auto) 1+ /HPF (Negative) 12/16/20 18:21 Urine Mucus Few /HPF 12/16/20 18:21 Salicylates < 0.3 mg/dL (2.8-20.0) L 12/16/20 18:09 Urine Opiates Screen Negative 12/16/20 18:21 Urine Methadone Screen Negative 12/16/20 18:21 Ur Barbiturates Screen Negative 12/16/20 18:21 Valproic Acid 48.3 ug/mL (50-100) L 12/18/20 05:32 Ur Phencyclidine Scrn Negative 12/16/20 18:21 Ur Amphetamines Screen Negative 12/16/20 18:21 U Benzodiazepines Scrn Negative 12/16/20 18:21 Urine Cocaine Screen Negative 12/16/20 18:21 U Marijuana (THC) Screen Negative 12/16/20 18:21 Drugs of Abuse Note Disclamer 12/16/20 18:21 Plasma/Serum Alcohol < 0.01 % (0-0.07) 12/16/20 18:09 Syphilis IgG Antibody Nonreactive (NonReactive) 12/17/20 18:44 Coronavirus (PCR) Negative (Negative) 12/17/20 08:15 Microbiology: Microbiology 12/16/20 18:21 Urine,Clean Catch Urine Culture - Preliminary Gram Negative Ty 12/16/20 19:45 Peripheral/Venous Blood Culture - Preliminary NO GROWTH AFTER 24 HOURS 12/16/20 19:45 Peripheral/Venous Blood Culture - Preliminary NO GROWTH AFTER 24 HOURS [place]/IV: Voiding Method Incontinent Active Medications - Current Medications Current Medications: Generic Name Dose Route Start Last Admin Trade Name Freq PRN Reason Stop Dose Admin Acetaminophen 650 mg 12/17/20 00:05 12/17/20 17:50 Acetaminophen 325 Mg Tab PO 650 mg Q4H PRN Administration Pain MILD(1-3)/Fever >100.5/TORIBIO Albuterol 2.5 mg 12/17/20 00:05 Albuterol 2.5 Mg/3 Ml Nebu IH Q4HRT PRN Shortness Of Breath Amlodipine Besylate 10 mg 12/17/20 10:00 12/18/20 11:45 Amlodipine 10 Mg Tab PO 10 mg QDAY ESAU Administration Benztropine Mesylate 1 mg 12/17/20 10:00 12/17/20 23:04 Benztropine 1 Mg Tab PO Not Given BID ESAU Clonazepam 0.25 mg 12/17/20 22:00 12/17/20 22:04 Clonazepam 0.5 Mg Tab PO 0.25 mg QHS ESAU Administration Dextrose 50 ml 12/17/20 00:26 Dextrose 50% In Water (25gm) 50 Ml Syringe IV Q30MIN PRN Hypoglycemia Protocol Divalproex Sodium 1,000 mg 12/17/20 10:00 12/18/20 11:[address] 500 Mg Tab PO 1,000 mg BID ESAU Administration Docusate Sodium 100 mg 12/17/20 10:00 12/18/20 11:45 Docusate Sodium 100 Mg Cap PO 100 mg BID ESAU Administration Donepezil HCl 5 mg 12/17/20 22:00 12/17/20 23:04 Donepezil 5 Mg Tab PO Not Given QHS ESAU Escitalopram Oxalate 5 mg 12/17/20 10:00 12/18/20 11:45 Escitalopram 10 Mg Tab PO 5 mg QDAY ESAU Administration Famotidine 10 mg 12/18/20 10:00 12/18/20 11:46 Famotidine 10 Mg Tab PO 10 mg BID ESAU Administration Heparin Sodium (Porcine) 5,000 unit 12/17/20 10:00 12/18/20 11:45 Heparin 5,000 Unit/1 Ml Vial SUB-Q 5,000 unit Q12HR ESAU Administration Hydromorphone HCl 0.5 mg 12/17/20 00:05 Hydromorphone 1 Mg/1 Ml Inj IV Q3H PRN Pain , Severe (7-10) Hydroxyzine Pamoate 50 mg 12/17/20 22:00 12/17/20 22:03 Hydroxyzine Pamoate 50 Mg Cap PO 50 mg QHS ESAU Administration Ceftriaxone Sodium 2 gm in 100 mls @ 200 mls/hr 12/17/20 20:00 12/17/20 22:03 Rocephin/Ns 2 Gm/100 Ml IV 12/20/20 20:29 200 mls/hr Q24H ESAU Administration Protocol Azithromycin 500 mg in 250 mls @ 250 mls/hr 12/17/20 21:00 12/17/20 22:04 Zithromax/Ns IV 12/20/20 21:59 250 mls/hr Q24H ESAU Administration Protocol Sodium Chloride 1,000 mls @ 100 mls/hr 12/17/20 00:30 12/18/20 04:41 Nacl 0.9% 1000 Ml IV 100 mls/hr DIRECT ESAU Administration Insulin Human Lispro 0 unit 12/17/20 06:00 12/18/20 06:47 Insulin Lispro 100 Unit/Ml SUB-Q Not Given Q6HR ESAU Protocol Losartan Potassium 100 mg 12/17/20 10:00 12/18/20 11:53 Losartan 50 Mg Tab PO 100 mg QDAY ESAU Administration Magnesium Oxide 400 mg 12/17/20 10:00 12/18/20 11:45 Magnesium Oxide 400 Mg Tab PO 400 mg BID ESAU Administration Mirtazapine 15 mg 12/17/20 22:00 12/17/20 22:04 Mirtazapine 15 Mg Tab PO 15 mg QHS ESAU Administration Ondansetron HCl 4 mg 12/17/20 00:05 Ondansetron 4 Mg/2 Ml Inj IV Q8H PRN Nausea And Vomiting Oxycodone/Acetaminophen 1 tab 12/17/20 00:05 Oxycodone /Acetaminophen 5-325mg Tab PO Q6H PRN Pain, Moderate (4-6) Risperidone 3 mg 12/17/20 10:00 12/17/20 22:06 Risperidone 3 Mg Tab PO Not Given BID ESAU Sodium Chloride 10 ml 12/17/20 10:00 12/18/20 11:46 Sodium Chloride 0.9% 10 Ml Flush Syringe IV 10 ml BID ESAU Administration Sodium Chloride 10 ml 12/17/20 00:05 Sodium Chloride 0.9% 10 Ml Flush Syringe IV PRN PRN LINE FLUSH Thiamine HCl 100 mg 12/17/20 10:00 12/18/20 11:46 Thiamine 100 Mg Tab PO 100 mg QDAY ESAU Administration Tramadol HCl 50 mg 12/17/20 00:09 Tramadol 50 Mg Tab PO Q6HR PRN PAIN Nutrition/Malnutrition Assess - Dietary Evaluation Nutrition/Malnutrition Findings: Nutrition Notes Start: 12/17/20 16:45 Freq: Status: Active Protocol: Document 12/17/20 16:45 MOISES (Rec: 12/17/20 17:12 MOISES [id number]) Nutrition Notes Need for Assessment generated from: Education Initial or Follow up Assessment Current Diagnosis CKD(stage I-IV),COPD,Diabetes, Hypertension Other Pertinent Diagnosis Seizures, Altered mental state . Current Diet Consistent Carbohydrate Diet ( since L 12/17). Labs/Tests 12/17: Glu 102. Pertinent Medications 12/17: Nutritionally unremarkable, Thiamin (Vit B1) . Height 5 ft 4 in Weight 89.7 kg [place] Body Weight (kg) 54.54 BMI 33.9 Weight Status Overweight Percent of energy/protein needs met: Prescribed Consistent Carbohydrate Diet provides for all energy/protein needs (2, 061 Kcal/91 g) during LOS. Burn Absent Trauma Absent GI Symptoms None Food Allergy No Skin Integrity/Comment Integumentary; clear, warm, dr5y. Minimum of two criteria No physical signs of malnutrition #1 Nutrition Diagnosis No nutrition diagnosis at this time Comments: Pt appears to be unfit for nutrition education at the time due to actual procedure, and diagnosis of altered mental state. Is patient on ventilator? No Is Patient Ambulatory and/or Out of Bed Yes REE-([place]-St. Jeor-ambulatory/OOB) [ 1809.600 NUTR.[id number]] Kcal/Kg value to use for calculation 25 Approximate Energy Requirements Using 2243 kcal/Kg Calculation Used for Recommendations Kcal/kg Additional Notes Protein: 0.8-1.0 g/Kg/day; 44- 55 g/day; 176-220 Kcal/day ( from IBW). Fluids: 1.0 ml/Kcal/day, or as per MD. Nutrition Intervention Change Diet Order: Continue Consistent Carbohydrate Diet. Goal #1 Maintain body weight within +/ -3% of current BWt during LOS. Goal #2 Reach and maintain acceptable chemistry lab values during LOS. Follow-Up By: 12/24/20 Additional Comments Continue monitoring acceptance of food, % PO intake of meals , hydration, and BM.
--- NOTE | 2020-12-18 12:46 | Magnetic Resonance Report ---
MRI BRAIN 12/18/2020 INDICATION / CLINICAL INFORMATION: Seizures. TECHNIQUE: Multiplanar, multisequence MR images of the brain were obtained. COMPARISON: None available. FINDINGS: BRAIN / INTRACRANIAL CONTENTS: Unenhanced MR images of the brain were obtained. IV access could not b e obtained with use of postcontrast images. There is no evidence of acute abnormality. Ventricles and sulci are normal in size and shape. Mild microangiopathic white matter T2 weighted hyperintensities are noted. There is no evidence of acute ischemic injury, hemorrhage, or mass. There are no abnormal extra-axial fluid collections. Incidental note is made of an empty sella, generally considered to be of no clinical significance. EXTRACRANIAL: Unremarkable CRANIOCERVICAL JUNCTION: No significant abnormality. VASCULAR FLOW-VOIDS: No significant abnormality. IMPRESSION: No acute abnormality. Chronic and age-related changes. Signer Name: Saqib Hart MD Signed: 12/18/2020 12:42 PM Workstation Name: [id number]
[2020-12-18] MEDS: BENZTROPINE 1 MG TAB PO SCH ×2 (13:08→21:42)
[2020-12-18] MEDS: risperiDONE 3 MG TAB PO SCH ×2 (13:08→21:41)
[2020-12-18 19:02] LABS: Creatinine,Urine 159.6 mg/dL (0.1-20.0)
[2020-12-18] MEDS: AZITHROMYCIN/NS 500 MG/250 ML 500 MG/250 ML BAG IV SCH (21:40)
[2020-12-18] MEDS: MIRTAZAPINE 15 MG TAB PO SCH (21:41)
[2020-12-18] MEDS: clonazePAM 0.5 MG TAB PO SCH (21:41)
[2020-12-18] MEDS: DONEPEZIL 5 MG TAB PO SCH (21:42)
[2020-12-18] MEDS: cefTRIAXone/NS 2 GM/100 ML 2 GM/100 ML BAG IV SCH (21:42)
[2020-12-18 22:30] VITALS: BP 155/79
[2020-12-19] MEDS: INSULIN LISPRO 100 UNIT/ML SUB-Q SCH ×3 (00:32→13:12)
[2020-12-19] MEDS: HALOPERIDOL LACTATE 5 MG/1 ML INJ IM ONE ×2 (10:30→11:41)
[2020-12-19] MEDS: BENZTROPINE 1 MG TAB PO SCH (13:10)
[2020-12-19] MEDS: amLODIPine 10 MG TAB PO SCH (13:10)
[2020-12-19] MEDS: ESCITALOPRAM 10 MG TAB PO SCH (13:11)
[2020-12-19] MEDS: HEPARIN 5,000 UNIT/1 ML VIAL SUB-Q SCH (13:11)
[2020-12-19] MEDS: MAGNESIUM OXIDE 400 MG TAB PO SCH (13:11)
[2020-12-19] MEDS: DIVALPROEX DR 500 MG TAB PO SCH (13:11)
[2020-12-19] MEDS: FAMOTIDINE 10 MG TAB PO SCH (13:11)
[2020-12-19] MEDS: risperiDONE 3 MG TAB PO SCH (13:11)
[2020-12-19] MEDS: LOSARTAN 50 MG TAB PO SCH (13:11)
[2020-12-19] MEDS: DOCUSATE SODIUM 100 MG CAP PO SCH (13:11)
[2020-12-19] MEDS: THIAMINE 100 MG TAB PO SCH (13:12)
[2020-12-19 14:13] LABS: BUN/Creatinine Ratio 10; Blood Urea Nitrogen 10 mg/dL (7-17); Calcium 9.7 mg/dL (8.4-10.2); Hemolysis Index 9
--- NOTE | 2020-12-19 14:24 | Discharge Summary ---
Providers - Providers Date of Admission: 12/17/20 04:54 Date of discharge: 12/19/20 Attending physician: KELTON PRICE MD 12/17/20 00:05 Consult to Physician [CONS] Routine Comment: Consulting Provider: THOM BARRETT Physician Instructions: Reason For Exam: Seizure 12/17/20 00:26 Consult to Dietitian/Nutrition [CONS] Routine Physician Instructions: Reason For Exam: Reason for Consult: Diet education 12/17/20 13:20 Consult to Physician [CONS] Routine Comment: Consulting Provider: SOPHIE DIANA Physician Instructions: Reason For Exam: Seizure management Primary care physician: [facility] DYER Hospitalization Reason for admission: Altered mental status Condition: Fair Hospital course: 70-year-old lady history hypertension, diabetes and schizophrenia who was brought by EMS for possible seizure or convulsive event. Received 2 mg of Ativan for event witnessed in ED. Was admitted for further care. Neurology was consulted. CT head and CTA head and neck negative for acute abnormalities. MRI was also negative. She was found to have UTI and started on Rocephin. Chest x-ray showed interstitial prominence bilaterally. She was checked for COVID-19 and found to be negative. Once stable. She was discharged home to care of family. Disposition: 01 HOME / SELF CARE / HOMELESS Final Discharge Diagnosis (Prints w/discharge instructions): Seizure. Acute metabolic encephalopathy. UTI Time spent for discharge: 10 minutes Core Measure Documentation - Palliative Care Palliative Care/ Comfort Measures: Not Applicable - Core Measures Any of the following diagnoses?: none Exam - Physical Exam Narrative exam: GENERAL: Thin elderly woman, lying in bed, in no acute distress. CHEST/LUNGS: CTAB on room air HEART/CARDIOVASCULAR: RRR. No murmur, rubs or gallops appreciated. ABDOMEN: +BS. NT/ND. EXTREMITIES: No cyanosis, clubbing or edema. PSYCH: Alert to person. Flat affect. - Constitutional Vitals: Temp Pulse Resp BP Pulse Ox 97.9 F 109 H 20 155/79 97 12/18/20 21:34 12/19/20 06:00 12/18/20 21:34 12/18/20 21:34 12/18/20 23:00 Plan Care Plan Goals: Resume psychoactive medications. Follow-up with Psychiatry outpatient for better titration of medications. Assessment: Patient back to baseline at time of discharge. Per caregiver, patient medications were stopped for at least a month while she was hospitalized. CT head and MRI were negative for acute findings. EEG results pending at time of this note. Neurology contacted prior to discharge. Will give a 3 day course for UTI treatment (5 days total). Follow up with: PRIMARY CARE, [Primary Care Provider] - 3-5 Days Prescriptions: donepeziL [Aricept] 5 mg PO QHS 30 Days #30 tablet Mirtazapine [Remeron 15mg TAB] 15 mg PO QHS 30 Days #30 tablet hydrOXYzine PAMOATE [Vistaril] 50 mg PO QHS 30 Days #30 capsule amLODIPine 10 mg PO QDAY 30 Days #30 tablet Benztropine [Cogentin] 1 mg PO BID 30 Days #60 tablet Losartan [Cozaar] 100 mg PO QDAY 30 Days #[address] [Depakote Dr] 1,000 mg PO BID 30 Days #120 tablet Escitalopram [Lexapro] 5 mg PO QDAY 30 Days #15 tablet Magnesium Oxide [Mag-Ox] 400 mg PO BID 30 Days #60 tablet Nitrofurantoin Macrocrystal [Nitrofurantoin] 100 mg PO BID 3 Days #6 capsule risperiDONE [RisperDAL] 3 mg PO BID 30 Days #60 tablet Thiamine [Vitamin B-1] 100 mg PO QDAY 30 Days #30 tablet
[2021-01-02 13:05] LABS: Vitamin D, 25-OH, D2 SEE SCANNED RESULTS
== END 2020-12-19 17:34 | disposition home or self-care (01) | DRG 690 ==
LOC: ED 16:36 → 4A 17:00 → UNDOADMIN 12-17 04:54 → 3A 12-17 11:44 → 4A 12-17 11:44 → 3A 12-18 08:02 → UNDODISIN 12-19 17:34
PROVIDERS: ADMIT Hospitalist; ATTEND Student in an Organized Health Care Education/Training Program
DX: N39.0 Urinary tract infection, site not specified (principal); R65.10 Systemic inflammatory response syndrome (SIRS) of non-infectious origin without acute organ dysfunction; G93.40 Encephalopathy, unspecified; R56.9 Unspecified convulsions; Z20.822 Contact with and (suspected) exposure to COVID-19; I10 Essential (primary) hypertension; E11.9 Type 2 diabetes mellitus without complications; E83.42 Hypomagnesemia; E86.0 Dehydration; M19.90 Unspecified osteoarthritis, unspecified site; F31.9 Bipolar disorder, unspecified
CPT/HCPCS: 36415; 70450; 70496; 70498; 70551; 71045; 80048; 80053; 80164; 80307; 80320; 81001; 82140; 82306; 82550; 82570; 82607; 82747; 82962; 83735; 84100; 84300; 84425; 84443; 85007; 85025; 86592; 87040; 87076; 87086; 87186; 93005; G0378; G0480; J0456; J0696; J1630; J1644; J1953; J2060; J3360; J3475; J7030; J7040; Q0177; Q9967; U0003

== ENCOUNTER 2021-12-02 16:14 | Inpatient (IN) | payer MEDICARE ==
--- NOTE | 2021-12-02 17:12 | XRay Report ---
CHEST 1 VIEW INDICATION: sob. COMPARISON: 12/16/2020 FINDINGS: SUPPORT DEVICES: None. HEART: Within normal limits. LUNGS/PLEURA: No acute air space or interstitial disease. ADDITIONAL FINDINGS: None. IMPRESSION: 1. No acute findings. Signer Name: Sukumar Matthews MD Signed: 12/02/2021 5:08 PM Workstation Name: [id number]
[2021-12-02 17:13] LABS: Basophils # (Auto) 0.1 K/mm3 (0.0-0.1); Basophils % (Auto) 0.7 % (0.0-1.8); Eosinophils % (Auto) 0.1 % (0.0-4.3); Hematocrit 31.1 % (30.3-42.9); Hemoglobin 10.6 gm/dl (10.1-14.3); Lymphocytes # (Auto) 2.1 K/mm3 (1.2-5.4); Lymphocytes % (Auto) 16.1 % (13.4-35.0); Mean Corpuscular HGB Conc 34 % (30-34); Mean Corpuscular Volume 92 fl (79-97); Monocytes # (Auto) 0.8 K/mm3 (0.0-0.8); Monocytes % (Auto) 6.2 % (0.0-7.3); Platelet Count 285 K/mm3 (140-440); Red Blood Count 3.37 M/mm3 (3.65-5.03); Red Cell Distribution Width 14.3 % (13.2-15.2)
[2021-12-02 17:31] LABS: Alanine Aminotransferase 40 units/L (7-56); BUN/Creatinine Ratio 14; Blood Urea Nitrogen 11 mg/dL (7-17); Calcium 8.7 mg/dL (8.4-10.2); Hemolysis Index 4
--- NOTE | 2021-12-02 17:52 | Emergency Department Report ---
<JOSE LUIS YATES - Last Filed: 12/02/21 17:51> ED Extremity Problem HPI - General Chief complaint: Extremity Problem,Nontraumatic Stated complaint: LEFT LEG PAIN COLD TO TOUCH Time Seen by Provider: 12/02/21 16:24 Source: EMS Mode of arrival: Stretcher Limitations: Altered Mental Status - History of Present Illness Initial comments: 71-year-old -Nepalese female with history of psychosis/dementia, brought to the emergency day because family said her foot appeared different and cold. No history of trauma MD Complaint: cold extremity -: unknown Location: left, lower extremity -: Yes arthralgia Severity scale (0 -10): 4 Quality: sharp Consistency: constant Improves with: nothing Worsens with: nothing Associated Symptoms: denies other symptoms - Related Data Home Medications Medication Instructions Recorded Confirmed Last Taken haloperidoL [Haloperidol] 1.5 tab PO QAM 12/17/20 12/17/20 Unknown haloperidoL [Haloperidol] 5 mg PO HS 12/17/20 12/17/20 Unknown Previous Rx's Medication Instructions Recorded Last Taken Type Benztropine [Cogentin] 1 mg PO BID 30 Days #60 tablet 12/19/[address] [Dephina Dr] 1,000 mg PO BID 30 Days #120 tablet 12/19/20 Unknown Rx Escitalopram [Lexapro] 5 mg PO QDAY 30 Days #15 tablet 12/19/20 Unknown Rx Losartan [Cozaar] 100 mg PO QDAY 30 Days #30 tablet 12/19/20 Unknown Rx Magnesium Oxide [Mag-Ox] 400 mg PO BID 30 Days #60 tablet 12/19/20 Unknown Rx Mirtazapine [Remeron 15mg TAB] 15 mg PO QHS 30 Days #30 tablet 12/19/20 Unknown Rx Nitrofurantoin Macrocrystal 100 mg PO BID 3 Days #6 capsule 12/19/20 Unknown Rx [Nitrofurantoin] Thiamine [Vitamin B-1] 100 mg PO QDAY 30 Days #30 tablet 12/19/20 Unknown Rx amLODIPine 10 mg PO QDAY 30 Days #30 tablet 12/19/20 Unknown Rx donepeziL [Aricept] 5 mg PO QHS 30 Days #30 tablet 12/19/20 Unknown Rx hydrOXYzine PAMOATE [Vistaril] 50 mg PO QHS 30 Days #30 capsule 12/19/20 Unknown Rx risperiDONE [RisperDAL] 3 mg PO BID 30 Days #60 tablet 12/19/20 Unknown Rx Allergies Allergy/AdvReac Type Severity Reaction Status Date / Time No Known Allergies Allergy Verified 12/02/21 16:31 ED Review of Systems Constitutional: denies: chills, fever Eyes: denies: eye pain, eye discharge, vision change ENT: denies: ear pain, throat pain Respiratory: denies: cough, shortness of breath, wheezing Cardiovascular: denies: chest pain, palpitations Endocrine: no symptoms reported Gastrointestinal: denies: abdominal pain, nausea, diarrhea Genitourinary: denies: urgency, dysuria, discharge Musculoskeletal: other (Foot pain). denies: back pain, joint swelling, arthralgia Skin: denies: rash, lesions Neurological: denies: headache, weakness, paresthesias Psychiatric: denies: anxiety, depression Hematological/Lymphatic: denies: easy bleeding, easy bruising ED Past Medical Hx - Past Medical History Hx Hypertension: Yes Hx Diabetes: Yes Hx Renal Disease: Yes Hx Arthritis: No Hx Seizures: No Hx Psychiatric Treatment: Yes (multiple IP/bipolar) Hx Dementia: Yes Hx HIV: No Additional medical history: osteoarthritis - Surgical History Hx Cholecystectomy: No Hx Appendectomy: No Additional Surgical History: KENYATTA - Social History Smoking Status: Never Smoker Substance Use Type: None - Medications Home Medications: Home Medications Medication Instructions Recorded Confirmed Last Taken Type haloperidoL [Haloperidol] 1.5 tab PO QAM 12/17/20 12/17/20 Unknown History haloperidoL [Haloperidol] 5 mg PO HS 12/17/20 12/17/20 Unknown History Benztropine [Cogentin] 1 mg PO BID 30 Days #60 tablet 12/19/[address] [Eren Gonzalez] 1,000 mg PO BID 30 Days #120 tablet 12/19/20 Unknown Rx Escitalopram [Lexapro] 5 mg PO QDAY 30 Days #15 tablet 12/19/20 Unknown Rx Losartan [Cozaar] 100 mg PO QDAY 30 Days #30 tablet 12/19/20 Unknown Rx Magnesium Oxide [Mag-Ox] 400 mg PO BID 30 Days #60 tablet 12/19/20 Unknown Rx Mirtazapine [Remeron 15mg TAB] 15 mg PO QHS 30 Days #30 tablet 12/19/20 Unknown Rx Nitrofurantoin Macrocrystal 100 mg PO BID 3 Days #6 capsule 12/19/20 Unknown Rx [Nitrofurantoin] Thiamine [Vitamin B-1] 100 mg PO QDAY 30 Days #30 tablet 12/19/20 Unknown Rx amLODIPine 10 mg PO QDAY 30 Days #30 tablet 12/19/20 Unknown Rx donepeziL [Aricept] 5 mg PO QHS 30 Days #30 tablet 12/19/20 Unknown Rx hydrOXYzine PAMOATE [Vistaril] 50 mg PO QHS 30 Days #30 capsule 12/19/20 Unk nown Rx risperiDONE [RisperDAL] 3 mg PO BID 30 Days #60 tablet 12/19/20 Unknown Rx ED Physical Exam - General Limitations: Altered Mental Status ED Medical Decision Making - Lab Data Result diagrams: 12/02/21 16:50 12/02/21 16:50 ED Disposition Clinical Impression: Severe peripheral arterial disease, Left leg pain, Hypokalemia Disposition: ADMITTED INPATIENT Condition: Serious Referrals: PRIMARY CARE, [Primary Care Provider] - 3-5 Days <AMRINA VICTORIA - Last Filed: 12/02/21 22:33> ED Review of Systems ROS: Stated complaint: LEFT LEG PAIN COLD TO TOUCH Other details as noted in HPI ED Course Vital Signs 12/02/21 12/02/21 12/02/21 16:15 16:47 18:36 Temperature 98.8 F 97.7 F Pulse Rate 104 H 107 H 104 H Respiratory 14 20 18 Rate Blood Pressure 152/79 Blood Pressure 147/77 152/79 148/76 [Left] O2 Sat by Pulse 100 100 97 Oximetry - Reevaluation(s) Reevaluation #1: 12/02/21 22:03 Received verbal report from radiologist regarding left lower extremity CT findings. Have gone back to evaluate the patient. Daughter is at the bedside. History obtained from daughter. She states this has been going on for a few days to about a week. The patient is able to perceive pain and sensation in her left lower extremity. Cannot appreciate pulses. She is not able to move her toes. The patient cannot specifically state how long she has not been able to move her toes for. Her daughter thinks is for week, but she is not certain the daughter is very certain that the symptoms have been going on for a few days to a week. Contacted vascular surgery on-call, Dr. Castillo. Discussed the patient's history, physical, CT scan findings, collateral history obtained from the patient's daughter. Vascular surgery will follow in consultation. N.p.o. after midnight. Start heparin drip. Discussed this with the patient's daughter. She articulates understanding. She is agreeable to the plan of care. Awaiting callback from hospital physician to arrange admission 12/02/21 22:32 Dr Chung Darnell to admit to [facility] ED Medical Decision Making - Lab Data Result diagrams: 12/02/21 16:50 12/02/21 16:50 Vital Signs 12/02/21 12/02/21 12/02/21 16:15 16:47 18:36 Temperature 98.8 F 97.7 F Pulse Rate 104 H 107 H 104 H Respiratory 14 20 18 Rate Blood Pressure 152/79 Blood Pressure 147/77 152/79 148/76 [Left] O2 Sat by Pulse 100 100 97 Oximetry Vital Signs 12/02/21 12/02/21 12/02/21 16:15 16:47 18:36 Temperature 98.8 F 97.7 F Pulse Rate 104 H 107 H 104 H Respiratory 14 20 18 Rate Blood Pressure 152/79 Blood Pressure 147/77 152/79 148/76 [Left] O2 Sat by Pulse 100 100 97 Oximetry Lab Results 12/02/21 12/02/21 Range/Units 16:50 16:50 WBC 13.0 H (4.5-11.0) K/mm3 RBC 3.37 L (3.65-5.03) M/mm3 Hgb 10.6 (10.1-14.3) gm/dl Hct 31.1 (30.3-42.9) % MCV 92 (79-97) fl MCH 31 (28-32) pg MCHC 34 (30-34) % RDW 14.3 (13.2-15.2) % Plt Count 285 (140-440) K/mm3 Lymph % (Auto) 16.1 (13.4-35.0) % [place] % (Auto) 6.2 (0.0-7.3) % Eos % (Auto) 0.1 (0.0-4.3) % Baso % (Auto) 0.7 (0.0-1.8) % Lymph # (Auto) 2.1 (1.2-5.4) K/mm3 [place] # (Auto) 0.8 (0.0-0.8) K/mm3 Eos # (Auto) 0.0 (0.0-0.4) K/mm3 Baso # (Auto) 0.1 (0.0-0.1) K/mm3 Seg Neutrophils % 76.9 H (40.0-70.0) % Seg Neutrophils # 10.0 H (1.8-7.7) K/mm3 Sodium 139 (137-145) mmol/L Potassium 3.4 L (3.6-5.0) mmol/L Chloride 100.6 (98-107) mmol/L Carbon Dioxide 22 (22-30) mmol/L Anion Gap 20 mmol/L BUN 11 (7-17) mg/dL Creatinine 0.8 (0.6-1.2) mg/dL Estimated GFR > 60 ml/min BUN/Creatinine Ratio 14 % Glucose 134 H (65-100) mg/dL Calcium 8.7 (8.4-10.2) mg/dL Total Bilirubin 0.60 (0.1-1.2) mg/dL AST 45 H (5-40) units/L ALT 40 (7-56) units/L Alkaline Phosphatase 85 (35-129) units/L Total Protein 7.0 (6.3-8.2) g/dL Albumin 3.0 L (3.9-5) g/dL Albumin/Globulin Ratio 0.8 % - Radiology Data Radiology results: pending, report reviewed, image reviewed CHEST 1 VIEW INDICATION: sob. COMPARISON: 12/16/2020 FINDINGS: SUPPORT DEVICES: None. HEART: Within normal limits. LUNGS/PLEURA: No acute air space or interstitial disease. ADDITIONAL FINDINGS: None. IMPRESSION: 1. No acute findings. Signer Name: Sukumar Matthews MD Signed: 12/02/2021 4:08 PM Workstation Name: [id number] CTA ABDOMEN, PELVIS, AND LOWER EXTREMITIES WITH CONTRAST INDICATION / CLINICAL INFORMATION: cold foot. TECHNIQUE: Axial CT images were obtained through the abdomen, pelvis and lower extremities after injection of IV contrast. 3 plane MIP / 3D reconstructions were produced. All CT scans at this location are performed using CT dose reduction for ALARA by means of automated exposure control. COMPARISON: CT abdomen pelvis dated 04/02/2019 FINDINGS: CTA ABDOMEN: Abdominal Aorta: No significant abnormality. Celiac Artery: Mild narrowing at the origin. Superior Mesenteric Artery: Mild narrowing at the origin. Right R enal Artery: 2 accessory right renal arteries. Left Renal Artery: No significant abnormality. Inferior Mesenteric Artery: No significant abnormality. CTA PELVIS: RIGHT: - Common Iliac Artery: No significant abnormality. - Internal Iliac Artery: Complete occlusion of the mid and distal segments with reconstitution. - External Iliac Artery: No significant abnormality. LEFT: - Common Iliac Artery: Complete occlusion of the midportion. - Internal Iliac Artery: Complete occlusion with distal reconstitution via collaterals. - External Iliac Artery: Complete occlusion. CTA LOWER EXTREMITIES: RIGHT LOWER EXTREMITY: - Common Femoral Artery: No significant abnormality. - Superficial Femoral Artery: No significant abnormality. - Profunda Femoral Artery: No significant abnormality. - Popliteal Artery: Near occlusive thrombus in the distal segment. - Anterior Tibial Artery: No significant abnormality. - Tibioperoneal Trunk: No significant abnormality. - Posterior Tibial Artery: Near occlusive thrombus at the origin. Satisfactory distal reconstitution of flow to the ankle. - Peroneal Artery: No significant abnormality. - Ankle runoff: Three vessel. LEFT LOWER EXTREMITY: - Common Femoral Artery: Occluded. - Superficial Femoral Artery: Origin is occluded with satisfactory reconstitution of flow at the proximal portion. - Profunda Femoral Artery: Origin is occluded with satisfactory reconstitution of flow at the proximal portion. More distal segments of complete occlusion. - Popliteal Artery: Multifocal severe narrowing with focal occlusion distally. - Anterior Tibial Artery: Completely occluded. - Tibioperoneal Trunk: Completely occluded. - Posterior Tibial Artery: Occluded the origin with faint thready flow at the proximal foreleg. Occluded from the mid foreleg distally. - Peroneal Artery: Occluded. - Ankle runoff: No runoff to the ankle. NONTARGET STRUCTURES: ABDOMEN:Cholelithiasis. Irregular attenuation spleen is likely related to arterial phase imaging. Bilateral renal cysts. Thickening of the adrenal glands without discrete lesion. PELVIS:No significant abnormality. Uterine fibroids. LOWER EXTREMITIES:Subcutaneous bulla at the left lower extremity. SKELETAL: Osteopenia with multilevel compression deformities in the thoracolumbar spine. ADDITIONAL FINDINGS: None. IMPRESSION: 1. Multifocal thrombi resulting in multifocal occlusion in both lower extremities. There is no runoff to the left ankle with multifocal occlusion detailed above. 2. Near occlusive thrombus in the right popliteal artery and origin of the right posterior tibial artery with three-vessel runoff to the right ankle. IMPORTANT FINDING: Multifocal va scular occlusion Time of Communication (CASE BRIEFER/CDT): 2036 Licensed Practitioner Receiving Report: Dr. Sprague Signer Name: James Perea MD Signed: 12/02/2021 8:41 PM Workstation Name: [email or web address] Critical Care Time: Yes Critical care time in (mins) excluding proc time.: 35 Critical care attestation.: If time is entered above; I have spent that time in minutes in the direct care of this critically ill patient, excluding procedure time. ED Disposition Is pt being admited?: Yes Does the pt Need Aspirin: No
[2021-12-02] MEDS ORDERED: HALOPERIDOL LACTATE 5 MG/1 ML INJ IM ONE (18:38)
--- NOTE | 2021-12-02 21:45 | Cat Scan Report ---
CTA ABDOMEN, PELVIS, AND LOWER EXTREMITIES WITH CONTRAST INDICATION / CLINICAL INFORMATION: cold foot. TECHNIQUE: Axial CT images were obtained through the abdomen, pelvis and lower extremities after inje ction of IV contrast. 3 plane MIP / 3D reconstructions were produced. All CT scans at this location a re performed using CT dose reduction for ALARA by means of automated exposure control. COMPARISON: CT abdomen pelvis dated 04/02/2019 FINDINGS: CTA ABDOMEN: Abdominal Aorta: No significant abnormality. Celiac Artery: Mild narrowing at the origin. Superior Mesenteric Artery: Mild narrowing at the origin. Right Renal Artery: 2 accessory right renal arteries. Left Renal Artery: No significant abnormality. Inferior Mesenteric Artery: No significant abnormality. CTA PELVIS: RIGHT: - Common Iliac Artery: No significant abnormality. - Internal Iliac Artery: Complete occlusion of the mid and distal segments with reconstitution. - External Iliac Artery: No significant abnormality. LEFT: - Common Iliac Artery: Complete occlusion of the midportion. - Internal Iliac Artery: Complete occlusion with distal reconstitution via collaterals. - External Iliac Artery: Complete occlusion. CTA LOWER EXTREMITIES: RIGHT LOWER EXTREMITY: - Common Femoral Artery: No significant abnormality. - Superficial Femoral Artery: No significant abnormality. - Profunda Femoral Artery: No significant abnormality. - Popliteal Artery: Near occlusive thrombus in the distal segment. - Anterior Tibial Artery: No significant abnormality. - Tibioperoneal Trunk: No significant abnormality. - Posterior Tibial Artery: Near occlusive thrombus at the origin. Satisfactory distal reconstitution of flow to the ankle. - Peroneal Artery: No significant abnormality. - Ankle runoff: Three vessel. LEFT LOWER EXTREMITY: - Common Femoral Artery: Occluded. - Superficial Femoral Artery: Origin is occluded with satisfactory reconstitution of flow at the prox imal portion. - Profunda Femoral Artery: Origin is occluded with satisfactory reconstitution of flow at the proxima l portion. More distal segments of complete occlusion. - Popliteal Artery: Multifocal severe narrowing with focal occlusion distally. - Anterior Tibial Artery: Completely occluded. - Tibioperoneal Trunk: Completely occluded. - Posterior Tibial Artery: Occluded the origin with faint thready flow at the proximal foreleg. Occlu ded from the mid foreleg distally. - Peroneal Artery: Occluded. - Ankle runoff: No runoff to the ankle. NONTARGET STRUCTURES: ABDOMEN:Cholelithiasis. Irregular attenuation spleen is likely related to arterial phase imaging. Velasquez ateral renal cysts. Thickening of the adrenal glands without discrete lesion. PELVIS:No significant abnormality. Uterine fibroids. LOWER EXTREMITIES:Subcutaneous bulla at the left lower extremity. SKELETAL: Osteopenia with multilevel compression deformities in the thoracolumbar spine. ADDITIONAL FINDINGS: None. IMPRESSION: 1. Multifocal thrombi resulting in multifocal occlusion in both lower extremities. There is no runoff to the left ankle with multifocal occlusion detailed above. 2. Near occlusive thrombus in the right popliteal artery and origin of the right posterior tibial art mary with three-vessel runoff to the right ankle. IMPORTANT FINDING: Multifocal vascular occlusion Time of Communication (ESTHETICIAN SPA/CDT): 2036 Licensed Practitioner Receiving Report: Dr. Sprague Signer Name: James Perea MD Signed: 12/02/2021 9:41 PM Workstation Name: [id number]
[2021-12-02] MEDS ORDERED: MORPHINE 4 MG/1 ML INJ IV ONE (21:55)
[2021-12-02] MEDS ORDERED: HEPARIN BOLUS 10,000 UNIT/10 ML VIAL IV ONE (21:57)
[2021-12-02] MEDS ORDERED: HEPARIN PRN BOLUS(standard intensity drip) IV (21:57)
[2021-12-02] MEDS ORDERED: POTASSIUM CHLORIDE ER 20 MEQ TAB PO ONE (22:01)
[2021-12-02] MEDS ORDERED: MORPHINE 4 MG/1 ML INJ IV PRN ×2 (22:33→23:36)
[2021-12-02] MEDS ORDERED: ACETAMINOPHEN 325 MG TAB PO PRN ×2 (22:33→23:36)
[2021-12-02] MEDS ORDERED: NALOXONE 0.4 MG/1 ML INJ IV PRN (22:33)
[2021-12-02] MEDS ORDERED: MORPHINE 2 MG/1 ML INJ IV PRN (22:33)
[2021-12-02] MEDS ORDERED: ONDANSETRON 4 MG/2 ML INJ IV PRN ×2 (22:33→23:36)
--- NOTE | 2021-12-02 22:42 | Event Note ---
Date: 12/02/21 70-year-old female with past medical history of hypertension, diabetes, and schizoaffective with history of atrial fibrillation who presents with 1 week of left lower extremity pain. The left leg has blisters, the toes have not moved for the last week, and there is some element of decreased sensation. CTA demonstrates left common iliac artery, left external iliac artery, left internal iliac artery, and left common femoral artery and popliteal artery occlusion. This is acute limb ischemia, but given the duration of time that has already p assed (1 week, with stable lack of motor function and decreased sensory function), recommend heparin drip. Will make NPO After MN except sips of water with meds. There is thrombus in the right internal iliac artery and popliteal artery. These events are likely due to cardioembolic phenomenon from atrial fibrillation.
[2021-12-02] MEDS ORDERED: DEXTROSE 50% IN WATER (25GM) 50 ML SYRINGE IV PRN (23:36)
[2021-12-02] MEDS ORDERED: MAGNESIUM HYDROXIDE (MOM) ORAL LIQD UDC PO PRN (23:36)
--- NOTE | 2021-12-02 23:43 | History and Physical Report ---
History of Present Illness Date of examination: 12/02/21 Date of admission: 12/02/21 22:33 Chief complaint: Left lower extremity swelling History of present illness: 71-year-old -[place] female with known history of hypertension, diabetes mellitus and remote history of A. fib, dementia/psychosis accompanied by daughter with a complaint of left lower extremity pain and swelling. Left lower extremity is said to have been feeling very cold over the past 1 week. He has been no history of fever or chills, no chest pain or shortness of breath. Work-up in the emergency room today, lab is significant for leukocytosis of 13, potassium of 3.4. Chest x-ray shows no acute findings. CT angiogram of the abdomen shows:1. Multifocal thrombi resulting in multifocal occlusion in both lower extremities. There is no runoff to the left ankle with multifocal occlusion detailed above. 2. Near occlusive thrombus in the right popliteal artery and origin of the ri ght posterior tibial artery with three-vessel runoff to the right ankle. Vascular surgeon on-call has been consulted. Patient will be placed on heparin drip. Past History Past Medical History: diabetes, hypertension, other (Dementia, psychosis) Past Surgical History: No surgical history Social history: no significant social history Medications and Allergies Allergies Allergy/AdvReac Type Severity Reaction Status Date / Time No Known Allergies Allergy Verified 12/02/21 16:31 Home Medications Medication Instructions Recorded Confirmed Last Taken Type haloperidoL [Haloperidol] 1.5 tab PO QAM 12/17/20 12/17/20 Unknown History haloperidoL [Haloperidol] 5 mg PO HS 12/17/20 12/17/20 Unknown History Benztropine [Cogentin] 1 mg PO BID 30 Days #60 tablet 12/19/20 Unknown Rx Divalproex [Eren Gonzalez] 1,000 mg PO BID 30 Days #120 tablet 12/19/20 Unknown Rx Escitalopram [Lexapro] 5 mg PO QDAY 30 Days #15 tablet 12/19/20 Unknown Rx Losartan [Cozaar] 100 mg PO QDAY 30 Days #30 tablet 12/19/20 Unknown Rx Magnesium Oxide [Mag-Ox] 400 mg PO BID 30 Days #60 tablet 12/19/20 Unknown Rx Mirtazapine [Remeron 15mg TAB] 15 mg PO QHS 30 Days #30 tablet 12/19/20 Unknown Rx Nitrofurantoin Macrocrystal 100 mg PO BID 3 Days #6 capsule 12/19/20 Unknown Rx [Nitrofurantoin] Thiamine [Vitamin B-1] 100 mg PO QDAY 30 Days #30 tablet 12/19/20 Unknown Rx amLODIPine 10 mg PO QDAY 30 Days #30 tablet 12/19/20 Unknown Rx donepeziL [Aricept] 5 mg PO QHS 30 Days #30 tablet 12/19/20 Unknown Rx hydrOXYzine PAMOATE [Vistaril] 50 mg PO QHS 30 Days #30 capsule 12/19/20 Unknown Rx risperiDONE [RisperDAL] 3 mg PO BID 30 Days #60 tablet 12/19/20 Unknown Rx Active Meds: Active Medications Acetaminophen (Acetaminophen 325 Mg Tab) 650 mg PO Q4H PRN PRN Reason: Pain MILD(1-3)/Fever >100.5/TORIBIO Heparin Sodium (Porcine) (Heparin Prn Bolus(Standard Intensity Drip)) 3,000 unit 40 unit/kg (3000 unit) IV Q6H PRN PRN Reason: For Heparin Anti-Xa < 0.1 Heparin Sodium/Sodium Chloride (Heparin/ 0.45% Nacl-25,000 Unit/250 Ml) 25,000 unit in 250 mls @ 13.88 mls/hr IV TITR ESAU; Protocol Morphine Sulfate (Morphine 4 Mg/1 Ml Inj) 4 mg IV Q4H PRN PRN Reason: Pain , Severe (7-10) Morphine Sulfate (Morphine 2 Mg/1 Ml Inj) 2 mg IV Q4H PRN PRN Reason: Pain, Moderate (4-6) Naloxone HCl (Naloxone 0.4 Mg/1 Ml Inj) 0.1 mg IV Q2MIN PRN PRN Reason: Res Rate </= 8 or 02 SAT < 92% Ondansetron HCl (Ondansetron 4 Mg/2 Ml Inj) 4 mg IV Q8H PRN PRN Reason: Nausea And Vomiting Sodium Chloride (Sodium Chloride 0.9% 10 Ml Flush Syringe) 10 ml IV BID ESAU Sodium Chloride (Sodium Chloride 0.9% 10 Ml Flush Syringe) 10 ml IV PRN PRN PRN Reason: LINE FLUSH Review of Systems ROS unobtainable: due to mental status Exam - Constitutional Vitals: Temp Pulse Resp BP Pulse Ox 97.7 F 104 H 18 148/76 97 12/02/21 16:47 12/02/21 18:36 12/02/21 18:36 12/02/21 18:36 12/02/21 18:36 General appearance: Present: no acute distress, well-nourished - EENT Eyes: Present: PERRL, EOM intact. Absent: scleral icterus ENT: hearing intact, clear oral mucosa, dentition normal - Neck Neck: Present: supple, normal ROM - Respiratory Respiratory effort: normal Respiratory: bilateral: CTA - Cardiovascular Rhythm: regular Heart Sounds: Present: S1 & S2. Absent: gallop, systolic murmur, diastolic murmur, rub, click - Extremities Extremities: pulses intact (On right lower extremity), Full ROM Extremity abnormal: edema (2+ left lower extremity edema), black (Left lower extremity appears black and cold to touch), cold (Left lower extremity cold to touch), pulses diminished, tenderness (Left lower extremity tenderness) Results - Labs CBC & Chem 7: 12/02/21 16:50 12/02/21 16:50 Labs: Abnormal lab results 12/02/21 12/02/21 Range/Units 16:50 16:50 WBC 13.0 H (4.5-11.0) K/mm3 RBC 3.37 L (3.65-5.03) M/mm3 Seg Neutrophils % 76.9 H (40.0-70.0) % Seg Neutrophils # 10.0 H (1.8-7.7) K/mm3 Potassium 3.4 L (3.6-5.0) mmol/L Glucose 134 H (65-100) mg/dL AST 45 H (5-40) units/L Albumin 3.0 L (3.9-5) g/dL Assessment and Plan Assessment: 1. Left lower extremity arterial occlusion 2. Diabetes mellitus 3. History of psychosis/dementia 4. Hypertension. Plan: 1. Patient admitted and placed on heparin drip. 2. Vascular surgery will be following. 3. Patient placed on sliding scale insulin. We will monitor Accu-Cheks. 4. We will continue on routine home medications. DVT prophylaxis: Patient currently on heparin CODE STATUS: Full code
[2021-12-02] MEDS ORDERED: SODIUM CHLORIDE 0.9% 1000 ML 1,000 ML IV SCH (23:45)
[2021-12-03 00:23] LABS: INR 0.98 (0.87-1.13)
[2021-12-03 00:24] LABS: Partial Thromboplastin Time 43.3 Sec. (24.2-36.6)
[2021-12-03] MEDS: HEPARIN/ 0.45% NACL DRIP 25,000 UNIT/250 ML BAG IV SCH ×2 (00:24→21:55)
[2021-12-03] MEDS: INSULIN LISPRO 100 UNIT/ML SUB-Q SCH ×4 (09:43→22:00)
--- NOTE | 2021-12-03 10:36 | Consultation ---
History of Present Illness - Reason for Consult Consult date: 12/03/21 bilateral lower extremity arterial emboli Requesting physician: MARINA VICTORIA - History of Present Illness 71-year-old -[place] female with known history of hypertension, diabetes mellitus, remote history of A. fib, dementia/schizoaffective disorder accompanied by daughter with a complaint of left lower extremity pain and swelling. Left lower extremity is said to have been feeling very cold over the past 1 week.He has been no history of fever or chills, no chest pain or shortness of breath. The patient has not been able to move her left foot, feel her left foot, and has had significant pain for the last 7 to 10 days. She presented to the hospital due to blistering formation of the left lower calf. The right foot is warm and well-perfused. Full motor and sensory function. Nonpalpable right pedal pulses are left pedal pulses. Palpable right femoral pulse. Nonpalpable left femoral pulse. Palpable bilateral radial and ulnar pulses. Patient intermittently did not want to speak, which, upon discussion with the daughter, is typical for her. This is not a change. The daughter reports that the patient was walking prior to this event. Past History Past Medical History: diabetes, hypertension, other (Dementia, psychosis) Past Surgical History: No surgical history Social history: no significant social history Medications and Allergies Allergies Allergy/AdvReac Type Severity Reaction Status Date / Time No Known Allergies Allergy Verified 12/02/21 16:31 Home Medications Medication Instructions Recorded Confirmed Last Taken Type haloperidoL [Haloperidol] 1.5 tab PO QAM 12/17/20 12/17/20 Unknown History haloperidoL [Haloperidol] 5 mg PO HS 12/17/20 12/17/20 Unknown History Benztropine [Cogentin] 1 mg PO BID 30 Days #60 tablet 12/19/[address] [Eren Dr] 1,000 mg PO BID 30 Days #120 tablet 12/19/20 Unknown Rx Escitalopram [Lexapro] 5 mg PO QDAY 30 Days #15 tablet 12/19/20 Unknown Rx Losartan [Cozaar] 100 mg PO QDAY 30 Days #30 tablet 12/19/20 Unknown Rx Magnesium Oxide [Mag-Ox] 400 mg PO BID 30 Days #60 tablet 12/19/20 Unknown Rx Mirtazapine [Remeron 15mg TAB] 15 mg PO QHS 30 Days #30 tablet 12/19/20 Unknown Rx Nitrofurantoin Macrocrystal 100 mg PO BID 3 Days #6 capsule 12/19/20 Unknown Rx [Nitrofurantoin] Thiamine [Vitamin B-1] 100 mg PO QDAY 30 Days #30 tablet 12/19/20 Unknown Rx amLODIPine 10 mg PO QDAY 30 Days #30 tablet 12/19/20 Unknown Rx donepeziL [Aricept] 5 mg PO QHS 30 Days #30 tablet 12/19/20 Unknown Rx hydrOXYzine PAMOATE [Vistaril] 50 mg PO QHS 30 Days #30 capsule 12/19/20 Unknown Rx risperiDONE [RisperDAL] 3 mg PO BID 30 Days #60 tablet 12/19/20 Unknown Rx Active Meds: Active Medications Acetaminophen (Acetaminophen 325 Mg Tab) 650 mg PO Q4H PRN PRN Reason: Pain MILD(1-3)/Fever >100.5/TORIBIO Dextrose (Dextrose 50% In Water (25gm) 50 Ml Syringe) 50 ml IV Q30MIN PRN; Protocol PRN Reason: Hypoglycemia Heparin Sodium (Porcine) (Heparin Prn Bolus(Standard Intensity Drip)) 3,000 unit 40 unit/kg (3000 unit) IV Q6H PRN PRN Reason: For Heparin Anti-Xa < 0.1 Heparin Sodium/Sodium Chloride (Heparin/ 0.45% Nacl-25,000 Unit/250 Ml) 25,000 unit in 250 mls @ 13.88 mls/hr IV TITR ESAU; Protocol Last Admin: 12/03/21 00:24 Dose: 18 units/kg/hr, 13.88 mls/hr Sodium Chloride (Nacl 0.9% 1000 Ml) 1,000 mls @ 125 mls/hr IV DIRECT ESAU Insulin Human Lispro (Insulin Lispro 100 Unit/Ml) 0 unit SUB-Q ACHS ESAU; Protocol Last Admin: 12/03/21 09:43 Dose: Not Given Magnesium Hydroxide (Magnesium Hydroxide (Mom) Oral Liqd Udc) 30 ml PO Q4H PRN PRN Reason: Constipation Morphine Sulfate (Morphine 2 Mg/1 Ml Inj) 2 mg IV Q4H PRN PRN Reason: Pain, Moderate (4-6) Morphine Sulfate (Morphine 4 Mg/1 Ml Inj) 4 mg IV Q4H PRN PRN Reason: Pain , Severe (7-10) Naloxone HCl (Naloxone 0.4 Mg/1 Ml Inj) 0.1 mg IV Q2MIN PRN PRN Reason: Res Rate </= 8 or 02 SAT < 92% Ondansetron HCl (Ondansetron 4 Mg/2 Ml Inj) 4 mg IV Q8H PRN PRN Reason: Nausea And Vomiting Sodium Chloride (Sodium Chloride 0.9% 10 Ml Flush Syringe) 10 ml IV BID ESAU Last Admin: 12/03/21 09:43 Dose: 10 ml Sodium Chloride (Sodium Chloride 0.9% 10 Ml Flush Syringe) 10 ml IV PRN PRN PRN Reason: LINE FLUSH Review of Systems ROS unobtainable: due to mental status Exam - Constitutional Vitals: Temp Pulse Resp BP Pulse Ox 98.7 F 87 14 112/62 97 12/03/21 04:33 12/03/21 06:00 12/03/21 06:00 12/03/21 06:00 12/03/21 06:00 General appearance: Present: mild distress (Left leg pain) - EENT Eyes: Present: EOM intact ENT: hearing intact - Respiratory Respiratory effort: normal - Extremities Extremities: abnormal (The left foot up to the level of the ankle is extremely cold, insensate, and without any motor function. The left calf is warmer. There are some serous bulla of the left calf. The right foot is warm, ) Extremity abnormal: pulses diminished (Nonpalpable pedal pulses, palpable right femoral pulse, nonpalpable left femoral pulse), other (Palpable radial and ulnar pulse, Bilaterally) - Abdominal General gastrointestinal: Present: soft, non-tender - Psychiatric Psychiatric: cooperative, other (Intermittently speaks) Results - Labs CBC & Chem 7: 12/02/21 16:50 12/02/21 16:50 Labs: Abnormal lab results 12/02/21 12/02/21 12/02/21 Range/Units 16:50 16:50 23:31 WBC 13.0 H (4.5-11.0) K/mm3 RBC 3.37 L (3.65-5.03) M/mm3 Seg Neutrophils % 76.9 H (40.0-70.0) % Seg Neutrophils # 10.0 H (1.8-7.7) K/mm3 APTT 43.3 H (24.2-36.6) Sec. Potassium 3.4 L (3.6-5.0) mmol/L Glucose 134 H (65-100) mg/dL AST 45 H (5-40) units/L Albumin 3.0 L (3.9-5) g/dL Assessment and Plan 71-year-old female with schizoaffective disorder and dementia with history of atrial fibrillation who presents with multiple thromboembolic events to the lower extremities. She has a right internal iliac artery thrombus, and right popliteal artery thrombus. The right lower extremity is viable with no motor, sensory, or pain issues. The left lower extremity has extensive thromboembolic disease. The left common iliac artery, external iliac artery, internal iliac artery, and common femoral artery thrombus within them. The left popliteal artery and below has thrombus within it. This resulted in 7 to 10 days of acute limb ischemia of the left foot with stage III Seun. This foot is no longer salvageable. Discussed this with family. Family reports patient was ambulating prior to pain 10 days ago. Given the prolonged duration of symptoms, recommend cardiology consult for restratification and treatment to decrease risk (i.e. low-dose beta-blockers, etc.). Suspect will require left iliofemoral thrombectomy and popliteal thrombectomy with Carlos and left below the knee amputation. Discussed with family that left below-knee amputation may not heal given the bulla and may ultimately require conversion to an [id number] amputation.
--- NOTE | 2021-12-03 11:45 | Progress Note ---
Assessment and Plan Assessment and plan: #Sepsis secondary to limb ischemia #Left lower extremity arterial occlusion #Limb ischemia -CT angiogram of ABD/pelvis/lower extremities showed multifocal thrombi resulti ng in multifocal occlusion in bilateral lower extremity without runoff to left ankle, near occlusive thrombus in right popliteal artery and right posterior tibial artery -Cardiology consulted for pre-op risk stratification -Vascular surgery consulted, assistance appreciated -continue heparin gtt -plan for intervention in the coming days #Hypertension -continue amlodipine at home dose #Type 2 Diabetes Mellitus -continue SSI + accuchecks -blood glucose currently at goal #Dementia -stable -continue donepezil and cogentin #Hypokalemia -K 3.4, will replete and monitor #Moderate protein calorie malnutrition -Albumin 3.0 -nutrition consult History Interval history: No acute events overnight per nursing. During examination, patient repeated her name "Cole" everytime a question was asked. Discussed options with Vascular surgery team. Cardiac consultation ordered. Family aware. Hospitalist Physical - Physical exam Narrative exam: GENERAL: Well-developed well-nourished. In no acute distress. HEENT: Normocephalic. Atraumatic. CHEST/LUNGS: CTAB on room air HEART/CARDIOVASCULAR: Tachycardic. No murmur, rubs or gallops appreciated. ABDOMEN: +BS. NT/ND. SKIN: LLE with blistering and darkening of the skin. NEURO: Unable to assess due to patient mental status. MUSCULOSKELETAL: No joint effusion EXTREMITIES: LLE cyanosis. Cold L foot without palpable pedal pulses. R foot with blood flow and palpable pulses. PSYCH: Unable to assess. - Constitutional Vitals: Temp Pulse Resp BP Pulse Ox 98.0 F 112 H 18 139/70 99 12/03/21 08:57 12/03/21 08:57 12/03/21 08:57 12/03/21 08:57 12/03/21 08:57 General appearance: Present: mild distress (Left leg pain) Results - Labs CBC & Chem 7: 12/02/21 16:50 12/02/21 16:50 Labs: Laboratory Last Values WBC 13.0 K/mm3 (4.5-11.0) H 12/02/21 16:50 RBC 3.37 M/mm3 (3.65-5.03) L 12/02/21 16:50 Hgb 10.6 gm/dl (10.1-14.3) 12/02/21 16:50 Hct 31.1 % (30.3-42.9) 12/02/21 16:50 MCV 92 fl (79-97) 12/02/21 16:50 MCH 31 pg (28-32) 12/02/21 16:50 MCHC 34 % (30-34) 12/02/21 16:50 RDW 14.3 % (13.2-15.2) 12/02/21 16:50 Plt Count 285 K/mm3 (140-440) 12/02/21 16:50 Lymph % (Auto) 16.1 % (13.4-35.0) 12/02/21 16:50 [place] % (Auto) 6.2 % (0.0-7.3) 12/02/21 16:50 Eos % (Auto) 0.1 % (0.0-4.3) 12/02/21 16:50 Baso % (Auto) 0.7 % (0.0-1.8) 12/02/21 16:50 Lymph # (Auto) 2.1 K/mm3 (1.2-5.4) 12/02/21 16:50 [place] # (Auto) 0.8 K/mm3 (0.0-0.8) 12/02/21 16:50 Eos # (Auto) 0.0 K/mm3 (0.0-0.4) 12/02/21 16:50 Baso # (Auto) 0.1 K/mm3 (0.0-0.1) 12/02/21 16:50 Seg Neutrophils % 76.9 % (40.0-70.0) H 12/02/21 16:50 Seg Neutrophils # 10.0 K/mm3 (1.8-7.7) H 12/02/21 16:50 PT 14.4 Sec. (12.2-14.9) 12/02/21 23:31 INR 0.98 (0.87-1.13) 12/02/21 23:31 APTT 43.3 Sec. (24.2-36.6) H 12/02/21 23:31 Sodium 139 mmol/L (137-145) 12/02/21 16:50 Potassium 3.4 mmol/L (3.6-5.0) L 12/02/21 16:50 Chloride 100.6 mmol/L (98-107) 12/02/21 16:50 Carbon Dioxide 22 mmol/L (22-30) 12/02/21 16:50 Anion Gap 20 mmol/L 12/02/21 16:50 BUN 11 mg/dL (7-17) 12/02/21 16:50 Creatinine 0.8 mg/dL (0.6-1.2) 12/02/21 16:50 Estimated GFR > 60 ml/min 12/02/21 16:50 BUN/Creatinine Ratio 14 % 12/02/21 16:50 Glucose 134 mg/dL (65-100) H 12/02/21 16:50 Calcium 8.7 mg/dL (8.4-10.2) 12/02/21 16:50 Total Bilirubin 0.60 mg/dL (0.1-1.2) 12/02/21 16:50 AST 45 units/L (5-40) H 12/02/21 16:50 ALT 40 units/L (7-56) 12/02/21 16:50 Alkaline Phosphatase 85 units/L (35-129) 12/02/21 16:50 Total Protein 7.0 g/dL (6.3-8.2) 12/02/21 16:50 Albumin 3.0 g/dL (3.9-5) L 12/02/21 16:50 Albumin/Globulin Ratio 0.8 % 12/02/21 16:50 [place]berg/IV: Voiding Method External Female Catheter Active Medications - Current Medications Current Medications: Generic Name Dose Route Start Last Admin Trade Name Freq PRN Reason Stop Dose Admin Acetaminophen 650 mg 12/02/21 23:36 Acetaminophen 325 Mg Tab PO Q4H PRN Pain MILD(1-3)/Fever >100.5/TORIBIO Aspirin 81 mg 12/03/21 11:00 Aspirin Ec 81 Mg Tab PO QDAY ESAU Dextrose 50 ml 12/02/21 23:36 Dextrose 50% In Water (25gm) 50 Ml Syringe IV Q30MIN PRN Hypoglycemia Protocol Heparin Sodium (Porcine) 3,000 unit 12/02/21 21:57 Heparin Prn Bolus(Standard Intensity Drip) 40 unit/kg (3000 unit) IV Q6H PRN For Heparin Anti-Xa < 0.1 Heparin Sodium/Sodium Chloride 25,000 unit in 250 mls @ 13.88 mls/hr 12/02/21 22:00 12/03/21 00:24 Heparin/ 0.45% Nacl-25,000 Unit/250 Ml IV 18 units/kg/hr TITR ESAU 13.88 mls/hr Administration Protocol 18 UNITS/KG/HR Sodium Chloride 1,000 mls @ 125 mls/hr 12/02/21 23:45 Nacl 0.9% 1000 Ml IV DIRECT ESAU Insulin Human Lispro 0 unit 12/03/21 07:30 12/03/21 09:43 Insulin Lispro 100 Unit/Ml SUB-Q Not Given ACHS [facility] Protocol Magnesium Hydroxide 30 ml 12/02/21 23:36 Magnesium Hydroxide (Mom) Oral Liqd Udc PO Q4H PRN Constipation Morphine Sulfate 2 mg 12/02/21 23:36 Morphine 2 Mg/1 Ml Inj IV Q4H PRN Pain, Moderate (4-6) Morphine Sulfate 4 mg 12/02/21 23:36 Morphine 4 Mg/1 Ml Inj IV Q4H PRN Pain , Severe (7-10) Naloxone HCl 0.1 mg 12/02/21 22:33 Naloxone 0.4 Mg/1 Ml Inj IV Q2MIN PRN Res Rate </= 8 or 02 SAT < 92% Ondansetron HCl 4 mg 12/02/21 23:36 Ondansetron 4 Mg/2 Ml Inj IV Q8H PRN Nausea And Vomiting Sodium Chloride 10 ml 12/03/21 10:00 12/03/21 09:43 Sodium Chloride 0.9% 10 Ml Flush Syringe IV 10 ml BID ESAU Administration Sodium Chloride 10 ml 12/02/21 23:36 Sodium Chloride 0.9% 10 Ml Flush Syringe IV PRN PRN LINE FLUSH Nutrition/Malnutrition Assess - Dietary Evaluation Nutrition/Malnutrition Findings: Nutrition Notes Start: 12/03/21 11:09 Freq: Status: Active Protocol: Document 12/03/21 11:09 MOISES (Rec: 12/03/21 11:30 MOISES [id number]) Nutrition Notes Need for Assessment generated from: MD Order,Education Initial or Follow up Brief Note Current Diagnosis Diabetes,Hypertension Other Pertinent Diagnosis L-LE Arterial Occlusion/Pain/ Swelling, Leukocytosis, Hx Atrial Fibrilation, Current Diet Cardiac/Consistent Carbohydrates Diet (since B ). Height 5 ft 7 in Weight 77.111 kg [place] Body Weight (kg) 61.36 BMI 26.6 Weight change and time frame None provided at admission. Weight Status Overweight Subjective/Other Information RD consult for nutrition education assessment. No reports available on Pt's PO intake of meals at the time , will assess at F/U. Pt is on Room Air, O2 saturation @ 97%, according to Physical Assessment History notes. Pt shows a L-Calf blister formation as signs of concern for skin risk at the time, according to Physical Assessment History notes. 7 to 10 days of accute ischemia of L-Foot w/stage III Seun, the foot is no longer salvageable; L-BKA or L -AKA is recommended, according to Vascular Surgeon Consultation notes. Pt needs total assistance with ADL activities, not a candidate for Nutrition Education. Percent of energy/protein needs met: Prescribed Cardiac/Consistent Carbohydrates Diet provides for energy/protein needs (1, 977 Kcal/86 g) during LOS. Nutrition Intervention Follow-Up By: 12/10/21 Additional Comments Continue monitoring food tolerance, %PO intake of meals , and BM.
[2021-12-03] MEDS: ASPIRIN EC 81 MG TAB PO SCH (12:12)
--- NOTE | 2021-12-03 14:49 | Consultation ---
History of Present Illness Consult date: 12/03/21 Requesting physician: KELTON PRICE Consult reason: pre op evaluation History of present illness: This patient is 71-year-old female with a significant history of hypertension, diabetes, dementia, remote atrial fibrillation. Patient is previously unknown to our practice. Patient presents to [facility] for evaluation of suspected ischemic limb: Left foot. Limb is cool to the touch wi th no discernible pedal pulse. Cardiology is consulted for preoperative risk assessment prior to potential vascular intervention. Family reports no known cardiology history, not currently followed by cardiology. Patient is not answering questions, possibly due to dementia history. Family states patient is not nonverbal but frequently refuses to participate in care. Patient is currently in no apparent distress at time of interview. Twelve-lead ECG shows sinus tach heart rate 102 with T wave abnormalities. Echocardiogram 2019: LVEF 55 to 60%. Echocardiogram is pending Past History Past Medical History: diabetes, hypertension, other (Dementia, psychosis) Past Surgical History: No surgical history Social history: no significant social history Medications and Allergies Allergies Allergy/AdvReac Type Severity Reaction Status Date / Time No Known Allergies Allergy Verified 12/02/21 16:31 Home Medications Medication Instructions Recorded Confirmed Last Taken Type haloperidoL [Haloperidol] 1.5 tab PO QAM 12/17/20 12/17/20 Unknown History haloperidoL [Haloperidol] 5 mg PO HS 12/17/20 12/17/20 Unknown History Benztropine [Cogentin] 1 mg PO BID 30 Days #60 tablet 12/19/[address] [Eren Gonzalez] 1,000 mg PO BID 30 Days #120 tablet 12/19/20 Unknown Rx Escitalopram [Lexapro] 5 mg PO QDAY 30 Days #15 tablet 12/19/20 Unknown Rx Losartan [Cozaar] 100 mg PO QDAY 30 Days #30 tablet 12/19/20 Unknown Rx Magnesium Oxide [Mag-Ox] 400 mg PO BID 30 Days #60 tablet 12/19/20 Unknown Rx Mirtazapine [Remeron 15mg TAB] 15 mg PO QHS 30 Days #30 tablet 12/19/20 Unknown Rx Nitrofurantoin Macrocrystal 100 mg PO BID 3 Days #6 capsule 12/19/20 Unknown Rx [Nitrofurantoin] Thiamine [Vitamin B-1] 100 mg PO QDAY 30 Days #30 tablet 12/19/20 Unknown Rx amLODIPine 10 mg PO QDAY 30 Days #30 tablet 12/19/20 Unknown Rx donepeziL [Aricept] 5 mg PO QHS 30 Days #30 tablet 12/19/20 Unknown Rx hydrOXYzine PAMOATE [Vistaril] 50 mg PO QHS 30 Days #30 capsule 12/19/20 Unknown Rx risperiDONE [RisperDAL] 3 mg PO BID 30 Days #60 tablet 12/19/20 Unknown Rx Active Meds: Active Medications Acetaminophen (Acetaminophen 325 Mg Tab) 650 mg PO Q4H PRN PRN Reason: Pain MILD(1-3)/Fever >100.5/TORIBIO Amlodipine Besylate (Amlodipine 10 Mg Tab) 10 mg PO QDAY ESAU Aspirin (Aspirin Ec 81 Mg Tab) 81 mg PO QDAY [facility] Last Admin: 12/03/21 12:12 Dose: Not Given Benztropine Mesylate (Benztropine 1 Mg Tab) 1 mg PO BID [facility] Dextrose (Dextrose 50% In Water (25gm) 50 Ml Syringe) 50 ml IV Q30MIN PRN; Protocol PRN Reason: Hypoglycemia Divalproex Sodium (Divalproex Dr 500 Mg Tab) 1,000 mg PO BID ESAU Donepezil HCl (Donepezil 5 Mg Tab) 5 mg PO QHS [facility] Heparin Sodium (Porcine) (Heparin Prn Bolus(Standard Intensity Drip)) 3,000 unit 40 unit/kg (3000 unit) IV Q6H PRN PRN Reason: For Heparin Anti-Xa < 0.1 Heparin Sodium/Sodium Chloride (Heparin/ 0.45% Nacl-25,000 Unit/250 Ml) 25,000 unit in 250 mls @ 13.88 mls/hr IV TITR ESAU; Protocol Last Admin: 12/03/21 00:24 Dose: 18 units/kg/hr, 13.88 mls/hr Sodium Chloride (Nacl 0.9% 1000 Ml) 1,000 mls @ 125 mls/hr IV DIRECT ESAU Insulin Human Lispro (Insulin Lispro 100 Unit/Ml) 0 unit SUB-Q ACHS ESAU; Pr otocol Last Admin: 12/03/21 12:46 Dose: Not Given Magnesium Hydroxide (Magnesium Hydroxide (Mom) Oral Liqd Udc) 30 ml PO Q4H PRN PRN Reason: Constipation Mirtazapine (Mirtazapine 15 Mg Tab) 15 mg PO QHS [facility] Morphine Sulfate (Morphine 2 Mg/1 Ml Inj) 2 mg IV Q4H PRN PRN Reason: Pain, Moderate (4-6) Morphine Sulfate (Morphine 4 Mg/1 Ml Inj) 4 mg IV Q4H PRN PRN Reason: Pain , Severe (7-10) Naloxone HCl (Naloxone 0.4 Mg/1 Ml Inj) 0.1 mg IV Q2MIN PRN PRN Reason: Res Rate </= 8 or 02 SAT < 92% Ondansetron HCl (Ondansetron 4 Mg/2 Ml Inj) 4 mg IV Q8H PRN PRN Reason: Nausea And Vomiting Sodium Chloride (Sodium Chloride 0.9% 10 Ml Flush Syringe) 10 ml IV BID [facility] Last Admin: 12/03/21 09:43 Dose: 10 ml Sodium Chloride (Sodium Chloride 0.9% 10 Ml Flush Syringe) 10 ml IV PRN PRN PRN Reason: LINE FLUSH Review of Systems ROS unobtainable: due to mental status (Patient uncooperative. Family interviewed at bedside.) Constitutional: no weight loss, no weight gain, no fever, no chills, no sweats Ears, nose, mouth and throat: no ear pain, no ear discharge, no tinnitis, no decreased hearing, no nose pain, no nasal congestion, no nasal discharge Cardiovascular: no chest pain, no orthopnea, no palpitations, no rapid/irregular heart beat, no edema, no syncope, no lightheadedness, no shortness of breath Respiratory: no cough, no cough with sputum, no excessive sputum, no hemoptysis, no shortness of breath, no dyspnea on exertion Gastrointestinal: no abdominal pain, no nausea, no vomiting, no diarrhea Musculoskeletal: leg numbness/tingling, no neck stiffness, no neck pain, no shooting arm pain, no arm numbness/tingling, no low back pain, no shooting leg pain Integumentary: foot/leg ulcers, no rash, no pruritis, no redness, no wounds, no jaundice Neurological: no head injury, no transient paralysis, no paralysis, no weakness, no parathesias, no numbness, no tingling, no seizures, no syncope Psychiatric: depression, irritability, no anxiety Endocrine: no cold intolerance, no heat intolerance Hematologic/Lymphatic: no easy bruising, no easy bleeding Allergic/Immunologic: no urticaria Physical Examination Last Vital Signs Temp 98.0 F 12/03/21 08:57 Pulse 108 H 12/03/21 12:43 Resp 16 12/03/21 10:50 BP 139/70 12/03/21 08:57 Pulse Ox 98 12/03/21 10:50 General appearance: no acute distress HEENT: Positive: Normocephaly, Mucus Membranes Moist Cardiac: Positive: Regular Rate Lungs: Positive: Normal Exam, Normal Breath Sounds Neuro: Positive: Numbness (Left foot) Abdomen: Positive: Unremarkable, Soft, Active Bowel Sounds Skin: Positive: Other Musculoskeletal: Normal Range of Motion Extremities: Present: upper extr. pulses, Cold (Left foot). Absent: lower extr. pulses, edema Results 12/02/21 16:50 12/02/21 16:50 Cardiac Enzymes 12/02/21 Range/Units 16:50 AST 45 H (5-40) units/L Coagulation 12/02/21 Range/Units 23:31 PT 14.4 (12.2-14.9) Sec. INR 0.98 (0.87-1.13) APTT 43.3 H (24.2-36.6) Sec. CBC 12/02/21 Range/Units 16:50 WBC 13.0 H (4.5-11.0) K/mm3 RBC 3.37 L (3.65-5.03) M/mm3 Hgb 10.6 (10.1-14.3) gm/dl Hct 31.1 (30.3-42.9) % Plt Count 285 (140-440) K/mm3 Lymph # (Auto) 2.1 (1.2-5.4) K/mm3 [place] # (Auto) 0.8 (0.0-0.8) K/mm3 Eos # (Auto) 0.0 (0.0-0.4) K/mm3 Baso # (Auto) 0.1 (0.0-0.1) K/mm3 Comprehensive Metabolic Panel 12/02/21 Range/Units 16:50 Sodium 139 (137-145) mmol/L Potassium 3.4 L (3.6-5.0) mmol/L Chloride 100.6 (98-107) mmol/L Carbon Dioxide 22 (22-30) mmol/L BUN 11 (7-17) mg/dL Creatinine 0.8 (0.6-1.2) mg/dL Glucose 134 H (65-100) mg/dL Calcium 8.7 (8.4-10.2) mg/dL AST 45 H (5-40) units/L ALT 40 (7-56) units/L Alkaline Phosphatase 85 (35-129) units/L Total Protein 7.0 (6.3-8.2) g/dL Albumin 3.0 L (3.9-5) g/dL - Imaging and Cardiology Echo: pending EKG: report reviewed, image reviewed EKG interpretations - Telemetry EKG Rhythm: Sinus Tachycardia - EKG Sinus rhythms and dysrhythmias: sinus tachycardia Assessment and Plan Ischemic limb * Currently on heparin drip * Vascular surgery is following * Preoperative cardiac risk assessment is pending repeat echocardiogram Remote history of atrial fibrillation * Telemetry currently shows sinus tachycardia rate 103. Continue to monitor on telemetry Altered mental status in setting of known dementia * Patient is currently nonverbal/noncooperative with interview. Family states she is able to answer questions and follow directions but is frequently adversarial. Echocardiogram pending. We will follow This patient was seen in conjunction with Dr Chung Lion who agrees with assessment and plan of care - Patient Problems (1) Altered mental status Current Visit: No Status: Acute Qualifiers: Altered mental status type: unspecified Qualified Code(s): R41.82 - Altered mental status, unspecified (2) Diabetes Current Visit: No Status: Acute (3) Bipolar disorder Current Visit: No Status: Chronic (4) HTN (hypertension) Current Visit: No Status: Chronic Qualifiers: Hypertension type: essential hypertension Qualified Code(s): I10 - Essential (primary) hypertension (5) Ischemic leg Current Visit: Yes Status: Acute
--- NOTE | 2021-12-03 17:53 | Electrocardiograph Report ---
[facility] Test Date: 2021-12-03 Test Time: 12:22:42 Pat Name: CAREN WALLACE Department: Room: A471 1 Gender: F Dock Grader: TELE : [id number] Requested By: RAHUL YEAGER Order Number: [id number] Reading MD: Mateo Betancourt Measurements Intervals [place] Rate: 102 P: 61 IA: 142 QRS: 12 QRSD: 91 T: 176 QT: 405 QTc: 528 Interpretive Statements Sinus tachycardia Probable left atrial enlargement T wave abnormality, consider lateral ischemia Prolonged QT interval Compared to ECG 12/16/2020 18:00:55 Sinus rate has decreased Lateral T wave inversions are now evident Electronically Signed On 12-03-2021 17:53:09 EDT by Mateo Betancourt
[2021-12-03] MEDS: amLODIPine 10 MG TAB PO SCH (18:06)
[2021-12-03] MEDS: DIVALPROEX DR 500 MG TAB PO SCH (21:41)
[2021-12-03] MEDS: DONEPEZIL 5 MG TAB PO SCH (21:41)
[2021-12-03] MEDS: MIRTAZAPINE 15 MG TAB PO SCH (21:42)
[2021-12-03] MEDS: BENZTROPINE 1 MG TAB PO SCH (21:42)
[2021-12-04] MEDS: INSULIN LISPRO 100 UNIT/ML SUB-Q SCH ×4 (07:58→22:40)
[2021-12-04] MEDS: MORPHINE 2 MG/1 ML INJ IV PRN (09:57)
[2021-12-04] MEDS ORDERED: LOSARTAN 50 MG TAB PO SCH (10:00)
[2021-12-04] MEDS: DIVALPROEX DR 500 MG TAB PO SCH ×2 (10:06→22:40)
[2021-12-04] MEDS: BENZTROPINE 1 MG TAB PO SCH ×2 (10:07→22:40)
[2021-12-04] MEDS: amLODIPine 10 MG TAB PO SCH (10:07)
[2021-12-04] MEDS: ASPIRIN EC 81 MG TAB PO SCH (10:07)
--- NOTE | 2021-12-04 11:38 | Progress Note ---
Assessment and Plan This patient is 71-year-old female with a significant history of hypertension, diabetes, dementia, remote atrial fibrillation who presented for suspected ischemic limbs Ischemic limb- Vascular surgery following Remote history of atrial fibrillation Altered mental status Dementia Echocardiogram 2019: LVEF 55 to 60%. Plan: Twelve-lead ECG shows sinus tach heart rate 102 with T wave abnormalities Telemetry currently shows sinus tachycardia rate 100s-110s. Continue to monitor on telemetry Currently anticoagulated on heparin drip Patient is a moderate risk. As patient is not in acute heart failure no immediate contraindications to Vascular intervention Preliminary echo results show EF of 40 to 45% and a mature apical thrombus. Finalized echo results pending This patient was seen in conjunction with Dr Chung Lion who agrees with assessment and plan of care - Patient Problems (1) Ischemic leg Current Visit: Yes Status: Acute (2) Severe peripheral arterial disease Current Visit: Yes Status: Acute (3) Diabetes Current Visit: No Status: Acute (4) HTN (hypertension) Current Visit: No Status: Chronic Qualifiers: Hypertension type: essential hypertension Qualified Code(s): I10 - Essential (primary) hypertension Subjective Date of service: 12/04/21 Principal diagnosis: Ischemic limb Interval history: Patient sitting in bed in no acute distress. Patient reports left lower extremity pain Sinus tach 100s to 110s Objective Vital Signs Temp Pulse Pulse Resp BP BP Pulse Ox 12/04/21 08:24 98.8 F 116 H 18 142/86 100 12/04/21 08:00 116 H 18 98 12/04/21 03:57 98.8 F 116 H 12 145/86 100 12/03/21 23:52 98.8 F 18 152/78 12/03/21 20:43 98 12/03/21 20:39 109 H 12/03/21 20:09 97.3 F L 18 115/45 94 12/03/21 19:57 98.1 F 14 153/87 12/03/21 17:54 98.5 F 109 H 18 142/79 100 12/03/21 12:43 108 H - Physical Examination General: No Apparent Distress HEENT: Positive: Normocephaly, Mucus Membranes Moist Cardiac: Positive: Regular Rhythm, Tachycardia Lungs: Positive: Normal Breath Sounds Neuro: Positive: Numbness (Left foot) Abdomen: Positive: Unremarkable, Soft, Active Bowel Sounds Skin: Positive: Other Musculoskeletal: Normal Range of Motion Extremities: Present: upper extr. pulses, Cold (Left foot). Absent: lower extr. pulses, edema - Imaging and Cardiology EKG: report reviewed, image reviewed Echo: pending - Telemetry EKG Rhythm: Sinus Tachycardia - EKG Sinus rhythms and dysrhythmias: sinus tachycardia
--- NOTE | 2021-12-04 12:04 | Progress Note ---
Assessment and Plan Assessment and plan: #Sepsis secondary to limb ischemia #Left lower extremity arterial occlusion #Limb ischemia -CT angiogram of ABD/pelvis/lower extremities showed multifocal thrombi resulti ng in multifocal occlusion in bilateral lower extremity without runoff to left ankle, near occlusive thrombus in right popliteal artery and right posterior tibial artery -Cardiology consulted for pre-op risk stratification, pending TTE read -Vascular surgery consulted, assistance appreciated -continue heparin gtt -plan for intervention in the coming days #Hypertension -continue amlodipine at home dose #Type 2 Diabetes Mellitus -continue SSI + accuchecks -blood glucose currently at goal #Dementia -stable -continue donepezil and cogentin #Hypokalemia -K 3.4, will replete and monitor #Moderate protein calorie malnutrition -Albumin 3.0 -nutrition consult History Interval history: No acute events overnight per nursing. Patient sitting on the side of the bed and conversant today. She reports pain in her left leg but did not want any pain medications when offered. Patient easily re-directable. Hospitalist Physical - Physical exam Narrative exam: GENERAL: Well-developed well-nourished. In no acute distress. HEENT: Normocephalic. Atraumatic. CHEST/LUNGS: CTAB on room air HEART/CARDIOVASCULAR: Tachycardic. No murmur, rubs or gallops appreciated. ABDOMEN: +BS. NT/ND. SKIN: LLE with blistering and darkening of the skin. NEURO: Patient able to follow simple commands. MUSCULOSKELETAL: No joint effusion EXTREMITIES: LLE cyanosis. Cold L foot without palpable pedal pulses. R foot with blood flow and palpable pulses. PSYCH: Cooperative. Waxing, waning mental status. - Constitutional Vitals: Temp Pulse Resp BP Pulse Ox 98.8 F 116 H 18 142/86 100 12/04/21 08:24 12/04/21 08:24 12/04/21 08:24 12/04/21 08:24 12/04/21 08:24 Results - Labs CBC & Chem 7: 12/02/21 16:50 12/02/21 16:50 Labs: Laboratory Last Values WBC 13.0 K/mm3 (4.5-11.0) H 12/02/21 16:50 RBC 3.37 M/mm3 (3.65-5.03) L 12/02/21 16:50 Hgb 10.6 gm/dl (10.1-14.3) 12/02/21 16:50 Hct 31.1 % (30.3-42.9) 12/02/21 16:50 MCV 92 fl (79-97) 12/02/21 16:50 MCH 31 pg (28-32) 12/02/21 16:50 MCHC 34 % (30-34) 12/02/21 16:50 RDW 14.3 % (13.2-15.2) 12/02/21 16:50 Plt Count 285 K/mm3 (140-440) 12/02/21 16:50 Lymph % (Auto) 16.1 % (13.4-35.0) 12/02/21 16:50 Hand % (Auto) 6.2 % (0.0-7.3) 12/02/21 16:50 Eos % (Auto) 0.1 % (0.0-4.3) 12/02/21 16:50 Baso % (Auto) 0.7 % (0.0-1.8) 12/02/21 16:50 Lymph # (Auto) 2.1 K/mm3 (1.2-5.4) 12/02/21 16:50 Hand # (Auto) 0.8 K/mm3 (0.0-0.8) 12/02/21 16:50 Eos # (Auto) 0.0 K/mm3 (0.0-0.4) 12/02/21 16:50 Baso # (Auto) 0.1 K/mm3 (0.0-0.1) 12/02/21 16:50 Seg Neutrophils % 76.9 % (40.0-70.0) H 12/02/21 16:50 Seg Neutrophils # 10.0 K/mm3 (1.8-7.7) H 12/02/21 16:50 PT 14.4 Sec. (12.2-14.9) 12/02/21 23:31 INR 0.98 (0.87-1.13) 12/02/21 23:31 APTT 43.3 Sec. (24.2-36.6) H 12/02/21 23:31 Heparin Anti-Xa Level 0.34 U.I./ml (0.3-0.7) 12/04/21 00:45 Sodium 139 mmol/L (137-145) 12/02/21 16:50 Potassium 3.4 mmol/L (3.6-5.0) L 12/02/21 16:50 Chloride 100.6 mmol/L (98-107) 12/02/21 16:50 Carbon Dioxide 22 mmol/L (22-30) 12/02/21 16:50 Anion Gap 20 mmol/L 12/02/21 16:50 BUN 11 mg/dL (7-17) 12/02/21 16:50 Creatinine 0.8 mg/dL (0.6-1.2) 12/02/21 16:50 Estimated GFR > 60 ml/min 12/02/21 16:50 BUN/Creatinine Ratio 14 % 12/02/21 16:50 Glucose 134 mg/dL (65-100) H 12/02/21 16:50 POC Glucose 123 mg/dL (70-105) H 12/04/21 07:40 Calcium 8.7 mg/dL (8.4-10.2) 12/02/21 16:50 Total Bilirubin 0.60 mg/dL (0.1-1.2) 12/02/21 16:50 AST 45 units/L (5-40) H 12/02/21 16:50 ALT 40 units/L (7-56) 12/02/21 16:50 Alkaline Phosphatase 85 units/L (35-129) 12/02/21 16:50 Total Protein 7.0 g/dL (6.3-8.2) 12/02/21 16:50 Albumin 3.0 g/dL (3.9-5) L 12/02/21 16:50 Albumin/Globulin Ratio 0.8 % 12/02/21 16:50 Rosenberg/IV: Voiding Method External Female Catheter Active Medications - Current Medications Current Medications: Generic Name Dose Route Start Last Admin Trade Name Freq PRN Reason Stop Dose Admin Acetaminophen 650 mg 12/02/21 23:36 Acetaminophen 325 Mg Tab PO Q4H PRN Pain MILD(1-3)/Fever >100.5/TORIBIO Amlodipine Besylate 10 mg 12/03/21 15:00 12/04/21 10:07 Amlodipine 10 Mg Tab PO 10 mg QDAY ESAU Administration Aspirin 81 mg 12/03/21 11:00 12/04/21 10:07 Aspirin Ec 81 Mg Tab PO 81 mg QDAY ESAU Administration Benztropine Mesylate 1 mg 12/03/21 22:00 12/04/21 10:07 Benztropine 1 Mg Tab PO 1 mg BID ESAU Administration Dextrose 50 ml 12/02/21 23:36 Dextrose 50% In Water (25gm) 50 Ml Syringe IV Q30MIN PRN Hypoglycemia Protocol Divalproex Sodium 1,000 mg 12/03/21 22:00 12/04/21 10:[address] 500 Mg Tab PO 1,000 mg BID ESAU Administration Donepezil HCl 5 mg 12/03/21 22:00 12/03/21 21:41 Donepezil 5 Mg Tab PO 5 mg QHS ESAU Administration Heparin Sodium (Porcine) 3,000 unit 12/02/21 21:57 Heparin Prn Bolus(Standard Intensity Drip) 40 unit/kg (3000 unit) IV Q6H PRN For Heparin Anti-Xa < 0.1 Heparin Sodium/Sodium Chloride 25,000 unit in 250 mls @ 13.88 mls/hr 12/02/21 22:00 12/04/21 01:43 Heparin/ 0.45% Nacl-25,000 Unit/250 Ml IV 18 units/kg/hr TITR ESAU 13.88 mls/hr Titration Protocol 18 UNITS/KG/HR Sodium Chloride 1,000 mls @ 125 mls/hr 12/02/21 23:45 Nacl 0.9% 1000 Ml IV DIRECT [facility] Insulin Human Lispro 0 unit 12/03/21 07:30 12/04/21 07:58 Insulin Lispro 100 Unit/Ml SUB-Q Not Given ACHS [facility] Protocol Magnesium Hydroxide 30 ml 12/02/21 23:36 Magnesium Hydroxide (Mom) Oral Liqd Udc PO Q4H PRN Constipation Mirtazapine 15 mg 12/03/21 22:00 12/03/21 21:42 Mirtazapine 15 Mg Tab PO 15 mg QHS ESAU Administration Morphine Sulfate 2 mg 12/02/21 23:36 12/04/21 09:57 Morphine 2 Mg/1 Ml Inj IV 2 mg Q4H PRN Administration Pain, Moderate (4-6) Morphine Sulfate 4 mg 12/02/21 23:36 Morphine 4 Mg/1 Ml Inj IV Q4H PRN Pain , Severe (7-10) Naloxone HCl 0.1 mg 12/02/21 22:33 Naloxone 0.4 Mg/1 Ml Inj IV Q2MIN PRN Res Rate </= 8 or 02 SAT < 92% Ondansetron HCl 4 mg 12/02/21 23:36 Ondansetron 4 Mg/2 Ml Inj IV Q8H PRN Nausea And Vomiting Sodium Chloride 10 ml 12/03/21 10:00 12/04/21 10:07 Sodium Chloride 0.9% 10 Ml Flush Syringe IV 10 ml BID ESAU Administration Sodium Chloride 10 ml 12/02/21 23:36 Sodium Chloride 0.9% 10 Ml Flush Syringe IV PRN PRN LINE FLUSH Nutrition/Malnutrition Assess - Dietary Evaluation Nutrition/Malnutrition Findings: Nutrition Notes Start: 12/03/21 11:09 Freq: Status: Active Protocol: Document 12/03/21 11:09 MOISES (Rec: 12/03/21 11:30 MOISES [id number]) Nutrition Notes Need for Assessment generated from: MD Order,Education Initial or Follow up Brief Note Current Diagnosis Diabetes,Hypertension Other Pertinent Diagnosis L-LE Arterial Occlusion/Pain/ Swelling, Leukocytosis, Hx Atrial Fibrilation, Current Diet Cardiac/Consistent Carbohydrates Diet (since B ). Height 5 ft 7 in Weight 77.111 kg [place] Body Weight (kg) 61.36 BMI 26.6 Weight change and time frame None provided at admission. Weight Status Overweight Subjective/Other Information RD consult for nutrition education assessment. No reports available on Pt's PO intake of meals at the time , will assess at F/U. Pt is on Room Air, O2 saturation @ 97%, according to Physical Assessment History notes. Pt shows a L-Calf blister formation as signs of concern for skin risk at the time, according to Physical Assessment History notes. 7 to 10 days of accute ischemia of L-Foot w/stage III [place], the foot is no longer salvageable; L-BKA or L -AKA is recommended, according to Vascular Surgeon Consultation notes. Pt needs total assistance with ADL activities, not a candidate for Nutrition Education. Percent of energy/protein needs met: Prescribed Cardiac/Consistent Carbohydrates Diet provides for energy/protein needs (1, 977 Kcal/86 g) during LOS. Nutrition Intervention Follow-Up By: 12/10/21 Additional Comments Continue monitoring food tolerance, %PO intake of meals , and BM.
[2021-12-04 16:39] LABS: Hematocrit 32.1 % (30.3-42.9); Hemoglobin 10.4 gm/dl (10.1-14.3); Mean Corpuscular HGB Conc 32 % (30-34); Mean Corpuscular Volume 95 fl (79-97); Platelet Count 316 K/mm3 (140-440); Red Blood Count 3.36 M/mm3 (3.65-5.03)
[2021-12-04 16:57] LABS: BUN/Creatinine Ratio 11; Blood Urea Nitrogen 11 mg/dL (7-17); Calcium 8.7 mg/dL (8.4-10.2); Hemolysis Index 55
[2021-12-04] MEDS: HEPARIN/ 0.45% NACL DRIP 25,000 UNIT/250 ML BAG IV SCH (18:26)
[2021-12-04] MEDS: MIRTAZAPINE 15 MG TAB PO SCH (22:40)
[2021-12-04] MEDS: DONEPEZIL 5 MG TAB PO SCH (22:40)
--- NOTE | 2021-12-05 08:19 | Progress Note ---
Assessment and Plan Assessment and plan: #Sepsis secondary to limb ischemia #Left lower extremity arterial occlusion #Limb ischemia -CT angiogram of ABD/pelvis/lower extremities showed multifocal thrombi resulti ng in multifocal occlusion in bilateral lower extremity without runoff to left ankle, near occlusive thrombus in right popliteal artery and right posterior tibial artery -Cardiology consulted for pre-op risk stratification, patient at moderate risk can proceed with vascular intervention -Vascular surgery consulted, assistance appreciated -continue heparin gtt -plan for intervention in the coming days #Hypertension -continue amlodipine at home dose #Type 2 Diabetes Mellitus -continue SSI + accuchecks -blood glucose currently at goal #Dementia -stable -continue donepezil and cogentin #Hypokalemia -K 3.4, will replete and monitor #Moderate protein calorie malnutrition -Albumin 3.0 -nutrition consult History Interval history: No acute events overnight per nursing. Patient resting during examination. She opened her eyes to her name being called and closed them. She appeared to have no apparent discomfort. Hospitalist Physical - Physical exam Narrative exam: GENERAL: Well-developed well-nourished. In no acute distress. HEENT: Normocephalic. Atraumatic. CHEST/LUNGS: CTAB on room air HEART/CARDIOVASCULAR: Tachycardic. No murmur, rubs or gallops appreciated. ABDOMEN: +BS. NT/ND. SKIN: LLE with blistering and darkening of the skin. NEURO: Patient able to follow simple commands. MUSCULOSKELETAL: No joint effusion EXTREMITIES: LLE cyanosis. Cold L foot without palpable pedal pulses. R foot with blood flow and palpable pulses. PSYCH: Cooperative. Waxing, waning mental status. - Constitutional Vitals: Temp Pulse Resp BP Pulse Ox 98.9 F 111 H 16 150/79 97 12/05/21 03:34 12/05/21 03:34 12/05/21 03:34 12/05/21 03:34 12/05/21 03:34 General appearance: Present: no acute distress Results - Labs CBC & Chem 7: 12/04/21 16:13 12/04/21 16:13 Labs: Laboratory Last Values WBC 14.3 K/mm3 (4.5-11.0) H 12/04/21 16:13 RBC 3.36 M/mm3 (3.65-5.03) L 12/04/21 16:13 Hgb 10.4 gm/dl (10.1-14.3) 12/04/21 16:13 Hct 32.1 % (30.3-42.9) 12/04/21 16:13 MCV 95 fl (79-97) 12/04/21 16:13 MCH 31 pg (28-32) 12/04/21 16:13 MCHC 32 % (30-34) 12/04/21 16:13 RDW 15.0 % (13.2-15.2) 12/04/21 16:13 Plt Count 316 K/mm3 (140-440) 12/04/21 16:13 Lymph % (Auto) 16.1 % (13.4-35.0) 12/02/21 16:50 [place] % (Auto) 6.2 % (0.0-7.3) 12/02/21 16:50 Eos % (Auto) 0.1 % (0.0-4.3) 12/02/21 16:50 Baso % (Auto) 0.7 % (0.0-1.8) 12/02/21 16:50 Lymph # (Auto) 2.1 K/mm3 (1.2-5.4) 12/02/21 16:50 [place] # (Auto) 0.8 K/mm3 (0.0-0.8) 12/02/21 16:50 Eos # (Auto) 0.0 K/mm3 (0.0-0.4) 12/02/21 16:50 Baso # (Auto) 0.1 K/mm3 (0.0-0.1) 12/02/21 16:50 Seg Neutrophils % 76.9 % (40.0-70.0) H 12/02/21 16:50 Seg Neutrophils # 10.0 K/mm3 (1.8-7.7) H 12/02/21 16:50 PT 14.4 Sec. (12.2-14.9) 12/02/21 23:31 INR 0.98 (0.87-1.13) 12/02/21 23:31 APTT 43.3 Sec. (24.2-36.6) H 12/02/21 23:31 Heparin Anti-Xa Level 0.40 U.I./ml (0.3-0.7) 12/05/21 04:00 Sodium 139 mmol/L (137-145) 12/04/21 16:13 Potassium 3.7 mmol/L (3.6-5.0) 12/04/21 16:13 Chloride 101.6 mmol/L (98-107) 12/04/21 16:13 Carbon Dioxide 23 mmol/L (22-30) 12/04/21 16:13 Anion Gap 18 mmol/L 12/04/21 16:13 BUN 11 mg/dL (7-17) 12/04/21 16:13 Creatinine 1.0 mg/dL (0.6-1.2) 12/04/21 16:13 Estimated GFR > 60 ml/min 12/04/21 16:13 BUN/Creatinine Ratio 11 % 12/04/21 16:13 Glucose 115 mg/dL (65-100) H 12/04/21 16:13 POC Glucose 135 mg/dL (70-105) H 12/04/21 20:38 Calcium 8.7 mg/dL (8.4-10.2) 12/04/21 16:13 Total Bilirubin 0.60 mg/dL (0.1-1.2) 12/02/21 16:50 AST 45 units/L (5-40) H 12/02/21 16:50 ALT 40 units/L (7-56) 12/02/21 16:50 Alkaline Phosphatase 85 units/L (35-129) 12/02/21 16:50 Total Protein 7.0 g/dL (6.3-8.2) 12/02/21 16:50 Albumin 3.0 g/dL (3.9-5) L 12/02/21 16:50 Albumin/Globulin Ratio 0.8 % 12/02/21 16:50 Rosenberg/IV: Voiding Method External Female Catheter Active Medications - Current Medications Current Medications: Generic Name Dose Route Start Last Admin Trade Name Freq PRN Reason Stop Dose Admin Acetaminophen 650 mg 12/02/21 23:36 Acetaminophen 325 Mg Tab PO Q4H PRN Pain MILD(1-3)/Fever >100.5/TORIBIO Amlodipine Besylate 10 mg 12/03/21 15:00 12/04/21 10:07 Amlodipine 10 Mg Tab PO 10 mg QDAY ESAU Administration Aspirin 81 mg 12/03/21 11:00 12/04/21 10:07 Aspirin Ec 81 Mg Tab PO 81 mg QDAY ESAU Administration Benztropine Mesylate 1 mg 12/03/21 22:00 12/04/21 22:40 Benztropine 1 Mg Tab PO 1 mg BID ESAU Administration Dextrose 50 ml 12/02/21 23:36 Dextrose 50% In Water (25gm) 50 Ml Syringe IV Q30MIN PRN Hypoglycemia Protocol Divalproex Sodium 1,000 mg 12/03/21 22:00 12/04/21 22:[address] 500 Mg Tab PO 1,000 mg BID ESAU Administration Donepezil HCl 5 mg 12/03/21 22:00 12/04/21 22:40 Donepezil 5 Mg Tab PO 5 mg QHS ESAU Administration Heparin Sodium (Porcine) 3,000 unit 12/02/21 21:57 Heparin Prn Bolus(Standard Intensity Drip) 40 unit/kg (3000 unit) IV Q6H PRN For Heparin Anti-Xa < 0.1 Heparin Sodium/Sodium Chloride 25,000 unit in 250 mls @ 13.88 mls/hr 12/02/21 22:00 12/04/21 18:26 Heparin/ 0.45% Nacl-25,000 Unit/250 Ml IV 18 units/kg/hr TITR ESAU 13.88 mls/hr Administration Protocol 18 UNITS/KG/HR Sodium Chloride 1,000 mls @ 125 mls/hr 12/02/21 23:45 Nacl 0.9% 1000 Ml IV DIRECT [facility] Insulin Human Lispro 0 unit 12/03/21 07:30 12/04/21 22:40 Insulin Lispro 100 Unit/Ml SUB-Q Not Given ACHS [facility] Protocol Magnesium Hydroxide 30 ml 12/02/21 23:36 Magnesium Hydroxide (Mom) Oral Liqd Udc PO Q4H PRN Constipation Mirtazapine 15 mg 12/03/21 22:00 12/04/21 22:40 Mirtazapine 15 Mg Tab PO 15 mg QHS [facility] Administration Morphine Sulfate 2 mg 12/02/21 23:36 12/04/21 09:57 Morphine 2 Mg/1 Ml Inj IV 2 mg Q4H PRN Administration Pain, Moderate (4-6) Morphine Sulfate 4 mg 12/02/21 23:36 Morphine 4 Mg/1 Ml Inj IV Q4H PRN Pain , Severe (7-10) Naloxone HCl 0.1 mg 12/02/21 22:33 Naloxone 0.4 Mg/1 Ml Inj IV Q2MIN PRN Res Rate </= 8 or 02 SAT < 92% Ondansetron HCl 4 mg 12/02/21 23:36 Ondansetron 4 Mg/2 Ml Inj IV Q8H PRN Nausea And Vomiting Sodium Chloride 10 ml 12/03/21 10:00 12/04/21 22:41 Sodium Chloride 0.9% 10 Ml Flush Syringe IV 10 ml BID ESAU Administration Sodium Chloride 10 ml 12/02/21 23:36 Sodium Chloride 0.9% 10 Ml Flush Syringe IV PRN PRN LINE FLUSH Nutrition/Malnutrition Assess - Dietary Evaluation Nutrition/Malnutrition Findings: Nutrition Notes Start: 12/03/21 11:09 Freq: Status: Active Protocol: Document 12/03/21 11:09 MOISES (Rec: 12/03/21 11:30 MOISES [id number]) Nutrition Notes Need for Assessment generated from: MD Order,Education Initial or Follow up Brief Note Current Diagnosis Diabetes,Hypertension Other Pertinent Diagnosis L-LE Arterial Occlusion/Pain/ Swelling, Leukocytosis, Hx Atrial Fibrilation, Current Diet Cardiac/Consistent Carbohydrates Diet (since B ). Height 5 ft 7 in Weight 77.111 kg [place] Body Weight (kg) 61.36 BMI 26.6 Weight change and time frame None provided at admission. Weight Status Overweight Subjective/Other Information RD consult for nutrition education assessment. No reports available on Pt's PO intake of meals at the time , will assess at F/U. Pt is on Room Air, O2 saturation @ 97%, according to Physical Assessment History notes. Pt shows a L-Calf blister formation as signs of concern for skin risk at the time, according to Physical Assessment History notes. 7 to 10 days of accute ischemia of L-Foot w/stage III [place], the foot is no longer salvageable; L-BKA or L -AKA is recommended, according to Vascular Surgeon Consultation notes. Pt needs total assistance with ADL activities, not a candidate for Nutrition Education. Percent of energy/protein needs met: Prescribed Cardiac/Consistent Carbohydrates Diet provides for energy/protein needs (1, 977 Kcal/86 g) during LOS. Nutrition Intervention Follow-Up By: 12/10/21 Additional Comments Continue monitoring food tolerance, %PO intake of meals , and BM.
[2021-12-05] MEDS: DIVALPROEX DR 500 MG TAB PO SCH ×2 (09:36→22:48)
[2021-12-05] MEDS: amLODIPine 10 MG TAB PO SCH (09:36)
[2021-12-05] MEDS: ASPIRIN EC 81 MG TAB PO SCH (09:37)
[2021-12-05] MEDS: BENZTROPINE 1 MG TAB PO SCH ×2 (09:37→22:49)
[2021-12-05] MEDS: INSULIN LISPRO 100 UNIT/ML SUB-Q SCH ×3 (09:38→22:01)
--- NOTE | 2021-12-05 12:26 | Progress Note ---
Assessment and Plan This patient is 71-year-old female with a significant history of hypertension, diabetes, dementia, remote atrial fibrillation who presented for suspected ischemic limbs Ischemic limb- Vascular surgery following Remote history of atrial fibrillation Altered mental status Dementia Echo 12/03/2021-EF 40 to 45%. Mild diastolic dysfunction present. Impaired relaxation pattern. Echo bright density seen in LV apex. The apical thrombus is small and appears chronic/mature. No pericardial effusion Echocardiogram 2019: LVEF 55 to 60%. Plan: Twelve-lead ECG shows sinus tach heart rate 102 with T wave abnormalities Telemetry currently shows sinus tachycardia rate 100s-110s. Continue to monitor on telemetry Will initiate metoprolol 25 mg p.o. twice daily Will hold NEMESIO and ARB at this time. If BP remains stable will initiate NEMESIO and ARB at a later time Currently anticoagulated on heparin drip Patient is a moderate risk. As patient is not in acute heart failure no immediate contraindications to Vascular intervention This patient was seen in conjunction with Dr Chung Lion who agrees with assessment and plan of care - Patient Problems (1) Ischemic leg Current Visit: Yes Status: Acute (2) Severe peripheral arterial disease Current Visit: Yes Status: Acute (3) Diabetes Current Visit: No Status: Acute (4) HTN (hypertension) Current Visit: No Status: Chronic Qualifiers: Hypertension type: essential hypertension Qualified Code(s): I10 - Essential (primary) hypertension Subjective Date of service: 12/05/21 Principal diagnosis: Ischemic limb Interval history: Patient sitting in bed in no acute distress. Patient reports left lower extremity pain Sinus tach 100s to 110s Objective Vital Signs Temp Pulse Pulse Resp BP Pulse Ox 12/05/21 09:36 80 132/87 12/05/21 08:00 18 98 12/05/21 07:40 98.6 F 80 19 132/74 99 12/05/21 03:34 98.9 F 111 H 16 150/79 97 12/04/21 23:21 98.6 F 121 H 18 162/87 100 12/04/21 20:00 116 H 18 98 12/04/21 19:47 98.5 F 76 18 133/65 100 12/04/21 15:28 98.4 F 107 H 18 140/67 99 - Physical Examination General: No Apparent Distress HEENT: Positive: Normocephaly, Mucus Membranes Moist Cardiac: Positive: Regular Rhythm, Tachycardia Lungs: Positive: Normal Breath Sounds Neuro: Positive: Numbness (Left foot) Abdomen: Positive: Unremarkable, Soft, Active Bowel Sounds Skin: Positive: Other Musculoskeletal: Normal Range of Motion Extremities: Present: upper extr. pulses, Cold (Left foot). Absent: lower extr. pulses, edema - Labs and Meds CBC 12/04/21 Range/Units 16:13 WBC 14.3 H (4.5-11.0) K/mm3 RBC 3.36 L (3.65-5.03) M/mm3 Hgb 10.4 (10.1-14.3) gm/dl Hct 32.1 (30.3-42.9) % Plt Count 316 (140-440) K/mm3 Comprehensive Metabolic Panel 12/04/21 Range/Units 16:13 Sodium 139 (137-145) mmol/L Potassium 3.7 (3.6-5.0) mmol/L Chloride 101.6 (98-107) mmol/L Carbon Dioxide 23 (22-30) mmol/L BUN 11 (7-17) mg/dL Creatinine 1.0 (0.6-1.2) mg/dL Glucose 115 H (65-100) mg/dL Calcium 8.7 (8.4-10.2) mg/dL - Imaging and Cardiology EKG: report reviewed, image reviewed Echo: report reviewed - Telemetry EKG Rhythm: Sinus Tachycardia - EKG Sinus rhythms and dysrhythmias: sinus tachycardia
[2021-12-05] MEDS: METOPROLOL TARTRATE 25 MG TAB PO SCH ×2 (13:17→22:54)
[2021-12-05] MEDS: DONEPEZIL 5 MG TAB PO SCH (22:48)
[2021-12-05] MEDS: MIRTAZAPINE 15 MG TAB PO SCH (22:50)
[2021-12-06 04:35] LABS: Hematocrit 28.5 % (30.3-42.9); Hemoglobin 9.5 gm/dl (10.1-14.3); Mean Corpuscular HGB Conc 34 % (30-34); Mean Corpuscular Volume 94 fl (79-97); Platelet Count 374 K/mm3 (140-440); Red Blood Count 3.02 M/mm3 (3.65-5.03); Red Cell Distribution Width 14.7 % (13.2-15.2)
[2021-12-06 04:46] LABS: BUN/Creatinine Ratio 17; Blood Urea Nitrogen 17 mg/dL (7-17); Calcium 9.7 mg/dL (8.4-10.2); Hemolysis Index 1
--- NOTE | 2021-12-06 07:32 | Progress Note ---
Assessment and Plan Assessment and plan: #Sepsis secondary to limb ischemia #Left lower extremity arterial occlusion #Limb ischemia -CT angiogram of ABD/pelvis/lower extremities showed multifocal thrombi resulting in multifocal occlusion in bilateral lower extremity without runoff to left ankle, near occlusive thrombus in right popliteal artery and right posterior tibial artery -Cardiology consulted for pre-op risk stratification, patient at moderate risk can proceed with vascular intervention -Vascular surgery consulted, assistance appreciated; Dr. Hawkins attempted to contact the patient's daughter for updates unsuccessfully -continue heparin gtt -plan for intervention in the coming days #Hypertension -continue amlodipine at home dose #Type 2 Diabetes Mellitus -continue SSI + accuchecks -blood glucose currently at goal #Dementia -stable -continue donepezil and cogentin #Hypokalemia-resolved -K 4.1 -will continue to monitor through BMPs #Moderate protein calorie malnutrition -Albumin 3.0 -nutrition consult History Interval history: No acute events overnight per nursing. Patient with head undercovers at time of examination. She denies current pain and discomfort. I contacted the patients Daughter Kathleen [phone] twice and was unable to leave a voicemail since it was not set up. Hospitalist Physical - Physical exam Narrative exam: GENERAL: Well-developed well-nourished. In no acute distress. HEENT: Normocephalic. Atraumatic. CHEST/LUNGS: CTAB on room air HEART/CARDIOVASCULAR: Tachycardic. No murmur, rubs or gallops appreciated. ABDOMEN: +BS. NT/ND. SKIN: LLE with blistering and darkening of the skin. NEURO: Patient able to follow simple commands. MUSCULOSKELETAL: No joint effusion EXTREMITIES: LLE cyanosis. Cold L foot without palpable pedal pulses. R foot with blood flow and palpable pulses. PSYCH: Cooperative. Waxing, waning mental status. - Constitutional Vitals: Temp Pulse Resp BP Pulse Ox 98.9 F 105 H 20 140/69 99 12/06/21 03:55 12/06/21 04:00 12/06/21 03:55 12/06/21 03:55 12/06/21 03:55 General appearance: Present: no acute distress Results - Labs CBC & Chem 7: 12/06/21 03:43 12/06/21 03:43 Labs: Laboratory Last Values WBC 11.6 K/mm3 (4.5-11.0) H 12/06/21 03:43 RBC 3.02 M/mm3 (3.65-5.03) L 12/06/21 03:43 Hgb 9.5 gm/dl (10.1-14.3) L 12/06/21 03:43 Hct 28.5 % (30.3-42.9) L 12/06/21 03:43 MCV 94 fl (79-97) 12/06/21 03:43 MCH 32 pg (28-32) 12/06/21 03:43 MCHC 34 % (30-34) 12/06/21 03:43 RDW 14.7 % (13.2-15.2) 12/06/21 03:43 Plt Count 374 K/mm3 (140-440) 12/06/21 03:43 Lymph % (Auto) 16.1 % (13.4-35.0) 12/02/21 16:50 [place]itus % (Auto) 6.2 % (0.0-7.3) 12/02/21 16:50 Eos % (Auto) 0.1 % (0.0-4.3) 12/02/21 16:50 Baso % (Auto) 0.7 % (0.0-1.8) 12/02/21 16:50 Lymph # (Auto) 2.1 K/mm3 (1.2-5.4) 12/02/21 16:50 Titus # (Auto) 0.8 K/mm3 (0.0-0.8) 12/02/21 16:50 Eos # (Auto) 0.0 K/mm3 (0.0-0.4) 12/02/21 16:50 Baso # (Auto) 0.1 K/mm3 (0.0-0.1) 12/02/21 16:50 Seg Neutrophils % 76.9 % (40.0-70.0) H 12/02/21 16:50 Seg Neutrophils # 10.0 K/mm3 (1.8-7.7) H 12/02/21 16:50 PT 14.4 Sec. (12.2-14.9) 12/02/21 23:31 INR 0.98 (0.87-1.13) 12/02/21 23:31 APTT 43.3 Sec. (24.2-36.6) H 12/02/21 23:31 Heparin Anti-Xa Level 0.37 U.I./ml (0.3-0.7) 12/06/21 03:43 Sodium 144 mmol/L (137-145) 12/06/21 03:43 Potassium 4.1 mmol/L (3.6-5.0) 12/06/21 03:43 Chloride 106.3 mmol/L (98-107) 12/06/21 03:43 Carbon Dioxide 25 mmol/L (22-30) 12/06/21 03:43 Anion Gap 17 mmol/L 12/06/21 03:43 BUN 17 mg/dL (7-17) 12/06/21 03:43 Creatinine 1.0 mg/dL (0.6-1.2) 12/06/21 03:43 Estimated GFR > 60 ml/min 12/06/21 03:43 BUN/Creatinine Ratio 17 % 12/06/21 03:43 Glucose 77 mg/dL (65-100) 12/06/21 03:43 POC Glucose 98 mg/dL (70-105) 12/06/21 07:23 Calcium 9.7 mg/dL (8.4-10.2) 12/06/21 03:43 Total Bilirubin 0.60 mg/dL (0.1-1.2) 12/02/21 16:50 AST 45 units/L (5-40) H 12/02/21 16:50 ALT 40 units/L (7-56) 12/02/21 16:50 Alkaline Phosphatase 85 units/L (35-129) 12/02/21 16:50 Total Protein 7.0 g/dL (6.3-8.2) 12/02/21 16:50 Albumin 3.0 g/dL (3.9-5) L 12/02/21 16:50 Albumin/Globulin Ratio 0.8 % 12/02/21 16:50 Rosenberg/IV: Voiding Method External Female Catheter Active Medications - Current Medications Current Medications: Generic Name Dose Route Start Last Admin Trade Name Freq PRN Reason Stop Dose Admin Acetaminophen 650 mg 12/02/21 23:36 Acetaminophen 325 Mg Tab PO Q4H PRN Pain MILD(1-3)/Fever >100.5/TORIBIO Amlodipine Besylate 10 mg 12/03/21 15:00 12/05/21 09:36 Amlodipine 10 Mg Tab PO 10 mg QDAY ESAU Administration Aspirin 81 mg 12/03/21 11:00 12/05/21 09:37 Aspirin Ec 81 Mg Tab PO 81 mg QDAY ESAU Administration Benztropine Mesylate 1 mg 12/03/21 22:00 12/05/21 22:49 Benztropine 1 Mg Tab PO 1 mg BID ESAU Administration Dextrose 50 ml 12/02/21 23:36 Dextrose 50% In Water (25gm) 50 Ml Syringe IV Q30MIN PRN Hypoglycemia Protocol Divalproex Sodium 1,000 mg 12/03/21 22:00 12/05/21 22:[address] 500 Mg Tab PO 1,000 mg BID ESAU Administration Donepezil HCl 5 mg 12/03/21 22:00 12/05/21 22:48 Donepezil 5 Mg Tab PO 5 mg QHS ESAU Administration Heparin Sodium (Porcine) 3,000 unit 12/02/21 21:57 Heparin Prn Bolus(Standard Intensity Drip) 40 unit/kg (3000 unit) IV Q6H PRN For Heparin Anti-Xa < 0.1 Heparin Sodium/Sodium Chloride 25,000 unit in 250 mls @ 13.88 mls/hr 12/02/21 22:00 12/04/21 18:26 Heparin/ 0.45% Nacl-25,000 Unit/250 Ml IV 18 units/kg/hr TITR ESAU 13.88 mls/hr Administration Protocol 18 UNITS/KG/HR Sodium Chloride 1,000 mls @ 125 mls/hr 12/02/21 23:45 Nacl 0.9% 1000 Ml IV DIRECT [facility] Insulin Human Lispro 0 unit 12/03/21 07:30 12/05/21 22:01 Insulin Lispro 100 Unit/Ml SUB-Q Not Given ACHS [facility] Protocol Magnesium Hydroxide 30 ml 12/02/21 23:36 Magnesium Hydroxide (Mom) Oral Liqd Udc PO Q4H PRN Constipation Metoprolol Tartrate 25 mg 12/05/21 12:00 12/05/21 22:54 Metoprolol Tartrate 25 Mg Tab PO Not Given BID [facility] Mirtazapine 15 mg 12/03/21 22:00 12/05/21 22:50 Mirtazapine 15 Mg Tab PO 15 mg QHS ESAU Administration Morphine Sulfate 2 mg 12/02/21 23:36 12/04/21 09:57 Morphine 2 Mg/1 Ml Inj IV 2 mg Q4H PRN Administration Pain, Moderate (4-6) Morphine Sulfate 4 mg 12/02/21 23:36 Morphine 4 Mg/1 Ml Inj IV Q4H PRN Pain , Severe (7-10) Naloxone HCl 0.1 mg 12/02/21 22:33 Naloxone 0.4 Mg/1 Ml Inj IV Q2MIN PRN Res Rate </= 8 or 02 SAT < 92% Ondansetron HCl 4 mg 12/02/21 23:36 Ondansetron 4 Mg/2 Ml Inj IV Q8H PRN Nausea And Vomiting Sodium Chloride 10 ml 12/03/21 10:00 12/05/21 22:50 Sodium Chloride 0.9% 10 Ml Flush Syringe IV 10 ml BID ESAU Administration Sodium Chloride 10 ml 12/02/21 23:36 Sodium Chloride 0.9% 10 Ml Flush Syringe IV PRN PRN LINE FLUSH Nutrition/Malnutrition Assess - Dietary Evaluation Nutrition/Malnutrition Findings: Nutrition Notes Start: 12/03/21 11:09 Freq: Status: Active Protocol: Document 12/03/21 11:09 MOISES (Rec: 12/03/21 11:30 MOISES [id number]) Nutrition Notes Need for Assessment generated from: MD Order,Education Initial or Follow up Brief Note Current Diagnosis Diabetes,Hypertension Other Pertinent Diagnosis L-LE Arterial Occlusion/Pain/ Swelling, Leukocytosis, Hx Atrial Fibrilation, Current Diet Cardiac/Consistent Carbohydrates Diet (since B ). Height 5 ft 7 in Weight 77.111 kg [place] Body Weight (kg) 61.36 BMI 26.6 Weight change and time frame None provided at admission. Weight Status Overweight Subjective/Other Information RD consult for nutrition education assessment. No reports available on Pt's PO intake of meals at the time , will assess at F/U. Pt is on Room Air, O2 saturation @ 97%, according to Physical Assessment History notes. Pt shows a L-Calf blister formation as signs of concern for skin risk at the time, according to Physical Assessment History notes. 7 to 10 days of accute ischemia of L-Foot w/stage III [place], the foot is no longer salvageable; L-BKA or L -AKA is recommended, according to Vascular Surgeon Consultation notes. Pt needs total assistance with ADL activities, not a candidate for Nutrition Education. Percent of energy/protein needs met: Prescribed Cardiac/Consistent Carbohydrates Diet provides for energy/protein needs (1, 977 Kcal/86 g) during LOS. Nutrition Intervention Follow-Up By: 12/10/21 Additional Comments Continue monitoring food tolerance, %PO intake of meals , and BM.
[2021-12-06] MEDS: INSULIN LISPRO 100 UNIT/ML SUB-Q SCH ×4 (08:56→21:01)
[2021-12-06] MEDS: BENZTROPINE 1 MG TAB PO SCH ×2 (10:20→20:49)
[2021-12-06] MEDS: amLODIPine 10 MG TAB PO SCH (10:20)
[2021-12-06] MEDS: DIVALPROEX DR 500 MG TAB PO SCH ×3 (10:20→21:00)
[2021-12-06] MEDS: ASPIRIN EC 81 MG TAB PO SCH (10:20)
[2021-12-06] MEDS: METOPROLOL TARTRATE 25 MG TAB PO SCH ×3 (10:20→21:01)
--- NOTE | 2021-12-06 10:23 | Progress Note ---
Assessment and Plan I have reviewed the films, the patient's clinical exam, and overall mental status. The patient's left foot and leg are not salvageable at this time. Also given the patient's overall mental state attempt to salvage a below-knee amputation would be futile as she would not be able to rehab and will require conversion to an AKA. The patient needs an open thrombectomy of her left iliac artery as well as an above-knee amputation at the same setting. This is her best chance of having 1 operation and healing and amputation site. I made multiple attempts to speak with her daughter Kathleen Arndt however the phone continue to go to voicemail. I will make multiple attempts over the weekend to contact her and discussed the plan in hopes of obtaining consent. If unsuccessful obtaining consent I will plan for the operation on Thursday. Subjective Date of service: 12/06/21 Principal diagnosis: Ischemic limb Interval history: The patient confirms she has pain in her left leg. Objective - Constitutional Vitals: Vital Signs - 12hr 12/05/21 12/05/21 12/06/21 22:54 22:59 03:55 Temperature 97.9 F 98.9 F Pulse Rate 83 87 97 H Respiratory 18 20 Rate Blood Pressure 113/50 115/58 140/69 O2 Sat by Pulse 99 99 Oximetry 12/06/21 12/06/21 04:00 07:24 Temperature 98.9 F Pulse Rate 105 H 113 H Respiratory 18 Rate Blood Pressure 146/80 O2 Sat by Pulse 100 Oximetry General appearance: Present: no acute distress - Respiratory Respiratory effort: normal Extremities: abnormal (left foot cold without motor. Large bullae over the left pretibial skin. Right foot warm) - Labs CBC & Chem 7: 12/06/21 03:43 12/06/21 03:43 Labs: Abnormal lab results 12/05/21 12/05/21 12/06/21 Range/Units 15:44 20:34 03:43 WBC 11.6 H (4.5-11.0) K/mm3 RBC 3.02 L (3.65-5.03) M/mm3 Hgb 9.5 L (10.1-14.3) gm/dl Hct 28.5 L (30.3-42.9) % POC Glucose 136 H 141 H (70-105) mg/dL Medications & Allergies - Medications Allergies/Adverse Reactions: Allergies No Known Allergies Allergy (Verified 12/05/21 16:11) Home Medications: Home Medications Medication Instructions Recorded Confirmed Last Taken Type haloperidoL [Haloperidol] 5 mg PO QAM 12/17/20 12/05/21 Unknown History haloperidoL [Haloperidol] 10 mg PO QPM 12/17/20 12/05/21 Unknown History Benztropine [Cogentin] 2 mg PO BID 12/05/21 12/05/21 Unknown History Chlorpromazine HCl 50 mg PO BID 12/05/21 12/05/[address] [DepAylaTE DR] 500 mg PO BID 12/05/21 12/05/21 Unknown History Active Medications: Generic Name Dose Route Start Last Admin Trade Name Freq PRN Reason Stop Dose Admin Acetaminophen 650 mg 12/02/21 23:36 Acetaminophen 325 Mg Tab PO Q4H PRN Pain MILD(1-3)/Fever >100.5/TORIBIO Amlodipine Besylate 10 mg 12/03/21 15:00 12/05/21 09:36 Amlodipine 10 Mg Tab PO 10 mg QDAY ESAU Administration Aspirin 81 mg 12/03/21 11:00 12/05/21 09:37 Aspirin Ec 81 Mg Tab PO 81 mg QDAY ESAU Administration Benztropine Mesylate 1 mg 12/03/21 22:00 12/05/21 22:49 Benztropine 1 Mg Tab PO 1 mg BID ESAU Administration Dextrose 50 ml 12/02/21 23:36 Dextrose 50% In Water (25gm) 50 Ml Syringe IV Q30MIN PRN Hypoglycemia Protocol Divalproex Sodium 1,000 mg 12/03/21 22:00 12/05/21 22:[address] 500 Mg Tab PO 1,000 mg BID ESAU Administration Donepezil HCl 5 mg 12/03/21 22:00 12/05/21 22:48 Donepezil 5 Mg Tab PO 5 mg QHS ESAU Administration Heparin Sodium (Porcine) 3,000 unit 12/02/21 21:57 Heparin Prn Bolus(Standard Intensity Drip) 40 unit/kg (3000 unit) IV Q6H PRN For Heparin Anti-Xa < 0.1 Heparin Sodium/Sodium Chloride 25,000 unit in 250 mls @ 13.88 mls/hr 12/02/21 22:00 12/04/21 18:26 Heparin/ 0.45% Nacl-25,000 Unit/250 Ml IV 18 units/kg/hr TITR ESAU 13.88 mls/hr Administration Protocol 18 UNITS/KG/HR Sodium Chloride 1,000 mls @ 125 mls/hr 12/02/21 23:45 Nacl 0.9% 1000 Ml IV DIRECT ESAU Insulin Human Lispro 0 unit 12/03/21 07:30 12/06/21 08:56 Insulin Lispro 100 Unit/Ml SUB-Q Not Given ACHS [facility] Protocol Magnesium Hydroxide 30 ml 12/02/21 23:36 Magnesium Hydroxide (Mom) Oral Liqd Udc PO Q4H PRN Constipation Metoprolol Tartrate 25 mg 12/05/21 12:00 12/05/21 22:54 Metoprolol Tartrate 25 Mg Tab PO Not Given BID [facility] Mirtazapine 15 mg 12/03/21 22:00 12/05/21 22:50 Mirtazapine 15 Mg Tab PO 15 mg QHS [facility] Administration Morphine Sulfate 2 mg 12/02/21 23:36 12/04/21 09:57 Morphine 2 Mg/1 Ml Inj IV 2 mg Q4H PRN Administration Pain, Moderate (4-6) Morphine Sulfate 4 mg 12/02/21 23:36 Morphine 4 Mg/1 Ml Inj IV Q4H PRN Pain , Severe (7-10) Naloxone HCl 0.1 mg 12/02/21 22:33 Naloxone 0.4 Mg/1 Ml Inj IV Q2MIN PRN Res Rate </= 8 or 02 SAT < 92% Ondansetron HCl 4 mg 12/02/21 23:36 Ondansetron 4 Mg/2 Ml Inj IV Q8H PRN Nausea And Vomiting Sodium Chloride 10 ml 12/03/21 10:00 12/05/21 22:50 Sodium Chloride 0.9% 10 Ml Flush Syringe IV 10 ml BID ESAU Administration Sodium Chloride 10 ml 12/02/21 23:36 Sodium Chloride 0.9% 10 Ml Flush Syringe IV PRN PRN LINE FLUSH
--- NOTE | 2021-12-06 13:25 | Progress Note ---
Assessment and Plan This patient is 71-year-old female with a significant history of hypertension, diabetes, dementia, remote atrial fibrillation who presented for suspected ischemic limbs Ischemic limb- Vascular surgery following Remote history of atrial fibrillation Altered mental status Dementia Echo 12/03/2021-EF 40 to 45%. Mild diastolic dysfunction present. Impaired relaxation pattern. Echo bright density seen in LV apex. The apical thrombus is small and appears chronic/mature. No pericardial effusion Echocardiogram 2019: LVEF 55 to 60%. Plan: Twelve-lead ECG shows sinus tach heart rate 102 with T wave abnormalities Telemetry currently shows sinus tachycardia rate 100s-110s. Continue metoprolol 25 mg p.o. twice daily Will initiate losartan 25mg PO QD Currently anticoagulated on heparin drip. Following AKA patient should be anticoagulated as an outpatient Patient is a moderate risk. As patient is not in acute heart failure no immediate contraindications to Vascular intervention Cardiac status otherwise stale. Will see as needed This patient was seen in conjunction with Dr Chung Lion who agrees with assessment and plan of care - Patient Problems (1) Ischemic leg Current Visit: Yes Status: Acute (2) Severe peripheral arterial disease Current Visit: Yes Status: Acute (3) Diabetes Current Visit: No Status: Acute (4) HTN (hypertension) Current Visit: No Status: Chronic Qualifiers: Hypertension type: essential hypertension Subjective Date of service: 12/06/21 Principal diagnosis: Ischemic limb Interval history: Patient sitting in bed in no acute distress. Patient reports left lower extremity pain Sinus 90s Objective Vital Signs Temp Pulse Resp BP Pulse Ox 12/06/21 10:00 111 H 98 12/06/21 07:24 98.9 F 113 H 18 146/80 100 12/06/21 04:00 105 H 12/06/21 03:55 98.9 F 97 H 20 140/69 99 12/05/21 22:59 97.9 F 87 18 115/58 99 12/05/21 22:54 83 113/50 12/05/21 20:00 71 99 12/05/21 19:32 98.9 F 83 18 155/84 100 12/05/21 15:44 98.0 F 90 18 117/61 98 - Physical Examination General: No Apparent Distress HEENT: Positive: Normocephaly, Mucus Membranes Moist Cardiac: Positive: Reg Rate and Rhythm Lungs: Positive: Normal Breath Sounds Neuro: Positive: Numbness (Left foot) Abdomen: Positive: Unremarkable, Soft, Active Bowel Sounds Skin: Positive: Other Musculoskeletal: Normal Range of Motion Extremities: Present: upper extr. pulses, Cold (Left foot). Absent: lower extr. pulses, edema - Labs and Meds CBC 12/06/21 Range/Units 03:43 WBC 11.6 H (4.5-11.0) K/mm3 RBC 3.02 L (3.65-5.03) M/mm3 Hgb 9.5 L (10.1-14.3) gm/dl Hct 28.5 L (30.3-42.9) % Plt Count 374 (140-440) K/mm3 Comprehensive Metabolic Panel 12/06/21 Range/Units 03:43 Sodium 144 (137-145) mmol/L Potassium 4.1 (3.6-5.0) mmol/L Chloride 106.3 (98-107) mmol/L Carbon Dioxide 25 (22-30) mmol/L BUN 17 (7-17) mg/dL Creatinine 1.0 (0.6-1.2) mg/dL Glucose 77 (65-100) mg/dL Calcium 9.7 (8.4-10.2) mg/dL - Imaging and Cardiology EKG: report reviewed, image reviewed Echo: report reviewed - Telemetry EKG Rhythm: Sinus Rhythm - EKG Sinus rhythms and dysrhythmias: sinus rhythm, sinus tachycardia
[2021-12-06] MEDS: MORPHINE 2 MG/1 ML INJ IV PRN (17:05)
[2021-12-06] MEDS: HEPARIN/ 0.45% NACL DRIP 25,000 UNIT/250 ML BAG IV SCH (17:06)
[2021-12-06 18:42] VITALS: BP 138/73
[2021-12-06] MEDS: MIRTAZAPINE 15 MG TAB PO SCH ×2 (20:50→21:02)
[2021-12-06] MEDS: DONEPEZIL 5 MG TAB PO SCH (20:51)
[2021-12-07] MEDS ORDERED: LOSARTAN 25 MG TAB PO SCH (10:00)
== END 2021-12-06 23:00 | DRG 872 ==
LOC: ED 16:14 → 4A 22:33
PROVIDERS: ADMIT Internal Medicine Geriatric Medicine; ATTEND Student in an Organized Health Care Education/Training Program
DX: A41.9 Sepsis, unspecified organism (principal); E44.0 Moderate protein-calorie malnutrition; I70.223 Atherosclerosis of native arteries of extremities with rest pain, bilateral legs; I70.202 Unspecified atherosclerosis of native arteries of extremities, left leg; E11.9 Type 2 diabetes mellitus without complications; Z68.26 Body mass index [BMI] 26.0-26.9, adult
CPT/HCPCS: 36415; 71045; 75635; 80048; 80053; 82962; 85025; 85027; 85520; 85610; 85730; 93005; 93306; 96372; 96374; 99285; G0378; J3490; Q9967; C8929; J1630; J1644; J1815; J2270